=== PATIENT | female | born 1930 | race Caucasian/White ===

== ENCOUNTER 2017-04-16 21:02 | Emergency (ER) | payer MEDICARE, OTHER ==
--- NOTE | 2017-04-16 22:05 | C.PDOC ---
History Of Present Illness 86 yo female, hx of htn, presents with coker. as per pt, started yesterday. pt c/o of pain to frontal and occiput. did not take anything for pain. no fevers, or other complaints. Time Seen by Provider: 04/16/17 21:54 Chief Complaint (Nursing): Headache Past Medical History Reviewed: Historical Data, Nursing Documentation, Vital Signs Vital Signs: Last Vital Signs Temp 97.7 F 04/16/17 23:41 Pulse 88 04/16/17 23:41 Resp 20 04/16/17 23:41 BP 155/62 H 04/16/17 23:41 Pulse Ox 97 04/17/17 00:18 - Medical History PMH: Arthritis, HTN, Hypercholesterolemia Family History: States: Unknown Family Hx - Social History Hx Alcohol Use: No Hx Substance Use: No - Immunization History Hx Tetanus Toxoid Vaccination: No Hx Influenza Vaccination: No Hx Pneumococcal Vaccination: No Review Of Systems Except As Marked, All Systems Reviewed And Found Negative. Neurological: Positive for: Headache Physical Exam - Physical Exam Appears: Well, No Acute Distress Skin: Normal Color, Warm, Dry Eye(s): bilateral: Normal Inspection, PERRL, EOMI Nose: Normal Throat: Normal Neck: Normal Cardiovascular: Rhythm Regular Respiratory: Normal Breath Sounds Gastrointestinal/Abdominal: Normal Exam Back: Normal Inspection Extremity: Normal ROM Neurological/Psych: Oriented x3, Normal Speech, Normal Cognition, Normal Cranial Nerves, No Cerebellar Signs, Normal Motor, Normal Sensation ED Course And Treatment - Laboratory Results Result Diagrams: 04/16/17 22:24 04/16/17 22:24 O2 Sat by Pulse Oximetry: 97 Disposition - Disposition Referrals: [facility] [Outside] [facility] [Outside] Mars Mackey MD [Staff Provider] - Disposition: HOME/ ROUTINE Disposition Time: 07:00 Condition: GOOD Additional Instructions: please follow up with your doctor. return to er with worsening symptoms or concerns. Instructions: Acute Headache (ED) - Clinical Impression Clinical Impression: Headache
[2017-04-16 22:27] LABS: BASO % 0.8 % (0.0-2.0); EOS % 0.2 % (0.0-4.0); HEMOGLOBIN 11.9 g/dL (11.0-16.0); LYMPH # 1.9 K/uL (1.0-4.3); LYMPH % 35.5 % (20.0-40.0); MEAN CELL VOLUME 87.8 fL (81.0-99.0); MEAN CORPUSCULAR HEMOGLOBIN 28.1 pg (27.0-31.0); MEAN PLATELET VOLUME 8.8 fL (7.2-11.7); MONO # 0.6 K/uL (0.0-0.8); MONO % 10.4 % (0.0-10.0); NEUT # 2.8 K/uL (1.8-7.0); NEUT % 53.1 % (50.0-75.0); NRBC % 0.1 % (0.0-2.0); RBC 4.23 Mil/uL (3.80-5.20); RED CELL DISTRIBUTION WIDTH 14.3 % (11.5-14.5); WHITE BLOOD COUNT 5.3 K/uL (4.8-10.8)
[2017-04-16 22:34] LABS: INR 0.9; PROTHROMBIN TIME 9.9 SECONDS (9.7-12.2)
[2017-04-16 22:37] LABS: ALB/GLOB RATIO 1.1 (1.0-2.1); AST/SGOT 32 U/L (14-36); GFR AFRICAN-AMERICAN > 60; GFR NON-AFRICAN AMERICAN > 60
[2017-04-16 22:38] LABS: ALT/SGPT 25 U/L (9-52); BLOOD UREA NITROGEN 14 mg/dL (7-17); CALCIUM 8.7 mg/dl (8.6-10.4)
[2017-04-16 23:13] LABS: SQUAMOUS EPITHIAL < 1 /hpf (0-5); URINE BACTERIA RARE (<OCC); URINE BILIRUBIN NEGATIVE (NEGATIVE); URINE BLOOD NEGATIVE (NEGATIVE); URINE CLARITY Clear (Clear); URINE COLOR Yellow (YELLOW); URINE GLUCOSE (UA) NORMAL (Normal); URINE LEUKOCYTE ESTERASE TRACE Leu/uL (Negative); URINE NITRATE NEGATIVE (NEGATIVE); URINE PROTEIN NEGATIVE (NEGATIVE); URINE UROBILINOGEN NORMAL mg/dL (0.2-1.0)
[2017-04-16 23:42] VITALS: BP 155/62; PULSE 88; RESP 20; TEMP 97.7
[2017-04-17 00:18] VITALS: O2SAT 97
--- NOTE | 2017-04-17 08:13 | CT ---
PROCEDURE: CT HEAD WITHOUT CONTRAST. HISTORY: Headache COMPARISON: None available. TECHNIQUE: Axial computed tomography images were obtained through the head/brain without intravenous contrast. Radiation dose: Total exam DLP = nine hundred mGy-cm. This CT exam was performed using one or more of the following dose reduction techniques: Automated exposure control, adjustment of the mA and/or kV according to patient size, and/or use of iterative reconstruction technique. FINDINGS: HEMORRHAGE: No intracranial hemorrhage. BRAIN: No mass effect or edema. Scattered focal lucencies in the subcortical and periventricular white matter suggestive for chronic microvascular ischemic change. Mild prominence of the ventricles and sulci compatible with mild atrophy. Punctate bilateral basal ganglia calcifications. Punctate hypodensity in the left basal ganglia suggestive for a prominent perivascular space versus small lacunar infarct. VENTRICLES: Unremarkable. No hydrocephalus. CALVARIUM: Unremarkable. PARANASAL SINUSES: Unremarkable as visualized. No significant inflammatory changes. MASTOID AIR CELLS: Unremarkable as visualized. No inflammatory changes. OTHER FINDINGS: Intracranial atherosclerotic calcifications. IMPRESSION: Chronic microvascular ischemic changes. Mild atrophy. If focal neurologic deficit persists, consider MRI. These findings were preliminarily reported at 10:44 p.m. 04/16/[address] Jason Saleh from [facility].
== END 2017-04-16 23:48 | disposition home or self-care (01) ==
LOC: C.ER 21:02
DX: R51 Headache (principal)

== ENCOUNTER 2017-06-21 02:54 | Inpatient (IN) | payer MEDICARE, OTHER ==
--- NOTE | 2017-06-21 03:20 | C.PDOC ---
History Of Present Illness patient states that about 2 hours ago developed palpitations with rapid heart rate. No chest pain, no shortness of breath. speaking in complete sentences. Time Seen by Provider: 06/21/17 03:20 Chief Complaint (Nursing): Palpitations History Per: Patient History/Exam Limitations: no limitations Onset/Duration Of Symptoms: Hrs Current Symptoms Are (Timing): Gone Associated Symptoms: Other (palpitations). denies: Chest Pain, Dyspnea, Dizziness Quality Of Symptoms: Rapid Heart Rate Severity: Moderate Pain Scale Rating Of: 4 Exacerbating Factor(s): Pos: None Recent travel outside of the [place]: No Additional History Per: Patient Past Medical History Reviewed: Historical Data, Nursing Documentation, Vital Signs Vital Signs: Last Vital Signs Temp 97.6 F 06/21/17 03:10 Pulse 81 06/21/17 03:10 Resp 20 06/21/17 03:10 BP 168/73 H 06/21/17 03:10 Pulse Ox 98 06/21/17 04:00 - Medical History PMH: Arthritis, HTN, Hypercholesterolemia Family History: States: No Known Family Hx - Social History Hx Alcohol Use: No Hx Substance Use: No - Immunization History Hx Tetanus Toxoid Vaccination: No Hx Influenza Vaccination: No Hx Pneumococcal Vaccination: No Review Of Systems Constitutional: Negative for: Fever, Chills Eyes: Negative for: Vision Change ENT: Negative for: Throat Pain Cardiovascular: Positive for: Palpitations. Negative for: Chest Pain Respiratory: Negative for: Shortness of Breath Gastrointestinal: Negative for: Nausea, Vomiting Genitourinary: Negative for: Dysuria Musculoskeletal: Negative for: Back Pain Skin: Negative for: Rash Neurological: Negative for: Weakness Psych: Negative for: Anxiety Physical Exam - Physical Exam Appears: Non-toxic, No Acute Distress Skin: Warm, Dry Head: Normacephalic Eye(s): bilateral: Normal Inspection Oral Mucosa: Moist Neck: Supple Chest: Symmetrical Cardiovascular: Rhythm Regular Respiratory: No Rales, No Rhonchi, No Wheezing Gastrointestinal/Abdominal: Soft Back: No CVA Tenderness Extremity: Bilateral: Atraumatic, No Pedal Edema, Normal Color And Temperature Pulses: Left Dorsalis Pedis: Normal, Right Dorsalis Pedis: Normal Neurological/Psych: Oriented x3, Normal Speech, Normal Cognition Gait: Steady ED Course And Treatment - Laboratory Results Result Diagrams: 06/21/17 03:35 06/21/17 03:35 ECG: Interpreted By Me, Viewed By Me ECG Rhythm: Sinus Rhythm (88), Nonspecific Changes O2 Sat by Pulse Oximetry: 98 Pulse Ox Interpretation: Normal - Radiology CXR Interpretation: No: Infiltrates, Fracture, Pnemothorax Disposition Discussed With Dr.: Carmela Casarez Comment: accepted the pt on her service and took over the care at 4:40 AM Doctor Will See Patient In The: Hospital Counseled Patient/Family Regarding: Studies Performed, Diagnosis - Disposition Disposition: HOSPITALIZED Disposition Time: 04:41 Condition: FAIR Forms: [employer] (Mongolian) - POA Present On Arrival: None - Clinical Impression Clinical Impression: Palpitations, Atrial arrhythmia Decision To Admit - Pt Status Changed To: Hospital Disposition Of: Inpatient - Admit Certification Admit to Inpatient:: After my assessment, the patient will require hospitalization for at least two midnights. This is because of the severity of symptoms shown, intensity of services needed, and/or the medical risk in this patient being treated as an outpatient. - InPatient: Physician Admission Certification: I certify that this patient requires 2 or more midnights of care for the following reason:: After my assessment, the patient will require hospitalization for at least two midnights. This is because of the severity of symptoms shown, intensity of services needed, and/or the medical risk in this patient being treated as an outpatient. - . Bed Request Type: Telemetry Admitting Physician: Carmela Casarez Patient Diagnosis: Palpitations, Atrial arrhythmia
[2017-06-21 03:40] LABS: BASO % 0.3 % (0.0-2.0); EOS % 0.1 % (0.0-4.0); HEMATOCRIT 35.6 % (34.0-47.0); LYMPH # 1.5 K/uL (1.0-4.3); LYMPH % 26.2 % (20.0-40.0); MEAN CELL VOLUME 88.3 fL (81.0-99.0); MEAN CORPUSCULAR HEMOGLOBIN 28.5 pg (27.0-31.0); MEAN CORPUSCULAR HGB CONC 32.3 g/dL (33.0-37.0); MONO # 0.4 K/uL (0.0-0.8); MONO % 6.6 % (0.0-10.0); NRBC % 0.1 % (0.0-2.0); RED CELL DISTRIBUTION WIDTH 15.2 % (11.5-14.5); WHITE BLOOD COUNT 5.6 K/uL (4.8-10.8)
[2017-06-21 03:45] LABS: INR 0.9
[2017-06-21 03:50] LABS: ALB/GLOB RATIO 1.2 (1.0-2.1); ALKALINE PHOSPHATASE 59 U/L (38-126); ALT/SGPT 30 U/L (9-52); AST/SGOT 34 U/L (14-36); BILIRUBIN,TOTAL 0.3 mg/dL (0.2-1.3); BLOOD UREA NITROGEN 21 mg/dL (7-17); CALCIUM 9.2 mg/dl (8.6-10.4); CARBON DIOXIDE 27 mmol/L (22-30); CHLORIDE 104 mmol/L (98-107); GFR AFRICAN-AMERICAN > 60; GLUCOSE,RANDOM 107 mg/dL (65-105); SODIUM 145 mmol/L (132-148); TOTAL PROTEIN 7.2 g/dL (6.3-8.3)
[2017-06-21 04:11] LABS: RBC URINE < 1 /hpf (0-3); URINE BILIRUBIN NEGATIVE (NEGATIVE); URINE BLOOD NEGATIVE (NEGATIVE); URINE COLOR Colorless (YELLOW); URINE GLUCOSE (UA) NORMAL (Normal); URINE KETONE NEGATIVE (NEGATIVE); URINE LEUKOCYTE ESTERASE NEG Leu/uL (Negative); URINE PROTEIN NEGATIVE (NEGATIVE); URINE UROBILINOGEN NORMAL mg/dL (0.2-1.0)
[2017-06-21 04:20] LABS: THYROID STIMULATING HORMONE 2.98 mIU/L (0.46-4.68)
[2017-06-21] MEDS: Aspirin 325 mg EC Tablets PO SCH (09:49)
[2017-06-21 11:07] VITALS: RESP 20
--- NOTE | 2017-06-21 13:00 | RAD ---
PROCEDURE: CHEST RADIOGRAPH, 1 VIEW HISTORY: chest pain COMPARISON: None available. FINDINGS: LUNGS: Clear. PLEURA: No pneumothorax or pleural fluid seen. CARDIOVASCULAR: Normal. OSSEOUS STRUCTURES: No significant abnormalities. VISUALIZED UPPER ABDOMEN: Normal. OTHER FINDINGS: None. IMPRESSION: No active disease.
--- NOTE | 2017-06-21 14:39 | CP.PCM.PN ---
Subjective - Date & Time of Evaluation Date of Evaluation: 06/21/17 Time of Evaluation: 13:30 - Subjective Subjective: H&P dictated #[id number] Objective - Vital Signs/Intake and Output Vital Signs (last 24 hours): Temp Pulse Resp BP Pulse Ox 97.9 F 63 20 136/67 100 06/21/17 07:24 06/21/17 11:06 06/21/17 11:06 06/21/17 11:06 06/21/17 11:06 - Medications Medications: Current Medications Amlodipine Besylate (Norvasc) 5 mg PO DAILY [facility] Last Admin: 06/21/17 09:49 Dose: 5 mg Aspirin (Ecotrin) 325 mg PO DAILY [facility] Last Admin: 06/21/17 09:49 Dose: 325 mg Atenolol (Tenormin) 25 mg PO DAILY [facility] Last Admin: 06/21/17 09:49 Dose: 25 mg Lisinopril (Zestril) 40 mg PO DAILY [facility] Last Admin: 06/21/17 09:49 Dose: 40 mg - Labs Labs: PT 10.2 SECONDS (9.7-12.2) 06/21/17 03:35 INR 0.9 06/21/17 03:35 APTT 32 SECONDS (21-34) 06/21/17 03:35
--- NOTE | 2017-06-22 01:05 | HP ---
CHIEF COMPLAINT: Multiple episodes of palpitations which happened yesterday for longer time. HISTORY OF PRESENT ILLNESS: Ms. Bobby Correia is an 86-year-old female with past medical history of hypertension, hyperlipidemia, osteoarthritis who has been following up with Dr. Neal as primary care physician, came into the ED with complaints of multiple episodes of palpitations which happened yesterday. All the history obtained from the patient via a Tajik speaking road freight brake coupler who is an RN. As per the patient, she has been in her usual state of health. Yesterday, she felt like her heart was racing without any other associated symptoms of chest pain, dizziness, diaphoresis, or shortness of breath. She claims that she is not anxious or nervous. She is not under any stress. The third episode lasted more than half an hour, which made her come to her emergency room. Since her arrival to the hospital, she is feeling better. Denies any further episodes of palpitations. She claims that she had one episode about 2 years ago and 2 years ago another episode. During those episodes, she was upset about something but yesterday, no other triggering factors as far as she could recall. Denied any headache, dizziness. Denied any chest pain, shortness of breath, or wheezing. Denied any nausea, vomiting, abdominal pain, diarrhea or constipation. Denied any urinary complaints. Denied any leg pains or leg swelling. Denied any other neurologic symptoms. PAST MEDICAL HISTORY: As described: Hypertension, hyperlipidemia, osteoarthritis. PAST SURGICAL HISTORY: Underwent hysterectomy, cataract surgery, and laser surgery. FAMILY HISTORY: Hyperlipidemia and CVA in the mother. Father from pneumonia. SOCIAL HISTORY: Denies smoking, alcohol or drug abuse. ALLERGIES: NO KNOWN DRUG ALLERGIES. PERSONAL HISTORY: She is a , retired, lives with her daughter. MEDICATIONS AT HOME: Include amlodipine 40 mg daily, lisinopril 40 mg daily, atenolol 25 mg daily. REVIEW OF SYSTEMS: As described in history of present illness. All other systems reviewed and were found to be negative. PHYSICAL EXAMINATION: GENERAL: Elderly female lying in bed, in no acute distress. VITAL SIGNS: Blood pressure 136/67, pulse 63, respiration 20, temperature 98 degrees Fahrenheit, O2 sat 100% on room air. HEENT: Pupils equal, round, and reacting to light and accommodation. Extraocular muscles intact. No icterus. No pallor. No oral thrush. No pharyngeal congestion. NECK: Supple. No JVD. No thyromegaly. CHEST: Moving equally bilaterally on respiration. LUNGS: Bilateral vesicular breath sounds. No wheezing, no rhonchi. CVS: S1 and S2 present and regular. ABDOMEN: Soft and nontender. Bowel sounds are present. No guarding. No rigidity. No rebound tenderness noted. MATERIAL CONTROL CLERK: Alert, awake, oriented x3. No focal deficit noted. EXTREMITIES: No edema. Palpable peripheral pulses. LABORATORY DATA: Labs done from ED WBC 5.6, hemoglobin 11.5, hematocrit 35.6, platelets 211. PT 10.2, INR 0.9, PTT 32. Sodium 145, potassium 4.0, chloride 104, bicarbonate 27, BUN 21, creatinine 0.7, glucose 107, calcium 9.2, total bilirubin 0.3, AST 34, ALT 30, alkaline phosphatase 59. Cardiac enzymes x2 negative. Total protein 7.2, albumin 3.9, triglycerides 51, cholesterol 141, LDL 71, HDL 51, TSH 2.98. UA specific gravity 1.002, pH 6.0, otherwise negative. EKG, normal sinus rhythm at 88 beats per minute, left axis deviation. No acute ST-T changes noted. Chest x-ray, negative for any active disease. ASSESSMENT: Elderly female with history of hypertension, hyperlipidemia, osteoarthritis, admitted for multiple episodes of palpitations, nonsustained. The patient is being admitted for further evaluation. 1. Multiple episodes of palpitations in a patient with multiple risk factors, rule out cardiac arrhythmias, rule out coronary artery disease. 2. Hypertension. Blood pressure is slightly uncontrolled. 3. Hyperlipidemia. 4. Hypothyroidism. PLAN: The patient is being admitted to telemetry. We will do serial cardiac enzymes, serial EKGs. We will check echocardiogram. We will check Holter monitor. We will obtain Cardiology evaluation with Dr. Hernandez. We will give aspirin 325 mg p.o. daily. Continue with her home medications. Adjust her blood pressure medication as needed. Her TSH is within normal limits. Lipid profile is within normal limits. We will repeat labs in a.m. We will add further recommendations as her clinical course progresses. Carmela Casarez MD
[2017-06-22 08:35] VITALS: PULSE 52
--- NOTE | 2017-06-22 10:53 | CON ---
CARDIOLOGY CONSULT REQUESTED BY: Carmela Casarez MD LOCATION: Presently in telemetry, in room 651A. HISTORY OF PRESENT ILLNESS: Requested to see this 86-year-old female due to "palpitations." Last night on her way to bed, as she was walking, she felt the heart was beating fast lying in the bed, and she was afraid, came to the emergency room, and she was found to be hemodynamically stable, in no acute distress. However, due to age and the history, she was admitted for further evaluation. She denies any chest discomfort. No shortness of breath, no diaphoresis, no syncope. PAST MEDICAL HISTORY: Includes hypertensive heart disease for many many years, she claims about 30 years. MEDICATIONS: She is taking multiple medications which include lisinopril, atenolol, amlodipine as well 5 mg. ALLERGIES: SHE CLAIMS TO HAVE NO ALLERGIES TO MEDICATIONS. SOCIAL HISTORY: She is a nonsmoker. PAST SURGICAL HISTORY: Her only surgical history was tubal ligation. REVIEW OF SYSTEMS: From the cardiopulmonary view point except for what is mentioned above, otherwise negative. and GI, unremarkable. She walks in house, and she uses a cane for because she has chronic pain in the right leg, other than that she is fine according to her. PHYSICAL EXAMINATION GENERAL: Alert, oriented, in no distress whatsoever. VITAL SIGNS: Stable on arrival. The blood pressure systolic mildly elevated, around 170 systolic, as expected because she was under stress, however, right now is 136/67, continued cardiac monitoring via telemetry shows sinus rhythm. Two electrocardiograms done and normal for her age essentially. She is afebrile and respiratory rate is unremarkable. SKIN: Warm and dry. No cyanosis or edema. EARS, NOSE, AND THROAT: Unremarkable for her age. NECK: Supple. No lymphadenopathy or thyromegaly. CHEST: Symmetrical expansion. CARDIOVASCULAR: Jugular veins and carotids normal. Precordium is unremarkable. No thrill. Auscultation reveal heart sounds normal in intensity, regular. Minimal systolic murmur, basically not issue. LUNGS: Totally clear to auscultation. ABDOMEN: Mildly obese, soft. No localized tenderness. SENIOR PLANNING MANAGER: Alert, oriented. No focal deficit. LABORATORY DATA: Complementary data available so far, the CBC, comprehensive metabolic profile, two troponins, potassium, and TSH as well as urinalysis, all basically unremarkable for this lady's age. Chest x-ray, no acute pathology. Cardiac silhouette does not appear to be enlarged even for portable view. The portable AP, unremarkable. Two electrocardiograms normal for her age. IMPRESSION: "Palpitation," may be some benign atrial arrhythmias, apparently not documented, may have been just sinus tachycardia. She was walking to her bed, otherwise unremarkable at this point in time. Hypertension by history. Presently, cardiologically appears totally stable. I do not see at this point in time the reason for any further cardiological investigations. The Holter could be done on her way home. There is no need to put a Holter while she is on telemetry, will be best used as an outpatient. Obviously, when compared to the present treatment by Dr. Casarez, it is optimal and to return to her physician when she is out of here, hopefully no later than tomorrow. Chris Hernandez MD
[2017-06-22] MEDS: Aspirin 325 mg EC Tablets PO SCH (11:02)
--- NOTE | 2017-06-22 12:37 | CARD ---
APPROVED REPORT EKG Measurement Heart [id number] <Conclusion> Normal sinus rhythm Left axis deviation Abnormal ECG
--- NOTE | 2017-06-22 12:37 | CARD ---
APPROVED REPORT EKG Measurement Heart [id number] <Conclusion> Normal sinus rhythm with sinus arrhythmia Left axis deviation Abnormal ECG
--- NOTE | 2017-06-22 13:24 | CP.PCM.PN ---
Subjective - Date & Time of Evaluation Date of Evaluation: 06/22/17 Time of Evaluation: 12:50 - Subjective Subjective: Discharge summary dictated #[id number] Objective - Vital Signs/Intake and Output Vital Signs (last 24 hours): Temp Pulse Resp BP Pulse Ox 97.3 F L 52 L 20 153/76 H 100 06/22/17 07:10 06/22/17 07:10 06/22/17 07:10 06/22/17 07:10 06/22/17 07:10 Intake and Output: 06/22/17 06/22/17 06:59 18:59 Intake Total 300 Balance 300 - Medications Medications: Current Medications Amlodipine Besylate (Norvasc) 5 mg PO DAILY [facility] Last Admin: 06/22/17 11:02 Dose: 5 mg Aspirin (Ecotrin) 325 mg PO DAILY [facility] Last Admin: 06/22/17 11:02 Dose: 325 mg Atenolol (Tenormin) 25 mg PO DAILY [facility] Last Admin: 06/22/17 11:02 Dose: 25 mg Heparin Sodium (Porcine) (Heparin) 5,000 units SC Q12 [facility] Last Admin: 06/22/17 11:02 Dose: 5,000 units Lisinopril (Zestril) 40 mg PO DAILY [facility] Last Admin: 06/22/17 11:02 Dose: 40 mg - Labs Labs: PT 10.2 SECONDS (9.7-12.2) 06/21/17 03:35 INR 0.9 06/21/17 03:35 APTT 32 SECONDS (21-34) 06/21/17 03:35
--- NOTE | 2017-06-22 13:36 | CARD ---
APPROVED REPORT EXAM: Two-dimensional and M-mode echocardiogram with Doppler and color Doppler. Other Information Quality : GoodRhythm : INDICATION Abnormal EKG/Arrhythmia Palpitations RISK FACTORS Hypertension 2D DIMENSIONS IVSd1.0 (0.7-1.1cm)LVDd4.6 (3.9-5.9cm) PWd0.9 (0.7-1.1cm)LVDs2.6 (2.5-4.0cm) FS (%) 41.8 %LVEF (%)72.8 (>50%) M-Mode DIMENSIONS Left Atrium (MM)3.50 (2.5-4.0cm)Aortic Root3.06 (2.2-3.7cm) Aortic Cusp Exc.2.08 (1.5-2.0cm) Mitral Valve MV E Qtkiqlwp195.9cm/sMV A Jjlqvkpc181.4cm/sE/A ratio0.9 TDI E/Lateral E'0.0E/Medial E'0.0 Tricuspid Valve TR Peak Mvlvuixw433rr/sTR Peak Gr.40zjHvGIUA25qiWx LEFT VENTRICLE The left ventricle is normal size. There is normal left ventricular wall thickness. Left ventricle systolic function is normal. The Ejection Fraction is 65-70%. There is normal LV segmental wall motion. Transmitral Doppler flow pattern is Grade I-abnormal relaxation pattern. There is no ventricular septal defect visualized. RIGHT VENTRICLE The right ventricle is normal size. The right ventricular systolic function is normal. ATRIA The left atrium is mildly dilated. The right atrium size is normal. AORTIC VALVE The aortic valve is mildly sclerotic. The aortic valve is tri-cuspid. No aortic regurgitation is present. There is no aortic valvular stenosis. MITRAL VALVE The mitral valve is normal in structure. There is no evidence of mitral valve prolapse. Mitral regurgitation is trace to mild. TRICUSPID VALVE The tricuspid valve is normal in structure. There is trace tricuspid regurgitation. Right ventricular systolic pressure is estimated at 30-40 mmHg. There is mild pulmonary hypertension. PULMONIC VALVE The pulmonic valve is not well visualized. There is mild pulmonic valvular regurgitation. GREAT VESSELS The aortic root is normal in size. The IVC is normal in size and collapses >50% with inspiration. PERICARDIAL EFFUSION There is a small circumferential pericardial effusion. <Conclusion> Left ventricle systolic function is normal. The Ejection Fraction is 65-70%. Transmitral Doppler flow pattern is Grade I-abnormal relaxation pattern. Mitral regurgitation is trace to mild. There is mild pulmonary hypertension. There is a small circumferential pericardial effusion.
[2017-06-22 15:49] VITALS: BP 130/66; TEMP 97.8; O2SAT 97
--- NOTE | 2017-06-23 07:16 | DS ---
DISCHARGE DIAGNOSES: Palpitation, questionable etiology, hypertension, hyperlipidemia, and osteoarthritis. HISTORY OF PRESENT ILLNESS: The patient is an 86-year-old female with past medical history of hypertension, hyperlipidemia, osteoarthritis who has been following up with Dr. Neal who came into the ED with multiple episodes of palpitations which happened yesterday. She felt like her heart was racing and the patient felt better after the ED and the patient is being admitted for further management and observation. Today, the patient is feeling much better. Denies any headache, dizziness. Denies any chest pain, shortness of breath or wheezing. Denies any nausea, vomiting, abdominal pain, diarrhea, or constipation. Denies any urinary complaints. Denies any leg pains or leg cramps. Denies any other neurologic symptoms. All other systems reviewed and were found to be negative. Denies any palpitations. PHYSICAL EXAMINATION: GENERAL: Elderly female, lying in bed, in no acute distress. VITAL SIGNS: Blood pressure 153/76, pulse 52, respirations 20, temperature 97.3 degrees Fahrenheit, O2 sat is 100% on 2 L nasal cannula. HEENT: Pupils equal, round, and reacting to light and accommodation. Extraocular muscles intact. No icterus. No pallor. No oral thrush. No pharyngeal congestion. No nasal congestion. NECK: Supple. No JVD. No thyromegaly. CHEST: Moving equally bilaterally on respiration. LUNGS: Bilateral vesicular breath sounds. No wheezing, no rhonchi. CVS: S1 and S2 present and regular. ABDOMEN: Soft and nontender. Bowel sounds are present. No guarding. No rigidity. No rebound tenderness noted. CENTRAL NERVOUS SYSTEM: Alert, awake, oriented x3. No focal deficits noted. EXTREMITIES: No edema. Palpable peripheral pulses. LABORATORY DATA: Labs done from yesterday; WBC 5.6, hemoglobin 11.5, hematocrit 35.6, platelets are 211. PT 10.2, INR 0.9, PTT 32. Sodium 145, potassium 4.0, chloride 104, bicarbonate 27, BUN 21, creatinine 0.7, glucose 107, calcium 9.2, AST 34, ALT 30, alkaline phosphatase 59. Cardiac enzymes x3 negative. Triglycerides 51, cholesterol 141, LDL 71, HDL 51, TSH 2.98. UA; specific gravity 1.008, otherwise negative. Echocardiogram consistent with normal LV systolic function, ejection fraction 65%-70%, grade 1 abnormal relaxation pattern, small circumferential pericardial effusion, mild pulmonary hypertension, mild regurgitation. Chest x-ray negative for an infiltrate. EKG consistent with normal sinus rhythm, left axis deviation. No acute ST-T changes. HOSPITAL COURSE: The patient was admitted to the hospital to rule out cardiac arrhythmia. The patient did not have any cardiac arrhythmia traced on the EKG. The patient's symptoms improved. The patient was started on aspirin and continued on her home medications. The patient is seen by Cardiology, underwent echocardiogram which was fairly okay for her age and the patient is cleared by Cardiology with Holter monitor today placed at the time of discharge. The patient to bring the Holter monitor back, advised the patient to follow up with PMD, Cardiology as outpatient for further cardiac management. Advised to follow up with Dr. Hernandez. The patient understands, communicated with the patient via a Chadian speaking creative services producer who is an RN who explained the patient the need for followup with Cardiology as outpatient. The patient understands and is willing to follow up with Cardiology. CONDITION UPON DISCHARGE: The patient is alert, awake, oriented x3 and hemodynamically stable at the time of discharge. DISCHARGE INSTRUCTIONS: Follow up with PMD, follow up with Cardiology. DISCHARGE DIET: Heart healthy, low sodium diet. ACTIVITY: As tolerated. Carmela Casarez MD
== END 2017-06-22 18:50 | disposition home or self-care (01) | DRG 310 ==
LOC: C.ER 02:54 → C.9E 04:39 → C.6T 11:00
PROVIDERS: ADMIT Internal Medicine; ATTEND Internal Medicine
DX: R00.2 Palpitations (principal); I11.9 Hypertensive heart disease without heart failure; E03.9 Hypothyroidism, unspecified; E78.5 Hyperlipidemia, unspecified; M19.90 Unspecified osteoarthritis, unspecified site; M79.604 Pain in right leg; Z79.899 Other long term (current) drug therapy

== ENCOUNTER 2017-06-24 07:23 | Inpatient (IN) | payer MEDICARE, OTHER ==
[2017-06-24 07:49] LABS: BASO % 0.6 % (0.0-2.0); EOS % 0.3 % (0.0-4.0); HEMATOCRIT 36.8 % (34.0-47.0); LYMPH # 1.8 K/uL (1.0-4.3); LYMPH % 28.8 % (20.0-40.0); MEAN CELL VOLUME 88.2 fL (81.0-99.0); MEAN CORPUSCULAR HEMOGLOBIN 29.1 pg (27.0-31.0); MEAN PLATELET VOLUME 8.8 fL (7.2-11.7); MONO # 0.6 K/uL (0.0-0.8); MONO % 9.5 % (0.0-10.0); RED CELL DISTRIBUTION WIDTH 15.1 % (11.5-14.5); WHITE BLOOD COUNT 6.1 K/uL (4.8-10.8)
--- NOTE | 2017-06-24 07:53 | C.PDOC ---
History Of Present Illness 86 year old female presents to the ED with complaints of intermittent episodes of palpitations and rapid heart beat. Patient was seen on 06/21/2017 for similar complaints, was admitted and then discharged. As per RN from patient's last visit, patient had a run of rapid heart rate in ED that "looked like A-fib " but it then stopped. She denies chest pain, shortness of breath, or numbness. Time Seen by Provider: 06/24/17 07:29 Chief Complaint (Nursing): Palpitations History Per: Patient History/Exam Limitations: no limitations Onset/Duration Of Symptoms: Days (began approximately three days ago ), Intermittent Episodes (intermittient paroxysmal episodes of A-fib) Current Symptoms Are (Timing): Better (when heart rate is normal, patient states she feels fine.) Associated Symptoms: denies: Nausea, Dyspnea, Diaphoresis, Syncope Recent travel outside of the [place]: No Additional History Per: Prior Records (Patient was seen on 06/21/2017 ) Past Medical History Reviewed: Historical Data, Nursing Documentation, Vital Signs Vital Signs: Last Vital Signs Temp 97.4 F L 06/24/17 15:00 Pulse 66 06/24/17 15:00 Resp 20 06/24/17 15:00 BP 143/69 06/24/17 15:00 Pulse Ox 97 06/24/17 15:00 - Medical History PMH: Arthritis, HTN, Hypercholesterolemia Family History: States: Unknown Family Hx - Social History Hx Alcohol Use: No Hx Substance Use: No - Immunization History Hx Tetanus Toxoid Vaccination: No Hx Influenza Vaccination: No Hx Pneumococcal Vaccination: No Review Of Systems Constitutional: Positive for: Weakness (generalized weakness ). Negative for: Fever, Chills Cardiovascular: Positive for: Palpitations. Negative for: Chest Pain Respiratory: Negative for: Cough, Shortness of Breath Gastrointestinal: Negative for: Nausea, Vomiting, Abdominal Pain Neurological: Negative for: Weakness, Numbness Physical Exam - Physical Exam Appears: Non-toxic, No Acute Distress Skin: Warm, Dry Head: Atraumatic, Normacephalic Eye(s): bilateral: Normal Inspection, PERRL, EOMI Oral Mucosa: Moist Neck: Supple Chest: Symmetrical, No Deformity Cardiovascular: Rhythm Regular Gastrointestinal/Abdominal: Soft, No Tenderness, No Distention, No Guarding, No Rebound Extremity: Normal ROM, No Tenderness, No Pedal Edema, No Calf Tenderness, Capillary Refill (good capillary refill, less than two seconds ), No Deformity, No Swelling Neurological/Psych: Oriented x3, Normal Speech, Normal Cognition, Normal Motor, Normal Sensation ED Course And Treatment - Laboratory Results Result Diagrams: 06/24/17 07:41 06/24/17 11:55 Lab Interpretation: No Acute Changes ECG: Interpreted By Me, Viewed By Me ECG Rhythm: Sinus Rhythm Rate From EC O2 Sat by Pulse Oximetry: 99 (room air ) Pulse Ox Interpretation: Normal - Radiology CXR: Interpreted by Me, Viewed By Me CXR Interpretation: Yes: No Acute Disease Progress Note: EKG, CXR, UA, and blood work were ordered. Treated with ASA. Patient had a short run of rapid arrythmia at rate of 140 BPM Reassessment Condition: Improved - Physician Consult Information Physician Contacted: Moshe Obrien Jr. Outcome Of Conversation: admit Disposition Discussed With Dr.: Moshe Obrien Jr. Doctor Will See Patient In The: Hospital - Disposition Disposition: HOSPITALIZED Disposition Time: 08:45 Condition: STABLE - POA Present On Arrival: None - Clinical Impression Clinical Impression: Chest pain, Palpitation - PA / BREAD DISTRIBUTOR / Resident Statement MD/DO has reviewed & agrees with the documentation as recorded. - Scribe Statement The provider has reviewed the documentation as recorded by the Scribe Rosy Bradley All medical record entries made by the Scribe were at my direction and personally dictated by me. I have reviewed the chart and agree that the record accurately reflects my personal performance of the history, physical exam, medical decision making, and the department course for this patient. I have also personally directed, reviewed, and agree with the discharge instructions and disposition. Decision To Admit - Pt Status Changed To: Hospital Disposition Of: Observation - . Bed Request Type: Telemetry Admitting Physician: Moshe Obrien Jr. Patient Diagnosis: Chest pain, Palpitation
[2017-06-24 07:56] LABS: CHLORIDE 108 mmol/L (98-107); SODIUM 144 mmol/L (132-148)
[2017-06-24 07:57] LABS: POTASSIUM 5.4 mmol/L (3.6-5.2)
[2017-06-24 07:58] LABS: GFR AFRICAN-AMERICAN > 60
[2017-06-24 07:59] LABS: ALB/GLOB RATIO 1.2 (1.0-2.1); ALKALINE PHOSPHATASE 49 U/L (38-126); ALT/SGPT 29 U/L (9-52); AST/SGOT 53 U/L (14-36); BILIRUBIN,TOTAL 0.7 mg/dL (0.2-1.3); BLOOD UREA NITROGEN 21 mg/dL (7-17); CARBON DIOXIDE 26 mmol/L (22-30); GLUCOSE,RANDOM 89 mg/dL (65-105); TOTAL PROTEIN 7.7 g/dL (6.3-8.3)
[2017-06-24 08:00] LABS: CALCIUM 8.5 mg/dl (8.6-10.4)
[2017-06-24 08:06] LABS: RBC URINE 1 /hpf (0-3); URINE BACTERIA RARE (<OCC); URINE BILIRUBIN NEGATIVE (NEGATIVE); URINE BLOOD 1+ (NEGATIVE); URINE COLOR Straw (YELLOW); URINE GLUCOSE (UA) NORMAL (Normal); URINE KETONE NEGATIVE (NEGATIVE); URINE LEUKOCYTE ESTERASE NEG Leu/uL (Negative); URINE PROTEIN NEGATIVE (NEGATIVE); URINE UROBILINOGEN NORMAL mg/dL (0.2-1.0); WBC URINE < 1 /hpf (0-5)
--- NOTE | 2017-06-24 08:31 | RAD ---
PROCEDURE: CHEST RADIOGRAPH, 1 VIEW HISTORY: Shortness of breath COMPARISON: 06/21/2017 FINDINGS: LUNGS: Mild venous congestion. PLEURA: No pneumothorax or pleural fluid seen. CARDIOVASCULAR: Tortuous ectatic aorta. Focal right paratracheal rounded area of consolidation again identified which may represent prominent vasculature. OSSEOUS STRUCTURES: Degenerative changes in the spine and shoulders. VISUALIZED UPPER ABDOMEN: Normal. OTHER FINDINGS: None. IMPRESSION: Mild venous congestion.
[2017-06-24 12:11] LABS: BLOOD UREA NITROGEN 18 mg/dL (7-17); CALCIUM 8.4 mg/dl (8.6-10.4); CARBON DIOXIDE 27 mmol/L (22-30); CHLORIDE 107 mmol/L (98-107); GFR AFRICAN-AMERICAN > 60; GLUCOSE,RANDOM 77 mg/dL (65-105); POTASSIUM 4.1 mmol/L (3.6-5.2); SODIUM 146 mmol/L (132-148)
--- NOTE | 2017-06-24 16:19 | CP.PCM.HP ---
History of Present Illness - History of Present Illness History of Present Illness: CC: "Dizziness" HPI: 86 year old female with past medical history of hypertension and hyerlipidemia presents to the emergency room for dizziness. Patient states she woke up this morning around 7:30am am to use the bathroom and when she walked back to her bed she felt dizzy and her legs felt weak. She was not able to get back into bed as she fell onto her knees. She denies hitting her head. She states her sister found her and helped her back into bed and called 911. Patient states she felt chest pain, palpitations earlier but currently in the emergency room she states it has subsided. She states she has leg swelling, and leg pain which causes her difficulty to walk. She states she uses a cane at home to walk. She states she currently has a bit of a headache. She denies change in appetite, denies change in vision, nausea, or vomiting. Patient states she had some shortness of breath when she arrived to the emergency room. PMD: Dr. Mcguire Past Medical History: Hypertension, hyperlipidemia, arthritis, anemia Surgical History: Tubal ligation Family History: Dad pass of pneumonia; Mom passed at the age of 90 due to heart disease Medications: 40mg Lisinopril PO daily, 5mg Amlodipine PO daily, 50mg Atenolol PO daily Allergies: NKDA Social History: Lives with sister; denies smoking, denies alcohol use, denies illicit drug use. Present on Admission - Present on Admission Any Indicators Present on Admission: No Review of Systems - Constitutional Constitutional: Headache. absent: Chills, Fever, Night Sweats - EENT Eyes: absent: Blurred Vision Nose/Mouth/Throat: absent: Nasal Congestion, Nasal Discharge, Sore Throat - Cardiovascular Cardiovascular: Dyspnea, Pedal Edema. absent: Chest Pain, Lightheadedness, Palpitations - Respiratory Respiratory: Dyspnea. absent: Cough - Gastrointestinal Gastrointestinal: absent: Abdominal Pain, Constipation, Diarrhea, Heartburn, Nausea, Vomiting - Genitourinary Genitourinary: absent: Dysuria, Hematuria - Musculoskeletal Musculoskeletal: Muscle Weakness - Neurological Neurological: Dizziness, Headaches, Weakness. absent: Numbness, Tingling - Psychiatric Psychiatric: absent: Anxiety Past Patient History - Past Medical History & Family History Past Medical History?: Yes - Past Social History Smoking Status: Never Smoked - CARDIAC Hx Hypercholesterolemia: Yes Hx Hypertension: Yes - PULMONARY Hx Respiratory Disorders: No - NEUROLOGICAL Hx Neurological Disorder: No - HEENT Hx HEENT Problems: No - RENAL Hx Chronic Kidney Disease: No - ENDOCRINE/METABOLIC Hx Endocrine Disorders: No - HEMATOLOGICAL/ONCOLOGICAL Hx Blood Disorders: No - INTEGUMENTARY Hx Dermatological Problems: No - MUSCULOSKELETAL/RHEUMATOLOGICAL Hx Arthritis: Yes Hx Falls: No - GASTROINTESTINAL Hx Gastrointestinal Disorders: No - GENITOURINARY/GYNECOLOGICAL Hx Genitourinary Disorders: No - PSYCHIATRIC Hx Substance Use: No - SURGICAL HISTORY Hx Surgeries: Yes Hx Hysterectomy: No Hx Tubal Ligation: Yes Other/Comment: "eye surgery" "occular implant" - ANESTHESIA Hx Anesthesia: Yes Hx Anesthesia Reactions: No Hx Malignant Hyperthermia: No Meds Allergies/Adverse Reactions: Allergies Allergy/AdvReac Type Severity Reaction Status Date / Time No Known Allergies Allergy Verified 06/21/17 03:19 Physical Exam - Constitutional Appears: No Acute Distress - Head Exam Head Exam: ATRAUMATIC, NORMAL INSPECTION, NORMOCEPHALIC - Eye Exam Eye Exam: EOMI, Normal appearance, PERRL Pupil Exam: NORMAL ACCOMODATION - ENT Exam ENT Exam: Mucous Membranes Moist - Respiratory Exam Respiratory Exam: Clear to Auscultation Bilateral, NORMAL BREATHING PATTERN. absent: Rales, Rhonchi, Wheezes, Stridor Additional comments: Patient on 2L of Nasal Cannula - Cardiovascular Exam Cardiovascular Exam: REGULAR RHYTHM, RRR, +S1, +S2. absent: JVD - GI/Abdominal Exam GI & Abdominal Exam: Normal Bowel Sounds, Soft. absent: Tenderness - Extremities Exam Extremities exam: Positive for: normal inspection, pedal pulses present. Negative for: pedal edema, tenderness - Neurological Exam Neurological exam: Alert, CN II-XII Intact, Oriented x3 - Expanded Neurological Exam Expanded Patient oriented to: person, place, time Cranial nerves: EOM's Intact: Normal Sensory exam: Lower Extremity Light Touch: Normal, Upper Extremity Light Touch: Normal Neuro motor strength exam: Left Upper Extremity: 5, Right Upper Extremity: 5, Left Lower Extremity: 5, Right Lower Extremity: 5 Coma Scale Eye Opening: SPONTANEOUS Coma Scale Motor Response: OBEYS COMMANDS Coma Scale Verbal: Oriented Coma Scale Total: 15 - Psychiatric Exam Psychiatric exam: Normal Affect, Normal Mood - Skin Skin Exam: Normal Color, Warm Results - Vital Signs Recent Vital Signs: Last Vital Signs Temp 97.4 F L 06/24/17 15:00 Pulse 66 06/24/17 15:00 Resp 20 06/24/17 15:00 BP 143/69 06/24/17 15:00 Pulse Ox 97 06/24/17 15:00 - Labs Result Diagrams: 06/24/17 07:41 06/24/17 11:55 Labs: Laboratory Results - last 24 hr 06/24/17 06/24/17 06/24/17 10:33 10:39 11:55 APTT 35 H Sodium Cancelled 146 Potassium Cancelled 4.1 Chloride Cancelled 107 Carbon Dioxide Cancelled 27 Anion Gap Cancelled 16 BUN Cancelled 18 H Creatinine Cancelled 0.6 L Est GFR ( Amer) Cancelled > 60 Est GFR (Non-Af Amer) Cancelled > 60 Random Glucose Cancelled 77 Calcium Cancelled 8.4 L Total Creatine Kinase CK-MB (Mass) Troponin I, Quant 06/24/17 13:48 APTT Sodium Potassium Chloride Carbon Dioxide Anion Gap BUN Creatinine Est GFR ( Amer) Est GFR (Non-Af Amer) Random Glucose Calcium Total Creatine Kinase 172 H CK-MB (Mass) 1.20 Troponin I, Quant < 0.0120 Assessment & Plan (1) Chest pain Assessment and Plan: -Aspirin 325mg given in the ED - Home medications started: - 5mg Norvasc PO daily - 25mg Atenolol PO daily - 40mg Lisinopril PO daily - Troponin x2 negative - f/u 3rd Troponin - ECHO (06/21): Left ventricle systolic function is normal; The ejection fraction is 65-70%; Transmitral doppler flow pattern is Grade I-abnormal relaxation pattern. - EKG showed normal sinus rhythm - Chest X-ray: Mild venous Congestion - Lipid panel (06/13/17): Cholesterol 213; LDL 106; HDL 49; - Triglycerides (06/21/17): 51 - TSH (06/21/17): 2.98 - Cardiology Consult: Dr. Abraham --> help appreciated Status: Acute Priority: High
--- NOTE | 2017-06-24 23:12 | CP.PCM.CON ---
History of Present Illness - History of Present Illness History of Present Illness: Patient admitted for chest pain and dizziness CC: "Dizziness" HPI: 86 year old female with past medical history of hypertension and hyerlipidemia presents to the emergency room for dizziness. Patient states she woke up this morning around 7:30am am to use the bathroom and when she walked back to her bed she felt dizzy and her legs felt weak. She was not able to get back into bed as she fell onto her knees. She denies hitting her head. She states her sister found her and helped her back into bed and called 911. Patient states she felt chest pain, palpitations earlier but currently in the emergency room she states it has subsided. She states she has leg swelling, and leg pain which causes her difficulty to walk. She states she uses a cane at home to walk. She states she currently has a bit of a headache. She denies change in appetite, denies change in vision, nausea, or vomiting. Patient states she had some shortness of breath when she arrived to the emergency room. PMD: Dr. Mcguire Past Medical History: Hypertension, hyperlipidemia, arthritis, anemia Surgical History: Tubal ligation Family History: Dad pass of pneumonia; Mom passed at the age of 90 due to heart disease Medications: 40mg Lisinopril PO daily, 5mg Amlodipine PO daily, 50mg Atenolol PO daily Allergies: NKDA Social History: Lives with sister; denies smoking, denies alcohol use, denies illicit drug use. Present on Admission - Present on Admission Any Indicators Present on Admission: No Review of Systems - Constitutional Constitutional: Headache. absent: Chills, Fever, Night Sweats - EENT Eyes: absent: Blurred Vision Nose/Mouth/Throat: absent: Nasal Congestion, Nasal Discharge, Sore Throat - Cardiovascular Cardiovascular: Dyspnea, Pedal Edema. absent: Chest Pain, Lightheadedness, Palpitations - Respiratory Respiratory: Dyspnea. absent: Cough - Gastrointestinal Gastrointestinal: absent: Abdominal Pain, Constipation, Diarrhea, Heartburn, Nausea, Vomiting - Genitourinary Genitourinary: absent: Dysuria, Hematuria - Musculoskeletal Musculoskeletal: Muscle Weakness - Neurological Neurological: Dizziness, Headaches, Weakness. absent: Numbness, Tingling - Psychiatric Psychiatric: absent: Anxiety Physical Exam - Constitutional Appears: No Acute Distress - Head Exam Head Exam: ATRAUMATIC, NORMAL INSPECTION, NORMOCEPHALIC - Eye Exam Eye Exam: EOMI, Normal appearance, PERRL Pupil Exam: NORMAL ACCOMODATION - ENT Exam ENT Exam: Mucous Membranes Moist - Respiratory Exam Respiratory Exam: Clear to Auscultation Bilateral, NORMAL BREATHING PATTERN. absent: Rales, Rhonchi, Wheezes, Stridor Additional comments: Patient on 2L of Nasal Cannula - Cardiovascular Exam Cardiovascular Exam: REGULAR RHYTHM, RRR, +S1, +S2. absent: JVD - GI/Abdominal Exam GI & Abdominal Exam: Normal Bowel Sounds, Soft. absent: Tenderness - Extremities Exam Extremities exam: Positive for: normal inspection, pedal pulses present. Negative for: pedal edema, tenderness - Neurological Exam Neurological exam: Alert, CN II-XII Intact, Oriented x3 - Expanded Neurological Exam Expanded Patient oriented to: person, place, time Cranial nerves: EOM's Intact: Normal Sensory exam: Lower Extremity Light Touch: Normal, Upper Extremity Light Touch: Normal Neuro motor strength exam: Left Upper Extremity: 5, Right Upper Extremity: 5, Left Lower Extremity: 5, Right Lower Extremity: 5 Coma Scale Eye Opening: SPONTANEOUS Coma Scale Motor Response: OBEYS COMMANDS Coma Scale Verbal: Oriented Coma Scale Total: 15 - Psychiatric Exam Psychiatric exam: Normal Affect, Normal Mood - Skin Skin Exam: Normal Color, Warm Past Patient History - Past Medical History & Family History Past Medical History?: Yes - Past Social History Smoking Status: Never Smoked - CARDIAC Hx Hypercholesterolemia: Yes Hx Hypertension: Yes - PULMONARY Hx Respiratory Disorders: No - NEUROLOGICAL Hx Neurological Disorder: No - HEENT Hx HEENT Problems: No - RENAL Hx Chronic Kidney Disease: No - ENDOCRINE/METABOLIC Hx Endocrine Disorders: No - HEMATOLOGICAL/ONCOLOGICAL Hx Blood Disorders: No - INTEGUMENTARY Hx Dermatological Problems: No - MUSCULOSKELETAL/RHEUMATOLOGICAL Hx Arthritis: Yes Hx Falls: No - GASTROINTESTINAL Hx Gastrointestinal Disorders: No - GENITOURINARY/GYNECOLOGICAL Hx Genitourinary Disorders: No - PSYCHIATRIC Hx Substance Use: No - SURGICAL HISTORY Hx Surgeries: Yes Hx Hysterectomy: No Hx Tubal Ligation: Yes Other/Comment: "eye surgery" "occular implant" - ANESTHESIA Hx Anesthesia: Yes Hx Anesthesia Reactions: No Hx Malignant Hyperthermia: No Meds Home Medications: Home Medication List Medication Instructions Recorded Confirmed Type Lisinopril [Zestril] 40 mg PO DAILY #30 tab 09/15/17 Rx amLODIPine [Norvasc] 5 mg PO DAILY #30 tab 06/26/17 Rx Allergies/Adverse Reactions: Allergies Allergy/AdvReac Type Severity Reaction Status Date / Time soy Allergy Mild RASH Verified 06/26/17 20:43 - Medications Medications: Current Medications Amlodipine Besylate (Norvasc) 5 mg PO DAILY [facility] Last Admin: 06/24/17 11:37 Dose: 5 mg Atenolol (Tenormin) 25 mg PO DAILY [facility] Last Admin: 06/24/17 11:37 Dose: 25 mg Heparin Sodium (Porcine) (Heparin) 5,000 units SC Q12 [facility] Last Admin: 06/24/17 21:50 Dose: 5,000 units Lisinopril (Zestril) 40 mg PO DAILY [facility] Results - Vital Signs Recent Vital Signs: Last Vital Signs Temp 97.4 F L 06/24/17 15:00 Pulse 66 06/24/17 20:15 Resp 20 06/24/17 15:00 BP 143/69 06/24/17 15:00 Pulse Ox 99 06/24/17 17:39 - Labs Result Diagrams: 06/27/17 06:48 06/27/17 06:48 Labs: Laboratory Results - last 24 hr 06/24/17 06/24/17 06/24/17 10:33 10:39 11:55 APTT 35 H Sodium Cancelled 146 Potassium Cancelled 4.1 Chloride Cancelled 107 Carbon Dioxide Cancelled 27 Anion Gap Cancelled 16 BUN Cancelled 18 H Creatinine Cancelled 0.6 L Est GFR ( Amer) Cancelled > 60 Est GFR (Non-Af Amer) Cancelled > 60 Random Glucose Cancelled 77 Calcium Cancelled 8.4 L Total Creatine Kinase CK-MB (Mass) Troponin I, Quant 06/24/17 06/24/17 13:48 19:47 APTT Sodium Potassium Chloride Carbon Dioxide Anion Gap BUN Creatinine Est GFR ( Amer) Est GFR (Non-Af Amer) Random Glucose Calcium Total Creatine Kinase 172 H 156 H CK-MB (Mass) 1.20 0.93 Troponin I, Quant < 0.0120 < 0.0120 Assessment & Plan - Assessment and Plan (Free Text) Assessment: Assessment & Plan (1) Chest pain Assessment and Plan: -Aspirin 325mg given in the ED - Home medications started: - 5mg Norvasc PO daily - 25mg Atenolol PO daily - 40mg Lisinopril PO daily - Troponin x2 negative - f/u 3rd Troponin - ECHO (06/21): Left ventricle systolic function is normal; The ejection fraction is 65-70%; Transmitral doppler flow pattern is Grade I-abnormal relaxation pattern. - EKG showed normal sinus rhythm - Chest X-ray: Mild venous Congestion - Lipid panel (06/13/17): Cholesterol 213; LDL 106; HDL 49; - Triglycerides (06/21/17): 51 - TSH (06/21/17): 2.98 For stress test in am
[2017-06-25] MEDS ORDERED: Aminophylline 25 mg/ml Inj ONE (07:53)
[2017-06-25 07:59] LABS: BASO % 0.4 % (0.0-2.0); EOS % 0.3 % (0.0-4.0); HEMATOCRIT 33.3 % (34.0-47.0); LYMPH # 1.7 K/uL (1.0-4.3); LYMPH % 39.8 % (20.0-40.0); MEAN CELL VOLUME 88.5 fL (81.0-99.0); MEAN CORPUSCULAR HEMOGLOBIN 29.1 pg (27.0-31.0); MEAN CORPUSCULAR HGB CONC 32.9 g/dL (33.0-37.0); MEAN PLATELET VOLUME 9.2 fL (7.2-11.7); MONO # 0.5 K/uL (0.0-0.8); MONO % 11.4 % (0.0-10.0); NRBC % 0.1 % (0.0-2.0); WHITE BLOOD COUNT 4.3 K/uL (4.8-10.8)
[2017-06-25 08:17] LABS: CHLORIDE 109 mmol/L (98-107)
[2017-06-25 08:18] LABS: POTASSIUM 4.1 mmol/L (3.6-5.2); SODIUM 144 mmol/L (132-148)
[2017-06-25 08:20] LABS: GFR AFRICAN-AMERICAN > 60
[2017-06-25 08:21] LABS: ALKALINE PHOSPHATASE 44 U/L (38-126); ALT/SGPT 27 U/L (9-52); AST/SGOT 29 U/L (14-36); BILIRUBIN,TOTAL 0.5 mg/dL (0.2-1.3); BLOOD UREA NITROGEN 18 mg/dL (7-17); CARBON DIOXIDE 29 mmol/L (22-30)
[2017-06-25 08:22] LABS: CALCIUM 8.2 mg/dl (8.6-10.4); GLUCOSE,RANDOM 81 mg/dL (65-105); MAGNESIUM 2.3 mg/dL (1.6-2.3); PHOSPHOROUS 3.1 mg/dL (2.5-4.5)
--- NOTE | 2017-06-25 09:16 | CP.PCM.PN ---
<MelchorKika BartonTerry - Last Filed: 06/25/17 17:09> Subjective - Date & Time of Evaluation Date of Evaluation: 06/25/17 Time of Evaluation: 07:00 - Subjective Subjective: Medicine Progress Note: Patient was seen and examined at bedside in the AM. Patient denies chest pain, shortness of breath, palpitations, dizziness, lightheadedness, nausea or vomiting. Objective - Vital Signs/Intake and Output Vital Signs (last 24 hours): Temp Pulse Resp BP Pulse Ox 97.6 F 56 L 20 145/76 97 06/25/17 08:00 06/25/17 08:00 06/25/17 08:00 06/25/17 08:00 06/25/17 08:00 Intake and Output: 06/25/17 06/25/17 06:59 18:59 Intake Total 200 Balance 200 - Medications Medications: Current Medications Amlodipine Besylate (Norvasc) 5 mg PO DAILY [facility] Last Admin: 06/24/17 11:37 Dose: 5 mg Atenolol (Tenormin) 25 mg PO DAILY [facility] Last Admin: 06/24/17 11:37 Dose: 25 mg Heparin Sodium (Porcine) (Heparin) 5,000 units SC Q12 [facility] Last Admin: 06/24/17 21:50 Dose: 5,000 units Lisinopril (Zestril) 40 mg PO DAILY [facility] - Labs Labs: 06/25/17 07:42 06/25/17 07:42 APTT 35 SECONDS (21-34) H 06/24/17 10:39 - Constitutional Appears: No Acute Distress - Head Exam Head Exam: ATRAUMATIC, NORMAL INSPECTION, NORMOCEPHALIC - Eye Exam Eye Exam: EOMI, Normal appearance, PERRL Pupil Exam: NORMAL ACCOMODATION - ENT Exam ENT Exam: Mucous Membranes Moist - Respiratory Exam Respiratory Exam: Clear to Ausculation Bilateral, NORMAL BREATHING PATTERN - Cardiovascular Exam Cardiovascular Exam: REGULAR RHYTHM, RRR, +S1, +S2 - GI/Abdominal Exam GI & Abdominal Exam: Soft, Normal Bowel Sounds. absent: Tenderness - Extremities Exam Extremities Exam: Normal Inspection - Neurological Exam Neurological Exam: Alert, Awake, Oriented x3 - Psychiatric Exam Psychiatric exam: Normal Affect, Normal Mood - Skin Skin Exam: Normal Color, Warm Assessment and Plan (1) Chest pain Assessment & Plan: - Home medications continued: - 5mg Norvasc PO daily - 25mg Atenolol PO daily - 40mg Lisinopril PO daily - Troponin x3 negative - ECHO (06/21): Left ventricle systolic function is normal; The ejection fraction is 65-70%; Transmitral doppler flow pattern is Grade I-abnormal relaxation pattern. - EKG showed normal sinus rhythm - Chest X-ray: Mild venous Congestion - Lipid panel (06/13/17): Cholesterol 213; LDL 106; HDL 49; - Triglycerides (06/21/17): 51 - TSH (06/21/17): 2.98 - f/u Nuclear Stress Test - Cardiology Consult: Dr. Abraham --> help appreciated Status: Acute <Moshe Obrien Jr. - Last Filed: 06/29/17 10:10> Objective - Vital Signs/Intake and Output Vital Signs (last 24 hours): Temp Pulse Resp BP Pulse Ox 97.6 F 49 L 20 141/71 100 06/29/17 08:00 06/29/17 08:00 06/29/17 08:00 06/29/17 08:00 06/29/17 08:00 - Medications Medications: Current Medications Amiodarone HCl (Cordarone) 400 mg PO BID [facility] Last Admin: 06/28/17 17:58 Dose: 400 mg Amlodipine Besylate (Norvasc) 5 mg PO DAILY [facility] Last Admin: 06/28/17 11:33 Dose: 5 mg Enoxaparin Sodium (Lovenox) 60 mg SC Q12 [facility] Last Admin: 06/28/17 21:53 Dose: 60 mg Famotidine (Pepcid) 20 mg PO BID [facility] Last Admin: 06/28/17 17:58 Dose: 20 mg Lisinopril (Zestril) 40 mg PO DAILY [facility] Last Admin: 06/28/17 11:33 Dose: 40 mg - Labs Labs: 06/28/17 08:15 06/28/17 08:15 APTT 35 SECONDS (21-34) H 06/24/17 10:39 Attending/Attestation - Attestation I have personally seen and examined this patient.: Yes I have fully participated in the care of the patient.: Yes I have reviewed all pertinent clinical information, including history, physical exam and plan: Yes Notes (Text): 06/29/17 10:10 Agree with resident note and plan of care
--- NOTE | 2017-06-25 19:41 | CP.PCM.PN ---
Subjective - Date & Time of Evaluation Date of Evaluation: 06/25/17 Time of Evaluation: 19:40 - Subjective Subjective: Patient s/p Stress test No stress induced ischemia Normal EF Recent ECHO: No major abnormalities Cardiac point of stable for discharge F/U with me as out patient in 1 month Objective - Vital Signs/Intake and Output Vital Signs (last 24 hours): Temp Pulse Resp BP Pulse Ox 97.8 F 61 20 145/74 98 06/25/17 15:22 06/25/17 15:22 06/25/17 15:22 06/25/17 15:22 06/25/17 15:22 Intake and Output: 06/25/17 06/26/17 18:59 06:59 Intake Total 200 Balance 200 - Medications Medications: Current Medications Amlodipine Besylate (Norvasc) 5 mg PO DAILY [facility] Last Admin: 06/25/17 09:45 Dose: 5 mg Atenolol (Tenormin) 25 mg PO DAILY [facility] Last Admin: 06/25/17 09:45 Dose: 25 mg Heparin Sodium (Porcine) (Heparin) 5,000 units SC Q12 [facility] Last Admin: 06/25/17 09:45 Dose: 5,000 units Lisinopril (Zestril) 40 mg PO DAILY [facility] Last Admin: 06/25/17 09:45 Dose: 40 mg - Labs Labs: APTT 35 SECONDS (21-34) H 06/24/17 10:39
[2017-06-26 05:22] LABS: BASO # 0.1 K/uL (0.0-0.2); BASO % 1.1 % (0.0-2.0); EOS % 0.5 % (0.0-4.0); HEMATOCRIT 36.6 % (34.0-47.0); LYMPH % 47.3 % (20.0-40.0); MEAN CELL VOLUME 87.1 fL (81.0-99.0); MEAN CORPUSCULAR HEMOGLOBIN 28.8 pg (27.0-31.0); MEAN PLATELET VOLUME 8.8 fL (7.2-11.7); MONO # 0.6 K/uL (0.0-0.8); MONO % 9.3 % (0.0-10.0); NRBC % 0.1 % (0.0-2.0); WHITE BLOOD COUNT 6.4 K/uL (4.8-10.8)
[2017-06-26 05:28] LABS: CHLORIDE 108 mmol/L (98-107); POTASSIUM 4.5 mmol/L (3.6-5.2); SODIUM 141 mmol/L (132-148)
[2017-06-26 05:30] LABS: AST/SGOT 36 U/L (14-36); BILIRUBIN,TOTAL 0.5 mg/dL (0.2-1.3); CARBON DIOXIDE 26 mmol/L (22-30); GFR AFRICAN-AMERICAN > 60
[2017-06-26 05:31] LABS: ALB/GLOB RATIO 1.1 (1.0-2.1); ALKALINE PHOSPHATASE 48 U/L (38-126); ALT/SGPT 30 U/L (9-52); BLOOD UREA NITROGEN 20 mg/dL (7-17); CALCIUM 8.8 mg/dl (8.6-10.4); GLUCOSE,RANDOM 79 mg/dL (65-105); MAGNESIUM 2.1 mg/dL (1.6-2.3); PHOSPHOROUS 3.6 mg/dL (2.5-4.5); TOTAL PROTEIN 6.7 g/dL (6.3-8.3)
--- NOTE | 2017-06-26 18:03 | CP.PCM.DIS ---
Provider - Provider Date of Admission: 06/25/17 09:14 Attending physician: Moshe Obrien Jr, MD Primary care physician: Dr. Mcguire Consults: Dr. Abraham Time Spent in preparation of Discharge (in minutes): 45 Diagnosis - Discharge Diagnosis (1) Chest pain Status: Acute Priority: High (2) Hypertension Status: Chronic Hospital Course - Lab Results Lab Results: Most Recent Lab Values WBC 6.4 K/uL (4.8-10.8) 06/26/17 05:17 RBC 4.20 Mil/uL (3.80-5.20) 06/26/17 05:17 Hgb 12.1 g/dL (11.0-16.0) 06/26/17 05:17 Hct 36.6 % (34.0-47.0) 06/26/17 05:17 MCV 87.1 fL (81.0-99.0) 06/26/17 05:17 MCH 28.8 pg (27.0-31.0) 06/26/17 05:17 MCHC 33.0 g/dL (33.0-37.0) 06/26/17 05:17 RDW 15.0 % (11.5-14.5) H 06/26/17 05:17 Plt Count 218 K/uL (130-400) 06/26/17 05:17 MPV 8.8 fL (7.2-11.7) 06/26/17 05:17 Neut % (Auto) 41.8 % (50.0-75.0) L 06/26/17 05:17 Lymph % (Auto) 47.3 % (20.0-40.0) H 06/26/17 05:17 [place] % (Auto) 9.3 % (0.0-10.0) 06/26/17 05:17 Eos % (Auto) 0.5 % (0.0-4.0) 06/26/17 05:17 Baso % (Auto) 1.1 % (0.0-2.0) 06/26/17 05:17 Neut # 2.7 K/uL (1.8-7.0) 06/26/17 05:17 Lymph # 3.0 K/uL (1.0-4.3) 06/26/17 05:17 [place] # 0.6 K/uL (0.0-0.8) 06/26/17 05:17 Eos # 0.0 K/uL (0.0-0.7) 06/26/17 05:17 Baso # 0.1 K/uL (0.0-0.2) 06/26/17 05:17 APTT 35 SECONDS (21-34) H 06/24/17 10:39 Sodium 141 mmol/L (132-148) 06/26/17 05:17 Potassium 4.5 mmol/L (3.6-5.2) 06/26/17 05:17 Chloride 108 mmol/L (98-107) H 06/26/17 05:17 Carbon Dioxide 26 mmol/L (22-30) 06/26/17 05:17 Anion Gap 12 (10-20) 06/26/17 05:17 BUN 20 mg/dL (7-17) H 06/26/17 05:17 Creatinine 0.8 MG/DL (0.7-1.2) 06/26/17 05:17 Est GFR ( Amer) > 60 06/26/17 05:17 Est GFR (Non-Af Amer) > 60 06/26/17 05:17 Random Glucose 79 mg/dL (65-105) 06/26/17 05:17 Calcium 8.8 mg/dl (8.6-10.4) 06/26/17 05:17 Phosphorus 3.6 mg/dL (2.5-4.5) 06/26/17 05:17 Magnesium 2.1 mg/dL (1.6-2.3) 06/26/17 05:17 Total Bilirubin 0.5 mg/dL (0.2-1.3) 06/26/17 05:17 AST 36 U/L (14-36) D 06/26/17 05:17 ALT 30 U/L (9-52) 06/26/17 05:17 Alkaline Phosphatase 48 U/L (38-126) 06/26/17 05:17 Total Creatine Kinase 105 U/L (30-135) 06/26/17 06:06 CK-MB (Mass) 0.50 ng/mL (0.0-3.38) 06/26/17 06:06 Troponin I < 0.0120 ng/mL (0.00-0.120) 06/24/17 07:41 Troponin I, Quant < 0.0120 ng/mL (0.00-0.120) 06/26/17 06:06 Total Protein 6.7 g/dL (6.3-8.3) 06/26/17 05:17 Albumin 3.5 g/dL (3.5-5.0) 06/26/17 05:17 Globulin 3.1 gm/dL (2.2-3.9) 06/26/17 05:17 Albumin/Globulin Ratio 1.1 (1.0-2.1) 06/26/17 05:17 Urine Color Straw (YELLOW) 06/24/17 07:58 Urine Clarity Clear (Clear) 06/24/17 07:58 Urine pH 7.0 (5.0-8.0) 06/24/17 07:58 [address] [place] 1.004 (1.003-1.030) 06/24/17 07:58 Urine Protein Negative mg/dL (NEGATIVE) 06/24/17 07:58 Urine Glucose (UA) Normal mg/dL (Normal) 06/24/17 07:58 Urine Ketones Negative mg/dL (NEGATIVE) 06/24/17 07:58 Urine Blood 1+ (NEGATIVE) H 06/24/17 07:58 Urine Nitrate Negative (NEGATIVE) 06/24/17 07:58 Urine Bilirubin Negative (NEGATIVE) 06/24/17 07:58 Urine Urobilinogen Normal mg/dL (0.2-1.0) 06/24/17 07:58 Ur Leukocyte Esterase Neg Noel/uL (Negative) 06/24/17 07:58 Urine WBC (Auto) < 1 /hpf (0-5) 06/24/17 07:58 Urine RBC (Auto) 1 /hpf (0-3) 06/24/17 07:58 Ur Squamous Epith Cells < 1 /hpf (0-5) 06/24/17 07:58 Urine Bacteria Rare (<OCC) 06/24/17 07:58 - Hospital Course Hospital Course: "CC: "Dizziness" HPI: 86 year old female with past medical history of hypertension and hyerlipidemia presents to the emergency room for dizziness. Patient states she woke up this morning around 7:30am am to use the bathroom and when she walked back to her bed she felt dizzy and her legs felt weak. She was not able to get back into bed as she fell onto her knees. She denies hitting her head. She states her sister found her and helped her back into bed and called 911. Patient states she felt chest pain, palpitations earlier but currently in the emergency room she states it has subsided. She states she has leg swelling, and leg pain which causes her difficulty to walk. She states she uses a cane at home to walk. She states she currently has a bit of a headache. She denies change in appetite, denies change in vision, nausea, or vomiting. Patient states she had some shortness of breath when she arrived to the emergency room. " Hospital course: Patient admitted for chest pain, r/o ACS. Patient continued on home medications : 5mg Norvasc PO daily, 25mg Atenolol PO daily, 40mg Lisinopril PO daily. Patient's pulse was often low in the 50s so Atenolol discontinued. Patient to not take atenolol at home. Troponin x3 were negative. ECHO (06/21) showed left ventricle systolic function is normal; The ejection fraction is 65-70%; Transmitral doppler flow pattern is Grade I-abnormal relaxation pattern. EKG showed normal sinus rhythm. Chest X- ray showed mild venous congestion. Lipid panel (06/13/17): Cholesterol 213; LDL 106; HDL 49; Triglycerides (06/21/17) 51. TSH (06/21/17) was 2.98. Stress test was done with Dr. Abraham which showed no stress induced ischemia and normal EF. Patient cleared for discharge by Dr. Abraham and Dr. Obrien. Patient to follow up with Dr. Abraham in one month. This is a summary of the patient's hospital course. Please see chart for details. Discharge Exam - Head Exam Head Exam: ATRAUMATIC, NORMAL INSPECTION, NORMOCEPHALIC Discharge Plan - Discharge Medications Prescriptions: amLODIPine [Norvasc] 5 mg PO DAILY #30 tab Lisinopril [Zestril] 40 mg PO DAILY #30 tab - Follow Up Plan Condition: STABLE Disposition: HOME/ ROUTINE Instructions: Chest Pain (ED), Palpitations (ED) Additional Instructions: Patient cleared for discharge as per Dr. Obrien. Patient to stop taking atenolol. Patient to continue taking Norvasc 5 mg po daily and Lisinopril 40 mg po daily and aspirin 81 mg po daily. Patient to follow up with Dr. Abraham in 1 month. If symptoms return patient should return to Emergency Room. Patient explained instructions who understands and agrees. Referrals: Marcello Abraham MD [Staff Provider] -
--- NOTE | 2017-06-26 18:44 | PCM.RRT ---
<UgoShane quijanorowdy Alvarenga - Last Filed: 06/26/17 19:22> Attending/Attestation - Attestation I have personally seen and examined this patient.: Yes I have fully participated in the care of the patient.: Yes I have reviewed all pertinent clinical information, including history, physical exam and plan: Yes Notes (Text): Brief Hospitalist Note: Patient seen, examined at bedside. Nurse called for chest pain. Patient on telemetry: patient varies 60-200s on the monitor. Two EKGs were taken: 1) EKG tacycardia irregular hr 151 and follow-up EKG NSR 69. patient converted on her own. Discussed with cardiology, recommended for patient to take her Atenolol that she did not take this morning and Aspirin. Patient's repeat chest xray appears better than from 06/24 but has abnormality noted right upper thoracic. Discussed with cardiology, recommended for KALA tonight and tomorrow and observe overnight. Cardiology will speak with patient's outpatient cardiology, Dr Shrestha for further details. Spoke with Dr. Obrien, given possibility for sick sinus syndrome-->TSH drawn tonight; LFTs are normal, will speak with cardiology regarding amiodarone. <Yumiko Ontiveros - Last Filed: 06/26/17 20:24> AUTOMOTIVE PRODUCT SPECIALIST Nurses Assessment - Situation AUTOMOTIVE PRODUCT SPECIALIST Responder Arrival Time: 18:30 I.Reason for AUTOMOTIVE PRODUCT SPECIALIST - A) Acute Change in Patient: (Select all that apply): Acute change in heart rate less than 50 or greater than 120 (with chest pain) Subjective: Rapid response was called at 18:30 for chest pain and rapid heart rate. Upon arrival the pts HR was ranging from the 160's-180's. Pt has a history of HTN, atrial arrhythmia, HLD and chest pain. Plan - Assessment of Findings&Treatment Plan Vitals on arrival: HR 160-180 RR 24 BP 116/89 First EKG: tacycardia irregular hr 151 Second EKG: NSR 69 (patient converted on her own) Patient continued to have heart rate jumping between 60s to 200. Patient O2 sat 98%. Patient did not have her beta candida today per nursing - discussed with cardio who recommended giving the beta candida so her atenolol dose was given with aspirin 325 mg. KALA ordered for now and for 00:45 on 06/27. CXR was imporved from previous but showed RUL consolidation so chest CT was ordered. Spoke with Dr. Obrien who recommends stopping atenolol and starting amiodarone. Ordered TSH. Patient doing well now and feeling much better. HR in 70s. Lungs CTA b/l.
[2017-06-26 20:32] LABS: THYROID STIMULATING HORMONE 2.62 mIU/L (0.46-4.68)
--- NOTE | 2017-06-26 20:44 | CARD ---
APPROVED REPORT EKG Measurement Heart [id number] [place] [id number] <Conclusion> Normal sinus rhythm Left axis deviation Abnormal ECG
--- NOTE | 2017-06-26 20:44 | CARD ---
APPROVED REPORT EKG Measurement Heart [id number] [place] 200P54 [id number] <Conclusion> Sinus rhythm with marked sinus arrhythmia svt Left axis deviation Abnormal ECG
--- NOTE | 2017-06-26 21:13 | RAD ---
EXAM: XR Chest, 1 View CLINICAL HISTORY: 86 years old, female; Pain; Chest pain; Other: Abnormal ekg; Additional info: Chest pain, abnormal ekg TECHNIQUE: Frontal view of the chest. COMPARISON: No relevant prior studies available. FINDINGS: Asymmetric soft tissue density within the superior mediastinum, for which comparison with prior imaging is needed. The remainder of the cardiomediastinal silhouette is otherwise unremarkable. The lungs are clear. No subdiaphragmatic free air or pneumothorax. The trachea is midline. IMPRESSION: No focal infiltrate or effusion. Asymmetric soft tissue density within the superior mediastinum, for which comparison with prior imaging is needed. Once prior images are available, comparison (and addendum) will be performed.
[2017-06-27 07:03] LABS: BASO % 0.5 % (0.0-2.0); EOS % 0.3 % (0.0-4.0); LYMPH # 2.1 K/uL (1.0-4.3); LYMPH % 37.4 % (20.0-40.0); MEAN CELL VOLUME 88.2 fL (81.0-99.0); MEAN CORPUSCULAR HEMOGLOBIN 28.9 pg (27.0-31.0); MEAN CORPUSCULAR HGB CONC 32.8 g/dL (33.0-37.0); MONO # 0.5 K/uL (0.0-0.8); MONO % 9.1 % (0.0-10.0); NRBC % 0.1 % (0.0-2.0); RED CELL DISTRIBUTION WIDTH 14.9 % (11.5-14.5); WHITE BLOOD COUNT 5.5 K/uL (4.8-10.8)
[2017-06-27 07:18] LABS: CHLORIDE 106 mmol/L (98-107)
[2017-06-27 07:19] LABS: POTASSIUM 4.4 mmol/L (3.6-5.2); SODIUM 142 mmol/L (132-148)
[2017-06-27 07:21] LABS: AST/SGOT 27 U/L (14-36); BILIRUBIN,TOTAL 0.5 mg/dL (0.2-1.3); CARBON DIOXIDE 28 mmol/L (22-30); GFR AFRICAN-AMERICAN > 60
[2017-06-27 07:22] LABS: ALB/GLOB RATIO 1.1 (1.0-2.1); ALKALINE PHOSPHATASE 44 U/L (38-126); ALT/SGPT 28 U/L (9-52); BLOOD UREA NITROGEN 23 mg/dL (7-17); CALCIUM 8.7 mg/dl (8.6-10.4); GLUCOSE,RANDOM 83 mg/dL (65-105); MAGNESIUM 1.9 mg/dL (1.6-2.3); PHOSPHOROUS 3.8 mg/dL (2.5-4.5); TOTAL PROTEIN 6.4 g/dL (6.3-8.3)
--- NOTE | 2017-06-27 08:26 | CP.PCM.PN ---
Subjective - Date & Time of Evaluation Date of Evaluation: 06/26/17 Time of Evaluation: 21:20 - Subjective Subjective: Events noted Patient s/p A fib with RVR spontaneously converted to NSR ?tachy Objective - Vital Signs/Intake and Output Vital Signs (last 24 hours): Temp Pulse Resp BP Pulse Ox 97.5 F L 83 20 120/69 100 06/27/17 07:26 06/27/17 07:26 06/27/17 07:26 06/27/17 07:26 06/27/17 07:26 Intake and Output: 06/27/17 06/27/17 06:59 18:59 Intake Total 300 Balance 300 - Medications Medications: Current Medications Amiodarone HCl (Cordarone) 400 mg PO BID [facility] Last Admin: 06/26/17 21:20 Dose: 400 mg Amlodipine Besylate (Norvasc) 5 mg PO DAILY [facility] Last Admin: 06/26/17 09:37 Dose: 5 mg Enoxaparin Sodium (Lovenox) 60 mg SC Q12 [facility] Famotidine (Pepcid) 20 mg PO BID [facility] Lisinopril (Zestril) 40 mg PO DAILY [facility] Last Admin: 06/26/17 09:37 Dose: 40 mg - Labs Labs: 06/27/17 06:48 06/27/17 06:48 APTT 35 SECONDS (21-34) H 06/24/17 10:39 - Head Exam Head Exam: ATRAUMATIC, NORMAL INSPECTION - Eye Exam Eye Exam: EOMI, PERRL - ENT Exam ENT Exam: Mucous Membranes Moist - Neck Exam Neck Exam: Full ROM, Normal Inspection - Respiratory Exam Respiratory Exam: Clear to Ausculation Bilateral, NORMAL BREATHING PATTERN - Cardiovascular Exam Cardiovascular Exam: REGULAR RHYTHM, +S1, +S2 - GI/Abdominal Exam GI & Abdominal Exam: Soft, Normal Bowel Sounds - Neurological Exam Neurological Exam: Alert, CN II-XII Intact, Oriented x3 - Psychiatric Exam Psychiatric exam: Normal Mood - Skin Skin Exam: Dry, Warm Assessment and Plan - Assessment and Plan (Free Text) Assessment: 1. Paraxysmal A Fib Sotalolo Vs. Amidorone Normal stress and ECHO 2. HTN Hx of recet pneumonia Due to high [id number] score recommend halfway anticoagulation Found out today that's patient's mechanical engineering technologist is Dr. Shrestha. Will contact their group for further cardiac mgt
[2017-06-27] MEDS: Enoxaparin 60 mg Syringe SC SCH ×2 (10:08→21:34)
--- NOTE | 2017-06-27 12:27 | CT ---
PROCEDURE: CT Chest without contrast HISTORY: abnormal CXR finding COMPARISON: None. TECHNIQUE: Contiguous axial images were obtained through the chest without intravenous contrast enhancement. Sagittal and coronal reconstructions were performed. Radiation dose (DLP): 412.46 mGy-cm. This CT exam was performed using one or more of the following dose reduction techniques: Automated exposure control, adjustment of the mA and/or kV according to patient size, and/or use of iterative reconstruction technique. FINDINGS: LUNGS: There is no evidence of pneumonia or mass lesion in the lungs. Mild hyperinflation of the lungs and mild emphysematous changes are noted. MEDIASTINUM: The thoracic aorta is slightly ectatic. No evidence of aneurysm. The heart is mildly to moderately enlarged. The main pulmonary artery is mildly enlarged. No lymphadenopathy. PLEURA: No pleural fluid. No pneumothorax. BONES: No fracture. No destructive lesion. UPPER ABDOMEN: No evidence of acute pathology. Low-attenuation cyst cyst seen at the left kidney. OTHER FINDINGS: None. IMPRESSION: No evidence of pneumonia or mass lesion in the lungs. Slightly prominent tortuous vessels at the right upper mediastinum which resulting in asymmetry in the upper mediastinal. [id number] cardiomegaly. Mildly enlarged main pulmonary artery. No evidence of mediastinal lymphadenopathy. Mild emphysema.
--- NOTE | 2017-06-27 23:53 | CP.PCM.PN ---
Subjective - Date & Time of Evaluation Date of Evaluation: 06/27/17 Time of Evaluation: 14:00 - Subjective Subjective: Patient seen and evaluated Now in NSR No complaints Awaiting rehab placement Review of Systems - Constitutional Constitutional: Headache. absent: Chills, Fever, Night Sweats - EENT Eyes: absent: Blurred Vision Nose/Mouth/Throat: absent: Nasal Congestion, Nasal Discharge, Sore Throat - Cardiovascular Cardiovascular: Dyspnea, Pedal Edema. absent: Chest Pain, Lightheadedness, Palpitations - Respiratory Respiratory: Dyspnea. absent: Cough - Gastrointestinal Gastrointestinal: absent: Abdominal Pain, Constipation, Diarrhea, Heartburn, Nausea, Vomiting - Genitourinary Genitourinary: absent: Dysuria, Hematuria - Musculoskeletal Musculoskeletal: Muscle Weakness - Neurological Neurological: Dizziness, Headaches, Weakness. absent: Numbness, Tingling - Psychiatric Psychiatric: absent: Anxiety Physical Exam - Constitutional Appears: No Acute Distress - Head Exam Head Exam: ATRAUMATIC, NORMAL INSPECTION, NORMOCEPHALIC - Eye Exam Eye Exam: EOMI, Normal appearance, PERRL Pupil Exam: NORMAL ACCOMODATION - ENT Exam ENT Exam: Mucous Membranes Moist - Respiratory Exam Respiratory Exam: Clear to Auscultation Bilateral, NORMAL BREATHING PATTERN. absent: Rales, Rhonchi, Wheezes, Stridor Additional comments: Patient on 2L of Nasal Cannula - Cardiovascular Exam Cardiovascular Exam: REGULAR RHYTHM, RRR, +S1, +S2. absent: JVD - GI/Abdominal Exam GI & Abdominal Exam: Normal Bowel Sounds, Soft. absent: Tenderness - Extremities Exam Extremities exam: Positive for: normal inspection, pedal pulses present. Negative for: pedal edema, tenderness - Neurological Exam Neurological exam: Alert, CN II-XII Intact, Oriented x3 - Expanded Neurological Exam Expanded Patient oriented to: person, place, time Cranial nerves: EOM's Intact: Normal Sensory exam: Lower Extremity Light Touch: Normal, Upper Extremity Light Touch: Normal Neuro motor strength exam: Left Upper Extremity: 5, Right Upper Extremity: 5, Left Lower Extremity: 5, Right Lower Extremity: 5 Coma Scale Eye Opening: SPONTANEOUS Coma Scale Motor Response: OBEYS COMMANDS Coma Scale Verbal: Oriented Coma Scale Total: 15 - Psychiatric Exam Psychiatric exam: Normal Affect, Normal Mood - Skin Skin Exam: Normal Color, Warm Objective - Vital Signs/Intake and Output Vital Signs (last 24 hours): Temp Pulse Resp BP Pulse Ox 97.6 F 57 L 20 108/61 97 06/27/17 14:00 06/27/17 22:00 06/27/17 14:00 06/27/17 22:00 06/27/17 14:00 Intake and Output: 06/27/17 06/28/17 18:59 06:59 Intake Total 240 Balance 240 - Medications Medications: Current Medications Amiodarone HCl (Cordarone) 400 mg PO BID [facility] Last Admin: 06/27/17 17:29 Dose: 400 mg Amlodipine Besylate (Norvasc) 5 mg PO DAILY [facility] Last Admin: 06/27/17 10:08 Dose: 5 mg Enoxaparin Sodium (Lovenox) 60 mg SC Q12 [facility] Last Admin: 06/27/17 21:34 Dose: 60 mg Famotidine (Pepcid) 20 mg PO BID [facility] Last Admin: 06/27/17 17:29 Dose: 20 mg Lisinopril (Zestril) 40 mg PO DAILY [facility] Last Admin: 06/27/17 10:08 Dose: 40 mg - Labs Labs: 06/27/17 06:48 06/27/17 06:48 APTT 35 SECONDS (21-34) H 06/24/17 10:39 Assessment and Plan - Assessment and Plan (Free Text) Assessment: 1. Episode of A Fib now NSR Resume patient's home medications Normal stress and ECHO 2. 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 Shrestha as out patient
[2017-06-28 08:28] LABS: BASO % 0.4 % (0.0-2.0); EOS % 0.2 % (0.0-4.0); HEMATOCRIT 32.8 % (34.0-47.0); LYMPH # 1.4 K/uL (1.0-4.3); LYMPH % 26.9 % (20.0-40.0); MEAN CORPUSCULAR HGB CONC 32.9 g/dL (33.0-37.0); MEAN PLATELET VOLUME 9.2 fL (7.2-11.7); MONO # 0.5 K/uL (0.0-0.8); MONO % 9.8 % (0.0-10.0); RED CELL DISTRIBUTION WIDTH 14.9 % (11.5-14.5)
[2017-06-28 08:33] LABS: CHLORIDE 106 mmol/L (98-107); SODIUM 140 mmol/L (132-148)
[2017-06-28 08:34] LABS: POTASSIUM 4.2 mmol/L (3.6-5.2)
[2017-06-28 08:35] LABS: GFR AFRICAN-AMERICAN > 60
[2017-06-28 08:36] LABS: ALB/GLOB RATIO 1.1 (1.0-2.1); ALKALINE PHOSPHATASE 42 U/L (38-126); ALT/SGPT 31 U/L (9-52); AST/SGOT 28 U/L (14-36); BILIRUBIN,TOTAL 0.4 mg/dL (0.2-1.3); BLOOD UREA NITROGEN 27 mg/dL (7-17); CARBON DIOXIDE 28 mmol/L (22-30); GLUCOSE,RANDOM 83 mg/dL (65-105)
[2017-06-28 08:37] LABS: CALCIUM 8.4 mg/dl (8.6-10.4); MAGNESIUM 1.9 mg/dL (1.6-2.3)
--- NOTE | 2017-06-28 10:09 | CARD ---
APPROVED REPORT Protocol: LEXISCAN Test Type: LEXISCAN STRESS Test Indications: CHEST PAIN Target HR: 134 bpm Resting Heart Rate: 54 bpm Resting Blood Pressure: 122/80mmHg submaximum (85%): 114 bpm TEST SUMMARY [id number].01:[id number]/80.0. INFUSIONDOSE 100:300.00.01.055/.0. [id number]/80.1. PROCEDURE Pharmacologic stress testing was performed using 0.4mg per 5ml of regadenoson given intravenously over 7-10 seconds. POST EXERCISE Reason for Termination: Lexiscan protocol completed Target HR: No Max HR: 55 bpm 67% of Maximum Predicted HR: 134 bpm Exercise duration: 00:30 min:sec, 0 Stage Exercise capacity: 1.0METs Max Blood Pressure: 122/80mmHg Blood Pressure response to exercise: normal resting BP - appropriate response Heart Rate response to exercise: appropriate Chest Pain: No, none Angina index: 0 Arrhythmia: No, none ST Change: No, none Deviation: 0 mm INTERPRETATION Stress EKG Conclusion: Nuclear report to follow EXAM: Myocardial Perfusion REST/STRESS Imaging Protocol The imaging protocol used to acquire images was Rest Tc-99m/stress Tc-99m 1 day Rest Spect myocardial perfusion imaging was performed in supine position 41 minutes following the injection of 13 mCi of Tc-99 Myoview. Gated Stress Spect was performed 40 minutes after intravenous 32.5 mCi Tc-99 Myoview injection. The images were gated to evaluate regional wall motion and calculate ventricular ejection fraction.Images were reconstructed using backfilter projection method in short horizontal and verticle long axis. Spect slices were generated. RESTING DATA EDV89.44wvLA6.80L/min ESV33.00mlMyocardial Fsid072.00g Av. Heart Rate50.00bpm EF63.00% STRESS DATA EDV91.17deRG3.70L/min ESV28.00mlMyocardial Barz027.00g EF69.00% Regional WT score at stress:0.00 Regional WM score at stress:0.00 Summed WT score at stress:0.00 Av. Heart Rate58.00bpmSummed WM score at stress:0.00 LV Perf. Quant 17 Seg. SSS5.00 17 Seg. SRS11.00 17 Seg. SDS0.00 Stress Defect Extent (% LAD)1.30Rest Defect Extent (% LAD)11.30Rev. Defect Extent (% LAD)0.00 Stress Defect Extent (% LCX)42.50Rest Defect Extent (% LCX)62.50Rev. Defect Extent (% LCX)0.00 Stress Defect Extent (% RCA)0.00Rest Defect Extent (% RCA)2.20Rev. Defect Extent (% RCA)0.00 Stress Defect Extent (% ALEN)10.90Rest Defect Extent (% ALEN)18.70Rev. Defect Extent (% ALEN)0.00 Other Information Quality:Fair IMPRESSION Normal Myocardial Perfusion exercise stress study Left Ventricle LV Size/Shape: The left ventricle is normal size. LV Function:Left ventricle systolic function is normal. The Ejection Fraction is >55%. Conclusion 1. No stress induced reversible perfusion defect. Normal EF. Normal lexiscan nuclear stress test.
[2017-06-28] MEDS: Enoxaparin 60 mg Syringe SC SCH ×2 (11:32→21:53)
--- NOTE | 2017-06-28 20:05 | CP.PCM.PN ---
<Lauren Sanchez - Last Filed: 06/28/17 20:03> Subjective - Date & Time of Evaluation Date of Evaluation: 06/28/17 Time of Evaluation: 07:00 - Subjective Subjective: PGY1-Medicine Progress Note- Dr. Obrien's Service Patient was seen and examined at bedside in the AM. Patient denies chest pain, shortness of breath, palpitations, dizziness, lightheadedness, nausea or vomiting. Objective - Vital Signs/Intake and Output Vital Signs (last 24 hours): Temp Pulse Resp BP Pulse Ox 97.7 F 55 L 20 103/64 100 06/28/17 15:32 06/28/17 19:25 06/28/17 15:32 06/28/17 15:32 06/28/17 15:32 Intake and Output: 06/28/17 06/29/17 18:59 06:59 Intake Total 400 Balance 400 - Medications Medications: Current Medications Amiodarone HCl (Cordarone) 400 mg PO BID [facility] Last Admin: 06/28/17 17:58 Dose: 400 mg Amlodipine Besylate (Norvasc) 5 mg PO DAILY [facility] Last Admin: 06/28/17 11:33 Dose: 5 mg Enoxaparin Sodium (Lovenox) 60 mg SC Q12 [facility] Last Admin: 06/28/17 11:32 Dose: 60 mg Famotidine (Pepcid) 20 mg PO BID [facility] Last Admin: 06/28/17 17:58 Dose: 20 mg Lisinopril (Zestril) 40 mg PO DAILY [facility] Last Admin: 06/28/17 11:33 Dose: 40 mg - Labs Labs: 06/28/17 08:15 06/28/17 08:15 APTT 35 SECONDS (21-34) H 06/24/17 10:39 - Constitutional Appears: Non-toxic, No Acute Distress - Head Exam Head Exam: ATRAUMATIC, NORMAL INSPECTION, NORMOCEPHALIC - Eye Exam Eye Exam: EOMI, Normal appearance - ENT Exam ENT Exam: Mucous Membranes Moist - Neck Exam Neck Exam: Full ROM. absent: Tenderness - Respiratory Exam Respiratory Exam: Clear to Ausculation Bilateral, NORMAL BREATHING PATTERN - Cardiovascular Exam Cardiovascular Exam: REGULAR RHYTHM, RRR - GI/Abdominal Exam GI & Abdominal Exam: Soft, Normal Bowel Sounds - Extremities Exam Extremities Exam: Full ROM, Normal Inspection. absent: Pedal Edema - Neurological Exam Neurological Exam: Alert, Awake, Oriented x3 - Psychiatric Exam Psychiatric exam: Normal Affect, Normal Mood - Skin Skin Exam: Intact, Normal Color, Warm Assessment and Plan - Assessment and Plan (Free Text) Assessment: (1) Chest pain Assessment & Plan: - Home medications continued: - 5mg Norvasc PO daily - 25mg Atenolol PO daily - 40mg Lisinopril PO daily - Troponin x3 negative - ECHO (06/21): Left ventricle systolic function is normal; The ejection fraction is 65-70%; Transmitral doppler flow pattern is Grade I-abnormal relaxation pattern. - EKG showed normal sinus rhythm - Chest X-ray: Mild venous Congestion - Lipid panel (06/13/17): Cholesterol 213; LDL 106; HDL 49; - Triglycerides (06/21/17): 51 - TSH (06/21/17): 2.98 Patient stable for discharge. Awaiting EL placement. <Moshe Obrien Jr. - Last Filed: 06/29/17 10:21> Objective - Vital Signs/Intake and Output Vital Signs (last 24 hours): Temp Pulse Resp BP Pulse Ox 97.6 F 49 L 20 141/71 100 06/29/17 08:00 06/29/17 08:00 06/29/17 08:00 06/29/17 08:00 06/29/17 08:00 - Medications Medications: Current Medications Amiodarone HCl (Cordarone) 400 mg PO BID [facility] Last Admin: 06/28/17 17:58 Dose: 400 mg Amlodipine Besylate (Norvasc) 5 mg PO DAILY [facility] Last Admin: 06/28/17 11:33 Dose: 5 mg Enoxaparin Sodium (Lovenox) 60 mg SC Q12 [facility] Last Admin: 06/28/17 21:53 Dose: 60 mg Famotidine (Pepcid) 20 mg PO BID [facility] Last Admin: 06/28/17 17:58 Dose: 20 mg Lisinopril (Zestril) 40 mg PO DAILY [facility] Last Admin: 06/28/17 11:33 Dose: 40 mg - Labs Labs: 06/28/17 08:15 06/28/17 08:15 APTT 35 SECONDS (21-34) H 06/24/17 10:39 Attending/Attestation - Attestation I have personally seen and examined this patient.: Yes I have fully participated in the care of the patient.: Yes I have reviewed all pertinent clinical information, including history, physical exam and plan: Yes Notes (Text): 06/29/17 10:21 Agree with resident note and plan of care
--- NOTE | 2017-06-28 22:35 | CP.PCM.PN ---
Subjective - Date & Time of Evaluation Date of Evaluation: 06/28/17 Time of Evaluation: 09:35 - Subjective Subjective: Patient seen and evaluated No complaints Aw[facility] rehab placement Review of Systems - Constitutional Constitutional: Headache. absent: Chills, Fever, Night Sweats - EENT Eyes: absent: Blurred Vision Nose/Mouth/Throat: absent: Nasal Congestion, Nasal Discharge, Sore Throat - Cardiovascular Cardiovascular: Dyspnea, Pedal Edema. absent: Chest Pain, Lightheadedness, Palpitations - Respiratory Respiratory: Dyspnea. absent: Cough - Gastrointestinal Gastrointestinal: absent: Abdominal Pain, Constipation, Diarrhea, Heartburn, Nausea, Vomiting - Genitourinary Genitourinary: absent: Dysuria, Hematuria - Musculoskeletal Musculoskeletal: Muscle Weakness - Neurological Neurological: Dizziness, Headaches, Weakness. absent: Numbness, Tingling - Psychiatric Psychiatric: absent: Anxiety Physical Exam - Constitutional Appears: No Acute Distress - Head Exam Head Exam: ATRAUMATIC, NORMAL INSPECTION, NORMOCEPHALIC - Eye Exam Eye Exam: EOMI, Normal appearance, PERRL Pupil Exam: NORMAL ACCOMODATION - ENT Exam ENT Exam: Mucous Membranes Moist - Respiratory Exam Respiratory Exam: Clear to Auscultation Bilateral, NORMAL BREATHING PATTERN. absent: Rales, Rhonchi, Wheezes, Stridor Additional comments: Patient on 2L of Nasal Cannula - Cardiovascular Exam Cardiovascular Exam: REGULAR RHYTHM, RRR, +S1, +S2. absent: JVD - GI/Abdominal Exam GI & Abdominal Exam: Normal Bowel Sounds, Soft. absent: Tenderness - Extremities Exam Extremities exam: Positive for: normal inspection, pedal pulses present. Negative for: pedal edema, tenderness - Neurological Exam Neurological exam: Alert, CN II-XII Intact, Oriented x3 - Expanded Neurological Exam Expanded Patient oriented to: person, place, time Cranial nerves: EOM's Intact: Normal Sensory exam: Lower Extremity Light Touch: Normal, Upper Extremity Light Touch: Normal Neuro motor strength exam: Left Upper Extremity: 5, Right Upper Extremity: 5, Left Lower Extremity: 5, Right Lower Extremity: 5 Coma Scale Eye Opening: SPONTANEOUS Coma Scale Motor Response: OBEYS COMMANDS Coma Scale Verbal: Oriented Coma Scale Total: 15 - Psychiatric Exam Psychiatric exam: Normal Affect, Normal Mood - Skin Skin Exam: Normal Color, Warm Objective - Vital Signs/Intake and Output Vital Signs (last 24 hours): Temp Pulse Resp BP Pulse Ox 97.9 F 51 L 18 98/58 L 100 06/28/17 22:07 06/28/17 22:07 06/28/17 22:07 06/28/17 22:07 06/28/17 15:32 Intake and Output: 06/28/17 06/29/17 18:59 06:59 Intake Total 400 Balance 400 - Medications Medications: Current Medications Amiodarone HCl (Cordarone) 400 mg PO BID [facility] Last Admin: 06/28/17 17:58 Dose: 400 mg Amlodipine Besylate (Norvasc) 5 mg PO DAILY [facility] Last Admin: 06/28/17 11:33 Dose: 5 mg Enoxaparin Sodium (Lovenox) 60 mg SC Q12 [facility] Last Admin: 06/28/17 21:53 Dose: 60 mg Famotidine (Pepcid) 20 mg PO BID [facility] Last Admin: 06/28/17 17:58 Dose: 20 mg Lisinopril (Zestril) 40 mg PO DAILY [facility] Last Admin: 06/28/17 11:33 Dose: 40 mg - Labs Labs: 06/28/17 08:15 06/28/17 08:15 APTT 35 SECONDS (21-34) H 06/24/17 10:39 Assessment and Plan - Assessment and Plan (Free Text) Assessment: 1. Episode of A Fib now NSR Resume patient's home medications Normal stress and ECHO 2. HTN Due to high [id number] score recommend intermediate anticoagulation Now on Lovenox 60 sc bid Awaiting Rehab placement F/U Dr. Shrestha as out patient
[2017-06-29] MEDS: Enoxaparin 60 mg Syringe SC SCH ×2 (10:50→21:20)
--- NOTE | 2017-06-29 15:49 | CARD ---
APPROVED REPORT EKG Measurement Heart [id number] <Conclusion> Sinus bradycardia Left axis deviation Abnormal ECG
--- NOTE | 2017-06-29 15:53 | CP.PCM.PN ---
<Lauren Sanchez - Last Filed: 06/29/17 15:49> Subjective - Date & Time of Evaluation Date of Evaluation: 06/29/17 Time of Evaluation: 07:00 - Subjective Subjective: PGY1-Medicine Note- Dr. Obrien's Service Patient seen and examined at bedside and in no acute distress. Patient had an episode of chest pain overnight, but no longer has pain this morning. Patient is no longer having shortness of breath. Patient denies abdominal pain, nausea, or vomiting. Objective - Vital Signs/Intake and Output Vital Signs (last 24 hours): Temp Pulse Resp BP Pulse Ox 97.6 F 73 20 141/71 98 06/29/17 08:00 06/29/17 13:06 06/29/17 08:00 06/29/17 08:00 06/29/17 13:06 - Medications Medications: Current Medications Amiodarone HCl (Cordarone) 400 mg PO BID [facility] Last Admin: 06/29/17 10:51 Dose: 400 mg Amlodipine Besylate (Norvasc) 5 mg PO DAILY [facility] Last Admin: 06/29/17 10:51 Dose: 5 mg Enoxaparin Sodium (Lovenox) 60 mg SC Q12 [facility] Last Admin: 06/29/17 10:50 Dose: 60 mg Famotidine (Pepcid) 20 mg PO BID [facility] Last Admin: 06/29/17 10:51 Dose: 20 mg Lisinopril (Zestril) 40 mg PO DAILY [facility] Last Admin: 06/29/17 10:51 Dose: 40 mg - Labs Labs: 06/28/17 08:15 06/28/17 08:15 APTT 35 SECONDS (21-34) H 06/24/17 10:39 - Constitutional Appears: Non-toxic, No Acute Distress - Head Exam Head Exam: ATRAUMATIC, NORMAL INSPECTION, NORMOCEPHALIC - Eye Exam Eye Exam: EOMI, Normal appearance - ENT Exam ENT Exam: Mucous Membranes Moist - Neck Exam Neck Exam: Full ROM - Respiratory Exam Respiratory Exam: Clear to Ausculation Bilateral, NORMAL BREATHING PATTERN - Cardiovascular Exam Cardiovascular Exam: REGULAR RHYTHM, RRR - GI/Abdominal Exam GI & Abdominal Exam: Soft, Normal Bowel Sounds - Extremities Exam Extremities Exam: Full ROM, Normal Inspection. absent: Pedal Edema - Neurological Exam Neurological Exam: Alert, Awake, Oriented x3 - Psychiatric Exam Psychiatric exam: Normal Affect, Normal Mood - Skin Skin Exam: Intact, Normal Color, Warm Assessment and Plan - Assessment and Plan (Free Text) Assessment: (1) Chest pain Assessment & Plan: - Home medications continued: - 5mg Norvasc PO daily - 25mg Atenolol PO daily - 40mg Lisinopril PO daily - Troponin x3 negative, Troponin ordered after an episode of chest pain on 06/29 - Negative - ECHO (06/21): Left ventricle systolic function is normal; The ejection fraction is 65-70%; Transmitral doppler flow pattern is Grade I-abnormal relaxation pattern. - EKG showed normal sinus rhythm - Chest X-ray: Mild venous Congestion - Lipid panel (06/13/17): Cholesterol 213; LDL 106; HDL 49; - Triglycerides (06/21/17): 51 - TSH (06/21/17): 2.98 06/29: patient seen again by physical therapy who recommended EL. Patient stable for discharge. Awaiting EL placement. <Moshe Obrien Jr. - Last Filed: 07/01/17 15:23> Objective - Vital Signs/Intake and Output Vital Signs (last 24 hours): Temp Pulse Resp BP Pulse Ox 97.8 F 51 L 20 131/63 99 07/01/17 07:00 07/01/17 07:00 07/01/17 07:00 07/01/17 07:00 07/01/17 07:00 Intake and Output: 07/01/17 07/01/17 06:59 18:59 Intake Total 150 Balance 150 - Medications Medications: Current Medications Amiodarone HCl (Cordarone) 400 mg PO BID [facility] Last Admin: 07/01/17 10:13 Dose: 400 mg Amlodipine Besylate (Norvasc) 5 mg PO DAILY [facility] Last Admin: 07/01/17 10:13 Dose: 5 mg Enoxaparin Sodium (Lovenox) 60 mg SC Q12 [facility] Last Admin: 07/01/17 10:13 Dose: 60 mg Famotidine (Pepcid) 20 mg PO BID [facility] Last Admin: 07/01/17 10:13 Dose: 20 mg Lisinopril (Zestril) 40 mg PO DAILY [facility] Last Admin: 07/01/17 10:13 Dose: 40 mg - Labs Labs: 06/30/17 06:07 06/30/17 06:07 APTT 35 SECONDS (21-34) H 06/24/17 10:39 Attending/Attestation - Attestation I have personally seen and examined this patient.: Yes I have fully participated in the care of the patient.: Yes I have reviewed all pertinent clinical information, including history, physical exam and plan: Yes Notes (Text): 07/01/17 15:23 Agree with resident note and plan of care
--- NOTE | 2017-06-29 22:16 | CP.PCM.PN ---
Subjective - Date & Time of Evaluation Date of Evaluation: 06/29/17 Time of Evaluation: 07:50 - Subjective Subjective: Patient seen and evaluated No cardiac events Review of Systems - Constitutional Constitutional: Headache. absent: Chills, Fever, Night Sweats - EENT Eyes: absent: Blurred Vision Nose/Mouth/Throat: absent: Nasal Congestion, Nasal Discharge, Sore Throat - Cardiovascular Cardiovascular: Dyspnea, Pedal Edema. absent: Chest Pain, Lightheadedness, Palpitations - Respiratory Respiratory: Dyspnea. absent: Cough - Gastrointestinal Gastrointestinal: absent: Abdominal Pain, Constipation, Diarrhea, Heartburn, Nausea, Vomiting - Genitourinary Genitourinary: absent: Dysuria, Hematuria - Musculoskeletal Musculoskeletal: Muscle Weakness - Neurological Neurological: Dizziness, Headaches, Weakness. absent: Numbness, Tingling - Psychiatric Psychiatric: absent: Anxiety Physical Exam - Constitutional Appears: No Acute Distress - Head Exam Head Exam: ATRAUMATIC, NORMAL INSPECTION, NORMOCEPHALIC - Eye Exam Eye Exam: EOMI, Normal appearance, PERRL Pupil Exam: NORMAL ACCOMODATION - ENT Exam ENT Exam: Mucous Membranes Moist - Respiratory Exam Respiratory Exam: Clear to Auscultation Bilateral, NORMAL BREATHING PATTERN. absent: Rales, Rhonchi, Wheezes, Stridor Additional comments: Patient on 2L of Nasal Cannula - Cardiovascular Exam Cardiovascular Exam: REGULAR RHYTHM, RRR, +S1, +S2. absent: JVD - GI/Abdominal Exam GI & Abdominal Exam: Normal Bowel Sounds, Soft. absent: Tenderness - Extremities Exam Extremities exam: Positive for: normal inspection, pedal pulses present. Negative for: pedal edema, tenderness - Neurological Exam Neurological exam: Alert, CN II-XII Intact, Oriented x3 - Expanded Neurological Exam Expanded Patient oriented to: person, place, time Cranial nerves: EOM's Intact: Normal Sensory exam: Lower Extremity Light Touch: Normal, Upper Extremity Light Touch: Normal Neuro motor strength exam: Left Upper Extremity: 5, Right Upper Extremity: 5, Left Lower Extremity: 5, Right Lower Extremity: 5 Coma Scale Eye Opening: SPONTANEOUS Coma Scale Motor Response: OBEYS COMMANDS Coma Scale Verbal: Oriented Coma Scale Total: 15 - Psychiatric Exam Psychiatric exam: Normal Affect, Normal Mood - Skin Skin Exam: Normal Color, Warm Objective - Vital Signs/Intake and Output Vital Signs (last 24 hours): Temp Pulse Resp BP Pulse Ox 97.6 F 56 L 20 101/62 99 06/29/17 16:12 06/29/17 16:12 06/29/17 16:12 06/29/17 16:12 06/29/17 16:12 Intake and Output: 06/29/17 06/30/17 18:59 06:59 Intake Total 400 Balance 400 - Medications Medications: Current Medications Amiodarone HCl (Cordarone) 400 mg PO BID [facility] Last Admin: 06/29/17 18:29 Dose: 400 mg Amlodipine Besylate (Norvasc) 5 mg PO DAILY [facility] Last Admin: 06/29/17 10:51 Dose: 5 mg Enoxaparin Sodium (Lovenox) 60 mg SC Q12 [facility] Last Admin: 06/29/17 21:20 Dose: 60 mg Famotidine (Pepcid) 20 mg PO BID [facility] Last Admin: 06/29/17 18:29 Dose: 20 mg Lisinopril (Zestril) 40 mg PO DAILY [facility] Last Admin: 06/29/17 10:51 Dose: 40 mg - Labs Labs: 06/28/17 08:15 06/28/17 08:15 APTT 35 SECONDS (21-34) H 06/24/17 10:39 Assessment and Plan - Assessment and Plan (Free Text) Assessment: 1. Episode of A Fib now NSR Resume patient's home medications Normal stress and ECHO 2. 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 Shrestha as out patient
[2017-06-30 06:12] LABS: BASO % 0.3 % (0.0-2.0); EOS % 0.3 % (0.0-4.0); HEMATOCRIT 33.1 % (34.0-47.0); LYMPH # 1.9 K/uL (1.0-4.3); LYMPH % 36.2 % (20.0-40.0); MEAN CELL VOLUME 86.7 fL (81.0-99.0); MEAN CORPUSCULAR HEMOGLOBIN 28.6 pg (27.0-31.0); MEAN PLATELET VOLUME 8.9 fL (7.2-11.7); MONO # 0.4 K/uL (0.0-0.8); MONO % 8.6 % (0.0-10.0); NRBC % 0.1 % (0.0-2.0); WHITE BLOOD COUNT 5.2 K/uL (4.8-10.8)
[2017-06-30 06:29] LABS: CHLORIDE 101 mmol/L (98-107)
[2017-06-30 06:30] LABS: POTASSIUM 4.1 mmol/L (3.6-5.2); SODIUM 138 mmol/L (132-148)
[2017-06-30 06:32] LABS: ALB/GLOB RATIO 1.2 (1.0-2.1); ALKALINE PHOSPHATASE 46 U/L (38-126); AST/SGOT 42 U/L (14-36); BILIRUBIN,TOTAL 0.4 mg/dL (0.2-1.3); BLOOD UREA NITROGEN 24 mg/dL (7-17); CARBON DIOXIDE 30 mmol/L (22-30); GFR AFRICAN-AMERICAN > 60; TOTAL PROTEIN 6.1 g/dL (6.3-8.3)
[2017-06-30 06:33] LABS: ALT/SGPT 42 U/L (9-52); CALCIUM 8.9 mg/dl (8.6-10.4); GLUCOSE,RANDOM 83 mg/dL (65-105); PHOSPHOROUS 3.1 mg/dL (2.5-4.5)
[2017-06-30] MEDS: Enoxaparin 60 mg Syringe SC SCH ×2 (10:55→22:12)
--- NOTE | 2017-06-30 17:08 | CP.PCM.PN ---
<Laurne Sanchez - Last Filed: 06/30/17 17:05> Subjective - Date & Time of Evaluation Date of Evaluation: 06/30/17 Time of Evaluation: 07:00 - Subjective Subjective: PGY1- Medicine Note- Dr. Obrien's Service Patient seen and examined at bedside and in no acute distress. Patient has no complaints. Patient says she feels better today than yesterday. Patient denies any shortness of breath, chest pain, abdominal pain, nausea, vomiting, constipation or diarrhea. Objective - Vital Signs/Intake and Output Vital Signs (last 24 hours): Temp Pulse Resp BP Pulse Ox 97 F L 59 L 20 128/67 100 06/30/17 15:57 06/30/17 16:00 06/30/17 15:57 06/30/17 15:57 06/30/17 15:57 Intake and Output: 06/30/17 06/30/17 06:59 18:59 Intake Total 600 Balance 600 - Medications Medications: Current Medications Amiodarone HCl (Cordarone) 400 mg PO BID [facility] Last Admin: 06/30/17 10:55 Dose: 400 mg Amlodipine Besylate (Norvasc) 5 mg PO DAILY [facility] Last Admin: 06/30/17 10:55 Dose: 5 mg Enoxaparin Sodium (Lovenox) 60 mg SC Q12 [facility] Last Admin: 06/30/17 10:55 Dose: 60 mg Famotidine (Pepcid) 20 mg PO BID [facility] Last Admin: 06/30/17 10:55 Dose: 20 mg Lisinopril (Zestril) 40 mg PO DAILY [facility] Last Admin: 06/30/17 10:55 Dose: 40 mg - Labs Labs: 06/30/17 06:07 06/30/17 06:07 APTT 35 SECONDS (21-34) H 06/24/17 10:39 - Constitutional Appears: Non-toxic, No Acute Distress - Head Exam Head Exam: ATRAUMATIC, NORMAL INSPECTION, NORMOCEPHALIC - Eye Exam Eye Exam: EOMI, Normal appearance - ENT Exam ENT Exam: Mucous Membranes Moist - Neck Exam Neck Exam: Full ROM. absent: Tenderness - Respiratory Exam Respiratory Exam: Clear to Ausculation Bilateral, NORMAL BREATHING PATTERN. absent: Rales, Rhonchi, Wheezes, Respiratory Distress, Stridor - Cardiovascular Exam Cardiovascular Exam: REGULAR RHYTHM, RRR. absent: Gallop, Rubs, Murmur - GI/Abdominal Exam GI & Abdominal Exam: Soft, Normal Bowel Sounds - Extremities Exam Extremities Exam: Full ROM, Normal Inspection. absent: Pedal Edema - Neurological Exam Neurological Exam: Alert, Awake, Oriented x3 - Psychiatric Exam Psychiatric exam: Normal Affect, Normal Mood - Skin Skin Exam: Intact, Normal Color, Warm Assessment and Plan - Assessment and Plan (Free Text) Assessment: (1) Chest pain Assessment & Plan: - Home medications continued: - 5mg Norvasc PO daily - 25mg Atenolol PO daily - 40mg Lisinopril PO daily - Troponin x3 negative, Troponin ordered after an episode of chest pain on 06/29 - Negative - ECHO (06/21): Left ventricle systolic function is normal; The ejection fraction is 65-70%; Transmitral doppler flow pattern is Grade I-abnormal relaxation pattern. - EKG showed normal sinus rhythm - Chest X-ray: Mild venous Congestion - Lipid panel (06/13/17): Cholesterol 213; LDL 106; HDL 49; - Triglycerides (06/21/17): 51 - TSH (06/21/17): 2.98 06/29: patient seen again by physical therapy who recommended EL. Patient stable for discharge. Awaiting EL placement. <Moshe Obrien Jr. - Last Filed: 07/01/17 15:27> Objective - Vital Signs/Intake and Output Vital Signs (last 24 hours): Temp Pulse Resp BP Pulse Ox 97.8 F 51 L 20 131/63 99 07/01/17 07:00 07/01/17 07:00 07/01/17 07:00 07/01/17 07:00 07/01/17 07:00 Intake and Output: 07/01/17 07/01/17 06:59 18:59 Intake Total 150 Balance 150 - Medications Medications: Current Medications Amiodarone HCl (Cordarone) 400 mg PO BID [facility] Last Admin: 07/01/17 10:13 Dose: 400 mg Amlodipine Besylate (Norvasc) 5 mg PO DAILY [facility] Last Admin: 07/01/17 10:13 Dose: 5 mg Enoxaparin Sodium (Lovenox) 60 mg SC Q12 [facility] Last Admin: 07/01/17 10:13 Dose: 60 mg Famotidine (Pepcid) 20 mg PO BID [facility] Last Admin: 07/01/17 10:13 Dose: 20 mg Lisinopril (Zestril) 40 mg PO DAILY [facility] Last Admin: 07/01/17 10:13 Dose: 40 mg - Labs Labs: 06/30/17 06:07 06/30/17 06:07 APTT 35 SECONDS (21-34) H 06/24/17 10:39 Attending/Attestation - Attestation I have personally seen and examined this patient.: Yes I have fully participated in the care of the patient.: Yes I have reviewed all pertinent clinical information, including history, physical exam and plan: Yes Notes (Text): 07/01/17 15:27 Agree with resident note and plan of care
--- NOTE | 2017-06-30 22:47 | CARD ---
APPROVED REPORT EKG Measurement Heart [id number] [place] 200P41 [id number] <Conclusion> Sinus rhythm with premature supraventricular complexes Left axis deviation Abnormal ECG
--- NOTE | 2017-06-30 23:35 | CP.PCM.PN ---
Subjective - Date & Time of Evaluation Date of Evaluation: 06/30/17 Time of Evaluation: 08:00 - Subjective Subjective: Patient seen and evaluated Denies chest pain and dyspnea Awaiting Rehab placement Review of Systems - Constitutional Constitutional: Headache. absent: Chills, Fever, Night Sweats - EENT Eyes: absent: Blurred Vision Nose/Mouth/Throat: absent: Nasal Congestion, Nasal Discharge, Sore Throat - Cardiovascular Cardiovascular: Dyspnea, Pedal Edema. absent: Chest Pain, Lightheadedness, Palpitations - Respiratory Respiratory: Dyspnea. absent: Cough - Gastrointestinal Gastrointestinal: absent: Abdominal Pain, Constipation, Diarrhea, Heartburn, Nausea, Vomiting - Genitourinary Genitourinary: absent: Dysuria, Hematuria - Musculoskeletal Musculoskeletal: Muscle Weakness - Neurological Neurological: Dizziness, Headaches, Weakness. absent: Numbness, Tingling - Psychiatric Psychiatric: absent: Anxiety Physical Exam - Constitutional Appears: No Acute Distress - Head Exam Head Exam: ATRAUMATIC, NORMAL INSPECTION, NORMOCEPHALIC - Eye Exam Eye Exam: EOMI, Normal appearance, PERRL Pupil Exam: NORMAL ACCOMODATION - ENT Exam ENT Exam: Mucous Membranes Moist - Respiratory Exam Respiratory Exam: Clear to Auscultation Bilateral, NORMAL BREATHING PATTERN. absent: Rales, Rhonchi, Wheezes, Stridor Additional comments: Patient on 2L of Nasal Cannula - Cardiovascular Exam Cardiovascular Exam: REGULAR RHYTHM, RRR, +S1, +S2. absent: JVD - GI/Abdominal Exam GI & Abdominal Exam: Normal Bowel Sounds, Soft. absent: Tenderness - Extremities Exam Extremities exam: Positive for: normal inspection, pedal pulses present. Negative for: pedal edema, tenderness - Neurological Exam Neurological exam: Alert, CN II-XII Intact, Oriented x3 - Expanded Neurological Exam Expanded Patient oriented to: person, place, time Cranial nerves: EOM's Intact: Normal Sensory exam: Lower Extremity Light Touch: Normal, Upper Extremity Light Touch: Normal Neuro motor strength exam: Left Upper Extremity: 5, Right Upper Extremity: 5, Left Lower Extremity: 5, Right Lower Extremity: 5 Coma Scale Eye Opening: SPONTANEOUS Coma Scale Motor Response: OBEYS COMMANDS Coma Scale Verbal: Oriented Coma Scale Total: 15 - Psychiatric Exam Psychiatric exam: Normal Affect, Normal Mood - Skin Skin Exam: Normal Color, Warm Objective - Vital Signs/Intake and Output Vital Signs (last 24 hours): Temp Pulse Resp BP Pulse Ox 97 F L 59 L 20 128/67 100 06/30/17 15:57 06/30/17 16:00 06/30/17 15:57 06/30/17 15:57 06/30/17 15:57 Intake and Output: 06/30/17 07/01/17 18:59 06:59 Intake Total 600 Balance 600 - Medications Medications: Current Medications Amiodarone HCl (Cordarone) 400 mg PO BID [facility] Last Admin: 06/30/17 17:08 Dose: 400 mg Amlodipine Besylate (Norvasc) 5 mg PO DAILY [facility] Last Admin: 06/30/17 10:55 Dose: 5 mg Enoxaparin Sodium (Lovenox) 60 mg SC Q12 [facility] Last Admin: 06/30/17 22:12 Dose: 60 mg Famotidine (Pepcid) 20 mg PO BID [facility] Last Admin: 06/30/17 17:08 Dose: 20 mg Lisinopril (Zestril) 40 mg PO DAILY [facility] Last Admin: 06/30/17 10:55 Dose: 40 mg - Labs Labs: 06/30/17 06:07 06/30/17 06:07 APTT 35 SECONDS (21-34) H 06/24/17 10:39 Assessment and Plan - Assessment and Plan (Free Text) Assessment: 1. Episode of A Fib now NSR Resume patient's home medications Normal stress and ECHO 2. 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 Shrestha as out patient
[2017-07-01] MEDS: Enoxaparin 60 mg Syringe SC SCH ×2 (10:13→22:25)
--- NOTE | 2017-07-01 13:01 | CP.PCM.PN ---
<LauraLauren L. - Last Filed: 07/01/17 12:58> Subjective - Date & Time of Evaluation Date of Evaluation: 07/01/17 Time of Evaluation: 07:00 - Subjective Subjective: PGY1- Medicine Note- Dr. Obrien's Service Patient seen and examined at bedside and in no acute distress. Patient has no complaints. Patient denies any shortness of breath, chest pain, abdominal pain, nausea, vomiting, constipation or diarrhea. Objective - Vital Signs/Intake and Output Vital Signs (last 24 hours): Temp Pulse Resp BP Pulse Ox 97.8 F 51 L 20 131/63 99 07/01/17 07:00 07/01/17 07:00 07/01/17 07:00 07/01/17 07:00 07/01/17 07:00 Intake and Output: 07/01/17 07/01/17 06:59 18:59 Intake Total 150 Balance 150 - Medications Medications: Current Medications Amiodarone HCl (Cordarone) 400 mg PO BID [facility] Last Admin: 07/01/17 10:13 Dose: 400 mg Amlodipine Besylate (Norvasc) 5 mg PO DAILY [facility] Last Admin: 07/01/17 10:13 Dose: 5 mg Enoxaparin Sodium (Lovenox) 60 mg SC Q12 [facility] Last Admin: 07/01/17 10:13 Dose: 60 mg Famotidine (Pepcid) 20 mg PO BID [facility] Last Admin: 07/01/17 10:13 Dose: 20 mg Lisinopril (Zestril) 40 mg PO DAILY [facility] Last Admin: 07/01/17 10:13 Dose: 40 mg - Labs Labs: 06/30/17 06:07 06/30/17 06:07 APTT 35 SECONDS (21-34) H 06/24/17 10:39 - Constitutional Appears: Non-toxic, No Acute Distress - Head Exam Head Exam: ATRAUMATIC, NORMAL INSPECTION, NORMOCEPHALIC - Eye Exam Eye Exam: EOMI, Normal appearance - ENT Exam ENT Exam: Mucous Membranes Moist - Neck Exam Neck Exam: Full ROM. absent: Tenderness - Respiratory Exam Respiratory Exam: Clear to Ausculation Bilateral, NORMAL BREATHING PATTERN. absent: Rales, Rhonchi, Wheezes, Respiratory Distress, Stridor - Cardiovascular Exam Cardiovascular Exam: REGULAR RHYTHM, RRR. absent: Gallop, Rubs, Murmur - GI/Abdominal Exam GI & Abdominal Exam: Soft, Normal Bowel Sounds - Extremities Exam Extremities Exam: Full ROM, Normal Inspection - Neurological Exam Neurological Exam: Alert, Awake, Oriented x3 - Psychiatric Exam Psychiatric exam: Normal Affect, Normal Mood - Skin Skin Exam: Intact, Normal Color, Warm Assessment and Plan - Assessment and Plan (Free Text) Assessment: (1) Chest pain Assessment & Plan: - Home medications continued: - 5mg Norvasc PO daily - 25mg Atenolol PO daily - 40mg Lisinopril PO daily - Troponin x3 negative, Troponin ordered after an episode of chest pain on 06/29 - Negative - ECHO (06/21): Left ventricle systolic function is normal; The ejection fraction is 65-70%; Transmitral doppler flow pattern is Grade I-abnormal relaxation pattern. - EKG showed normal sinus rhythm - Chest X-ray: Mild venous Congestion - Lipid panel (06/13/17): Cholesterol 213; LDL 106; HDL 49; - Triglycerides (06/21/17): 51 - TSH (06/21/17): 2.98 06/29: patient seen again by physical therapy who recommended EL. Patient stable for discharge. Awaiting EL placement. <Moshe Obrien Jr. - Last Filed: 07/01/17 15:28> Objective - Vital Signs/Intake and Output Vital Signs (last 24 hours): Temp Pulse Resp BP Pulse Ox 97.8 F 51 L 20 131/63 99 07/01/17 07:00 07/01/17 07:00 07/01/17 07:00 07/01/17 07:00 07/01/17 07:00 Intake and Output: 07/01/17 07/01/17 06:59 18:59 Intake Total 150 Balance 150 - Medications Medications: Current Medications Amiodarone HCl (Cordarone) 400 mg PO BID [facility] Last Admin: 07/01/17 10:13 Dose: 400 mg Amlodipine Besylate (Norvasc) 5 mg PO DAILY [facility] Last Admin: 07/01/17 10:13 Dose: 5 mg Enoxaparin Sodium (Lovenox) 60 mg SC Q12 [facility] Last Admin: 07/01/17 10:13 Dose: 60 mg Famotidine (Pepcid) 20 mg PO BID [facility] Last Admin: 07/01/17 10:13 Dose: 20 mg Lisinopril (Zestril) 40 mg PO DAILY [facility] Last Admin: 07/01/17 10:13 Dose: 40 mg - Labs Labs: 06/30/17 06:07 06/30/17 06:07 APTT 35 SECONDS (21-34) H 06/24/17 10:39 Attending/Attestation - Attestation I have personally seen and examined this patient.: Yes I have fully participated in the care of the patient.: Yes I have reviewed all pertinent clinical information, including history, physical exam and plan: Yes Notes (Text): 07/01/17 15:28 Agree with resident note and plan of care
--- NOTE | 2017-07-01 22:27 | CP.PCM.PN ---
Subjective - Date & Time of Evaluation Date of Evaluation: 07/01/17 Time of Evaluation: 09:40 - Subjective Subjective: Patient seen and evaluated. No cardiac events noted Awaiting placement Review of Systems - Constitutional Constitutional: Headache. absent: Chills, Fever, Night Sweats - EENT Eyes: absent: Blurred Vision Nose/Mouth/Throat: absent: Nasal Congestion, Nasal Discharge, Sore Throat - Cardiovascular Cardiovascular: Dyspnea, Pedal Edema. absent: Chest Pain, Lightheadedness, Palpitations - Respiratory Respiratory: Dyspnea. absent: Cough - Gastrointestinal Gastrointestinal: absent: Abdominal Pain, Constipation, Diarrhea, Heartburn, Nausea, Vomiting - Genitourinary Genitourinary: absent: Dysuria, Hematuria - Musculoskeletal Musculoskeletal: Muscle Weakness - Neurological Neurological: Dizziness, Headaches, Weakness. absent: Numbness, Tingling - Psychiatric Psychiatric: absent: Anxiety Physical Exam - Constitutional Appears: No Acute Distress - Head Exam Head Exam: ATRAUMATIC, NORMAL INSPECTION, NORMOCEPHALIC - Eye Exam Eye Exam: EOMI, Normal appearance, PERRL Pupil Exam: NORMAL ACCOMODATION - ENT Exam ENT Exam: Mucous Membranes Moist - Respiratory Exam Respiratory Exam: Clear to Auscultation Bilateral, NORMAL BREATHING PATTERN. absent: Rales, Rhonchi, Wheezes, Stridor Additional comments: Patient on 2L of Nasal Cannula - Cardiovascular Exam Cardiovascular Exam: REGULAR RHYTHM, RRR, +S1, +S2. absent: JVD - GI/Abdominal Exam GI & Abdominal Exam: Normal Bowel Sounds, Soft. absent: Tenderness - Extremities Exam Extremities exam: Positive for: normal inspection, pedal pulses present. Negative for: pedal edema, tenderness - Neurological Exam Neurological exam: Alert, CN II-XII Intact, Oriented x3 - Expanded Neurological Exam Expanded Patient oriented to: person, place, time Cranial nerves: EOM's Intact: Normal Sensory exam: Lower Extremity Light Touch: Normal, Upper Extremity Light Touch: Normal Neuro motor strength exam: Left Upper Extremity: 5, Right Upper Extremity: 5, Left Lower Extremity: 5, Right Lower Extremity: 5 Coma Scale Eye Opening: SPONTANEOUS Coma Scale Motor Response: OBEYS COMMANDS Coma Scale Verbal: Oriented Coma Scale Total: 15 - Psychiatric Exam Psychiatric exam: Normal Affect, Normal Mood - Skin Skin Exam: Normal Color, Warm Objective - Vital Signs/Intake and Output Vital Signs (last 24 hours): Temp Pulse Resp BP Pulse Ox 97.4 F L 55 L 20 124/60 98 07/01/17 16:00 07/01/17 16:00 07/01/17 16:00 07/01/17 16:00 07/01/17 16:00 Intake and Output: 07/01/17 07/02/17 18:59 06:59 Intake Total 150 Balance 150 - Medications Medications: Current Medications Amiodarone HCl (Cordarone) 400 mg PO BID [facility] Last Admin: 07/01/17 19:01 Dose: 400 mg Amlodipine Besylate (Norvasc) 5 mg PO DAILY [facility] Last Admin: 07/01/17 10:13 Dose: 5 mg Enoxaparin Sodium (Lovenox) 60 mg SC Q12 [facility] Last Admin: 07/01/17 10:13 Dose: 60 mg Famotidine (Pepcid) 20 mg PO BID [facility] Last Admin: 07/01/17 19:01 Dose: 20 mg Lisinopril (Zestril) 40 mg PO DAILY [facility] Last Admin: 07/01/17 10:13 Dose: 40 mg - Labs Labs: 06/30/17 06:07 06/30/17 06:07 APTT 35 SECONDS (21-34) H 06/24/17 10:39 Assessment and Plan - Assessment and Plan (Free Text) Assessment: 1. Episode of A Fib now NSR Resume patient's home medications Normal stress and ECHO 2. 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 Shrestha as out patient
--- NOTE | 2017-07-02 09:42 | CARD ---
APPROVED REPORT EKG Measurement Heart [id number] [place] 328P [id number] <Conclusion> Sinus rhythm with 1st degree AV block with premature atrial complexes and occasional blocked SA beats Left axis deviation Abnormal ECG
[2017-07-02] MEDS: Enoxaparin 60 mg Syringe SC SCH ×2 (11:25→21:55)
[2017-07-03] MEDS: Enoxaparin 60 mg Syringe SC SCH (10:43)
[2017-07-03 15:28] VITALS: BP 134/61; PULSE 64; RESP 20; TEMP 97.5; O2SAT 97
--- NOTE | 2017-07-04 09:39 | CARD ---
APPROVED REPORT EKG Measurement Heart [id number] CT [id number] <Conclusion> Sinus bradycardia with 1st degree AV block Otherwise normal ECG
== END 2017-07-03 16:13 | disposition home or self-care (01) | DRG 310 ==
LOC: C.ER 07:23 → C.9E 08:39 → C.5S 10:25 → OBSVTOIN 06-25 09:14
PROVIDERS: ADMIT Internal Medicine; ATTEND Internal Medicine
DX: I48.0 Paroxysmal atrial fibrillation (principal); I10 Essential (primary) hypertension; R07.9 Chest pain, unspecified; E78.00 Pure hypercholesterolemia, unspecified; Z79.82 Long term (current) use of aspirin

== ENCOUNTER 2017-07-13 23:02 | Inpatient (IN) | payer MEDICARE, OTHER ==
[2017-07-13] MEDS ORDERED: Aspirin 325 mg EC Tablets PO STA (23:22)
--- NOTE | 2017-07-13 23:22 | C.PDOC ---
History Of Present Illness <Grace Najera Rafa - Last Filed: 07/14/17 01:15> <Danette Del Rosario - Last Filed: 07/14/17 01:35> Patient presents to the ER with a complaint of sudden onset of a dull, achy mid sternal chest pain that began approximately an hour ago. On arrival, patient was found to be in junctional bradycardia with 36 bmp; half an amp of atropine was administered with improvement of pain and bmp now in the 50s. Patient denies SOB, nausea, or vomiting. (Danette Del Rosario) <Grace Najera Rafa - Last Filed: 07/14/17 01:15> History Per: Patient History/Exam Limitations: no limitations Onset/Duration Of Symptoms: Hrs Current Symptoms Are (Timing): Still Present Severity: Moderate Pain Scale Rating Of: 5 Quality: Dull, Aching Associated Symptoms: denies: Nausea, Dyspnea, Diaphoresis, Syncope Modifying Factors: None Exacerbating Factors: None Alleviating Factors: None Recent travel outside of the [place]: No <Danette Del Rosario - Last Filed: 07/14/17 01:35> Time Seen by Provider: 07/13/17 23:21 Chief Complaint (Nursing): Chest Pain Past Medical History Reviewed: Historical Data, Nursing Documentation, Vital Signs - Medical History PMH: Arthritis, HTN, Hypercholesterolemia Surgical History: No Surg Hx Family History: States: No Known Family Hx - Social History Hx Alcohol Use: No Hx Substance Use: No - Immunization History Hx Tetanus Toxoid Vaccination: No Hx Influenza Vaccination: No Hx Pneumococcal Vaccination: No <Danette Del Rosario - Last Filed: 07/14/17 01:35> Vital Signs: Last Vital Signs Temp 97.7 F 07/13/17 23:14 Pulse 38 L 07/14/17 00:25 Resp 16 07/14/17 00:25 BP 90/46 L 07/14/17 00:25 Pulse Ox 97 07/14/17 00:51 Review Of Systems Constitutional: Negative for: Fever, Chills Eyes: Negative for: Vision Change ENT: Negative for: Mouth Swelling, Throat Swelling Cardiovascular: Positive for: Chest Pain Respiratory: Negative for: Shortness of Breath, Wheezing Gastrointestinal: Negative for: Nausea, Vomiting Genitourinary: Negative for: Dysuria, Hematuria Skin: Negative for: Rash Neurological: Negative for: Weakness, Numbness <Miguel Ángel,Mistyderek - Last Filed: 07/14/17 01:35> Physical Exam - Physical Exam Appears: Non-toxic Skin: Warm, Dry Head: Normacephalic Eye(s): bilateral: Normal Inspection Oral Mucosa: Moist Neck: Trachea Midline, No Midline Cervical Tenderness, No Paracervical Tenderness, Supple Lymphatic: No Adenopathy Chest: Symmetrical, No Tenderness Cardiovascular: Rhythm Regular (Bradycardic) Respiratory: No Rales, No Rhonchi, No Wheezing Gastrointestinal/Abdominal: Soft, No Tenderness Back: No CVA Tenderness Extremity: Pedal Edema (Bilateral) Pulses: Left Radial: Normal, Right Radial: Normal, Left Dorsalis Pedis: Normal, Right Dorsalis Pedis: Normal Neurological/Psych: Oriented x3, Other (No focal deficits) <LaniasuncionMistyderek - Last Filed: 07/14/17 01:35> ED Course And Treatment - Laboratory Results Result Diagrams: 07/13/17 23:26 07/13/17 23:26 <Grace Najera - Last Filed: 07/14/17 01:15> - Laboratory Results Result Diagrams: 07/13/17 23:26 07/13/17 23:26 ECG: Interpreted By Me, Viewed By Me ECG Rhythm: Nonspecific Changes (junctional bradicardia 36 bpm, lahb) O2 Sat by Pulse Oximetry: 97 Pulse Ox Interpretation: Normal - Radiology CXR: Interpreted by Me, Viewed By Me CXR Interpretation: Yes: Cardiomegaly, Other (r ij central line, no pneumo, mild vasc congestion). No: Infiltrates, Fracture Progress Note: Blood work, EKG, urinalysis, and CXR ordered. Atropine, and aspirin administered. spoke with dr michael. massiel with iv dopamine. spoke with dr lima,icu, -will come and see the pt in the ed. pt still in the low 40's aaox3 still with some chest discomfort <LaniasuncionMistyderek - Last Filed: 07/14/17 01:35> Critical Care Time - Critical Care Note Total Time (in mins): 64 Documented critical care: time excludes all time spent performing seperately billable procedures. <Miguel ÁngelMistyderek - Last Filed: 07/14/17 01:35> Central Line Placement - Central Line Placement Central Line Placement: Right: Internal Jugular The Area Was Thoroughly Prepared With: Chlorhexidine Area Was Locally Anesthetized With: Lidocaine 1% Procedure: Triple Lumen, Catheter Was Sewn Into Place, Sterile Dressing Placed Over Line, Procedure Tolerated Well, CXR Ordered To Confirm Placement <Grace Najera - Last Filed: 07/14/17 01:15> Disposition <Grace Najera - Last Filed: 07/14/17 01:15> Discussed With DrTerry: Moshe Obrien Jr. Comment: accepted the pt on his service and took over the care at 12:49AM Doctor Will See Patient In The: ED Counseled Patient/Family Regarding: Studies Performed, Diagnosis - Disposition Disposition Time: 23:21 <Danette Del Rosario - Last Filed: 07/14/17 01:35> - Disposition Disposition: HOSPITALIZED Condition: CRITICAL - Clinical Impression Clinical Impression: Chest pain, Bradycardia with 31-40 beats per minute, Hypothyroid <Grace Najera - Last Filed: 07/14/17 01:15> - Scribe Statement The provider has reviewed the documentation as recorded by the Scribe <Danette Del Rosario - Last Filed: 07/14/17 01:35> - Scribe Statement Rafa Whitfield All medical record entries made by the Scribe were at my direction and personally dictated by me. I have reviewed the chart and agree that the record accurately reflects my personal performance of the history, physical exam, medical decision making, and the department course for this patient. I have also personally directed, reviewed, and agree with the discharge instructions and disposition. (Danette Del Rosario) Decision To Admit <Grace Najera - Last Filed: 07/14/17 01:15> - Pt Status Changed To: Hospital Disposition Of: Inpatient - Admit Certification Admit to Inpatient:: After my assessment, the patient will require hospitalization for at least two midnights. This is because of the severity of symptoms shown, intensity of services needed, and/or the medical risk in this patient being treated as an outpatient. - InPatient: Physician Admission Certification: I certify that this patient requires 2 or more midnights of care for the following reason:: After my assessment, the patient will require hospitalization for at least two midnights. This is because of the severity of symptoms shown, intensity of services needed, and/or the medical risk in this patient being treated as an outpatient. - . Bed Request Type: ICU Admitting Physician: Moshe Obrien Jr. <Danette Del Rosario - Last Filed: 07/14/17 01:35> - . Patient Diagnosis: Chest pain, Bradycardia with 31-40 beats per minute, Hypothyroid
[2017-07-13] MEDS ORDERED: Aspirin 325 mg EC Tablets PO ONE (23:26)
[2017-07-13] MEDS ORDERED: Atropine Sulfate 1 mg/ml Vial (1 ml) IVP STA (23:35)
[2017-07-13 23:44] LABS: BASO % 0.5 % (0.0-2.0); EOS % 0.1 % (0.0-4.0); HEMATOCRIT 31.7 % (34.0-47.0); LYMPH # 1.3 K/uL (1.0-4.3); LYMPH % 27.7 % (20.0-40.0); MEAN CELL VOLUME 90.1 fL (81.0-99.0); MEAN CORPUSCULAR HEMOGLOBIN 29.8 pg (27.0-31.0); MEAN CORPUSCULAR HGB CONC 33.1 g/dL (33.0-37.0); MEAN PLATELET VOLUME 9.5 fL (7.2-11.7); MONO # 0.2 K/uL (0.0-0.8); MONO % 4.3 % (0.0-10.0); WHITE BLOOD COUNT 4.7 K/uL (4.8-10.8)
[2017-07-13 23:49] LABS: CHLORIDE 99 mmol/L (98-107); POTASSIUM 6.1 mmol/L (3.6-5.2); SODIUM 132 mmol/L (132-148)
[2017-07-13 23:51] LABS: ALB/GLOB RATIO 1.2 (1.0-2.1); AST/SGOT 375 U/L (14-36); BILIRUBIN,TOTAL 0.6 mg/dL (0.2-1.3); CARBON DIOXIDE 18 mmol/L (22-30); GFR AFRICAN-AMERICAN 52; TOTAL PROTEIN 6.8 g/dL (6.3-8.3)
[2017-07-13 23:52] LABS: ALKALINE PHOSPHATASE 102 U/L (38-126); ALT/SGPT 269 U/L (9-52); BLOOD UREA NITROGEN 30 mg/dL (7-17); CALCIUM 7.7 mg/dl (8.6-10.4); GLUCOSE,RANDOM 129 mg/dL (65-105)
[2017-07-14] LABS: INR 1.3
[2017-07-14] MEDS ORDERED: Atropine Sulfate 1 mg/ml Vial (1 ml) IVP STA (00:15)
[2017-07-14] MEDS ORDERED: Simethicone 80 mg Chewtab PO STA (00:16)
[2017-07-14] MEDS ORDERED: Atropine Sulfate 1 mg/ml Vial (1 ml) IVP ONE (00:16)
[2017-07-14] MEDS ORDERED: DOPamine 400mg/250ml D5W 400 MG/250 ML BAG IV PRN (00:32)
[2017-07-14] MEDS ORDERED: Calcium Gluconate 4.65 MEQ in Dextrose 5% In Water 100 ML IVPB STA (00:44)
[2017-07-14] MEDS: DOPamine 400mg/250ml D5W 400 MG/250 ML BAG IV PRN ×3 (00:45→13:59)
[2017-07-14] MEDS ORDERED: Sod Polystyrene Sulf 15 gm/60 ml Susp PO ONE (00:45)
[2017-07-14] MEDS: Albuterol-Ipratrop 3 mg / 0.5 (3 ml) UD IH SCH ×3 (00:46→01:20)
[2017-07-14] MEDS ORDERED: (Novolin R) Insulin Human Regular 100 units/ml vial IV ONE ×2 (00:47→16:32)
[2017-07-14] MEDS ORDERED: Dextrose 50% SYRINGE Inj (50 ml) IV STA ×2 (00:47→16:32)
[2017-07-14] MEDS ORDERED: (Novolin R) Insulin Human Regular 100 units/ml vial ONE (00:50)
[2017-07-14] MEDS ORDERED: Calcium Gluconate 4.65 mEq/10 ml Inj ONE (00:50)
[2017-07-14] MEDS ORDERED: Sodium Bicarbonate (8.4%) 50 Meq Syringe ONE (00:51)
[2017-07-14] MEDS ORDERED: Albuterol-Ipratrop 3 mg / 0.5 (3 ml) UD ONE ×2 (00:51→18:21)
--- NOTE | 2017-07-14 01:04 | CP.PCM.CON ---
History of Present Illness - History of Present Illness History of Present Illness: CCM 86 yo female with hx HTN/ DM /HLD /Arthritis /? OK to ED c/o chest pain and some sob. Sx ~1 hr. Denied n /v /d /fevr /urinary sx. Found in Junctioinal kelsea in 30's in ED and treated with atropine x 3 with transient increase HR to 50's. Pt being treated for hyperkalemia in ED and started on dopamine. ROS- as noted all- soy Social- no tob/ etoh/ drugs Meds- reviewed Fh- Unknown PE T-97.7 P-36 R-18 Bp 74/35 Awake, responsive neck- no jvd Lungs- bilat bs heart-rr aBd- benign eXt- bilat LE pitting edema Neuro- nonfocal Labs, ekg, x-rays -reviewed A&P Junctional Kelsea Hyperkalemia R/O ACS Hypotension Hx HTN HLD DM arthritis Admit to ICU Cardiology eval ( Dr. Abraham called from ED) titrate dopamine analgesia prn CE T4 f/u K+ post treatment with Ca+/Albuterol /D50,insulin /HCO3/ Kayexalate DVT prophylaxis Past Patient History - Past Medical History & Family History Past Medical History?: Yes - Past Social History Smoking Status: Never Smoked - CARDIAC Hx Hypercholesterolemia: Yes Hx Hypertension: Yes - PULMONARY Hx Respiratory Disorders: No - NEUROLOGICAL Hx Neurological Disorder: No - HEENT Hx HEENT Problems: No - RENAL Hx Chronic Kidney Disease: No - ENDOCRINE/METABOLIC Hx Endocrine Disorders: No - HEMATOLOGICAL/ONCOLOGICAL Hx Blood Disorders: No - INTEGUMENTARY Hx Dermatological Problems: No - MUSCULOSKELETAL/RHEUMATOLOGICAL Hx Arthritis: Yes - GASTROINTESTINAL Hx Gastrointestinal Disorders: No - GENITOURINARY/GYNECOLOGICAL Hx Genitourinary Disorders: No - PSYCHIATRIC Hx Substance Use: No - SURGICAL HISTORY Hx Surgeries: Yes Hx Hysterectomy: No Hx Tubal Ligation: Yes Other/Comment: "eye surgery" "occular implant" - ANESTHESIA Hx Anesthesia: Yes Hx Anesthesia Reactions: No Hx Malignant Hyperthermia: No Meds Allergies/Adverse Reactions: Allergies Allergy/AdvReac Type Severity Reaction Status Date / Time soy Allergy Mild RASH Verified 06/26/17 20:43 - Medications Medications: Current Medications Albuterol/Ipratropium (Duoneb 3 Mg/0.5 Mg (3 Ml) Ud) 3 ml IH Q15M [facility] Stop: 07/14/17 01:16 Dopamine HCl/Dextrose (Dopamine 400mg/250ml D5w) 400 mg in 250 mls @ 11.158 mls /hr IV .[id number] PRN; 4 MCG/KG/MIN PRN Reason: TITRATE PER MD ORDER Results - Vital Signs Recent Vital Signs: Last Vital Signs Temp 97.7 F 07/13/17 23:14 Pulse 38 L 07/14/17 00:25 Resp 16 07/14/17 00:25 BP 90/46 L 07/14/17 00:25 Pulse Ox 97 07/14/17 00:33 - Labs Result Diagrams: 07/13/17 23:26 07/13/17 23:26 Labs: Laboratory Results - last 24 hr 07/13/17 07/13/17 07/13/17 23:26 23:26 23:38 WBC 4.7 L RBC 3.52 L Hgb 10.5 L Hct 31.7 L MCV 90.1 D MCH 29.8 MCHC 33.1 RDW 15.0 H Plt Count 241 MPV 9.5 Neut % (Auto) 67.4 Lymph % (Auto) 27.7 Mitchell % (Auto) 4.3 Eos % (Auto) 0.1 Baso % (Auto) 0.5 Neut # 3.2 Lymph # 1.3 Mitchell # 0.2 Eos # 0.0 Baso # 0.0 Sodium 132 Potassium 6.1 H Chloride 99 Carbon Dioxide 18 L Anion Gap 21 H BUN 30 H Creatinine 1.2 Est GFR ( Amer) 52 Est GFR (Non-Af Amer) 43 Random Glucose 129 H Calcium 7.7 L Total Bilirubin 0.6 AST 375 H D ALT 269 H D Alkaline Phosphatase 102 Troponin I < 0.0120 Total Protein 6.8 Albumin 3.7 Globulin 3.1 Albumin/Globulin Ratio 1.2 TSH 3rd Generation 10.30 H Assessment & Plan (1) Junctional bradycardia Status: Acute (2) Hyperkalemia Status: Acute (3) Hypotension Status: Acute (4) Chest pain Status: Acute Priority: High
--- NOTE | 2017-07-14 01:27 | CP.PCM.HP ---
History of Present Illness - History of Present Illness History of Present Illness: 86 yo F with a PMHx of A-Fib, HTN, HLD, Arthritis, Anemia, was brought by ambulance from home for mid-sternal pressure like chest pain radiating to the mid-back that began around 10pm last night. Patient with a change in mental status observed in ED thus history was collected from ED staff and prior documentation. Patient was found to be in A-Fib in the ambulance with HR in 160s however upon arrival she was in normal sinus rhythm with HR in 30s. In ED, she complained of thirst, was given water and then vomited shortly after. Upon chart review she presented to [facility] ED on 06/24/17 for chest pain, palpitations and rapid heart rate. An LICENSED MIDWIFE was called during that admission for chest pain and varying HR in 60-200s and patient was seen in A-Fib which converted to NSR on its own. A ROS was not obtainable. PMD: Dr. Mcguire; Costume Seamstress: Dr Shrestha Past Medical History: Atrial Fibrillation, Hypertension, hyperlipidemia, arthritis, anemia Surgical History: Tubal ligation Family History: Dad pass of pneumonia; Mom passed at the age of 90 due to heart disease Medications: 40mg Lisinopril PO daily, 5mg Amlodipine PO daily, aspirin 81mg po qd Allergies: NKDA Social History: Lives with sister; denies smoking, denies alcohol use, denies illicit drug use. Present on Admission - Present on Admission Any Indicators Present on Admission: No History of DVT/PE: No History of Uncontrolled Diabetes: No Urinary Catheter: No Decubitus Ulcer Present: No Review of Systems - Review of Systems Systems not reviewed;Unavailable: Altered Mental Status Past Patient History - Past Medical History & Family History Past Medical History?: Yes - Past Social History Smoking Status: Never Smoked - CARDIAC Hx Hypercholesterolemia: Yes Hx Hypertension: Yes - PULMONARY Hx Respiratory Disorders: No - NEUROLOGICAL Hx Neurological Disorder: No - HEENT Hx HEENT Problems: No - RENAL Hx Chronic Kidney Disease: No - ENDOCRINE/METABOLIC Hx Endocrine Disorders: No - HEMATOLOGICAL/ONCOLOGICAL Hx Blood Disorders: No - INTEGUMENTARY Hx Dermatological Problems: No - MUSCULOSKELETAL/RHEUMATOLOGICAL Hx Arthritis: Yes - GASTROINTESTINAL Hx Gastrointestinal Disorders: No - GENITOURINARY/GYNECOLOGICAL Hx Genitourinary Disorders: No - PSYCHIATRIC Hx Substance Use: No - SURGICAL HISTORY Hx Surgeries: Yes Hx Hysterectomy: No Hx Tubal Ligation: Yes Other/Comment: "eye surgery" "occular implant" - ANESTHESIA Hx Anesthesia: Yes Hx Anesthesia Reactions: No Hx Malignant Hyperthermia: No Meds Allergies/Adverse Reactions: Allergies Allergy/AdvReac Type Severity Reaction Status Date / Time soy Allergy Mild RASH Verified 06/26/17 20:43 Physical Exam - Constitutional Appears: In Acute Distress Additional comments: w/ altered mental status, uncooperative with Physical Exam - Head Exam Head Exam: ATRAUMATIC, NORMAL INSPECTION - Eye Exam Eye Exam: EOMI Pupil Exam: PERRL - ENT Exam ENT Exam: Mucous Membranes Dry - Neck Exam Neck exam: Positive for: Normal Inspection - Respiratory Exam Respiratory Exam: Clear to Auscultation Bilateral. absent: Rales, Rhonchi, Wheezes - Cardiovascular Exam Cardiovascular Exam: Bradycardia, REGULAR RHYTHM. absent: Irregular Rhythm, Systolic Murmur - GI/Abdominal Exam GI & Abdominal Exam: Normal Bowel Sounds, Soft. absent: Distended, Firm, Guarding, Hernia, Tenderness - Rectal Exam Rectal Exam: Deferred - Extremities Exam Extremities exam: Positive for: normal capillary refill, pedal edema, pedal pulses present Additional comments: 2+ b/l LE edema up to knees - Neurological Exam Neurological exam: Altered - Psychiatric Exam Psychiatric exam: Agitated, Anxious - Skin Skin Exam: Dry, Intact, Normal Color, Warm Results - Vital Signs Recent Vital Signs: Last Vital Signs Temp 97.7 F 07/13/17 23:14 Pulse 38 L 07/14/17 00:25 Resp 16 07/14/17 00:25 BP 90/46 L 07/14/17 00:25 Pulse Ox 97 07/14/17 00:51 - Labs Result Diagrams: 07/13/17 23:26 07/13/17 23:26 Labs: Laboratory Results - last 24 hr 07/13/17 07/13/17 07/13/17 23:26 23:26 23:26 WBC 4.7 L RBC 3.52 L Hgb 10.5 L Hct 31.7 L MCV 90.1 D MCH 29.8 MCHC 33.1 RDW 15.0 H Plt Count 241 MPV 9.5 Neut % (Auto) 67.4 Lymph % (Auto) 27.7 [place] % (Auto) 4.3 Eos % (Auto) 0.1 Baso % (Auto) 0.5 Neut # 3.2 Lymph # 1.3 [place] # 0.2 Eos # 0.0 Baso # 0.0 PT 14.7 H INR 1.3 APTT 34 Sodium 132 Potassium 6.1 H Chloride 99 Carbon Dioxide 18 L Anion Gap 21 H BUN 30 H Creatinine 1.2 Est GFR ( Amer) 52 Est GFR (Non-Af Amer) 43 Random Glucose 129 H Calcium 7.7 L Total Bilirubin 0.6 AST 375 H D ALT 269 H D Alkaline Phosphatase 102 Troponin I < 0.0120 Total Protein 6.8 Albumin 3.7 Globulin 3.1 Albumin/Globulin Ratio 1.2 TSH 3rd Generation 07/13/17 23:38 WBC RBC Hgb Hct MCV MCH MCHC RDW Plt Count MPV Neut % (Auto) Lymph % (Auto) [place] % (Auto) Eos % (Auto) Baso % (Auto) Neut # Lymph # [place] # Eos # Baso # PT INR APTT Sodium Potassium Chloride Carbon Dioxide Anion Gap BUN Creatinine Est GFR ( Amer) Est GFR (Non-Af Amer) Random Glucose Calcium Total Bilirubin AST ALT Alkaline Phosphatase Troponin I Total Protein Albumin Globulin Albumin/Globulin Ratio TSH 3rd Generation 10.30 H Assessment & Plan (1) Junctional bradycardia Assessment and Plan: On admission found in junctional bradycardia w/ HR in 30's; r/o ACS Cardiology consulted, Dr Abraham In ED, Atropine ivp -> 0.5mg, 0.5mg, 1mg, 1mg. HR improved to 50's. In ED, aspirin 325 mg po stat once Trop x1 negative, F/U remaining Trops F/U creatine phosphokinase Status: Acute (2) Hypotension Assessment and Plan: BP 91/42 on initial presentation; r/o aortic dissection Dopamine drip started; triple lumen catheter in right internal jugular vein CTA chest/abdomen/pelvis Status: Acute (3) Hyperkalemia Assessment and Plan: K+ 6.1 on admission calcium gluconate 4.65 meq ivpb once kayexalate 30mg po once dextrose 50% 50ml iv once insulin 6u iv once Status: Acute (4) Altered mental status Assessment and Plan: change in mental status observed in ED; could be related to atropine administration F/U CT head w/ contrast Status: Acute (5) Elevated LFTs Assessment and Plan: on admission AST 375, ALT 269 Status: Acute (6) Hypothyroidism Assessment and Plan: TSH 10.3 F/U T4, Free T4 Status: Acute (7) Prophylactic measure Assessment and Plan: DVT: heparin 5000u sc q8 GI: not indicated Diet: heart healthy to start once more stable Recent Prior Studies: ECHO 06/21/2017: Left ventricle systolic function is normal; The ejection fraction is 65-70%; Transmitral doppler flow pattern is Grade I-abnormal relaxation pattern. Stress test 06/[address] Abraham which showed no stress induced ischemia and normal EF. Lipid panel 06/13/2017: Cholesterol 213; LDL 106; HDL 49; Triglycerides 06/21/2017 : 51 Status: Acute
[2017-07-14] MEDS ORDERED: Sod Polystyrene Sulf 15 gm/60 ml Susp ONE (01:55)
[2017-07-14] MEDS ORDERED: Iodixanol 320 MG/ML 100 ML BOTTLE IV ONE (02:26)
[2017-07-14 02:56] LABS: POTASSIUM 5.1 mmol/L (3.6-5.2)
[2017-07-14 02:59] LABS: CALCIUM 7.6 mg/dl (8.6-10.4)
[2017-07-14 03:16] LABS: T4 11.1 ug/dL (5.5-11.0)
--- NOTE | 2017-07-14 03:36 | CT ---
EXAM: CT Head With Intravenous Contrast CLINICAL HISTORY: 86 years old, female; Signs and symptoms; Altered mental status/memory loss; Patient HX: 04-16-17; Additional info: Change mental status TECHNIQUE: Axial computed tomography images of the head/brain with intravenous contrast. All CT scans at this facility use one or more dose reduction techniques, viz.: automated exposure control; ma/kV adjustment per patient size (including targeted exams where dose is matched to indication; i.e. head); or iterative reconstruction technique. CONTRAST: 100 mL of [id number] administered intravenously. COMPARISON: No relevant prior studies available. Contrast is detected concurrent injection for additional studies. FINDINGS: Brain: No acute intracranial hemorrhage. Age-appropriate periventricular white matter disease. No edema. Ventricles: Age-appropriate ventriculomegaly. Bones: No acute displaced fracture. Sinuses: Unremarkable as visualized. No acute sinusitis. Mastoid air cells: Unremarkable as visualized. No mastoid effusion. IMPRESSION: No acute intracranial hemorrhage, or suspicious mass effect.
--- NOTE | 2017-07-14 03:47 | CT ---
EXAM: CT Chest With Intravenous Contrast CLINICAL HISTORY: 86 years old, female; Pain; Chest pain; Patient HX: 06-26-17. Images sent already. Iv at rt, wrist nurse couldn't find other vein TECHNIQUE: Axial computed tomography images of the chest with intravenous contrast during the arterial phase of enhancement. All CT scans at this facility use one or more dose reduction techniques, viz.: automated exposure control; ma/kV adjustment per patient size (including targeted exams where dose is matched to indication; i.e. head); or iterative reconstruction technique. Coronal and sagittal reformatted images were created and reviewed. CONTRAST: 100 mL of [id number] administered intravenously. COMPARISON: No relevant prior studies available. FINDINGS: Pulmonary arteries: No pulmonary embolism. Aorta: No thoracic aortic aneurysm. No dissection. Lungs: No mass. No consolidation. Interstitial thickening and patchy groundglass opacification is identified bilaterally, an interval change from 06/27/2017. Small bilateral pleural effusions, with adjacent compressive atelectasis. Pleural spaces: As above. Heart: The heart is enlarged, without a significant pericardial effusion. No evidence of right heart dysfunction. Bones: No acute fracture. Lymph nodes: No pathologically enlarged lymph nodes. IMPRESSION: No pulmonary embolism. Pulmonary vascular congestion, an interval change from previous examination. EXAM: CT Abdomen and Pelvis With Intravenous Contrast CLINICAL HISTORY: 86 years old, female; Pain; Chest pain; Patient HX: 06-26-17. Images sent already. Iv at rt, wrist nurse couldn't find other vein TECHNIQUE: Axial computed tomography images of the abdomen and pelvis with intravenous contrast during the arterial phase of enhancement. All CT scans at this facility use one or more dose reduction techniques, viz.: automated exposure control; ma/kV adjustment per patient size (including targeted exams where dose is matched to indication; i.e. head); or iterative reconstruction technique. Coronal and sagittal reformatted images were created and reviewed. CONTRAST: 100 mL of [id number] administered intravenously. COMPARISON: None. Reference is made to the CT examination of the chest performed 06/27/2017. FINDINGS: ABDOMEN: Liver: No acute findings. Gallbladder and bile ducts: The gallbladder is decompressed. No calcified stones. No significant intra- or extrahepatic biliary ductal dilation. Pancreas: Enhances homogeneously. No ductal dilation. No discrete mass. Spleen: No acute findings. Adrenals: No acute findings. Kidneys and ureters: No acute findings. No hydronephrosis or renal calculi. No discrete solid mass. A fluid attenuation irregular subcentimeter focus is detected in the lower pole left kidney, unchanged from previous examination and statistically a cyst. PELVIS: Bladder: Decompressed with a Serrato catheter, limiting its evaluation. Reproductive: A 4 cm focus of fluid attenuation is identified within the right adnexa, statistically a cyst. Appendix: The air filled appendix is of normal caliber (series 2, image 78) . ABDOMEN and PELVIS: Stomach and bowel: An air-fluid level is identified within the stomach, which is distended. No discrete gastric outlet obstruction is identified. No bowel obstruction is noted. Diffuse mucosal thickening within both small and large bowel, a nonspecific finding. Peritoneum: No significant fluid collection. No free air. Lymph nodes: No pathologically enlarged lymph nodes. Vasculature: Calcified atherosclerotic disease. Bones: No acute fracture. IMPRESSION: Findings within the left kidney and right adnexa, statistically representing cysts. Diffuse mucosal thickening of both small and large bowel, a nonspecific finding and
[2017-07-14 04:36] LABS: TROPONIN I 0.015 ng/mL (0.00-0.120)
[2017-07-14] MEDS ORDERED: Sodium Chloride 0.9% 500 ML IV SCH (06:00)
[2017-07-14 06:08] LABS: ARTERIAL BLOOD HGB O2 SAT 90.2 % (95.0-98.0); CARBOXYHEMOGLOBIN 1.5 % (0.5-1.5); DRAW SITE RB; HHB 7.4 % (0.0-5.0); METHEMOGLOBIN 0.9 % (0.0-3.0)
--- NOTE | 2017-07-14 07:49 | RAD ---
HISTORY: S/P rt jugular central line insertion COMPARISON: 07/14/2017 at 00:19: 27 FINDINGS: LUNGS: Lung volumes low-normal para no consolidation. Central pulmonary vascular congestion -interstitial pulmonary edema suspect - similar PLEURA: No significant pleural effusion identified, no pneumothorax apparent. CARDIOVASCULAR: Mild cardiomegaly similar mild central pulmonary venous congestion- interstitial pulmonary edema suspect OSSEOUS STRUCTURES: Bilateral high-riding humeral heads consistent with chronic rotator cuff pathology right greater than left. Right humeral head subchondral sclerotic arthropathy. Bilateral acromioclavicular joint arthrosis VISUALIZED UPPER ABDOMEN: Normal. OTHER FINDINGS: Interval insertion of right internal jugular vein central line -tip right atrium. IMPRESSION: Interval insertion right central line tip in right atrium. No pneumothorax Cardiomegaly- mild pulmonary venous congestion -pulmonary venous congestion similar
[2017-07-14] MEDS ORDERED: Sodium Chloride 0.9% 1,000 ML IV ONE (08:30)
--- NOTE | 2017-07-14 09:26 | RAD ---
PROCEDURE: CHEST RADIOGRAPH, 1 VIEW HISTORY: chest pain COMPARISON: 06/24/2017 FINDINGS: LUNGS: Right paratracheal prominence may represent prominent vasculature. Mild to moderate venous congestion. Patchy bibasilar airspace opacities. PLEURA: No pneumothorax or pleural fluid seen. CARDIOVASCULAR: Cardiomegaly. OSSEOUS STRUCTURES: Degenerative changes in the spine and shoulders. VISUALIZED UPPER ABDOMEN: Normal. OTHER FINDINGS: None. IMPRESSION: Right paratracheal prominence may represent prominent vasculature. Mild to moderate venous congestion. Patchy bibasilar airspace opacities.
[2017-07-14] MEDS ORDERED: Sodium Chloride 0.9% 250 ML IV ONE (10:40)
[2017-07-14] MEDS ORDERED: Dextrose 5%/0.45% NS 1,000 ML IV SCH (10:45)
[2017-07-14] MEDS: Piperacill/Tazo 2.25gm in Dex 2.25 GM/50 ML BAG IVPB SCH ×2 (11:21→17:19)
[2017-07-14 12:02] LABS: RBC URINE 1138 /hpf (0-3); URINE BACTERIA RARE (<OCC); URINE BILIRUBIN NEGATIVE (NEGATIVE); URINE BLOOD 3+ (NEGATIVE); URINE COLOR Amber (YELLOW); URINE GLUCOSE (UA) NORMAL (Normal); URINE KETONE TRACE mg/dL (NEGATIVE); URINE LEUKOCYTE ESTERASE 3+ Leu/uL (Negative); URINE PROTEIN 1+ mg/dL (NEGATIVE); WBC URINE 84 /hpf (0-5)
[2017-07-14 14:46] LABS: BILIRUBIN,TOTAL 0.5 mg/dL (0.2-1.3)
[2017-07-14 14:47] LABS: ALB/GLOB RATIO 1.1 (1.0-2.1); CALCIUM 6.9 mg/dl (8.6-10.4); MAGNESIUM 2.2 mg/dL (1.6-2.3); PHOSPHOROUS 3.6 mg/dL (2.5-4.5); TOTAL PROTEIN 6.7 g/dL (6.3-8.3)
--- NOTE | 2017-07-14 16:41 | CP.PCM.CON ---
History of Present Illness - History of Present Illness History of Present Illness: Cardiac EP Consult Note Reason for consult: bradycardia HPI: Patient is an 86 yo woman with hx of PAF (on amiodarone and Eliquis); preserved LVEF (by echo in 06/2017); HTN; HL; anemia; who presented for midsternal chest pain radiating to the back, at rest, non-exertional, non- pleuritic, non-radiating. No associated SOB, nausea, or diaphoresis. She came to [facility], and found to have paroxysms of AFib followed by periods of junctional rhythm in 30's with hypotension and altered mental status. She was started on dopamine gtt, with improvement in BP and HR. EP is now consulted by Dr. Abraham. Past Medical History: Atrial Fibrillation, Hypertension, hyperlipidemia, arthritis, anemia Surgical History: Tubal ligation Family History: Dad pass of pneumonia; Mom passed at the age of 90 due to heart disease Allergies: NKDA Social History: Lives with sister; denies smoking, denies alcohol use, denies illicit drug use. Past Patient History - Past Medical History & Family History Past Medical History?: Yes - Past Social History Smoking Status: Never Smoked - CARDIAC Hx Hypercholesterolemia: Yes Hx Hypertension: Yes - PULMONARY Hx Respiratory Disorders: No - NEUROLOGICAL Hx Neurological Disorder: No - HEENT Hx HEENT Problems: No Other/Comment: occular implant - RENAL Hx Chronic Kidney Disease: No - ENDOCRINE/METABOLIC Hx Endocrine Disorders: No - HEMATOLOGICAL/ONCOLOGICAL Hx Blood Disorders: No - INTEGUMENTARY Hx Dermatological Problems: No - MUSCULOSKELETAL/RHEUMATOLOGICAL Hx Arthritis: Yes Hx Falls: No - GASTROINTESTINAL Hx Gastrointestinal Disorders: No - GENITOURINARY/GYNECOLOGICAL Hx Genitourinary Disorders: No - PSYCHIATRIC Hx Substance Use: No - SURGICAL HISTORY Hx Surgeries: Yes Hx Hysterectomy: No Hx Tubal Ligation: Yes Other/Comment: "eye surgery" "occular implant" - ANESTHESIA Hx Anesthesia: Yes Hx Anesthesia Reactions: No Hx Malignant Hyperthermia: No Meds Allergies/Adverse Reactions: Allergies Allergy/AdvReac Type Severity Reaction Status Date / Time soy Allergy Mild RASH Verified 06/26/17 20:43 - Medications Medications: Current Medications Dextrose (Dextrose 50% Inj) 25 ml IV STAT STA Stop: 07/14/17 16:33 Famotidine (Pepcid) 20 mg IVP DAILY RODRIGO Last Admin: 07/14/17 11:00 Dose: 20 mg Heparin Sodium (Porcine) (Heparin) 5,000 units SC Q8 [facility] Last Admin: 07/14/17 13:21 Dose: 5,000 units Hydrocortisone Sodium Succinate (Solu-Cortef) 50 mg IV Q8H [facility] Dopamine HCl/Dextrose (Dopamine 400mg/250ml D5w) 400 mg in 250 mls @ 11.158 mls /hr IV .[id number] PRN; Protocol; 4 MCG/KG/MIN PRN Reason: TITRATE PER MD ORDER Last Titration: 07/14/17 16:21 Dose: 10 mcg/kg/min, 27.896 mls/hr Dextrose/Sodium Chloride (Dextrose 5%/0.45% Ns 1000 Ml) 1,000 mls @ 75 mls/hr IV .[id number] [facility] Last Admin: 07/14/17 10:59 Dose: 75 mls/hr Piperacillin Sod/Tazobactam Sod (Zosyn 2.25 Gm Iv Premix) 2.25 gm in 50 mls @ 100 mls/hr IVPB Q6 [facility] Last Admin: 07/14/17 11:21 Dose: 100 mls/hr Norepinephrine Bitartrate 4 mg (/ Sodium Chloride) 254 mls @ 15.24 mls/hr IV .[id number] PRN; Protocol; 4 MCG/MIN PRN Reason: TITRATE PER MD ORDER Last Titration: 07/14/17 16:03 Dose: 18 mcg/min, 68.58 mls/hr Calcium Gluconate 4.65 meq/ (Sodium Chloride) 110 mls @ 100 mls/hr IV ONCE ONE Stop: 07/14/17 17:36 Insulin Human Regular (Novolin R) 5 unit IV ONCE ONE Stop: 07/14/17 16:33 Physical Exam - Constitutional Appears: Confused - Head Exam Head Exam: ATRAUMATIC - ENT Exam ENT Exam: Mucous Membranes Dry - Neck Exam Neck exam: Positive for: Normal Inspection - Respiratory Exam Respiratory Exam: Clear to Auscultation Bilateral - Cardiovascular Exam Cardiovascular Exam: REGULAR RHYTHM, +S1, +S2 - GI/Abdominal Exam GI & Abdominal Exam: Soft - Extremities Exam Extremities exam: Negative for: pedal edema - Psychiatric Exam Psychiatric exam: Normal Affect - Skin Skin Exam: Warm Results - Vital Signs Recent Vital Signs: Last Vital Signs Temp 97.2 F L 07/14/17 16:00 Pulse 37 L 07/14/17 16:00 Resp 21 07/14/17 16:00 BP 87/53 L 07/14/17 16:00 Pulse Ox 96 07/14/17 16:00 - Labs Result Diagrams: 07/13/17 23:26 07/14/17 14:20 Labs: Laboratory Results - last 24 hr 07/13/17 07/13/17 07/13/17 23:26 23:26 23:26 WBC 4.7 L RBC 3.52 L Hgb 10.5 L Hct 31.7 L MCV 90.1 D MCH 29.8 MCHC 33.1 RDW 15.0 H Plt Count 241 MPV 9.5 Neut % (Auto) 67.4 Lymph % (Auto) 27.7 [place] % (Auto) 4.3 Eos % (Auto) 0.1 Baso % (Auto) 0.5 Neut # 3.2 Lymph # 1.3 [place] # 0.2 Eos # 0.0 Baso # 0.0 PT 14.7 H INR 1.3 APTT 34 Puncture Site pCO2 pO2 HCO3 ABG pH ABG Total CO2 ABG O2 Saturation ABG Base Excess ABG Hemoglobin ABG Carboxyhemoglobin POC ABG HHb (Measured) ABG Methemoglobin Stu Test Hgb O2 Saturation Liter Flow Sodium 132 Potassium 6.1 H Chloride 99 Carbon Dioxide 18 L Anion Gap 21 H BUN 30 H Creatinine 1.2 Est GFR ( Amer) 52 Est GFR (Non-Af Amer) 43 POC Glucose (mg/dL) Random Glucose 129 H Lactic Acid Calcium 7.7 L Phosphorus Magnesium Total Bilirubin 0.6 AST 375 H D ALT 269 H D Alkaline Phosphatase 102 Total Creatine Kinase CK-MB (Mass) Troponin I < 0.0120 Troponin I, Quant Total Protein 6.8 Albumin 3.7 Globulin 3.1 Albumin/Globulin Ratio 1.2 Procalcitonin Free T4 Thyroxine (T4) TSH 3rd Generation Plasma Cortisol PM Urine Color Urine Clarity Urine pH Ur Specific [place] Urine Protein Urine Glucose (UA) Urine Ketones Urine Blood Urine Nitrate Urine Bilirubin Urine Urobilinogen Ur Leukocyte Esterase Urine WBC (Auto) Urine RBC (Auto) Ur Squamous Epith Cells Urine Bacteria 07/13/17 07/14/17 07/14/17 23:38 02:09 02:38 WBC RBC Hgb Hct MCV MCH MCHC RDW Plt Count MPV Neut % (Auto) Lymph % (Auto) [place] % (Auto) Eos % (Auto) Baso % (Auto) Neut # Lymph # [place] # Eos # Baso # PT INR APTT Puncture Site pCO2 pO2 HCO3 ABG pH ABG Total CO2 ABG O2 Saturation ABG Base Excess ABG Hemoglobin ABG Carboxyhemoglobin POC ABG HHb (Measured) ABG Methemoglobin Stu Test Hgb O2 Saturation Liter Flow Sodium 134 Potassium 5.1 Chloride 102 Carbon Dioxide 21 L Anion Gap 16 BUN 29 H Creatinine 1.2 Est GFR ( Amer) 52 Est GFR (Non-Af Amer) 43 POC Glucose (mg/dL) 211 H Random Glucose 182 H Lactic Acid Calcium 7.6 L Phosphorus Magnesium Total Bilirubin AST ALT Alkaline Phosphatase Total Creatine Kinase CK-MB (Mass) Troponin I Troponin I, Quant Total Protein Albumin Globulin Albumin/Globulin Ratio Procalcitonin Free T4 Thyroxine (T4) 11.1 H TSH 3rd Generation 10.30 H Plasma Cortisol PM Urine Color Urine Clarity Urine pH Ur Specific [place] Urine Protein Urine Glucose (UA) Urine Ketones Urine Blood Urine Nitrate Urine Bilirubin Urine Urobilinogen Ur Leukocyte Esterase Urine WBC (Auto) Urine RBC (Auto) Ur Squamous Epith Cells Urine Bacteria 07/14/17 07/14/17 07/14/17 02:38 02:38 06:05 WBC RBC Hgb Hct MCV MCH MCHC RDW Plt Count MPV Neut % (Auto) Lymph % (Auto) [place] % (Auto) Eos % (Auto) Baso % (Auto) Neut # Lymph # [place] # Eos # Baso # PT INR APTT Puncture Site Rb pCO2 38 pO2 60 L HCO3 16.8 L ABG pH 7.24 L ABG Total CO2 17.5 L ABG O2 Saturation 92.4 L ABG Base Excess -10.3 L ABG Hemoglobin 10.1 L ABG Carboxyhemoglobin 1.5 POC ABG HHb (Measured) 7.4 H ABG Methemoglobin 0.9 Stu Test Na Hgb O2 Saturation 90.2 L Liter Flow 5.0 Sodium Potassium Chloride Carbon Dioxide Anion Gap BUN Creatinine Est GFR ( Amer) Est GFR (Non-Af Amer) POC Glucose (mg/dL) Random Glucose Lactic Acid Calcium Phosphorus Magnesium Total Bilirubin AST ALT Alkaline Phosphatase Total Creatine Kinase 172 H CK-MB (Mass) Troponin I 0.0150 Troponin I, Quant Total Protein Albumin Globulin Albumin/Globulin Ratio Procalcitonin Free T4 1.97 Thyroxine (T4) TSH 3rd Generation Plasma Cortisol PM Urine Color Urine Clarity Urine pH Ur Specific [place] Urine Protein Urine Glucose (UA) Urine Ketones Urine Blood Urine Nitrate Urine Bilirubin Urine Urobilinogen Ur Leukocyte Esterase Urine WBC (Auto) Urine RBC (Auto) Ur Squamous Epith Cells Urine Bacteria 07/14/17 07/14/17 07/14/17 06:26 11:10 11:10 WBC RBC Hgb Hct MCV MCH MCHC RDW Plt Count MPV Neut % (Auto) Lymph % (Auto) [place] % (Auto) Eos % (Auto) Baso % (Auto) Neut # Lymph # [place] # Eos # Baso # PT INR APTT Puncture Site pCO2 pO2 HCO3 ABG pH ABG Total CO2 ABG O2 Saturation ABG Base Excess ABG Hemoglobin ABG Carboxyhemoglobin POC ABG HHb (Measured) ABG Methemoglobin Stu Test Hgb O2 Saturation Liter Flow Sodium Potassium Chloride Carbon Dioxide Anion Gap BUN Creatinine Est GFR ( Amer) Est GFR (Non-Af Amer) POC Glucose (mg/dL) Random Glucose Lactic Acid 4.4 H* Calcium Phosphorus Magnesium Total Bilirubin AST ALT Alkaline Phosphatase Total Creatine Kinase CK-MB (Mass) Troponin I 0.0320 Troponin I, Quant Total Protein Albumin Globulin Albumin/Globulin Ratio Procalcitonin 0.58 H Free T4 Thyroxine (T4) TSH 3rd Generation Plasma Cortisol PM Urine Color Urine Clarity Urine pH Ur Specific [place] Urine Protein Urine Glucose (UA) Urine Ketones Urine Blood Urine Nitrate Urine Bilirubin Urine Urobilinogen Ur Leukocyte Esterase Urine WBC (Auto) Urine RBC (Auto) Ur Squamous Epith Cells Urine Bacteria 07/14/17 07/14/17 07/14/17 11:46 12:21 14:20 WBC RBC Hgb Hct MCV MCH MCHC RDW Plt Count MPV Neut % (Auto) Lymph % (Auto) [place] % (Auto) Eos % (Auto) Baso % (Auto) Neut # Lymph # [place] # Eos # Baso # PT INR APTT Puncture Site pCO2 pO2 HCO3 ABG pH ABG Total CO2 ABG O2 Saturation ABG Base Excess ABG Hemoglobin ABG Carboxyhemoglobin POC ABG HHb (Measured) ABG Methemoglobin Stu Test Hgb O2 Saturation Liter Flow Sodium 133 Potassium 5.0 Chloride 99 Carbon Dioxide 16 L Anion Gap 23 H BUN 33 H Creatinine 1.5 H Est GFR ( Amer) 40 Est GFR (Non-Af Amer) 33 POC Glucose (mg/dL) Random Glucose 178 H Lactic Acid Calcium 6.9 L Phosphorus 3.6 Magnesium 2.2 Total Bilirubin 0.5 AST 343 H ALT 368 H D Alkaline Phosphatase 112 Total Creatine Kinase 345 H CK-MB (Mass) 3.62 H Troponin I Troponin I, Quant 0.0240 Total Protein 6.7 Albumin 3.5 Globulin 3.2 Albumin/Globulin Ratio 1.1 Procalcitonin Free T4 Thyroxine (T4) TSH 3rd Generation Plasma Cortisol PM 51.7 H Urine Color [place] Urine Clarity Hazy Urine pH 5.0 Ur Specific [place] > 1.060 H Urine Protein 1+ H Urine Glucose (UA) Normal Urine Ketones Trace Urine Blood 3+ H Urine Nitrate Negative Urine Bilirubin Negative Urine Urobilinogen 2.0 H Ur Leukocyte Esterase 3+ H Urine WBC (Auto) 84 H Urine RBC (Auto) 1138 H Ur Squamous Epith Cells 1 Urine Bacteria Rare - Impressions Impression: sinus arrest, junctional rhythm at 35 bpm with narrow QRS Assessment & Plan - Assessment and Plan (Free Text) Assessment: 1. Sick sinus syndrome -- Probably being exacerbated by amiodarone 2. PAF -- On amio and Eliquis at home. Amio being held for now 3. Delirium likely due to UTI 4. Preserved LVEF Plan: * D/c amiodarone for now * Once mental status and UTI is improved, then consider PPM implant after completion of antibiotics * Wean off dopamine as BP allows * Consider heparin gtt for anticoagulation for PAF while hospitalized, and transition back to Eliquis upon discharge
[2017-07-14] MEDS ORDERED: Albuterol-Ipratrop 3 mg / 0.5 (3 ml) UD INH STA (18:13)
[2017-07-14] MEDS ORDERED: Sodium Bicarbonate (8.4%) 50 Meq Syringe IVP ONE (20:03)
[2017-07-14 20:17] LABS: ARTERIAL BLOOD HGB O2 SAT 85.8 % (95.0-98.0); CARBOXYHEMOGLOBIN 1.4 % (0.5-1.5); DRAW SITE RBA; HHB 12.1 % (0.0-5.0); METHEMOGLOBIN 0.7 % (0.0-3.0)
--- NOTE | 2017-07-14 20:53 | PCM.ANES ---
Anesthesia Emergent Intubation - Diagnosis Working Diagnosis:: Respiratory failure/agitation - Consult Reason for Consult:: Patient getting acidotic from hypoventilation - Intubation Attempts Previous Number of Intubation Attempts:: 0 - Pre-Intubation Vital Signs Blood Pressure: 180/78 Heart Rate: 69 Respiratory Rate: 35 O2 Sat: 88 FIO2: 100 Oxygen Delivery Method: Non-Rebreather Level Of Consciousness: Combative Intubation Meds Given: Etomidate - Airway Management Oropharyngeal Area Suctioned: Yes (patient had bitten her tongue while agitated small amount of blood) PreOxygenation: 100 Rapid Sequence: Yes Cricoid Pressure: Yes Possible Aspiration: No - Method of Intubation Intubation Method: Oral ETT ETT Size: 7.5 Lipline@: 21 Easy: Yes Atramatic: Yes - Intubation Devices Kim Blade Size Used: 0 Cynthia Forcepts Used: No [place] Scope Used: Yes Fiber Optic Scope: No - Placement Confirmation Breath Sounds Present & Equal Bilaterally: Yes Gurgling Sounds Not Audible at Epigastrum: Yes Positive EtCO2: Yes Portable CXR: Yes Recommendations: Ventilator, ABG - Post-Intubation Vital Signs Blood Pressure: 144/75 Heart Rate: 68 Respiratory Rate: 16 O2 Sat: 100 FIO2: 100
--- NOTE | 2017-07-14 20:55 | CP.CCUPN ---
CCU Subjective - Physician Review Events Since Last Encounter (Free Text): 07/14/17 20:50 patient very agitated,hypoxic,tachypneic CCU Objective - Vital Signs / Intake & Output Vital Signs (Last 4 hours): Vital Signs Pulse Resp BP Pulse Ox 07/14/17 19:56 151/97 H 07/14/17 19:00 52 L 27 H 07/14/17 18:51 59 L 17 124/32 L 92 L 07/14/17 18:50 71 25 H 07/14/17 18:40 63 19 95 07/14/17 18:35 55 L 12 107/31 L 07/14/17 18:30 91 H 27 H 07/14/17 18:20 75 16 07/14/17 18:10 60 30 H 88 L 07/14/17 18:00 57 L 24 87 L 07/14/17 17:53 59 L 19 135/40 L 90 L 07/14/17 17:51 59 L 36 H 156/125 H 88 L 07/14/17 17:50 65 33 H 87 L 07/14/17 17:40 52 L 31 H 92 L 07/14/17 17:30 60 22 87 L 07/14/17 17:21 52 L 24 103/49 L 93 L 07/14/17 17:20 52 L 23 93 L 07/14/17 17:10 48 L 29 H 89 L 07/14/17 17:09 53 L 25 H 108/91 H 07/14/17 17:00 57 L 26 H 92 L 07/14/17 16:54 72 26 H 108/91 H 93 L Intake and Output (Last 8hrs): Intake & Output 07/14/17 07/14/17 07/14/17 06:59 14:59 22:59 Intake Total 1226.9 1648.9 1241.6 Output Total 20 82 55 Balance 1206.9 1566.9 1186.6 Weight 189 lb 9.561 oz Intake: IV 40 529 434 Intake, IV Amount 1186.9 1119.9 807.6 Right Distal Port 108.8 327.1 Internal Jugular Right Internal Jugular 1062.3 575 355 Right Medial Port 124.6 436.1 125.5 Oral 0 0 Output: Urine 20 82 55 Urethral (Serrato) 20 82 55 Other: Voiding Method Indwelling Catheter # Bowel Movements 0 0 - Physical Exam Physical Exam Limitations: Positive for: Altered Mental Status Head: Positive for: Atraumatic, Normocephalic Pupils: Positive for: PERRL Conjunctiva: Positive for: Normal Ears: Positive for: Normal Mouth: Positive for: Dry Respiratory/Chest: Positive for: Wheezes Cardiovascular: Positive for: Irregular Rhythm Abdomen: Negative for: Rebound Upper Extremity: Positive for: Normal Inspection Lower Extremity: Positive for: Normal Inspection Psychiatric: Positive for: Agitated - Medications Active Medications: Active Medications Generic Name Dose Route Start Last Admin Trade Name Freq PRN Reason Stop Dose Admin Famotidine 20 mg 07/14/17 10:45 07/14/17 11:00 Pepcid IVP 20 mg DAILY RODRIGO Administration Heparin Sodium (Porcine) 5,000 units 07/14/17 01:15 07/14/17 13:21 Heparin SC 5,000 units Q8 RODRIGO Administration Hydrocortisone Sodium Succinate 50 mg 07/14/17 23:00 Solu-Cortef IV Q8H RODRIGO Dopamine HCl/Dextrose 400 mg in 250 mls @ 11.158 mls/hr 07/14/17 02:04 16:21 Dopamine 400mg/250ml D5w IV 10 mcg/kg/min .[id number] PRN 27.896 mls/hr TITRATE PER MD ORDER Titration Protocol 4 MCG/KG/MIN Piperacillin Sod/Tazobactam Sod 2.25 gm in 50 mls @ 100 mls/hr 07/14/17 11:30 07/14/17 17:19 Zosyn 2.25 Gm Iv Premix IVPB 100 mls/hr Q6 RODRIGO Administration Norepinephrine Bitartrate 4 mg 254 mls @ 15.24 mls/hr 07/14/17 10:37 19:45 / Sodium Chloride IV 20 mcg/min .[id number] PRN 76.2 mls/hr TITRATE PER MD ORDER Titration Protocol 4 MCG/MIN Sodium Bicarbonate 100 meq/ 1,100 mls @ 60 mls/hr 07/14/17 21:30 Sodium Chloride IV .[id number] RODRIGO - Patient Studies Lab Studies: Lab Studies 07/14/17 07/14/17 07/14/17 Range/Units 20:10 14:20 12:21 WBC (4.8-10.8) K/uL RBC (3.80-5.20) Mil/uL Hgb (11.0-16.0) g/dL Hct (34.0-47.0) % MCV (81.0-99.0) fL MCH (27.0-31.0) pg MCHC (33.0-37.0) g/dL RDW (11.5-14.5) % Plt Count (130-400) K/uL MPV (7.2-11.7) fL Neut % (Auto) (50.0-75.0) % Lymph % (Auto) (20.0-40.0) % [place] % (Auto) (0.0-10.0) % Eos % (Auto) (0.0-4.0) % Baso % (Auto) (0.0-2.0) % Neut # (1.8-7.0) K/uL Lymph # (1.0-4.3) K/uL [place] # (0.0-0.8) K/uL Eos # (0.0-0.7) K/uL Baso # (0.0-0.2) K/uL PT (9.7-12.2) SECONDS INR APTT (21-34) SECONDS Puncture Site Rba pCO2 41 (35-45) mm/Hg pO2 57 L (80-100) mm/Hg HCO3 10.5 L (21-28) mmol/L ABG pH 7.05 L* (7.35-7.45) ABG Total CO2 12.6 L (22-28) mmol/L ABG O2 Saturation 87.6 L (95-98) % ABG Base Excess -18.2 L (-2.0-3.0) mmol/L ABG Hemoglobin 9.5 L (11.7-17.4) g/dL ABG Carboxyhemoglobin 1.4 (0.5-1.5) % POC ABG HHb (Measured) 12.1 H (0.0-5.0) % ABG Methemoglobin 0.7 (0.0-3.0) % Stu Test Na Hgb O2 Saturation 85.8 L (95.0-98.0) % Liter Flow Crit Value Called To Kayla du Crit Value Called By M mark Crit Value Read Back Y Blood Gas Notified Time 2014 Sodium 133 (132-148) mmol/L Potassium 5.0 (3.6-5.2) mmol/L Chloride 99 (98-107) mmol/L Carbon Dioxide 16 L (22-30) mmol/L Anion Gap 23 H (10-20) BUN 33 H (7-17) mg/dL Creatinine 1.5 H (0.7-1.2) MG/DL Est GFR ( Amer) 40 Est GFR (Non-Af Amer) 33 POC Glucose (mg/dL) (65-110) mg/dL Random Glucose 178 H (65-105) mg/dL Lactic Acid (0.7-2.1) mmol/L Calcium 6.9 L (8.6-10.4) mg/dl Phosphorus 3.6 (2.5-4.5) mg/dL Magnesium 2.2 (1.6-2.3) mg/dL Total Bilirubin 0.5 (0.2-1.3) mg/dL AST 343 H (14-36) U/L ALT 368 H D (9-52) U/L Alkaline Phosphatase 112 (38-126) U/L Total Creatine Kinase 345 H (30-135) U/L CK-MB (Mass) 3.62 H (0.0-3.38) ng/mL Troponin I (0.00-0.120) ng/mL Troponin I, Quant 0.0240 (0.00-0.120) ng/mL Total Protein 6.7 (6.3-8.3) g/dL Albumin 3.5 (3.5-5.0) g/dL Globulin 3.2 (2.2-3.9) gm/dL Albumin/Globulin Ratio 1.1 (1.0-2.1) Procalcitonin (0.19-0.49) NG/ML Free T4 (0.78-2.19) ng/dL Thyroxine (T4) (5.5-11.0) ug/dL TSH 3rd Generation (0.46-4.68) mIU/L Plasma Cortisol PM 51.7 H (1.7-14.1) ug/dL Urine Color (YELLOW) Urine Clarity (Clear) Urine pH (5.0-8.0) Ur Specific [place] (1.003-1.030) Urine Protein (NEGATIVE) mg/dL Urine Glucose (UA) (Normal) mg/dL Urine Ketones (NEGATIVE) mg/dL Urine Blood (NEGATIVE) Urine Nitrate (NEGATIVE) Urine Bilirubin (NEGATIVE) Urine Urobilinogen (0.2-1.0) mg/dL Ur Leukocyte Esterase (Negative) Noel/uL Urine WBC (Auto) (0-5) /hpf Urine RBC (Auto) (0-3) /hpf Ur Squamous Epith Cells (0-5) /hpf Urine Bacteria (<OCC) 07/14/17 07/14/17 07/14/17 Range/Units 11:46 11:10 11:10 WBC (4.8-10.8) K/uL RBC (3.80-5.20) Mil/uL Hgb (11.0-16.0) g/dL Hct (34.0-47.0) % MCV (81.0-99.0) fL MCH (27.0-31.0) pg MCHC (33.0-37.0) g/dL RDW (11.5-14.5) % Plt Count (130-400) K/uL MPV (7.2-11.7) fL Neut % (Auto) (50.0-75.0) % Lymph % (Auto) (20.0-40.0) % [place] % (Auto) (0.0-10.0) % Eos % (Auto) (0.0-4.0) % Baso % (Auto) (0.0-2.0) % Neut # (1.8-7.0) K/uL Lymph # (1.0-4.3) K/uL [place] # (0.0-0.8) K/uL Eos # (0.0-0.7) K/uL Baso # (0.0-0.2) K/uL PT (9.7-12.2) SECONDS INR APTT (21-34) SECONDS Puncture Site pCO2 (35-45) mm/Hg pO2 (80-100) mm/Hg HCO3 (21-28) mmol/L ABG pH (7.35-7.45) ABG Total CO2 (22-28) mmol/L ABG O2 Saturation (95-98) % ABG Base Excess (-2.0-3.0) mmol/L ABG Hemoglobin (11.7-17.4) g/dL ABG Carboxyhemoglobin (0.5-1.5) % POC ABG HHb (Measured) (0.0-5.0) % ABG Methemoglobin (0.0-3.0) % Stu Test Hgb O2 Saturation (95.0-98.0) % Liter Flow Crit Value Called To Crit Value Called By Crit Value Read Back Blood Gas Notified Time Sodium (132-148) mmol/L Potassium (3.6-5.2) mmol/L Chloride (98-107) mmol/L Carbon Dioxide (22-30) mmol/L Anion Gap (10-20) BUN (7-17) mg/dL Creatinine (0.7-1.2) MG/DL Est GFR ( Amer) Est GFR (Non-Af Amer) POC Glucose (mg/dL) (65-110) mg/dL Random Glucose (65-105) mg/dL Lactic Acid 4.4 H* (0.7-2.1) mmol/L Calcium (8.6-10.4) mg/dl Phosphorus (2.5-4.5) mg/dL Magnesium (1.6-2.3) mg/dL Total Bilirubin (0.2-1.3) mg/dL AST (14-36) U/L ALT (9-52) U/L Alkaline Phosphatase (38-126) U/L Total Creatine Kinase (30-135) U/L CK-MB (Mass) (0.0-3.38) ng/mL Troponin I (0.00-0.120) ng/mL Troponin I, Quant (0.00-0.120) ng/mL Total Protein (6.3-8.3) g/dL Albumin (3.5-5.0) g/dL Globulin (2.2-3.9) gm/dL Albumin/Globulin Ratio (1.0-2.1) Procalcitonin 0.58 H (0.19-0.49) NG/ML Free T4 (0.78-2.19) ng/dL Thyroxine (T4) (5.5-11.0) ug/dL TSH 3rd Generation (0.46-4.68) mIU/L Plasma Cortisol PM (1.7-14.1) ug/dL Urine Color [place] (YELLOW) Urine Clarity Hazy (Clear) Urine pH 5.0 (5.0-8.0) Ur Specific [place] > 1.060 H (1.003-1.030) Urine Protein 1+ H (NEGATIVE) mg/dL Urine Glucose (UA) Normal (Normal) mg/dL Urine Ketones Trace (NEGATIVE) mg/dL Urine Blood 3+ H (NEGATIVE) Urine Nitrate Negative (NEGATIVE) Urine Bilirubin Negative (NEGATIVE) Urine Urobilinogen 2.0 H (0.2-1.0) mg/dL Ur Leukocyte Esterase 3+ H (Negative) Noel/uL Urine WBC (Auto) 84 H (0-5) /hpf Urine RBC (Auto) 1138 H (0-3) /hpf Ur Squamous Epith Cells 1 (0-5) /hpf Urine Bacteria Rare (<OCC) 07/14/17 07/14/17 07/14/17 Range/Units 06:26 06:05 02:38 WBC (4.8-10.8) K/uL RBC (3.80-5.20) Mil/uL Hgb (11.0-16.0) g/dL Hct (34.0-47.0) % MCV (81.0-99.0) fL MCH (27.0-31.0) pg MCHC (33.0-37.0) g/dL RDW (11.5-14.5) % Plt Count (130-400) K/uL MPV (7.2-11.7) fL Neut % (Auto) (50.0-75.0) % Lymph % (Auto) (20.0-40.0) % [place] % (Auto) (0.0-10.0) % Eos % (Auto) (0.0-4.0) % Baso % (Auto) (0.0-2.0) % Neut # (1.8-7.0) K/uL Lymph # (1.0-4.3) K/uL [place] # (0.0-0.8) K/uL Eos # (0.0-0.7) K/uL Baso # (0.0-0.2) K/uL PT (9.7-12.2) SECONDS INR APTT (21-34) SECONDS Puncture Site Rb pCO2 38 (35-45) mm/Hg pO2 60 L (80-100) mm/Hg HCO3 16.8 L (21-28) mmol/L ABG pH 7.24 L (7.35-7.45) ABG Total CO2 17.5 L (22-28) mmol/L ABG O2 Saturation 92.4 L (95-98) % ABG Base Excess -10.3 L (-2.0-3.0) mmol/L ABG Hemoglobin 10.1 L (11.7-17.4) g/dL ABG Carboxyhemoglobin 1.5 (0.5-1.5) % POC ABG HHb (Measured) 7.4 H (0.0-5.0) % ABG Methemoglobin 0.9 (0.0-3.0) % Stu Test Na Hgb O2 Saturation 90.2 L (95.0-98.0) % Liter Flow 5.0 Crit Value Called To Crit Value Called By Crit Value Read Back Blood Gas Notified Time Sodium (132-148) mmol/L Potassium (3.6-5.2) mmol/L Chloride (98-107) mmol/L Carbon Dioxide (22-30) mmol/L Anion Gap (10-20) BUN (7-17) mg/dL Creatinine (0.7-1.2) MG/DL Est GFR ( Amer) Est GFR (Non-Af Amer) POC Glucose (mg/dL) (65-110) mg/dL Random Glucose (65-105) mg/dL Lactic Acid (0.7-2.1) mmol/L Calcium (8.6-10.4) mg/dl Phosphorus (2.5-4.5) mg/dL Magnesium (1.6-2.3) mg/dL Total Bilirubin (0.2-1.3) mg/dL AST (14-36) U/L ALT (9-52) U/L Alkaline Phosphatase (38-126) U/L Total Creatine Kinase 172 H (30-135) U/L CK-MB (Mass) (0.0-3.38) ng/mL Troponin I 0.0320 0.0150 (0.00-0.120) ng/mL Troponin I, Quant (0.00-0.120) ng/mL Total Protein (6.3-8.3) g/dL Albumin (3.5-5.0) g/dL Globulin (2.2-3.9) gm/dL Albumin/Globulin Ratio (1.0-2.1) Procalcitonin (0.19-0.49) NG/ML Free T4 (0.78-2.19) ng/dL Thyroxine (T4) (5.5-11.0) ug/dL TSH 3rd Generation (0.46-4.68) mIU/L Plasma Cortisol PM (1.7-14.1) ug/dL Urine Color (YELLOW) Urine Clarity (Clear) Urine pH (5.0-8.0) Ur Specific [place] (1.003-1.030) Urine Protein (NEGATIVE) mg/dL Urine Glucose (UA) (Normal) mg/dL Urine Ketones (NEGATIVE) mg/dL Urine Blood (NEGATIVE) Urine Nitrate (NEGATIVE) Urine Bilirubin (NEGATIVE) Urine Urobilinogen (0.2-1.0) mg/dL Ur Leukocyte Esterase (Negative) Noel/uL Urine WBC (Auto) (0-5) /hpf Urine RBC (Auto) (0-3) /hpf Ur Squamous Epith Cells (0-5) /hpf Urine Bacteria (<OCC) 07/14/17 07/14/17 07/14/17 Range/Units 02:38 02:38 02:09 WBC (4.8-10.8) K/uL RBC (3.80-5.20) Mil/uL Hgb (11.0-16.0) g/dL Hct (34.0-47.0) % MCV (81.0-99.0) fL MCH (27.0-31.0) pg MCHC (33.0-37.0) g/dL RDW (11.5-14.5) % Plt Count (130-400) K/uL MPV (7.2-11.7) fL Neut % (Auto) (50.0-75.0) % Lymph % (Auto) (20.0-40.0) % [place] % (Auto) (0.0-10.0) % Eos % (Auto) (0.0-4.0) % Baso % (Auto) (0.0-2.0) % Neut # (1.8-7.0) K/uL Lymph # (1.0-4.3) K/uL [place] # (0.0-0.8) K/uL Eos # (0.0-0.7) K/uL Baso # (0.0-0.2) K/uL PT (9.7-12.2) SECONDS INR APTT (21-34) SECONDS Puncture Site pCO2 (35-45) mm/Hg pO2 (80-100) mm/Hg HCO3 (21-28) mmol/L ABG pH (7.35-7.45) ABG Total CO2 (22-28) mmol/L ABG O2 Saturation (95-98) % ABG Base Excess (-2.0-3.0) mmol/L ABG Hemoglobin (11.7-17.4) g/dL ABG Carboxyhemoglobin (0.5-1.5) % POC ABG HHb (Measured) (0.0-5.0) % ABG Methemoglobin (0.0-3.0) % Stu Test Hgb O2 Saturation (95.0-98.0) % Liter Flow Crit Value Called To Crit Value Called By Crit Value Read Back Blood Gas Notified Time Sodium 134 (132-148) mmol/L Potassium 5.1 (3.6-5.2) mmol/L Chloride 102 (98-107) mmol/L Carbon Dioxide 21 L (22-30) mmol/L Anion Gap 16 (10-20) BUN 29 H (7-17) mg/dL Creatinine 1.2 (0.7-1.2) MG/DL Est GFR ( Amer) 52 Est GFR (Non-Af Amer) 43 POC Glucose (mg/dL) 211 H (65-110) mg/dL Random Glucose 182 H (65-105) mg/dL Lactic Acid (0.7-2.1) mmol/L Calcium 7.6 L (8.6-10.4) mg/dl Phosphorus (2.5-4.5) mg/dL Magnesium (1.6-2.3) mg/dL Total Bilirubin (0.2-1.3) mg/dL AST (14-36) U/L ALT (9-52) U/L Alkaline Phosphatase (38-126) U/L Total Creatine Kinase (30-135) U/L CK-MB (Mass) (0.0-3.38) ng/mL Troponin I (0.00-0.120) ng/mL Troponin I, Quant (0.00-0.120) ng/mL Total Protein (6.3-8.3) g/dL Albumin (3.5-5.0) g/dL Globulin (2.2-3.9) gm/dL Albumin/Globulin Ratio (1.0-2.1) Procalcitonin (0.19-0.49) NG/ML Free T4 1.97 (0.78-2.19) ng/dL Thyroxine (T4) 11.1 H (5.5-11.0) ug/dL TSH 3rd Generation (0.46-4.68) mIU/L Plasma Cortisol PM (1.7-14.1) ug/dL Urine Color (YELLOW) Urine Clarity (Clear) Urine pH (5.0-8.0) Ur Specific [place] (1.003-1.030) Urine Protein (NEGATIVE) mg/dL Urine Glucose (UA) (Normal) mg/dL Urine Ketones (NEGATIVE) mg/dL Urine Blood (NEGATIVE) Urine Nitrate (NEGATIVE) Urine Bilirubin (NEGATIVE) Urine Urobilinogen (0.2-1.0) mg/dL Ur Leukocyte Esterase (Negative) [place]/uL Urine WBC (Auto) (0-5) /hpf Urine RBC (Auto) (0-3) /hpf Ur Squamous Epith Cells (0-5) /hpf Urine Bacteria (<OCC) 07/13/17 07/13/17 07/13/17 Range/Units 23:38 23:26 23:26 WBC (4.8-10.8) K/uL RBC (3.80-5.20) Mil/uL Hgb (11.0-16.0) g/dL Hct (34.0-47.0) % MCV (81.0-99.0) fL MCH (27.0-31.0) pg MCHC (33.0-37.0) g/dL RDW (11.5-14.5) % Plt Count (130-400) K/uL MPV (7.2-11.7) fL Neut % (Auto) (50.0-75.0) % Lymph % (Auto) (20.0-40.0) % [place] % (Auto) (0.0-10.0) % Eos % (Auto) (0.0-4.0) % Baso % (Auto) (0.0-2.0) % Neut # (1.8-7.0) K/uL Lymph # (1.0-4.3) K/uL [place] # (0.0-0.8) K/uL Eos # (0.0-0.7) K/uL Baso # (0.0-0.2) K/uL PT 14.7 H (9.7-12.2) SECONDS INR 1.3 APTT 34 (21-34) SECONDS Puncture Site pCO2 (35-45) mm/Hg pO2 (80-100) mm/Hg HCO3 (21-28) mmol/L ABG pH (7.35-7.45) ABG Total CO2 (22-28) mmol/L ABG O2 Saturation (95-98) % ABG Base Excess (-2.0-3.0) mmol/L ABG Hemoglobin (11.7-17.4) g/dL ABG Carboxyhemoglobin (0.5-1.5) % POC ABG HHb (Measured) (0.0-5.0) % ABG Methemoglobin (0.0-3.0) % Stu Test Hgb O2 Saturation (95.0-98.0) % Liter Flow Crit Value Called To Crit Value Called By Crit Value Read Back Blood Gas Notified Time Sodium 132 (132-148) mmol/L Potassium 6.1 H (3.6-5.2) mmol/L Chloride 99 (98-107) mmol/L Carbon Dioxide 18 L (22-30) mmol/L Anion Gap 21 H (10-20) BUN 30 H (7-17) mg/dL Creatinine 1.2 (0.7-1.2) MG/DL Est GFR ( Amer) 52 Est GFR (Non-Af Amer) 43 POC Glucose (mg/dL) (65-110) mg/dL Random Glucose 129 H (65-105) mg/dL Lactic Acid (0.7-2.1) mmol/L Calcium 7.7 L (8.6-10.4) mg/dl Phosphorus (2.5-4.5) mg/dL Magnesium (1.6-2.3) mg/dL Total Bilirubin 0.6 (0.2-1.3) mg/dL AST 375 H D (14-36) U/L ALT 269 H D (9-52) U/L Alkaline Phosphatase 102 (38-126) U/L Total Creatine Kinase (30-135) U/L CK-MB (Mass) (0.0-3.38) ng/mL Troponin I < 0.0120 (0.00-0.120) ng/mL Troponin I, Quant (0.00-0.120) ng/mL Total Protein 6.8 (6.3-8.3) g/dL Albumin 3.7 (3.5-5.0) g/dL Globulin 3.1 (2.2-3.9) gm/dL Albumin/Globulin Ratio 1.2 (1.0-2.1) Procalcitonin (0.19-0.49) NG/ML Free T4 (0.78-2.19) ng/dL Thyroxine (T4) (5.5-11.0) ug/dL TSH 3rd Generation 10.30 H (0.46-4.68) mIU/L Plasma Cortisol PM (1.7-14.1) ug/dL Urine Color (YELLOW) Urine Clarity (Clear) Urine pH (5.0-8.0) Ur Specific [place] (1.003-1.030) Urine Protein (NEGATIVE) mg/dL Urine Glucose (UA) (Normal) mg/dL Urine Ketones (NEGATIVE) mg/dL Urine Blood (NEGATIVE) Urine Nitrate (NEGATIVE) Urine Bilirubin (NEGATIVE) Urine Urobilinogen (0.2-1.0) mg/dL Ur Leukocyte Esterase (Negative) Noel/uL Urine WBC (Auto) (0-5) /hpf Urine RBC (Auto) (0-3) /hpf Ur Squamous Epith Cells (0-5) /hpf Urine Bacteria (<OCC) 07/13/17 Range/Units 23:26 WBC 4.7 L (4.8-10.8) K/uL RBC 3.52 L (3.80-5.20) Mil/uL Hgb 10.5 L (11.0-16.0) g/dL Hct 31.7 L (34.0-47.0) % MCV 90.1 D (81.0-99.0) fL MCH 29.8 (27.0-31.0) pg MCHC 33.1 (33.0-37.0) g/dL RDW 15.0 H (11.5-14.5) % Plt Count 241 (130-400) K/uL MPV 9.5 (7.2-11.7) fL Neut % (Auto) 67.4 (50.0-75.0) % Lymph % (Auto) 27.7 (20.0-40.0) % [place] % (Auto) 4.3 (0.0-10.0) % Eos % (Auto) 0.1 (0.0-4.0) % Baso % (Auto) 0.5 (0.0-2.0) % Neut # 3.2 (1.8-7.0) K/uL Lymph # 1.3 (1.0-4.3) K/uL [place] # 0.2 (0.0-0.8) K/uL Eos # 0.0 (0.0-0.7) K/uL Baso # 0.0 (0.0-0.2) K/uL PT (9.7-12.2) SECONDS INR APTT (21-34) SECONDS Puncture Site pCO2 (35-45) mm/Hg pO2 (80-100) mm/Hg HCO3 (21-28) mmol/L ABG pH (7.35-7.45) ABG Total CO2 (22-28) mmol/L ABG O2 Saturation (95-98) % ABG Base Excess (-2.0-3.0) mmol/L ABG Hemoglobin (11.7-17.4) g/dL ABG Carboxyhemoglobin (0.5-1.5) % POC ABG HHb (Measured) (0.0-5.0) % ABG Methemoglobin (0.0-3.0) % Stu Test Hgb O2 Saturation (95.0-98.0) % Liter Flow Crit Value Called To Crit Value Called By Crit Value Read Back Blood Gas Notified Time Sodium (132-148) mmol/L Potassium (3.6-5.2) mmol/L Chloride (98-107) mmol/L Carbon Dioxide (22-30) mmol/L Anion Gap (10-20) BUN (7-17) mg/dL Creatinine (0.7-1.2) MG/DL Est GFR ( Amer) Est GFR (Non-Af Amer) POC Glucose (mg/dL) (65-110) mg/dL Random Glucose (65-105) mg/dL Lactic Acid (0.7-2.1) mmol/L Calcium (8.6-10.4) mg/dl Phosphorus (2.5-4.5) mg/dL Magnesium (1.6-2.3) mg/dL Total Bilirubin (0.2-1.3) mg/dL AST (14-36) U/L ALT (9-52) U/L Alkaline Phosphatase (38-126) U/L Total Creatine Kinase (30-135) U/L CK-MB (Mass) (0.0-3.38) ng/mL Troponin I (0.00-0.120) ng/mL Troponin I, Quant (0.00-0.120) ng/mL Total Protein (6.3-8.3) g/dL Albumin (3.5-5.0) g/dL Globulin (2.2-3.9) gm/dL Albumin/Globulin Ratio (1.0-2.1) Procalcitonin (0.19-0.49) NG/ML Free T4 (0.78-2.19) ng/dL Thyroxine (T4) (5.5-11.0) ug/dL TSH 3rd Generation (0.46-4.68) mIU/L Plasma Cortisol PM (1.7-14.1) ug/dL Urine Color (YELLOW) Urine Clarity (Clear) Urine pH (5.0-8.0) Ur Specific [place] (1.003-1.030) Urine Protein (NEGATIVE) mg/dL Urine Glucose (UA) (Normal) mg/dL Urine Ketones (NEGATIVE) mg/dL Urine Blood (NEGATIVE) Urine Nitrate (NEGATIVE) Urine Bilirubin (NEGATIVE) Urine Urobilinogen (0.2-1.0) mg/dL Ur Leukocyte Esterase (Negative) Noel/uL Urine WBC (Auto) (0-5) /hpf Urine RBC (Auto) (0-3) /hpf Ur Squamous Epith Cells (0-5) /hpf Urine Bacteria (<OCC) Laboratory Results - last 24 hr 07/13/17 07/13/17 07/13/17 23:26 23:26 23:26 WBC 4.7 L RBC 3.52 L Hgb 10.5 L Hct 31.7 L MCV 90.1 D MCH 29.8 MCHC 33.1 RDW 15.0 H Plt Count 241 MPV 9.5 Neut % (Auto) 67.4 Lymph % (Auto) 27.7 [place] % (Auto) 4.3 Eos % (Auto) 0.1 Baso % (Auto) 0.5 Neut # 3.2 Lymph # 1.3 [place] # 0.2 Eos # 0.0 Baso # 0.0 PT 14.7 H INR 1.3 APTT 34 Puncture Site pCO2 pO2 HCO3 ABG pH ABG Total CO2 ABG O2 Saturation ABG Base Excess ABG Hemoglobin ABG Carboxyhemoglobin POC ABG HHb (Measured) ABG Methemoglobin Stu Test Hgb O2 Saturation Liter Flow Crit Value Called To Crit Value Called By Crit Value Read Back Blood Gas Notified Time Sodium 132 Potassium 6.1 H Chloride 99 Carbon Dioxide 18 L Anion Gap 21 H BUN 30 H Creatinine 1.2 Est GFR ( Amer) 52 Est GFR (Non-Af Amer) 43 POC Glucose (mg/dL) Random Glucose 129 H Lactic Acid Calcium 7.7 L Phosphorus Magnesium Total Bilirubin 0.6 AST 375 H D ALT 269 H D Alkaline Phosphatase 102 Total Creatine Kinase CK-MB (Mass) Troponin I < 0.0120 Troponin I, Quant Total Protein 6.8 Albumin 3.7 Globulin 3.1 Albumin/Globulin Ratio 1.2 Procalcitonin Free T4 Thyroxine (T4) TSH 3rd Generation Plasma Cortisol PM Urine Color Urine Clarity Urine pH Ur Specific [place] Urine Protein Urine Glucose (UA) Urine Ketones Urine Blood Urine Nitrate Urine Bilirubin Urine Urobilinogen Ur Leukocyte Esterase Urine WBC (Auto) Urine RBC (Auto) Ur Squamous Epith Cells Urine Bacteria 07/13/17 07/14/17 07/14/17 23:38 02:09 02:38 WBC RBC Hgb Hct MCV MCH MCHC RDW Plt Count MPV Neut % (Auto) Lymph % (Auto) [place] % (Auto) Eos % (Auto) Baso % (Auto) Neut # Lymph # [place] # Eos # Baso # PT INR APTT Puncture Site pCO2 pO2 HCO3 ABG pH ABG Total CO2 ABG O2 Saturation ABG Base Excess ABG Hemoglobin ABG Carboxyhemoglobin POC ABG HHb (Measured) ABG Methemoglobin Stu Test Hgb O2 Saturation Liter Flow Crit Value Called To Crit Value Called By Crit Value Read Back Blood Gas Notified Time Sodium 134 Potassium 5.1 Chloride 102 Carbon Dioxide 21 L Anion Gap 16 BUN 29 H Creatinine 1.2 Est GFR ( Amer) 52 Est GFR (Non-Af Amer) 43 POC Glucose (mg/dL) 211 H Random Glucose 182 H Lactic Acid Calcium 7.6 L Phosphorus Magnesium Total Bilirubin AST ALT Alkaline Phosphatase Total Creatine Kinase CK-MB (Mass) Troponin I Troponin I, Quant Total Protein Albumin Globulin Albumin/Globulin Ratio Procalcitonin Free T4 Thyroxine (T4) 11.1 H TSH 3rd Generation 10.30 H Plasma Cortisol PM Urine Color Urine Clarity Urine pH Ur Specific [place] Urine Protein Urine Glucose (UA) Urine Ketones Urine Blood Urine Nitrate Urine Bilirubin Urine Urobilinogen Ur Leukocyte Esterase Urine WBC (Auto) Urine RBC (Auto) Ur Squamous Epith Cells Urine Bacteria 07/14/17 07/14/17 07/14/17 02:38 02:38 06:05 WBC RBC Hgb Hct MCV MCH MCHC RDW Plt Count MPV Neut % (Auto) Lymph % (Auto) [place] % (Auto) Eos % (Auto) Baso % (Auto) Neut # Lymph # [place] # Eos # Baso # PT INR APTT Puncture Site Rb pCO2 38 pO2 60 L HCO3 16.8 L ABG pH 7.24 L ABG Total CO2 17.5 L ABG O2 Saturation 92.4 L ABG Base Excess -10.3 L ABG Hemoglobin 10.1 L ABG Carboxyhemoglobin 1.5 POC ABG HHb (Measured) 7.4 H ABG Methemoglobin 0.9 Stu Test Na Hgb O2 Saturation 90.2 L Liter Flow 5.0 Crit Value Called To Crit Value Called By Crit Value Read Back Blood Gas Notified Time Sodium Potassium Chloride Carbon Dioxide Anion Gap BUN Creatinine Est GFR ( Amer) Est GFR (Non-Af Amer) POC Glucose (mg/dL) Random Glucose Lactic Acid Calcium Phosphorus Magnesium Total Bilirubin AST ALT Alkaline Phosphatase Total Creatine Kinase 172 H CK-MB (Mass) Troponin I 0.0150 Troponin I, Quant Total Protein Albumin Globulin Albumin/Globulin Ratio Procalcitonin Free T4 1.97 Thyroxine (T4) TSH 3rd Generation Plasma Cortisol PM Urine Color Urine Clarity Urine pH Ur Specific [place] Urine Protein Urine Glucose (UA) Urine Ketones Urine Blood Urine Nitrate Urine Bilirubin Urine Urobilinogen Ur Leukocyte Esterase Urine WBC (Auto) Urine RBC (Auto) Ur Squamous Epith Cells Urine Bacteria 07/14/17 07/14/17 07/14/17 06:26 11:10 11:10 WBC RBC Hgb Hct MCV MCH MCHC RDW Plt Count MPV Neut % (Auto) Lymph % (Auto) [place] % (Auto) Eos % (Auto) Baso % (Auto) Neut # Lymph # [place] # Eos # Baso # PT INR APTT Puncture Site pCO2 pO2 HCO3 ABG pH ABG Total CO2 ABG O2 Saturation ABG Base Excess ABG Hemoglobin ABG Carboxyhemoglobin POC ABG HHb (Measured) ABG Methemoglobin Stu Test Hgb O2 Saturation Liter Flow Crit Value Called To Crit Value Called By Crit Value Read Back Blood Gas Notified Time Sodium Potassium Chloride Carbon Dioxide Anion Gap BUN Creatinine Est GFR ( Amer) Est GFR (Non-Af Amer) POC Glucose (mg/dL) Random Glucose Lactic Acid 4.4 H* Calcium Phosphorus Magnesium Total Bilirubin AST ALT Alkaline Phosphatase Total Creatine Kinase CK-MB (Mass) Troponin I 0.0320 Troponin I, Quant Total Protein Albumin Globulin Albumin/Globulin Ratio Procalcitonin 0.58 H Free T4 Thyroxine (T4) TSH 3rd Generation Plasma Cortisol PM Urine Color Urine Clarity Urine pH Ur Specific [place] Urine Protein Urine Glucose (UA) Urine Ketones Urine Blood Urine Nitrate Urine Bilirubin Urine Urobilinogen Ur Leukocyte Esterase Urine WBC (Auto) Urine RBC (Auto) Ur Squamous Epith Cells Urine Bacteria 07/14/17 07/14/17 07/14/17 11:46 12:21 14:20 WBC RBC Hgb Hct MCV MCH MCHC RDW Plt Count MPV Neut % (Auto) Lymph % (Auto) [place] % (Auto) Eos % (Auto) Baso % (Auto) Neut # Lymph # [place] # Eos # Baso # PT INR APTT Puncture Site pCO2 pO2 HCO3 ABG pH ABG Total CO2 ABG O2 Saturation ABG Base Excess ABG Hemoglobin ABG Carboxyhemoglobin POC ABG HHb (Measured) ABG Methemoglobin Stu Test Hgb O2 Saturation Liter Flow Crit Value Called To Crit Value Called By Crit Value Read Back Blood Gas Notified Time Sodium 133 Potassium 5.0 Chloride 99 Carbon Dioxide 16 L Anion Gap 23 H BUN 33 H Creatinine 1.5 H Est GFR ( Amer) 40 Est GFR (Non-Af Amer) 33 POC Glucose (mg/dL) Random Glucose 178 H Lactic Acid Calcium 6.9 L Phosphorus 3.6 Magnesium 2.2 Total Bilirubin 0.5 AST 343 H ALT 368 H D Alkaline Phosphatase 112 Total Creatine Kinase 345 H CK-MB (Mass) 3.62 H Troponin I Troponin I, Quant 0.0240 Total Protein 6.7 Albumin 3.5 Globulin 3.2 Albumin/Globulin Ratio 1.1 Procalcitonin Free T4 Thyroxine (T4) TSH 3rd Generation Plasma Cortisol PM 51.7 H Urine Color [place] Urine Clarity Hazy Urine pH 5.0 Ur Specific [place] > 1.060 H Urine Protein 1+ H Urine Glucose (UA) Normal Urine Ketones Trace Urine Blood 3+ H Urine Nitrate Negative Urine Bilirubin Negative Urine Urobilinogen 2.0 H Ur Leukocyte Esterase 3+ H Urine WBC (Auto) 84 H Urine RBC (Auto) 1138 H Ur Squamous Epith Cells 1 Urine Bacteria Rare 07/14/17 20:10 WBC RBC Hgb Hct MCV MCH MCHC RDW Plt Count MPV Neut % (Auto) Lymph % (Auto) [place] % (Auto) Eos % (Auto) Baso % (Auto) Neut # Lymph # [place] # Eos # Baso # PT INR APTT Puncture Site Rba pCO2 41 pO2 57 L HCO3 10.5 L ABG pH 7.05 L* ABG Total CO2 12.6 L ABG O2 Saturation 87.6 L ABG Base Excess -18.2 L ABG Hemoglobin 9.5 L ABG Carboxyhemoglobin 1.4 POC ABG HHb (Measured) 12.1 H ABG Methemoglobin 0.7 Stu Test Na Hgb O2 Saturation 85.8 L Liter Flow Crit Value Called To Kayla du Crit Value Called By Jackie flores Crit Value Read Back Y Blood Gas Notified Time 2014 Sodium Potassium Chloride Carbon Dioxide Anion Gap BUN Creatinine Est GFR ( Amer) Est GFR (Non-Af Amer) POC Glucose (mg/dL) Random Glucose Lactic Acid Calcium Phosphorus Magnesium Total Bilirubin AST ALT Alkaline Phosphatase Total Creatine Kinase CK-MB (Mass) Troponin I Troponin I, Quant Total Protein Albumin Globulin Albumin/Globulin Ratio Procalcitonin Free T4 Thyroxine (T4) TSH 3rd Generation Plasma Cortisol PM Urine Color Urine Clarity Urine pH Ur Specific [place] Urine Protein Urine Glucose (UA) Urine Ketones Urine Blood Urine Nitrate Urine Bilirubin Urine Urobilinogen Ur Leukocyte Esterase Urine WBC (Auto) Urine RBC (Auto) Ur Squamous Epith Cells Urine Bacteria EKG/Cardiology Studies: Cardiology / EKG Studies 07/13/17 23:22 ELECTROCARDIOGRAM Stat Comment: Mode Of Transportation: BED Reason For Exam: chest pain Isolation: Contact 07/14/17 14:44 EKG [ELECTROCARDIOGRAM] Stat Comment: Mode Of Transportation: BED Reason For Exam: Junctional rhythm 07/16/17 01:15 ELECTROCARDIOGRAM DAILY Comment: Mode Of Transportation: PORTABLE Reason For Exam: kelsea Isolation: Contact 07/17/17 01:15 ELECTROCARDIOGRAM DAILY Comment: Mode Of Transportation: PORTABLE Reason For Exam: kelsea Isolation: Contact Fingerstick Blood Sugar Results: 211 Assessment/Plan - Assessment and Plan (Free Text) Assessment: Respiratory failure- patient agitated,tachypneic ,hypoxic in metabolic acidosis ABG with ph 7.05 ,CO2 41,PO2 57 bicarb 10.5 on 5L intubated,start IV bocarbonate drip Chest xray Hyperkalemia resolved Hypotension on pressors and antibiotics Brdycardia-HR in the 60,s
[2017-07-14] MEDS: Dexmedetomidine Hydrochloride 200 MCG in Sodium Chloride 0.9% 48 ML IV PRN (21:30)
[2017-07-14 22:00] LABS: ABG MECHANICAL RATE 14; ARTERIAL BLOOD GAS MODE A/C; ARTERIAL BLOOD HGB O2 SAT 92.7 % (95.0-98.0); ATERIAL BLOOD GAS PEEP 5; CARBOXYHEMOGLOBIN 1.5 % (0.5-1.5); DRAW SITE RBA; HHB 4.4 % (0.0-5.0); METHEMOGLOBIN 1.4 % (0.0-3.0)
[2017-07-14] MEDS ORDERED: Midazolam 50 mg/10 ml 100 MG in Sodium Chloride 0.9% 80 ML IV SCH (23:00)
--- NOTE | 2017-07-14 23:07 | CP.PCM.CON ---
History of Present Illness - History of Present Illness History of Present Illness: CC: Bradycardia 86 yo F with a PMHx of A-Fib, HTN, HLD, Arthritis, Anemia, was brought by ambulance from home for mid-sternal pressure like chest pain radiating to the mid-back that began around 10pm last night. Patient with a change in mental status observed in ED thus history was collected from ED staff and prior documentation. Patient was found to be in A-Fib in the ambulance with HR in 160s however upon arrival she was in normal sinus rhythm with HR in 30s. In ED, she complained of thirst, was given water and then vomited shortly after. Upon chart review she presented to [facility] ED on 06/24/17 for chest pain, palpitations and rapid heart rate. An CREDIT CASHIER was called during that admission for chest pain and varying HR in 60-200s and patient was seen in A-Fib which converted to NSR on its own. A ROS was not obtainable. PMD: Dr. Mcguire; Door Patcher: Dr Shrestha Past Medical History: Atrial Fibrillation, Hypertension, hyperlipidemia, arthritis, anemia Surgical History: Tubal ligation Family History: Dad pass of pneumonia; Mom passed at the age of 90 due to heart disease Medications: 40mg Lisinopril PO daily, 5mg Amlodipine PO daily, aspirin 81mg po qd Allergies: NKDA Social History: Lives with sister; denies smoking, denies alcohol use, denies illicit drug use. Present on Admission - Present on Admission Any Indicators Present on Admission: No History of DVT/PE: No History of Uncontrolled Diabetes: No Urinary Catheter: No Decubitus Ulcer Present: No Review of Systems - Review of Systems Systems not reviewed;Unavailable: Altered Mental Status Physical Exam - Constitutional Appears: In Acute Distress Additional comments: w/ altered mental status, uncooperative with Physical Exam - Head Exam Head Exam: ATRAUMATIC, NORMAL INSPECTION - Eye Exam Eye Exam: EOMI Pupil Exam: PERRL - ENT Exam ENT Exam: Mucous Membranes Dry - Neck Exam Neck exam: Positive for: Normal Inspection - Respiratory Exam Respiratory Exam: Clear to Auscultation Bilateral. absent: Rales, Rhonchi, Wheezes - Cardiovascular Exam Cardiovascular Exam: Bradycardia, REGULAR RHYTHM. absent: Irregular Rhythm, Systolic Murmur - GI/Abdominal Exam GI & Abdominal Exam: Normal Bowel Sounds, Soft. absent: Distended, Firm, Guarding, Hernia, Tenderness - Rectal Exam Rectal Exam: Deferred - Extremities Exam Extremities exam: Positive for: normal capillary refill, pedal edema, pedal pulses present Additional comments: 2+ b/l LE edema up to knees - Neurological Exam Neurological exam: Altered - Psychiatric Exam Psychiatric exam: Agitated, Anxious - Skin Skin Exam: Dry, Intact, Normal Color, Warm Past Patient History - Past Medical History & Family History Past Medical History?: Yes - Past Social History Smoking Status: Never Smoked - CARDIAC Hx Hypercholesterolemia: Yes Hx Hypertension: Yes - PULMONARY Hx Respiratory Disorders: No - NEUROLOGICAL Hx Neurological Disorder: No - HEENT Hx HEENT Problems: No Other/Comment: occular implant - RENAL Hx Chronic Kidney Disease: No - ENDOCRINE/METABOLIC Hx Endocrine Disorders: No - HEMATOLOGICAL/ONCOLOGICAL Hx Blood Disorders: No - INTEGUMENTARY Hx Dermatological Problems: No - MUSCULOSKELETAL/RHEUMATOLOGICAL Hx Arthritis: Yes Hx Falls: No - GASTROINTESTINAL Hx Gastrointestinal Disorders: No - GENITOURINARY/GYNECOLOGICAL Hx Genitourinary Disorders: No - PSYCHIATRIC Hx Substance Use: No - SURGICAL HISTORY Hx Surgeries: Yes Hx Hysterectomy: No Hx Tubal Ligation: Yes Other/Comment: "eye surgery" "occular implant" - ANESTHESIA Hx Anesthesia: Yes Hx Anesthesia Reactions: No Hx Malignant Hyperthermia: No Meds Allergies/Adverse Reactions: Allergies Allergy/AdvReac Type Severity Reaction Status Date / Time soy Allergy Mild RASH Verified 06/26/17 20:43 - Medications Medications: Current Medications Famotidine (Pepcid) 20 mg IVP DAILY [facility] Last Admin: 07/14/17 11:00 Dose: 20 mg Heparin Sodium (Porcine) (Heparin) 5,000 units SC Q8 [facility] Last Admin: 07/14/17 22:00 Dose: 5,000 units Hydrocortisone Sodium Succinate (Solu-Cortef) 50 mg IV Q8H [facility] Last Admin: 07/14/17 22:51 Dose: 50 mg Dopamine HCl/Dextrose (Dopamine 400mg/250ml D5w) 400 mg in 250 mls @ 11.158 mls /hr IV .[id number] PRN; Protocol; 4 MCG/KG/MIN PRN Reason: TITRATE PER MD ORDER Last Titration: 07/14/17 16:21 Dose: 10 mcg/kg/min, 27.896 mls/hr Piperacillin Sod/Tazobactam Sod (Zosyn 2.25 Gm Iv Premix) 2.25 gm in 50 mls @ 100 mls/hr IVPB Q6 [facility] Last Admin: 07/14/17 17:19 Dose: 100 mls/hr Sodium Bicarbonate 100 meq/ (Sodium Chloride) 1,100 mls @ 60 mls/hr IV .[id number] [facility] Last Admin: 07/14/17 21:42 Dose: 60 mls/hr Dexmedetomidine HCl 200 mcg/ (Sodium Chloride) 50 mls @ 4.3 mls/hr IV TITR PRN ; Protocol; 0.2 MCG/KG/HR PRN Reason: Agitation Last Titration: 07/14/17 22:30 Dose: 1.5 mcg/kg/hr, 32.25 mls/hr Norepinephrine Bitartrate 8 mg (/ Sodium Chloride) 258 mls @ 7.74 mls/hr IV .Q24H PRN; Protocol; 4 MCG/MIN PRN Reason: TITRATE PER MD ORDER Midazolam HCl 100 mg/ Sodium (Chloride) 100 mls @ 1.72 mls/hr IV .Q24H [facility]; 0.02 MG/KG/HR PRN Reason: Protocol Results - Vital Signs Recent Vital Signs: Last Vital Signs Temp 96.8 F L 07/14/17 20:00 Pulse 64 07/14/17 22:21 Resp 25 H 07/14/17 22:21 BP 128/57 L 07/14/17 22:21 Pulse Ox 95 07/14/17 22:00 - Labs Result Diagrams: 07/13/17 23:26 07/14/17 14:20 Labs: Laboratory Results - last 24 hr 07/13/17 07/13/17 07/13/17 23:26 23:26 23:26 WBC 4.7 L RBC 3.52 L Hgb 10.5 L Hct 31.7 L MCV 90.1 D MCH 29.8 MCHC 33.1 RDW 15.0 H Plt Count 241 MPV 9.5 Neut % (Auto) 67.4 Lymph % (Auto) 27.7 [place] % (Auto) 4.3 Eos % (Auto) 0.1 Baso % (Auto) 0.5 Neut # 3.2 Lymph # 1.3 [place] # 0.2 Eos # 0.0 Baso # 0.0 PT 14.7 H INR 1.3 APTT 34 Puncture Site pCO2 pO2 HCO3 ABG pH ABG Total CO2 ABG O2 Saturation ABG Base Excess ABG Hemoglobin ABG Carboxyhemoglobin POC ABG HHb (Measured) ABG Methemoglobin Stu Test A-a O2 Difference Respiratory Index Hgb O2 Saturation Liter Flow Vent Mode Mechanical Rate FiO2 Tidal Volume PEEP Crit Value Called To Crit Value Called By Crit Value Read Back Blood Gas Notified Time Sodium 132 Potassium 6.1 H Chloride 99 Carbon Dioxide 18 L Anion Gap 21 H BUN 30 H Creatinine 1.2 Est GFR ( Amer) 52 Est GFR (Non-Af Amer) 43 POC Glucose (mg/dL) Random Glucose 129 H Lactic Acid Calcium 7.7 L Phosphorus Magnesium Total Bilirubin 0.6 AST 375 H D ALT 269 H D Alkaline Phosphatase 102 Total Creatine Kinase CK-MB (Mass) Troponin I < 0.0120 Troponin I, Quant Total Protein 6.8 Albumin 3.7 Globulin 3.1 Albumin/Globulin Ratio 1.2 Procalcitonin Free T4 Thyroxine (T4) TSH 3rd Generation Plasma Cortisol PM Urine Color Urine Clarity Urine pH Ur Specific [place] Urine Protein Urine Glucose (UA) Urine Ketones Urine Blood Urine Nitrate Urine Bilirubin Urine Urobilinogen Ur Leukocyte Esterase Urine WBC (Auto) Urine RBC (Auto) Ur Squamous Epith Cells Urine Bacteria 07/13/17 07/14/17 07/14/17 23:38 02:09 02:38 WBC RBC Hgb Hct MCV MCH MCHC RDW Plt Count MPV Neut % (Auto) Lymph % (Auto) [place] % (Auto) Eos % (Auto) Baso % (Auto) Neut # Lymph # [place] # Eos # Baso # PT INR APTT Puncture Site pCO2 pO2 HCO3 ABG pH ABG Total CO2 ABG O2 Saturation ABG Base Excess ABG Hemoglobin ABG Carboxyhemoglobin POC ABG HHb (Measured) ABG Methemoglobin Stu Test A-a O2 Difference Respiratory Index Hgb O2 Saturation Liter Flow Vent Mode Mechanical Rate FiO2 Tidal Volume PEEP Crit Value Called To Crit Value Called By Crit Value Read Back Blood Gas Notified Time Sodium 134 Potassium 5.1 Chloride 102 Carbon Dioxide 21 L Anion Gap 16 BUN 29 H Creatinine 1.2 Est GFR ( Amer) 52 Est GFR (Non-Af Amer) 43 POC Glucose (mg/dL) 211 H Random Glucose 182 H Lactic Acid Calcium 7.6 L Phosphorus Magnesium Total Bilirubin AST ALT Alkaline Phosphatase Total Creatine Kinase CK-MB (Mass) Troponin I Troponin I, Quant Total Protein Albumin Globulin Albumin/Globulin Ratio Procalcitonin Free T4 Thyroxine (T4) 11.1 H TSH 3rd Generation 10.30 H Plasma Cortisol PM Urine Color Urine Clarity Urine pH Ur Specific [place] Urine Protein Urine Glucose (UA) Urine Ketones Urine Blood Urine Nitrate Urine Bilirubin Urine Urobilinogen Ur Leukocyte Esterase Urine WBC (Auto) Urine RBC (Auto) Ur Squamous Epith Cells Urine Bacteria 07/14/17 07/14/17 07/14/17 02:38 02:38 06:05 WBC RBC Hgb Hct MCV MCH MCHC RDW Plt Count MPV Neut % (Auto) Lymph % (Auto) [place] % (Auto) Eos % (Auto) Baso % (Auto) Neut # Lymph # [place] # Eos # Baso # PT INR APTT Puncture Site Rb pCO2 38 pO2 60 L HCO3 16.8 L ABG pH 7.24 L ABG Total CO2 17.5 L ABG O2 Saturation 92.4 L ABG Base Excess -10.3 L ABG Hemoglobin 10.1 L ABG Carboxyhemoglobin 1.5 POC ABG HHb (Measured) 7.4 H ABG Methemoglobin 0.9 Stu Test Na A-a O2 Difference Respiratory Index Hgb O2 Saturation 90.2 L Liter Flow 5.0 Vent Mode Mechanical Rate FiO2 Tidal Volume PEEP Crit Value Called To Crit Value Called By Crit Value Read Back Blood Gas Notified Time Sodium Potassium Chloride Carbon Dioxide Anion Gap BUN Creatinine Est GFR ( Amer) Est GFR (Non-Af Amer) POC Glucose (mg/dL) Random Glucose Lactic Acid Calcium Phosphorus Magnesium Total Bilirubin AST ALT Alkaline Phosphatase Total Creatine Kinase 172 H CK-MB (Mass) Troponin I 0.0150 Troponin I, Quant Total Protein Albumin Globulin Albumin/Globulin Ratio Procalcitonin Free T4 1.97 Thyroxine (T4) TSH 3rd Generation Plasma Cortisol PM Urine Color Urine Clarity Urine pH Ur Specific [place] Urine Protein Urine Glucose (UA) Urine Ketones Urine Blood Urine Nitrate Urine Bilirubin Urine Urobilinogen Ur Leukocyte Esterase Urine WBC (Auto) Urine RBC (Auto) Ur Squamous Epith Cells Urine Bacteria 07/14/17 07/14/17 07/14/17 06:26 11:10 11:10 WBC RBC Hgb Hct MCV MCH MCHC RDW Plt Count MPV Neut % (Auto) Lymph % (Auto) [place] % (Auto) Eos % (Auto) Baso % (Auto) Neut # Lymph # [place] # Eos # Baso # PT INR APTT Puncture Site pCO2 pO2 HCO3 ABG pH ABG Total CO2 ABG O2 Saturation ABG Base Excess ABG Hemoglobin ABG Carboxyhemoglobin POC ABG HHb (Measured) ABG Methemoglobin Stu Test A-a O2 Difference Respiratory Index Hgb O2 Saturation Liter Flow Vent Mode Mechanical Rate FiO2 Tidal Volume PEEP Crit Value Called To Crit Value Called By Crit Value Read Back Blood Gas Notified Time Sodium Potassium Chloride Carbon Dioxide Anion Gap BUN Creatinine Est GFR ( Amer) Est GFR (Non-Af Amer) POC Glucose (mg/dL) Random Glucose Lactic Acid 4.4 H* Calcium Phosphorus Magnesium Total Bilirubin AST ALT Alkaline Phosphatase Total Creatine Kinase CK-MB (Mass) Troponin I 0.0320 Troponin I, Quant Total Protein Albumin Globulin Albumin/Globulin Ratio Procalcitonin 0.58 H Free T4 Thyroxine (T4) TSH 3rd Generation Plasma Cortisol PM Urine Color Urine Clarity Urine pH Ur Specific [place] Urine Protein Urine Glucose (UA) Urine Ketones Urine Blood Urine Nitrate Urine Bilirubin Urine Urobilinogen Ur Leukocyte Esterase Urine WBC (Auto) Urine RBC (Auto) Ur Squamous Epith Cells Urine Bacteria 07/14/17 07/14/17 07/14/17 11:46 12:21 14:20 WBC RBC Hgb Hct MCV MCH MCHC RDW Plt Count MPV Neut % (Auto) Lymph % (Auto) [place] % (Auto) Eos % (Auto) Baso % (Auto) Neut # Lymph # [place] # Eos # Baso # PT INR APTT Puncture Site pCO2 pO2 HCO3 ABG pH ABG Total CO2 ABG O2 Saturation ABG Base Excess ABG Hemoglobin ABG Carboxyhemoglobin POC ABG HHb (Measured) ABG Methemoglobin Stu Test A-a O2 Difference Respiratory Index Hgb O2 Saturation Liter Flow Vent Mode Mechanical Rate FiO2 Tidal Volume PEEP Crit Value Called To Crit Value Called By Crit Value Read Back Blood Gas Notified Time Sodium 133 Potassium 5.0 Chloride 99 Carbon Dioxide 16 L Anion Gap 23 H BUN 33 H Creatinine 1.5 H Est GFR ( Amer) 40 Est GFR (Non-Af Amer) 33 POC Glucose (mg/dL) Random Glucose 178 H Lactic Acid Calcium 6.9 L Phosphorus 3.6 Magnesium 2.2 Total Bilirubin 0.5 AST 343 H ALT 368 H D Alkaline Phosphatase 112 Total Creatine Kinase 345 H CK-MB (Mass) 3.62 H Troponin I Troponin I, Quant 0.0240 Total Protein 6.7 Albumin 3.5 Globulin 3.2 Albumin/Globulin Ratio 1.1 Procalcitonin Free T4 Thyroxine (T4) TSH 3rd Generation Plasma Cortisol PM 51.7 H Urine Color [place] Urine Clarity [place] Urine pH 5.0 Ur Specific [place] > 1.060 H Urine Protein 1+ H Urine Glucose (UA) Normal Urine Ketones Trace Urine Blood 3+ H Urine Nitrate Negative Urine Bilirubin Negative Urine Urobilinogen 2.0 H Ur Leukocyte Esterase 3+ H Urine WBC (Auto) 84 H Urine RBC (Auto) 1138 H Ur Squamous Epith Cells 1 Urine Bacteria Rare 07/14/17 07/14/17 20:10 21:55 WBC RBC Hgb Hct MCV MCH MCHC RDW Plt Count MPV Neut % (Auto) Lymph % (Auto) [place] % (Auto) Eos % (Auto) Baso % (Auto) Neut # Lymph # [place] # Eos # Baso # PT INR APTT Puncture Site Rba Rba pCO2 41 35 pO2 57 L 65 L HCO3 10.5 L 15.2 L ABG pH 7.05 L* 7.22 L ABG Total CO2 12.6 L 15.4 L ABG O2 Saturation 87.6 L 95.5 ABG Base Excess -18.2 L -12.4 L ABG Hemoglobin 9.5 L 9.4 L ABG Carboxyhemoglobin 1.4 1.5 POC ABG HHb (Measured) 12.1 H 4.4 ABG Methemoglobin 0.7 1.4 Stu Test Na Na A-a O2 Difference 248.0 Respiratory Index 3.8 Hgb O2 Saturation 85.8 L 92.7 L Liter Flow Vent Mode A/c Mechanical Rate 14 FiO2 50.0 Tidal Volume 450 PEEP 5 Crit Value Called To Kayla du Crit Value Called By Jackie flores Crit Value Read Back Y Blood Gas Notified Time 2014 Sodium Potassium Chloride Carbon Dioxide Anion Gap BUN Creatinine Est GFR ( Amer) Est GFR (Non-Af Amer) POC Glucose (mg/dL) Random Glucose Lactic Acid Calcium Phosphorus Magnesium Total Bilirubin AST ALT Alkaline Phosphatase Total Creatine Kinase CK-MB (Mass) Troponin I Troponin I, Quant Total Protein Albumin Globulin Albumin/Globulin Ratio Procalcitonin Free T4 Thyroxine (T4) TSH 3rd Generation Plasma Cortisol PM Urine Color Urine Clarity Urine pH Ur Specific [place] Urine Protein Urine Glucose (UA) Urine Ketones Urine Blood Urine Nitrate Urine Bilirubin Urine Urobilinogen Ur Leukocyte Esterase Urine WBC (Auto) Urine RBC (Auto) Ur Squamous Epith Cells Urine Bacteria Assessment & Plan - Assessment and Plan (Free Text) Assessment: (1) Junctional bradycardia/Sick sinus syndrome Assessment and Plan: Junctional Bradycardia Hypotension BP holding with Dopamine and Levophed Amiodorone held Prior stress and ECHO were normal EP consult with Dr. Boggs (3) Hyperkalemia Assessment and Plan: K+ 6.1 on admission calcium gluconate 4.65 meq ivpb once kayexalate 30mg po once dextrose 50% 50ml iv once insulin 6u iv once Status: Acute (4) Altered mental status Assessment and Plan: Probably due to UTI and hypotension (5) Elevated LFTs Assessment and Plan: on admission AST 375, ALT 269 Status: Acute (6) Hypothyroidism Assessment and Plan: TSH 10.3 F/U T4, Free T4 Status: Acute (7) Prophylactic measure Assessment and Plan: DVT: heparin 5000u sc q8 GI: not indicated Diet: heart healthy to start once more stable
[2017-07-14] MEDS ORDERED: DOPamine 400mg/250ml D5W 400 MG/250 ML BAG IV SCH (23:45)
[2017-07-15] MEDS: DOPamine 400mg/250ml D5W 400 MG/250 ML BAG IV SCH ×4 (00:34→23:14)
[2017-07-15] MEDS: Piperacill/Tazo 2.25gm in Dex 2.25 GM/50 ML BAG IVPB SCH ×5 (00:35→23:09)
[2017-07-15] MEDS: Dexmedetomidine Hydrochloride 200 MCG in Sodium Chloride 0.9% 48 ML IV PRN ×6 (00:44→20:25)
[2017-07-15 05:59] LABS: ABG MECHANICAL RATE 14; ARTERIAL BLOOD GAS MODE PRVC; ARTERIAL BLOOD HGB O2 SAT 96.2 % (95.0-98.0); ATERIAL BLOOD GAS PEEP 5; CARBOXYHEMOGLOBIN 1.3 % (0.5-1.5); DRAW SITE R BRACH; HHB 1.6 % (0.0-5.0); METHEMOGLOBIN 0.8 % (0.0-3.0)
[2017-07-15 06:43] LABS: BASO % 0.3 % (0.0-2.0); HEMATOCRIT 32.3 % (34.0-47.0); LYMPH # 0.6 K/uL (1.0-4.3); MEAN CELL VOLUME 88.7 fL (81.0-99.0); MEAN CORPUSCULAR HEMOGLOBIN 29.9 pg (27.0-31.0); MEAN CORPUSCULAR HGB CONC 33.7 g/dL (33.0-37.0); MEAN PLATELET VOLUME 9.7 fL (7.2-11.7); MONO # 0.6 K/uL (0.0-0.8); MONO % 4.2 % (0.0-10.0); PLATELET COUNT 238 K/uL (130-400); RED CELL DISTRIBUTION WIDTH 14.9 % (11.5-14.5); WHITE BLOOD COUNT 15.2 K/uL (4.8-10.8)
[2017-07-15 06:59] LABS: ALB/GLOB RATIO 0.9 (1.0-2.1); BILIRUBIN,TOTAL 0.5 mg/dL (0.2-1.3); CALCIUM 7.6 mg/dl (8.6-10.4); MAGNESIUM 2.4 mg/dL (1.6-2.3); PHOSPHOROUS 4.3 mg/dL (2.5-4.5); POTASSIUM 4.3 mmol/L (3.6-5.2)
--- NOTE | 2017-07-15 07:40 | CP.CCUPN ---
<ShaMigdaliasaima E - Last Filed: 07/15/17 19:54> CCU Subjective - Physician Review Subjective (Free Text): Patient was seen and examined at bedside. Patient is currently intubated. As per night nurse, patient was very agitated, with acidotic ABGs and desaturation , therefore, she was intubated at 8pm. Patient continues to respond to touch stimuli. CCU Objective - Vital Signs / Intake & Output Vital Signs (Last 4 hours): Vital Signs Temp Pulse Resp BP Pulse Ox 07/15/17 07:06 79 12 116/72 99 07/15/17 07:04 116 H 19 125/101 H 100 07/15/17 07:00 62 14 116/72 100 07/15/17 06:49 62 14 140/72 100 07/15/17 06:45 63 14 100 07/15/17 06:34 62 14 148/75 100 07/15/17 06:30 57 L 14 100 07/15/17 06:19 58 L 14 145/67 100 07/15/17 06:15 59 L 14 100 07/15/17 06:06 65 99 07/15/17 06:00 67 100 07/15/17 05:45 60 14 99 07/15/17 05:34 59 L 14 139/56 L 100 07/15/17 05:30 59 L 14 100 07/15/17 05:19 59 L 14 138/55 L 100 07/15/17 05:15 59 L 14 100 07/15/17 05:04 59 L 14 137/58 L 100 07/15/17 05:00 59 L 14 100 07/15/17 04:49 59 L 14 137/58 L 100 07/15/17 04:45 60 14 100 07/15/17 04:35 73 15 127/52 L 99 07/15/17 04:30 63 15 100 07/15/17 04:20 68 16 117/54 L 99 07/15/17 04:15 77 16 98 07/15/17 04:04 58 L 14 134/55 L 99 07/15/17 04:00 97.7 F 59 L 14 127/52 L 99 07/15/17 03:49 136/56 L 07/15/17 03:45 60 14 99 Intake and Output (Last 8hrs): Intake & Output 07/14/17 07/15/17 07/15/17 22:59 06:59 14:59 Intake Total 1624.9 1189.4 94.7 Output Total 375 865 200 Balance 1249.9 324.4 -105.3 Weight 189 lb 13.088 oz Intake: IV 456.9 165.1 Intake, IV Amount 1168.0 1024.3 94.7 Left Hand 50 Right Distal Port 507.2 112.6 0 Internal Jugular Right Internal Jugular 387.3 242.2 16.1 Right Medial Port 213.5 139.5 18.6 Right Proximal Port 60 480 60 Oral 0 0 Output: Urine 375 865 200 Urethral (Serrato) 375 865 200 Other: # Bowel Movements 0 0 0 - Physical Exam Head: Positive for: Atraumatic, Normocephalic Conjunctiva: Positive for: Normal Mouth: Positive for: Dry Respiratory/Chest: Positive for: Wheezes, Other (intubated ) Cardiovascular: Positive for: Irregular Rhythm, Bradycardic Abdomen: Positive for: Normal Bowel Sounds. Negative for: Tenderness, Distention, Rebound Upper Extremity: Positive for: Normal Inspection Lower Extremity: Positive for: Normal Inspection Skin: Positive for: Warm, Normal Color Psychiatric: Positive for: Agitated - Medications Active Medications: Active Medications Generic Name Dose Route Start Last Admin Trade Name Freq PRN Reason Stop Dose Admin Famotidine 20 mg 07/14/17 10:45 07/14/17 11:00 Pepcid IVP 20 mg DAILY RODRIGO Administration Heparin Sodium (Porcine) 5,000 units 07/14/17 01:15 07/15/17 05:34 Heparin SC 5,000 units Q8 RODRIGO Administration Hydrocortisone Sodium Succinate 50 mg 07/14/17 23:00 07/15/17 06:54 Solu-Cortef IV 50 mg Q8H RODRIGO Administration Piperacillin Sod/Tazobactam Sod 2.25 gm in 50 mls @ 100 mls/hr 07/14/17 11:30 07/15/17 05:33 Zosyn 2.25 Gm Iv Premix IVPB 100 mls/hr Q6 RODRIGO Administration Sodium Bicarbonate 100 meq/ 1,100 mls @ 60 mls/hr 07/14/17 21:30 07/14/17 21: 42 Sodium Chloride IV 60 mls/hr .[id number] RODRIGO Administration Dexmedetomidine HCl 200 mcg/ 50 mls @ 4.3 mls/hr 07/14/17 20:56 07/15/17 04: 30 Sodium Chloride IV 0.87 mcg/kg/hr TITR PRN 18.8 mls/hr Agitation Administration Protocol 0.2 MCG/KG/HR Norepinephrine Bitartrate 8 mg 258 mls @ 7.74 mls/hr 07/14/17 21:07 07/15/17 06:44 / Sodium Chloride IV 0 mcg/min .Q24H PRN 0 mls/hr TITRATE PER MD ORDER Titration Protocol 4 MCG/MIN Dopamine HCl/Dextrose 400 mg in 250 mls @ 32.25 mls/hr 07/14/17 23:56 00:34 Dopamine 400mg/250ml D5w IV 10 mcg/kg/min .[id number] RODRIGO 32.25 mls/hr Protocol Administration 10 MCG/KG/MIN Lorazepam 1 mg 07/14/17 23:23 Ativan IVP Q3H PRN Anxiety - Patient Studies Lab Studies: Lab Studies 07/15/17 07/15/17 07/15/17 Range/Units 06:36 06:36 05:43 WBC 15.2 H D (4.8-10.8) K/uL RBC 3.64 L (3.80-5.20) Mil/uL Hgb 10.9 L (11.0-16.0) g/dL Hct 32.3 L (34.0-47.0) % MCV 88.7 (81.0-99.0) fL MCH 29.9 (27.0-31.0) pg MCHC 33.7 (33.0-37.0) g/dL RDW 14.9 H (11.5-14.5) % Plt Count 238 (130-400) K/uL MPV 9.7 (7.2-11.7) fL Neut % (Auto) 91.5 H (50.0-75.0) % Lymph % (Auto) 4.0 L (20.0-40.0) % Crosby % (Auto) 4.2 (0.0-10.0) % Eos % (Auto) 0.0 (0.0-4.0) % Baso % (Auto) 0.3 (0.0-2.0) % Neut # 13.9 H (1.8-7.0) K/uL Lymph # 0.6 L (1.0-4.3) K/uL Crosby # 0.6 (0.0-0.8) K/uL Eos # 0.0 (0.0-0.7) K/uL Baso # 0.0 (0.0-0.2) K/uL Puncture Site R brach pCO2 39 (35-45) mm/Hg pO2 85 (80-100) mm/Hg HCO3 24.0 (21-28) mmol/L ABG pH 7.39 (7.35-7.45) ABG Total CO2 24.8 (22-28) mmol/L ABG O2 Saturation 98.4 H (95-98) % ABG Base Excess -1.2 (-2.0-3.0) mmol/L ABG Hemoglobin 10.9 L (11.7-17.4) g/dL ABG Carboxyhemoglobin 1.3 (0.5-1.5) % POC ABG HHb (Measured) 1.6 (0.0-5.0) % ABG Methemoglobin 0.8 (0.0-3.0) % Stu Test Na A-a O2 Difference 223.0 mm/Hg Respiratory Index 2.6 Hgb O2 Saturation 96.2 (95.0-98.0) % Vent Mode Prvc Mechanical Rate 14 FiO2 50.0 % Tidal Volume 450 PEEP 5 Crit Value Called To Crit Value Called By Crit Value Read Back Blood Gas Notified Time Sodium 138 (132-148) mmol/L Potassium 4.3 (3.6-5.2) mmol/L Chloride 103 (98-107) mmol/L Carbon Dioxide 22 (22-30) mmol/L Anion Gap 18 (10-20) BUN 31 H (7-17) mg/dL Creatinine 1.3 H (0.7-1.2) mg/dL Est GFR ( Amer) 47 Est GFR (Non-Af Amer) 39 Random Glucose 157 H (65-105) mg/dL Lactic Acid (0.7-2.1) mmol/L Calcium 7.6 L (8.6-10.4) mg/dl Phosphorus 4.3 (2.5-4.5) mg/dL Magnesium 2.4 H (1.6-2.3) mg/dL Total Bilirubin 0.5 (0.2-1.3) mg/dL AST 170 H D (14-36) U/L ALT 323 H (9-52) U/L Alkaline Phosphatase 97 (38-126) U/L Total Creatine Kinase (30-135) U/L CK-MB (Mass) (0.0-3.38) ng/mL Troponin I, Quant (0.00-0.120) ng/mL Total Protein 7.0 (6.3-8.3) g/dL Albumin 3.3 L (3.5-5.0) g/dL Globulin 3.7 (2.2-3.9) gm/dL Albumin/Globulin Ratio 0.9 L (1.0-2.1) Procalcitonin (0.19-0.49) NG/ML Plasma Cortisol PM (1.7-14.1) ug/dL Urine Color (YELLOW) Urine Clarity (Clear) Urine pH (5.0-8.0) Ur Specific Baxter (1.003-1.030) Urine Protein (NEGATIVE) mg/dL Urine Glucose (UA) (Normal) mg/dL Urine Ketones (NEGATIVE) mg/dL Urine Blood (NEGATIVE) Urine Nitrate (NEGATIVE) Urine Bilirubin (NEGATIVE) Urine Urobilinogen (0.2-1.0) mg/dL Ur Leukocyte Esterase (Negative) Noel/uL Urine WBC (Auto) (0-5) /hpf Urine RBC (Auto) (0-3) /hpf Ur Squamous Epith Cells (0-5) /hpf Urine Bacteria (<OCC) 07/14/17 07/14/17 07/14/17 Range/Units 21:55 20:10 14:20 WBC (4.8-10.8) K/uL RBC (3.80-5.20) Mil/uL Hgb (11.0-16.0) g/dL Hct (34.0-47.0) % MCV (81.0-99.0) fL MCH (27.0-31.0) pg MCHC (33.0-37.0) g/dL RDW (11.5-14.5) % Plt Count (130-400) K/uL MPV (7.2-11.7) fL Neut % (Auto) (50.0-75.0) % Lymph % (Auto) (20.0-40.0) % Crosby % (Auto) (0.0-10.0) % Eos % (Auto) (0.0-4.0) % Baso % (Auto) (0.0-2.0) % Neut # (1.8-7.0) K/uL Lymph # (1.0-4.3) K/uL Crosby # (0.0-0.8) K/uL Eos # (0.0-0.7) K/uL Baso # (0.0-0.2) K/uL Puncture Site Rba Rba pCO2 35 41 (35-45) mm/Hg pO2 65 L 57 L (80-100) mm/Hg HCO3 15.2 L 10.5 L (21-28) mmol/L ABG pH 7.22 L 7.05 L* (7.35-7.45) ABG Total CO2 15.4 L 12.6 L (22-28) mmol/L ABG O2 Saturation 95.5 87.6 L (95-98) % ABG Base Excess -12.4 L -18.2 L (-2.0-3.0) mmol/L ABG Hemoglobin 9.4 L 9.5 L (11.7-17.4) g/dL ABG Carboxyhemoglobin 1.5 1.4 (0.5-1.5) % POC ABG HHb (Measured) 4.4 12.1 H (0.0-5.0) % ABG Methemoglobin 1.4 0.7 (0.0-3.0) % Stu Test Na Na A-a O2 Difference 248.0 mm/Hg Respiratory Index 3.8 Hgb O2 Saturation 92.7 L 85.8 L (95.0-98.0) % Vent Mode A/c Mechanical Rate 14 FiO2 50.0 % Tidal Volume 450 PEEP 5 Crit Value Called To Kayla du Crit Value Called By Jackie flores Crit Value Read Back Y Blood Gas Notified Time 2014 Sodium 133 (132-148) mmol/L Potassium 5.0 (3.6-5.2) mmol/L Chloride 99 (98-107) mmol/L Carbon Dioxide 16 L (22-30) mmol/L Anion Gap 23 H (10-20) BUN 33 H (7-17) mg/dL Creatinine 1.5 H (0.7-1.2) mg/dL Est GFR ( Amer) 40 Est GFR (Non-Af Amer) 33 Random Glucose 178 H (65-105) mg/dL Lactic Acid (0.7-2.1) mmol/L Calcium 6.9 L (8.6-10.4) mg/dl Phosphorus 3.6 (2.5-4.5) mg/dL Magnesium 2.2 (1.6-2.3) mg/dL Total Bilirubin 0.5 (0.2-1.3) mg/dL AST 343 H (14-36) U/L ALT 368 H D (9-52) U/L Alkaline Phosphatase 112 (38-126) U/L Total Creatine Kinase 345 H (30-135) U/L CK-MB (Mass) 3.62 H (0.0-3.38) ng/mL Troponin I, Quant 0.0240 (0.00-0.120) ng/mL Total Protein 6.7 (6.3-8.3) g/dL Albumin 3.5 (3.5-5.0) g/dL Globulin 3.2 (2.2-3.9) gm/dL Albumin/Globulin Ratio 1.1 (1.0-2.1) Procalcitonin (0.19-0.49) NG/ML Plasma Cortisol PM (1.7-14.1) ug/dL Urine Color (YELLOW) Urine Clarity (Clear) Urine pH (5.0-8.0) Ur Specific Baxter (1.003-1.030) Urine Protein (NEGATIVE) mg/dL Urine Glucose (UA) (Normal) mg/dL Urine Ketones (NEGATIVE) mg/dL Urine Blood (NEGATIVE) Urine Nitrate (NEGATIVE) Urine Bilirubin (NEGATIVE) Urine Urobilinogen (0.2-1.0) mg/dL Ur Leukocyte Esterase (Negative) Noel/uL Urine WBC (Auto) (0-5) /hpf Urine RBC (Auto) (0-3) /hpf Ur Squamous Epith Cells (0-5) /hpf Urine Bacteria (<OCC) 07/14/17 07/14/17 07/14/17 Range/Units 12:21 11:46 11:10 WBC (4.8-10.8) K/uL RBC (3.80-5.20) Mil/uL Hgb (11.0-16.0) g/dL Hct (34.0-47.0) % MCV (81.0-99.0) fL MCH (27.0-31.0) pg MCHC (33.0-37.0) g/dL RDW (11.5-14.5) % Plt Count (130-400) K/uL MPV (7.2-11.7) fL Neut % (Auto) (50.0-75.0) % Lymph % (Auto) (20.0-40.0) % Crosby % (Auto) (0.0-10.0) % Eos % (Auto) (0.0-4.0) % Baso % (Auto) (0.0-2.0) % Neut # (1.8-7.0) K/uL Lymph # (1.0-4.3) K/uL Crosby # (0.0-0.8) K/uL Eos # (0.0-0.7) K/uL Baso # (0.0-0.2) K/uL Puncture Site pCO2 (35-45) mm/Hg pO2 (80-100) mm/Hg HCO3 (21-28) mmol/L ABG pH (7.35-7.45) ABG Total CO2 (22-28) mmol/L ABG O2 Saturation (95-98) % ABG Base Excess (-2.0-3.0) mmol/L ABG Hemoglobin (11.7-17.4) g/dL ABG Carboxyhemoglobin (0.5-1.5) % POC ABG HHb (Measured) (0.0-5.0) % ABG Methemoglobin (0.0-3.0) % Stu Test A-a O2 Difference mm/Hg Respiratory Index Hgb O2 Saturation (95.0-98.0) % Vent Mode Mechanical Rate FiO2 % Tidal Volume PEEP Crit Value Called To Crit Value Called By Crit Value Read Back Blood Gas Notified Time Sodium (132-148) mmol/L Potassium (3.6-5.2) mmol/L Chloride (98-107) mmol/L Carbon Dioxide (22-30) mmol/L Anion Gap (10-20) BUN (7-17) mg/dL Creatinine (0.7-1.2) mg/dL Est GFR ( Amer) Est GFR (Non-Af Amer) Random Glucose (65-105) mg/dL Lactic Acid 4.4 H* (0.7-2.1) mmol/L Calcium (8.6-10.4) mg/dl Phosphorus (2.5-4.5) mg/dL Magnesium (1.6-2.3) mg/dL Total Bilirubin (0.2-1.3) mg/dL AST (14-36) U/L ALT (9-52) U/L Alkaline Phosphatase (38-126) U/L Total Creatine Kinase (30-135) U/L CK-MB (Mass) (0.0-3.38) ng/mL Troponin I, Quant (0.00-0.120) ng/mL Total Protein (6.3-8.3) g/dL Albumin (3.5-5.0) g/dL Globulin (2.2-3.9) gm/dL Albumin/Globulin Ratio (1.0-2.1) Procalcitonin (0.19-0.49) NG/ML Plasma Cortisol PM 51.7 H (1.7-14.1) ug/dL Urine Color Nilsa (YELLOW) Urine Clarity Hazy (Clear) Urine pH 5.0 (5.0-8.0) Ur Specific Baxter > 1.060 H (1.003-1.030) Urine Protein 1+ H (NEGATIVE) mg/dL Urine Glucose (UA) Normal (Normal) mg/dL Urine Ketones Trace (NEGATIVE) mg/dL Urine Blood 3+ H (NEGATIVE) Urine Nitrate Negative (NEGATIVE) Urine Bilirubin Negative (NEGATIVE) Urine Urobilinogen 2.0 H (0.2-1.0) mg/dL Ur Leukocyte Esterase 3+ H (Negative) Noel/uL Urine WBC (Auto) 84 H (0-5) /hpf Urine RBC (Auto) 1138 H (0-3) /hpf Ur Squamous Epith Cells 1 (0-5) /hpf Urine Bacteria Rare (<OCC) 07/14/17 Range/Units 11:10 WBC (4.8-10.8) K/uL RBC (3.80-5.20) Mil/uL Hgb (11.0-16.0) g/dL Hct (34.0-47.0) % MCV (81.0-99.0) fL MCH (27.0-31.0) pg MCHC (33.0-37.0) g/dL RDW (11.5-14.5) % Plt Count (130-400) K/uL MPV (7.2-11.7) fL Neut % (Auto) (50.0-75.0) % Lymph % (Auto) (20.0-40.0) % Crosby % (Auto) (0.0-10.0) % Eos % (Auto) (0.0-4.0) % Baso % (Auto) (0.0-2.0) % Neut # (1.8-7.0) K/uL Lymph # (1.0-4.3) K/uL Crosby # (0.0-0.8) K/uL Eos # (0.0-0.7) K/uL Baso # (0.0-0.2) K/uL Puncture Site pCO2 (35-45) mm/Hg pO2 (80-100) mm/Hg HCO3 (21-28) mmol/L ABG pH (7.35-7.45) ABG Total CO2 (22-28) mmol/L ABG O2 Saturation (95-98) % ABG Base Excess (-2.0-3.0) mmol/L ABG Hemoglobin (11.7-17.4) g/dL ABG Carboxyhemoglobin (0.5-1.5) % POC ABG HHb (Measured) (0.0-5.0) % ABG Methemoglobin (0.0-3.0) % Stu Test A-a O2 Difference mm/Hg Respiratory Index Hgb O2 Saturation (95.0-98.0) % Vent Mode Mechanical Rate FiO2 % Tidal Volume PEEP Crit Value Called To Crit Value Called By Crit Value Read Back Blood Gas Notified Time Sodium (132-148) mmol/L Potassium (3.6-5.2) mmol/L Chloride (98-107) mmol/L Carbon Dioxide (22-30) mmol/L Anion Gap (10-20) BUN (7-17) mg/dL Creatinine (0.7-1.2) mg/dL Est GFR ( Amer) Est GFR (Non-Af Amer) Random Glucose (65-105) mg/dL Lactic Acid (0.7-2.1) mmol/L Calcium (8.6-10.4) mg/dl Phosphorus (2.5-4.5) mg/dL Magnesium (1.6-2.3) mg/dL Total Bilirubin (0.2-1.3) mg/dL AST (14-36) U/L ALT (9-52) U/L Alkaline Phosphatase (38-126) U/L Total Creatine Kinase (30-135) U/L CK-MB (Mass) (0.0-3.38) ng/mL Troponin I, Quant (0.00-0.120) ng/mL Total Protein (6.3-8.3) g/dL Albumin (3.5-5.0) g/dL Globulin (2.2-3.9) gm/dL Albumin/Globulin Ratio (1.0-2.1) Procalcitonin 0.58 H (0.19-0.49) NG/ML Plasma Cortisol PM (1.7-14.1) ug/dL Urine Color (YELLOW) Urine Clarity (Clear) Urine pH (5.0-8.0) Ur Specific Baxter (1.003-1.030) Urine Protein (NEGATIVE) mg/dL Urine Glucose (UA) (Normal) mg/dL Urine Ketones (NEGATIVE) mg/dL Urine Blood (NEGATIVE) Urine Nitrate (NEGATIVE) Urine Bilirubin (NEGATIVE) Urine Urobilinogen (0.2-1.0) mg/dL Ur Leukocyte Esterase (Negative) Noel/uL Urine WBC (Auto) (0-5) /hpf Urine RBC (Auto) (0-3) /hpf Ur Squamous Epith Cells (0-5) /hpf Urine Bacteria (<OCC) Laboratory Results - last 24 hr 07/14/17 07/14/17 07/14/17 11:10 11:10 11:46 WBC RBC Hgb Hct MCV MCH MCHC RDW Plt Count MPV Neut % (Auto) Lymph % (Auto) Crosby % (Auto) Eos % (Auto) Baso % (Auto) Neut # Lymph # Crosby # Eos # Baso # Puncture Site pCO2 pO2 HCO3 ABG pH ABG Total CO2 ABG O2 Saturation ABG Base Excess ABG Hemoglobin ABG Carboxyhemoglobin POC ABG HHb (Measured) ABG Methemoglobin Stu Test A-a O2 Difference Respiratory Index Hgb O2 Saturation Vent Mode Mechanical Rate FiO2 Tidal Volume PEEP Crit Value Called To Crit Value Called By Crit Value Read Back Blood Gas Notified Time Sodium Potassium Chloride Carbon Dioxide Anion Gap BUN Creatinine Est GFR ( Amer) Est GFR (Non-Af Amer) Random Glucose Lactic Acid 4.4 H* Calcium Phosphorus Magnesium Total Bilirubin AST ALT Alkaline Phosphatase Total Creatine Kinase CK-MB (Mass) Troponin I, Quant Total Protein Albumin Globulin Albumin/Globulin Ratio Procalcitonin 0.58 H Plasma Cortisol PM Urine Color Nilsa Urine Clarity Hazy Urine pH 5.0 Ur Specific Baxter > 1.060 H Urine Protein 1+ H Urine Glucose (UA) Normal Urine Ketones Trace Urine Blood 3+ H Urine Nitrate Negative Urine Bilirubin Negative Urine Urobilinogen 2.0 H Ur Leukocyte Esterase 3+ H Urine WBC (Auto) 84 H Urine RBC (Auto) 1138 H Ur Squamous Epith Cells 1 Urine Bacteria Rare 07/14/17 07/14/17 07/14/17 12:21 14:20 20:10 WBC RBC Hgb Hct MCV MCH MCHC RDW Plt Count MPV Neut % (Auto) Lymph % (Auto) Crosby % (Auto) Eos % (Auto) Baso % (Auto) Neut # Lymph # Crosby # Eos # Baso # Puncture Site Rba pCO2 41 pO2 57 L HCO3 10.5 L ABG pH 7.05 L* ABG Total CO2 12.6 L ABG O2 Saturation 87.6 L ABG Base Excess -18.2 L ABG Hemoglobin 9.5 L ABG Carboxyhemoglobin 1.4 POC ABG HHb (Measured) 12.1 H ABG Methemoglobin 0.7 Stu Test Na A-a O2 Difference Respiratory Index Hgb O2 Saturation 85.8 L Vent Mode Mechanical Rate FiO2 Tidal Volume PEEP Crit Value Called To Kayla du Crit Value Called By Jackie flores Crit Value Read Back Y Blood Gas Notified Time 2014 Sodium 133 Potassium 5.0 Chloride 99 Carbon Dioxide 16 L Anion Gap 23 H BUN 33 H Creatinine 1.5 H Est GFR ( Amer) 40 Est GFR (Non-Af Amer) 33 Random Glucose 178 H Lactic Acid Calcium 6.9 L Phosphorus 3.6 Magnesium 2.2 Total Bilirubin 0.5 AST 343 H ALT 368 H D Alkaline Phosphatase 112 Total Creatine Kinase 345 H CK-MB (Mass) 3.62 H Troponin I, Quant 0.0240 Total Protein 6.7 Albumin 3.5 Globulin 3.2 Albumin/Globulin Ratio 1.1 Procalcitonin Plasma Cortisol PM 51.7 H Urine Color Urine Clarity Urine pH Ur Specific Baxter Urine Protein Urine Glucose (UA) Urine Ketones Urine Blood Urine Nitrate Urine Bilirubin Urine Urobilinogen Ur Leukocyte Esterase Urine WBC (Auto) Urine RBC (Auto) Ur Squamous Epith Cells Urine Bacteria 07/14/17 07/15/17 07/15/17 21:55 05:43 06:36 WBC RBC Hgb Hct MCV MCH MCHC RDW Plt Count MPV Neut % (Auto) Lymph % (Auto) Crosby % (Auto) Eos % (Auto) Baso % (Auto) Neut # Lymph # Crosby # Eos # Baso # Puncture Site Rba R brach pCO2 35 39 pO2 65 L 85 HCO3 15.2 L 24.0 ABG pH 7.22 L 7.39 ABG Total CO2 15.4 L 24.8 ABG O2 Saturation 95.5 98.4 H ABG Base Excess -12.4 L -1.2 ABG Hemoglobin 9.4 L 10.9 L ABG Carboxyhemoglobin 1.5 1.3 POC ABG HHb (Measured) 4.4 1.6 ABG Methemoglobin 1.4 0.8 Stu Test Na Na A-a O2 Difference 248.0 223.0 Respiratory Index 3.8 2.6 Hgb O2 Saturation 92.7 L 96.2 Vent Mode A/c Prvc Mechanical Rate 14 14 FiO2 50.0 50.0 Tidal Volume 450 450 PEEP 5 5 Crit Value Called To Crit Value Called By Crit Value Read Back Blood Gas Notified Time Sodium 138 Potassium 4.3 Chloride 103 Carbon Dioxide 22 Anion Gap 18 BUN 31 H Creatinine 1.3 H Est GFR ( Amer) 47 Est GFR (Non-Af Amer) 39 Random Glucose 157 H Lactic Acid Calcium 7.6 L Phosphorus 4.3 Magnesium 2.4 H Total Bilirubin 0.5 AST 170 H D ALT 323 H Alkaline Phosphatase 97 Total Creatine Kinase CK-MB (Mass) Troponin I, Quant Total Protein 7.0 Albumin 3.3 L Globulin 3.7 Albumin/Globulin Ratio 0.9 L Procalcitonin Plasma Cortisol PM Urine Color Urine Clarity Urine pH Ur Specific Baxter Urine Protein Urine Glucose (UA) Urine Ketones Urine Blood Urine Nitrate Urine Bilirubin Urine Urobilinogen Ur Leukocyte Esterase Urine WBC (Auto) Urine RBC (Auto) Ur Squamous Epith Cells Urine Bacteria 07/15/17 06:36 WBC 15.2 H D RBC 3.64 L Hgb 10.9 L Hct 32.3 L MCV 88.7 MCH 29.9 MCHC 33.7 RDW 14.9 H Plt Count 238 MPV 9.7 Neut % (Auto) 91.5 H Lymph % (Auto) 4.0 L Crosby % (Auto) 4.2 Eos % (Auto) 0.0 Baso % (Auto) 0.3 Neut # 13.9 H Lymph # 0.6 L Crosby # 0.6 Eos # 0.0 Baso # 0.0 Puncture Site pCO2 pO2 HCO3 ABG pH ABG Total CO2 ABG O2 Saturation ABG Base Excess ABG Hemoglobin ABG Carboxyhemoglobin POC ABG HHb (Measured) ABG Methemoglobin Stu Test A-a O2 Difference Respiratory Index Hgb O2 Saturation Vent Mode Mechanical Rate FiO2 Tidal Volume PEEP Crit Value Called To Crit Value Called By Crit Value Read Back Blood Gas Notified Time Sodium Potassium Chloride Carbon Dioxide Anion Gap BUN Creatinine Est GFR ( Amer) Est GFR (Non-Af Amer) Random Glucose Lactic Acid Calcium Phosphorus Magnesium Total Bilirubin AST ALT Alkaline Phosphatase Total Creatine Kinase CK-MB (Mass) Troponin I, Quant Total Protein Albumin Globulin Albumin/Globulin Ratio Procalcitonin Plasma Cortisol PM Urine Color Urine Clarity Urine pH Ur Specific Baxter Urine Protein Urine Glucose (UA) Urine Ketones Urine Blood Urine Nitrate Urine Bilirubin Urine Urobilinogen Ur Leukocyte Esterase Urine WBC (Auto) Urine RBC (Auto) Ur Squamous Epith Cells Urine Bacteria EKG/Cardiology Studies: Cardiology / EKG Studies 07/14/17 14:44 EKG [ELECTROCARDIOGRAM] Stat Comment: Mode Of Transportation: BED Reason For Exam: Junctional rhythm 07/16/17 01:15 ELECTROCARDIOGRAM DAILY Comment: Mode Of Transportation: PORTABLE Reason For Exam: [email or web address] Isolation: Contact 07/17/17 01:15 ELECTROCARDIOGRAM DAILY Comment: Mode Of Transportation: PORTABLE Reason For Exam: [email or web address] Isolation: Contact Fingerstick Blood Sugar Results: 211 Review of Systems - Review of Systems Review of Systems: Unable to evaluate ROS due to patient's current clinical status Assessment/Plan - Assessment and Plan (Free Text) Assessment: Patient is a 86 year old female with past medical history of A-Fib, HTN, HLD, Arthritis, Anemia who was admitted for mid-sternal chest pressure and was noted to have sick-sinus syndrome, bradycardia and junctional rhythm and hypotensive and AMS: Plan: Neuro: Intubated, responds to touch stimuli AMS possibly secondary to UTI Medication: * Precedex 200mcg IV titration * Ativan 1mg IV Q2H prn Cardio: Junctional Bradycardia/ Sick Sinus syndrome Hx of A.fib Cardiology Consult, Dr. Abraham on board---> Help appreciated EPS Consult, Dr. Boggs on board---> help appreciated * Plans for pacemaker placement once patient is clinically stable and D/C amiodarone for now due to elevated LFTs Pulm: Intubated, Acidotic * Bicarbonate drip 100 Meq IV @ 60mls/hr * F/u repeat ABGs GI: Transaminitis * Amiodarone discontinued * Continue to monitor Vascular: Hypotension * Levophed 8mg IV 4mcg/min (Titratable) * Dopamine 400mg in 250ml IV 10mcg/kg/min ID: UTI, leukocytosis, bands (4%), Lactic acid (4.4) UA ( 3+ LE, WBC (84) * Vancomycin 750mg/D5W 150mg Q12H * Zosyn IVPB Q6H Prophylaxis: DVT: Heparin 5,000 units SC Q8H GI: Famotidine 20mg IVP daily <Benton Rivera M - Last Filed: 07/19/17 08:42> CCU Objective - Vital Signs / Intake & Output Vital Signs (Last 4 hours): Vital Signs Pulse Resp BP Pulse Ox 07/19/17 07:00 59 L 18 100 07/19/17 06:24 64 20 170/66 H 100 07/19/17 06:00 59 L 20 100 07/19/17 05:23 67 22 124/54 L 100 07/19/17 05:00 62 18 100 Intake and Output (Last 8hrs): Intake & Output 07/18/17 07/19/17 07/19/17 22:59 06:59 14:59 Intake Total 290 200 Output Total 490 310 Balance -200 -110 Weight 159 lb Intake: Intake, IV Amount 50 100 Right Distal Port 50 100 Internal Jugular Oral 240 100 Output: Urine 390 310 Urethral (Serrato) 390 310 Stool 100 Other: # Bowel Movements 1 - Medications Active Medications: Active Medications Generic Name Dose Route Start Last Admin Trade Name Samy PRN Reason Stop Dose Admin Famotidine 20 mg 07/14/17 10:45 07/18/17 09:25 Pepcid IVP 20 mg DAILY RODRIGO Administration Heparin Sodium (Porcine) 5,000 units 07/14/17 01:15 07/19/17 05:03 Heparin SC 5,000 units Q8 RODRIGO Administration Piperacillin Sod/Tazobactam Sod 2.25 gm in 50 mls @ 100 mls/hr 07/14/17 11:30 07/19/17 05:02 Zosyn 2.25 Gm Iv Premix IVPB 100 mls/hr Q6 RODRIGO Administration - Patient Studies Lab Studies: Microbiology Studies 07/14/17 10:39 Stool Culture - Preliminary Stool LACTOSE COIL TESTER, SUB SELENITE BROTH. Ova and Parasite Concentrate Exam - Final 07/15/17 11:35 Blood Culture - Preliminary Blood-Venous NO GROWTH AFTER 3 DAYS 07/15/17 11:35 Blood Culture - Preliminary Blood-Venous NO GROWTH AFTER 3 DAYS Lab Studies 07/19/17 07/19/17 Range/Units 06:12 06:12 WBC 7.2 (4.8-10.8) K/uL RBC 3.64 L (3.80-5.20) Mil/uL Hgb 10.4 L (11.0-16.0) g/dL Hct 32.3 L (34.0-47.0) % MCV 88.6 (81.0-99.0) fL MCH 28.7 (27.0-31.0) pg MCHC 32.4 L (33.0-37.0) g/dL RDW 14.8 H (11.5-14.5) % Plt Count 184 (130-400) K/uL MPV 9.5 (7.2-11.7) fL Neut % (Auto) 76.3 H (50.0-75.0) % Lymph % (Auto) 14.4 L (20.0-40.0) % Crosby % (Auto) 8.7 (0.0-10.0) % Eos % (Auto) 0.2 (0.0-4.0) % Baso % (Auto) 0.4 (0.0-2.0) % Neut # 5.5 (1.8-7.0) K/uL Lymph # 1.0 (1.0-4.3) K/uL Crosby # 0.6 (0.0-0.8) K/uL Eos # 0.0 (0.0-0.7) K/uL Baso # 0.0 (0.0-0.2) K/uL Sodium 140 (132-148) mmol/L Potassium 2.9 L (3.6-5.2) mmol/L Chloride 106 (98-107) mmol/L Carbon Dioxide 24 (22-30) mmol/L Anion Gap 13 (10-20) BUN 15 (7-17) mg/dL Creatinine 0.7 (0.7-1.2) mg/dL Est GFR ( Amer) > 60 Est GFR (Non-Af Amer) > 60 Random Glucose 87 (65-105) mg/dL Calcium 8.0 L (8.6-10.4) mg/dl Phosphorus 2.1 L (2.5-4.5) mg/dL Magnesium 2.2 (1.6-2.3) mg/dL Total Bilirubin 0.3 (0.2-1.3) mg/dL AST 21 (14-36) U/L ALT 93 H D (9-52) U/L Alkaline Phosphatase 83 (38-126) U/L Total Protein 6.8 (6.3-8.3) g/dL Albumin 3.1 L (3.5-5.0) g/dL Globulin 3.8 (2.2-3.9) gm/dL Albumin/Globulin Ratio 0.8 L (1.0-2.1) Laboratory Results - last 24 hr 07/19/17 07/19/17 06:12 06:12 WBC 7.2 RBC 3.64 L Hgb 10.4 L Hct 32.3 L MCV 88.6 MCH 28.7 MCHC 32.4 L RDW 14.8 H Plt Count 184 MPV 9.5 Neut % (Auto) 76.3 H Lymph % (Auto) 14.4 L Crosby % (Auto) 8.7 Eos % (Auto) 0.2 Baso % (Auto) 0.4 Neut # 5.5 Lymph # 1.0 Crosby # 0.6 Eos # 0.0 Baso # 0.0 Sodium 140 Potassium 2.9 L Chloride 106 Carbon Dioxide 24 Anion Gap 13 BUN 15 Creatinine 0.7 Est GFR ( Amer) > 60 Est GFR (Non-Af Amer) > 60 Random Glucose 87 Calcium 8.0 L Phosphorus 2.1 L Magnesium 2.2 Total Bilirubin 0.3 AST 21 ALT 93 H D Alkaline Phosphatase 83 Total Protein 6.8 Albumin 3.1 L Globulin 3.8 Albumin/Globulin Ratio 0.8 L Critical Care Progress Note - Nutrition Nutrition: Nutrition Category Date Time Status Liquid Diet [DIET] Diets 07/18/17 Dinner Active Attending/Attestation - Attestation I have personally seen and examined this patient.: Yes I have fully participated in the care of the patient.: Yes I have reviewed all pertinent clinical information: Yes Notes (Text): 07/15/17 Today: Thursday, July 15, 2017 The Patient was seen and examined at the bedside, Medical records reviewed, and management issues were discussed and formulated with the house staff. I have reviewed all the relevant clinical, laboratory, hemodynamic, radiographic data and medications Events reviewed, Patient intubated overnight for poor mental status and hemodynamically unstable Pain issues, skin care, head of the bed elevation, glycemic control were addressed. I concur with resident's assessment and plan of care as transcribed in Dr. Dalton note. 86 Years old Female admitted with junctional bradycardia, severe sepsis, now intubated overnight for poor mental status, pulmonary edemal and hemodynamically unstable Acute respiratory failure Some neurological improvement Continue with ICU care for hemodynamic and Respiratory monitoring Monitor Respiratory status, wean to extubate when more hemodynamically stable, more awake, minimal FIO2 and PEEP requirements Daily SAT/SBT Wean off FIO2 Broad spextrum antbiotics Follow up cultures Diuresis Start tube feeding Nutritional consult Monitor urine output Serrato to be removed after extubation Aggressive pulmonary toilet GI/DVT PPX Code status: Full code Total critical care time 43 minutes
--- NOTE | 2017-07-15 07:54 | RAD ---
HISTORY: respiratory failure COMPARISON: Portable chest 07/14/2017 1:28 a.m.. FINDINGS: The endotracheal tube is in place with tip terminating approximate 1 cm of the thelma. And nasogastric tubes in placed entry into the left upper quadrant abdomen the tip off the inferior margins of the image. Right central venous line is unchanged in position with external pacemaker again evident. LUNGS: Patchy airspace disease seen in the right perihilar region with left chest obscured by external pacer. Left perihilar patchy density is not excluded. Is unclear whether this airspace change reflects potential pulmonary venous congestion or infection. PLEURA: No significant pleural effusion identified, no pneumothorax apparent. CARDIOVASCULAR: Cardiac silhouette remains prominent appearing with interval pulmonary venous congestion suggested. Further clinical correlation is advised. OSSEOUS STRUCTURES: No significant abnormalities. VISUALIZED UPPER ABDOMEN: Normal. OTHER FINDINGS: None. IMPRESSION: 1. Interval pulmonary venous congestion is in question with bilateral perihilar airspace disease not excluded. No pleural effusion bilaterally. 2. Interval endotracheal and nasogastric tube placement as per above.
[2017-07-15 08:36] LABS: NEUTROPHIL 85 % (50-75); TOTAL CELLS COUNTED 100
[2017-07-15 08:40] LABS: LARGE PLATELETS PRESENT
--- NOTE | 2017-07-15 08:44 | RAD ---
HISTORY: respiratory failure COMPARISON: Portable chest 07/14/2017. FINDINGS: Endotracheal tube, right central venous line and a chest tube do not appear significant changed in position. External cardiac pacemaker again identified. LUNGS: Limited improvement is noted in the bilateral perihilar airspace disease with pulmonary venous congestion remaining in question. Cardiac size is stable. PLEURA: No significant pleural effusion identified, no pneumothorax apparent. OSSEOUS STRUCTURES: No significant abnormalities. VISUALIZED UPPER ABDOMEN: Normal. OTHER FINDINGS: None. IMPRESSION: Diminishes bilateral perihilar airspace disease/pulmonary venous congestion. Continued clinical correlation and radiographic monitoring are advised.
--- NOTE | 2017-07-15 11:40 | CP.PCM.PN ---
<Marco Helms - Last Filed: 07/15/17 11:47> Subjective - Date & Time of Evaluation Date of Evaluation: 07/15/17 Time of Evaluation: 11:15 - Subjective Subjective: Cardiology Progress Note- Dr. Abraham's service Patient seen and examined. Patient currently intubated at this time. Patient's heart rate fluctuates from 50's at times to low 100s. At time of evaluation, HR was low to mid 50s. She had periods of agitation overnight noted by overnight and day team. Patient not able to respond to review of systems at this time due to clinical status. Objective - Vital Signs/Intake and Output Vital Signs (last 24 hours): Temp Pulse Resp BP Pulse Ox 97.7 F 54 L 14 131/65 99 07/15/17 04:00 07/15/17 08:25 07/15/17 08:25 07/15/17 08:25 07/15/17 07:06 Intake and Output: 07/15/17 07/15/17 06:59 18:59 Intake Total 1887.1 444.7 Output Total 1205 200 Balance 682.1 244.7 - Medications Medications: Current Medications Famotidine (Pepcid) 20 mg IVP DAILY [facility] Last Admin: 07/15/17 10:53 Dose: 20 mg Heparin Sodium (Porcine) (Heparin) 5,000 units SC Q8 [facility] Last Admin: 07/15/17 05:34 Dose: 5,000 units Hydrocortisone Sodium Succinate (Solu-Cortef) 50 mg IV Q8H [facility] Last Admin: 07/15/17 06:54 Dose: 50 mg Piperacillin Sod/Tazobactam Sod (Zosyn 2.25 Gm Iv Premix) 2.25 gm in 50 mls @ 100 mls/hr IVPB Q6 [facility] Last Admin: 07/15/17 11:02 Dose: 100 mls/hr Sodium Bicarbonate 100 meq/ (Sodium Chloride) 1,100 mls @ 60 mls/hr IV .[id number] [facility] Last Admin: 07/14/17 21:42 Dose: 60 mls/hr Dexmedetomidine HCl 200 mcg/ (Sodium Chloride) 50 mls @ 4.3 mls/hr IV TITR PRN ; Protocol; 0.2 MCG/KG/HR PRN Reason: Agitation Last Admin: 07/15/17 11:09 Dose: 1 mcg/kg/hr, 21.5 mls/hr Norepinephrine Bitartrate 8 mg (/ Sodium Chloride) 258 mls @ 7.74 mls/hr IV .Q24H PRN; Protocol; 4 MCG/MIN PRN Reason: TITRATE PER MD ORDER Last Titration: 07/15/17 06:44 Dose: 0 mcg/min, 0 mls/hr Dopamine HCl/Dextrose (Dopamine 400mg/250ml D5w) 400 mg in 250 mls @ 32.25 mls/ hr IV .Q7H46M [facility]; 10 MCG/KG/MIN PRN Reason: Protocol Last Admin: 07/15/17 08:25 Dose: 5 mcg/kg/min, 16.125 mls/hr Lorazepam (Ativan) 1 mg IVP Q3H PRN PRN Reason: Anxiety Last Admin: 07/15/17 04:25 Dose: 1 mg - Labs Labs: 07/15/17 06:36 07/15/17 06:36 PT 14.7 SECONDS (9.7-12.2) H 07/13/17 23:26 INR 1.3 07/13/17 23:26 APTT 34 SECONDS (21-34) 07/13/17 23:26 - Constitutional Appears: Non-toxic, No Acute Distress - Head Exam Head Exam: ATRAUMATIC, NORMAL INSPECTION - Eye Exam Eye Exam: EOMI, Normal appearance - ENT Exam ENT Exam: Mucous Membranes Dry - Neck Exam Additional comments: no appreciable JVD; hard to view due to IJ in place - Respiratory Exam Respiratory Exam: NORMAL BREATHING PATTERN - Cardiovascular Exam Cardiovascular Exam: Bradycardia, +S1, +S2 - GI/Abdominal Exam GI & Abdominal Exam: Soft - Extremities Exam Extremities Exam: Pedal Edema Additional comments: 2+ b/l pitting edema, dry - Neurological Exam Neurological Exam: absent: Alert, Awake - Skin Skin Exam: Dry, Warm Assessment and Plan - Assessment and Plan (Free Text) Assessment: Junctional bradycardia/Sick sinus syndrome Assessment and Plan: Junctional Bradycardia with Hypotension on admission Likely secondary to sick-sinus syndrome On Dopamine Amiodarone held at this time. Prior stress and ECHO were normal ECHO from 06/2017 showed EF of 65-70% EP consult with Dr. Boggs to assess need for pacemaker Hyperkalemia Assessment and Plan: Normalized. Continue to monitor. Status: Acute Altered mental status Assessment and Plan: Likely due to UTI and hypotension On Zosyn F/U Urine cultures Elevated LFTs Assessment and Plan: Likely secondarily due to Amiodarone which patient was previously on. Stopping Amiodarone at this time. On admission AST 375, ALT 269 Status: Acute Hypothyroidism Assessment and Plan: Likely further exacerbated by Amiodarone which patient was previously on. TSH 10.3 T4 11.1, Free T4 1.97, TSH 10.30 Status: Acute Prophylactic measure Assessment and Plan: DVT: Heparin 5000u sc q8 GI: pepcid 20 mg IV daily Diet: Heart healthy to start once more stable Discussed with attending. Management and planning per Dr. Abraham. <Marcello Abraham - Last Filed: 07/15/17 21:35> Objective - Vital Signs/Intake and Output Vital Signs (last 24 hours): Temp Pulse Resp BP Pulse Ox 96.8 F L 49 L 14 144/68 99 07/15/17 20:00 07/15/17 19:23 07/15/17 20:00 07/15/17 19:23 07/15/17 20:00 Intake and Output: 07/15/17 07/16/17 18:59 06:59 Intake Total 1888.7 217.4 Output Total 3500 600 Balance -1611.3 -382.6 - Medications Medications: Current Medications Famotidine (Pepcid) 20 mg IVP DAILY [facility] Last Admin: 07/15/17 10:53 Dose: 20 mg Heparin Sodium (Porcine) (Heparin) 5,000 units SC Q8 [facility] Last Admin: 07/15/17 14:08 Dose: 5,000 units Hydrocortisone Sodium Succinate (Solu-Cortef) 50 mg IV Q8H [facility] Last Admin: 07/15/17 15:03 Dose: 50 mg Piperacillin Sod/Tazobactam Sod (Zosyn 2.25 Gm Iv Premix) 2.25 gm in 50 mls @ 100 mls/hr IVPB Q6 [facility] Last Admin: 07/15/17 18:01 Dose: 100 mls/hr Sodium Bicarbonate 100 meq/ (Sodium Chloride) 1,100 mls @ 60 mls/hr IV .[id number] [facility] Last Admin: 07/15/17 15:05 Dose: 60 mls/hr Dexmedetomidine HCl 200 mcg/ (Sodium Chloride) 50 mls @ 4.3 mls/hr IV TITR PRN ; Protocol; 0.2 MCG/KG/HR PRN Reason: Agitation Last Admin: 07/15/17 20:25 Dose: 0.7 mcg/kg/hr, 15.05 mls/hr Norepinephrine Bitartrate 8 mg (/ Sodium Chloride) 258 mls @ 7.74 mls/hr IV .Q24H PRN; Protocol; 4 MCG/MIN PRN Reason: TITRATE PER MD ORDER Last Titration: 07/15/17 06:44 Dose: 0 mcg/min, 0 mls/hr Dopamine HCl/Dextrose (Dopamine 400mg/250ml D5w) 400 mg in 250 mls @ 32.25 mls/ hr IV .Q7H46M [facility]; 10 MCG/KG/MIN PRN Reason: Protocol Last Admin: 07/15/17 18:02 Dose: Not Given Vancomycin HCl (Vancocin 750mg/D5w 150 Ml) 150 mls @ 100 mls/hr IV Q12H [facility] Stop: 07/20/17 12:01 Last Admin: 07/15/17 13:29 Dose: 100 mls/hr Lorazepam (Ativan) 1 mg IVP Q2H PRN PRN Reason: Anxiety Last Admin: 07/15/17 19:20 Dose: 1 mg - Labs Labs: 07/15/17 06:36 07/15/17 06:36 PT 14.7 SECONDS (9.7-12.2) H 07/13/17 23:26 INR 1.3 07/13/17 23:26 APTT 34 SECONDS (21-34) 07/13/17 23:26 Assessment and Plan - Assessment and Plan (Free Text) Assessment: Patient seen and evaluated with the medical device engineer Plan of care as documented Recommend full therapeutic dose of Heparin for hx of A Fib
--- NOTE | 2017-07-15 12:02 | CARD ---
APPROVED REPORT EKG Measurement Heart [id number] <Conclusion> Junctional bradycardia Left anterior fascicular block Abnormal ECG
[2017-07-15] MEDS: Vancomycin 750mg/D5W 150 ml 150 ML IV SCH (13:29)
[2017-07-16] MEDS: Vancomycin 750mg/D5W 150 ml 150 ML IV SCH
[2017-07-16] MEDS: Dexmedetomidine Hydrochloride 200 MCG in Sodium Chloride 0.9% 48 ML IV PRN ×4 (02:20→08:20)
[2017-07-16] MEDS: DOPamine 400mg/250ml D5W 400 MG/250 ML BAG IV SCH ×2 (02:35→07:00)
[2017-07-16] MEDS: Piperacill/Tazo 2.25gm in Dex 2.25 GM/50 ML BAG IVPB SCH ×3 (05:28→17:03)
[2017-07-16 05:36] LABS: ABG MECHANICAL RATE 14; ARTERIAL BLOOD GAS MODE PRVC; ATERIAL BLOOD GAS PEEP 5; DRAW SITE RB
[2017-07-16 06:37] LABS: BASO % 0.1 % (0.0-2.0); HEMATOCRIT 30.3 % (34.0-47.0); LYMPH # 0.5 K/uL (1.0-4.3); LYMPH % 4.5 % (20.0-40.0); MEAN CELL VOLUME 87.3 fL (81.0-99.0); MEAN CORPUSCULAR HEMOGLOBIN 29.2 pg (27.0-31.0); MEAN CORPUSCULAR HGB CONC 33.5 g/dL (33.0-37.0); MEAN PLATELET VOLUME 9.1 fL (7.2-11.7); MONO # 0.4 K/uL (0.0-0.8); MONO % 3.7 % (0.0-10.0); NRBC % 0.2 % (0.0-2.0); PLATELET COUNT 209 K/uL (130-400); RED CELL DISTRIBUTION WIDTH 14.9 % (11.5-14.5); WHITE BLOOD COUNT 11.8 K/uL (4.8-10.8)
[2017-07-16 07:30] LABS: ALB/GLOB RATIO 0.8 (1.0-2.1); ALKALINE PHOSPHATASE 90 U/L (38-126); ALT/SGPT 228 U/L (9-52); AST/SGOT 107 U/L (14-36); BILIRUBIN,TOTAL 0.4 mg/dL (0.2-1.3); CALCIUM 7.3 mg/dl (8.6-10.4); CARBON DIOXIDE 26 mmol/L (22-30); CHLORIDE 105 mmol/L (98-107); GFR AFRICAN-AMERICAN > 60; GLUCOSE,RANDOM 100 mg/dL (65-105); MAGNESIUM 2.2 mg/dL (1.6-2.3); POTASSIUM 3.6 mmol/L (3.6-5.2); SODIUM 141 mmol/L (132-148); TOTAL PROTEIN 6.1 g/dL (6.3-8.3)
[2017-07-16 07:31] LABS: BLOOD UREA NITROGEN 16 mg/dL (7-17)
[2017-07-16 08:47] LABS: NEUTROPHIL 90 % (50-75); TOTAL CELLS COUNTED 100
--- NOTE | 2017-07-16 09:46 | CP.CCUPN ---
<Antonio Siegel - Last Filed: 07/16/17 16:32> CCU Objective - Vital Signs / Intake & Output Vital Signs (Last 4 hours): Vital Signs Pulse Resp BP Pulse Ox 07/16/17 15:23 54 L 18 123/54 L 94 L 07/16/17 14:25 61 24 130/53 L 99 07/16/17 13:23 52 L 14 136/63 98 07/16/17 12:46 145/67 Intake and Output (Last 8hrs): Intake & Output 07/16/17 07/16/17 07/16/17 06:59 14:59 22:59 Intake Total 934.8 188.0 Output Total 1530 125 Balance -595.2 63.0 Weight 188 lb 7.924 oz Intake: IV 218 100 Intake, IV Amount 716.8 88.0 Right Internal Jugular 64.8 6.5 Right Medial Port 172.0 21.5 Right Proximal Port 480 60 Output: Urine 1530 125 Urethral (Serrato) 1530 125 - Medications Active Medications: Active Medications Generic Name Dose Route Start Last Admin Trade Name Freq PRN Reason Stop Dose Admin Acetazolamide 500 mg 07/16/17 10:45 07/16/17 12:00 Diamox 500 Mg Inj IV 07/16/17 22:01 500 mg Q12 RODRIGO Administration Famotidine 20 mg 07/14/17 10:45 07/16/17 12:47 Pepcid IVP 20 mg DAILY RODRIGO Administration Furosemide 40 mg 07/16/17 16:30 Lasix IVP Q12H RODRIGO Heparin Sodium (Porcine) 5,000 units 07/14/17 01:15 07/16/17 13:38 Heparin SC 5,000 units Q8 RODRIGO Administration Piperacillin Sod/Tazobactam Sod 2.25 gm in 50 mls @ 100 mls/hr 07/14/17 11:30 07/16/17 12:48 Zosyn 2.25 Gm Iv Premix IVPB 100 mls/hr Q6 RODRIGO Administration Norepinephrine Bitartrate 8 mg 258 mls @ 7.74 mls/hr 07/14/17 21:07 07/15/17 06:44 / Sodium Chloride IV 0 mcg/min .Q24H PRN 0 mls/hr TITRATE PER MD ORDER Titration Protocol 4 MCG/MIN Lorazepam 1 mg 07/15/17 11:42 07/16/17 09:02 Ativan IVP 1 mg Q2H PRN Administration Anxiety Midazolam HCl 2 mg 07/16/17 10:31 07/16/17 13:56 Versed Inj IVP 2 mg Q6H PRN Administration Anxiety - Patient Studies Lab Studies: Microbiology Studies 07/15/17 11:35 Blood Culture - Preliminary Blood-Venous NO GROWTH AFTER 24 HOURS 07/15/17 11:35 Blood Culture - Preliminary Blood-Venous NO GROWTH AFTER 24 HOURS Lab Studies 07/16/17 07/16/17 07/16/17 Range/Units 06:33 06:28 05:25 WBC 11.8 H (4.8-10.8) K/uL RBC 3.48 L (3.80-5.20) Mil/uL Hgb 10.2 L (11.0-16.0) g/dL Hct 30.3 L (34.0-47.0) % MCV 87.3 (81.0-99.0) fL MCH 29.2 (27.0-31.0) pg MCHC 33.5 (33.0-37.0) g/dL RDW 14.9 H (11.5-14.5) % Plt Count 209 (130-400) K/uL MPV 9.1 (7.2-11.7) fL Neut % (Auto) 91.7 H (50.0-75.0) % Lymph % (Auto) 4.5 L (20.0-40.0) % [place] % (Auto) 3.7 (0.0-10.0) % Eos % (Auto) 0.0 (0.0-4.0) % Baso % (Auto) 0.1 (0.0-2.0) % Neut # 10.8 H (1.8-7.0) K/uL Lymph # 0.5 L (1.0-4.3) K/uL [place] # 0.4 (0.0-0.8) K/uL Eos # 0.0 (0.0-0.7) K/uL Baso # 0.0 (0.0-0.2) K/uL Neutrophils % (Manual) 90 H (50-75) % Band Neutrophils % 2 (0-2) % Lymphocytes % (Manual) 6 L (20-40) % Monocytes % (Manual) 2 (0-10) % Platelet Estimate Normal (NORMAL) Hypochromasia (manual) Slight Poikilocytosis (manual Slight Anisocytosis (manual) Slight Macrocytosis (manual) Slight Target Cells Slight Tear Drop Cells Slight Puncture Site Rb pCO2 38 (35-45) mm/Hg pO2 83 (80-100) mm/Hg HCO3 30.3 H (21-28) mmol/L ABG pH 7.51 H (7.35-7.45) ABG Total CO2 31.5 H (22-28) mmol/L ABG O2 Saturation 97.7 (95-98) % ABG Base Excess 6.9 H (-2.0-3.0) mmol/L Stu Test Na ABG Potassium 3.7 (3.6-5.2) mmol/L A-a O2 Difference 226.0 mm/Hg Respiratory Index 2.7 Sodium 141 144.0 (132-148) mmol/l Chloride 105 112.0 H (98-107) mmol/L Glucose 104 (65-105) mg/dl Lactate 0.8 (0.7-2.1) mmol/L Vent Mode Prvc Mechanical Rate 14 FiO2 50.0 % Tidal Volume 450 PEEP 5 Potassium 3.6 (3.6-5.2) mmol/L Carbon Dioxide 26 (22-30) mmol/L Anion Gap 14 (10-20) BUN 16 (7-17) mg/dL Creatinine 0.8 (0.7-1.2) mg/dL Est GFR ( Amer) > 60 Est GFR (Non-Af Amer) > 60 Random Glucose 100 (65-105) mg/dL Calcium 7.3 L (8.6-10.4) mg/dl Phosphorus 3.0 (2.5-4.5) mg/dL Magnesium 2.2 (1.6-2.3) mg/dL Total Bilirubin 0.4 (0.2-1.3) mg/dL AST 107 H D (14-36) U/L ALT 228 H D (9-52) U/L Alkaline Phosphatase 90 (38-126) U/L Total Protein 6.1 L (6.3-8.3) g/dL Albumin 2.7 L (3.5-5.0) g/dL Globulin 3.4 (2.2-3.9) gm/dL Albumin/Globulin Ratio 0.8 L (1.0-2.1) Arterial Blood Potassium 3.7 (3.6-5.2) mmol/L Laboratory Results - last 24 hr 07/16/17 07/16/17 07/16/17 05:25 06:28 06:33 WBC 11.8 H RBC 3.48 L Hgb 10.2 L Hct 30.3 L MCV 87.3 MCH 29.2 MCHC 33.5 RDW 14.9 H Plt Count 209 MPV 9.1 Neut % (Auto) 91.7 H Lymph % (Auto) 4.5 L [place] % (Auto) 3.7 Eos % (Auto) 0.0 Baso % (Auto) 0.1 Neut # 10.8 H Lymph # 0.5 L [place] # 0.4 Eos # 0.0 Baso # 0.0 Neutrophils % (Manual) 90 H Band Neutrophils % 2 Lymphocytes % (Manual) 6 L Monocytes % (Manual) 2 Platelet Estimate Normal Hypochromasia (manual) Slight Poikilocytosis (manual Slight Anisocytosis (manual) Slight Macrocytosis (manual) Slight Target Cells Slight Tear Drop Cells Slight Puncture Site Rb pCO2 38 pO2 83 HCO3 30.3 H ABG pH 7.51 H ABG Total CO2 31.5 H ABG O2 Saturation 97.7 ABG Base Excess 6.9 H Stu Test Na ABG Potassium 3.7 A-a O2 Difference 226.0 Respiratory Index 2.7 Sodium 144.0 141 Chloride 112.0 H 105 Glucose 104 Lactate 0.8 Vent Mode Prvc Mechanical Rate 14 FiO2 50.0 Tidal Volume 450 PEEP 5 Potassium 3.6 Carbon Dioxide 26 Anion Gap 14 BUN 16 Creatinine 0.8 Est GFR ( Amer) > 60 Est GFR (Non-Af Amer) > 60 Random Glucose 100 Calcium 7.3 L Phosphorus 3.0 Magnesium 2.2 Total Bilirubin 0.4 AST 107 H D ALT 228 H D Alkaline Phosphatase 90 Total Protein 6.1 L Albumin 2.7 L Globulin 3.4 Albumin/Globulin Ratio 0.8 L Arterial Blood Potassium 3.7 EKG/Cardiology Studies: Cardiology / EKG Studies 07/16/17 01:15 ELECTROCARDIOGRAM DAILY Comment: Mode Of Transportation: PORTABLE Reason For Exam: kelsea Isolation: Contact 07/17/17 01:15 ELECTROCARDIOGRAM DAILY Comment: Mode Of Transportation: PORTABLE Reason For Exam: kelsea Isolation: Contact Attending/Attestation - Attestation I have personally seen and examined this patient.: Yes I have fully participated in the care of the patient.: Yes I have reviewed all pertinent clinical information: Yes Notes (Text): 07/16/17 16:27 I have seen and examined the patient. Medical records, lab studies, and imaging were reviewed by me and a management plan was formulated on multidisciplinary rounds with resident Dr. Dalton. I agree with their above documented assessment and plan. Patient was in septic shock secondary to UTI, continue Zosyn, now off pressors. Holding all sedation. Aggressive diuresis with lasix q12h. Diamox to balance metabolic alkalosis. Not currently tolerating PS trials. Critical Care Time 35 minutes. Multi-disciplinary rounds were performed with house staff, nursing, speech therapy, respiratory therapy, pharmacy and nutrition with integrated input from the primary team/attending and other consulting services. The documented time is cumulative and includes review of patient data/exams/labs/chart review and examination of the patient on rounds and throughout the day; time is exclusive of any procedures or teaching time. 07/16/17 16:32 <Guero Dalton E - Last Filed: 07/16/17 19:56> CCU Subjective - Physician Review Subjective (Free Text): Patient was seen and examined at bedside. Patient is currently intubated. As per nursing, patient is aggressive and very agitated. Unable to evaluate adequate ROS as patient is intubated. CCU Objective - Vital Signs / Intake & Output Vital Signs (Last 4 hours): Vital Signs Temp Pulse Resp BP Pulse Ox 07/16/17 07:27 98.8 F 14 136/60 99 07/16/17 07:00 56 L 14 99 07/16/17 06:23 61 15 156/63 H 97 07/16/17 06:00 64 14 99 Intake and Output (Last 8hrs): Intake & Output 07/15/17 07/16/17 07/16/17 22:59 06:59 14:59 Intake Total 968.5 934.8 138.0 Output Total 2350 1530 125 Balance -1381.5 -595.2 13.0 Weight 188 lb 7.924 oz Intake: IV 232 218 50 Intake, IV Amount 736.5 716.8 88.0 Left Hand 50 Right Internal Jugular 84.0 64.8 6.5 Right Medial Port 122.5 172.0 21.5 Right Proximal Port 480 480 60 Output: Urine 2350 1530 125 Urethral (Serrato) 2350 1530 125 - Physical Exam Head: Positive for: Atraumatic, Normocephalic Pupils: Positive for: PERRL Conjunctiva: Positive for: Normal Ears: Positive for: Normal Mouth: Positive for: Dry Respiratory/Chest: Positive for: Wheezes, Other (intubated ) Cardiovascular: Positive for: Irregular Rhythm, Bradycardic Abdomen: Positive for: Normal Bowel Sounds. Negative for: Tenderness, Distention, Rebound Upper Extremity: Positive for: Normal Inspection Lower Extremity: Positive for: Normal Inspection Skin: Positive for: Warm, Normal Color Psychiatric: Positive for: Agitated - Medications Active Medications: Active Medications Generic Name Dose Route Start Last Admin Trade Name Freq PRN Reason Stop Dose Admin Famotidine 20 mg 07/14/17 10:45 07/15/17 10:53 Pepcid IVP 20 mg DAILY RODRIGO Administration Heparin Sodium (Porcine) 5,000 units 07/14/17 01:15 07/16/17 05:26 Heparin SC 5,000 units Q8 RODRIGO Administration Hydrocortisone Sodium Succinate 50 mg 07/14/17 23:00 07/16/17 06:08 Solu-Cortef IV 50 mg Q8H RODRIGO Administration Piperacillin Sod/Tazobactam Sod 2.25 gm in 50 mls @ 100 mls/hr 07/14/17 11:30 07/16/17 05:28 Zosyn 2.25 Gm Iv Premix IVPB 100 mls/hr Q6 RODRIGO Administration Sodium Bicarbonate 100 meq/ 1,100 mls @ 60 mls/hr 07/14/17 21:30 07/16/17 07: 00 Sodium Chloride IV 60 mls/hr .[id number] RODRIGO Administration Dexmedetomidine HCl 200 mcg/ 50 mls @ 4.3 mls/hr 07/14/17 20:56 07/16/17 08: 20 Sodium Chloride IV 1 mcg/kg/hr TITR PRN 21.5 mls/hr Agitation Administration Protocol 0.2 MCG/KG/HR Norepinephrine Bitartrate 8 mg 258 mls @ 7.74 mls/hr 07/14/17 21:07 07/15/17 06:44 / Sodium Chloride IV 0 mcg/min .Q24H PRN 0 mls/hr TITRATE PER MD ORDER Titration Protocol 4 MCG/MIN Dopamine HCl/Dextrose 400 mg in 250 mls @ 32.25 mls/hr 07/14/17 23:56 07:00 Dopamine 400mg/250ml D5w IV Not Given .[id number] RODRIGO Protocol 10 MCG/KG/MIN Vancomycin HCl 150 mls @ 100 mls/hr 07/15/17 12:00 07/16/17 00:00 Vancocin 750mg/D5w 150 Ml IV 07/20/17 12:01 100 mls/hr Q12H RODRIGO Administration Lorazepam 1 mg 07/15/17 11:42 07/16/17 09:02 Ativan IVP 1 mg Q2H PRN Administration Anxiety - Patient Studies Lab Studies: Microbiology Studies 07/14/17 03:23 MRSA Culture (Admit) - Final Nose MRSA NOT DETECTED Lab Studies 07/16/17 07/16/17 07/16/17 Range/Units 06:33 06:28 05:25 WBC 11.8 H (4.8-10.8) K/uL RBC 3.48 L (3.80-5.20) Mil/uL Hgb 10.2 L (11.0-16.0) g/dL Hct 30.3 L (34.0-47.0) % MCV 87.3 (81.0-99.0) fL MCH 29.2 (27.0-31.0) pg MCHC 33.5 (33.0-37.0) g/dL RDW 14.9 H (11.5-14.5) % Plt Count 209 (130-400) K/uL MPV 9.1 (7.2-11.7) fL Neut % (Auto) 91.7 H (50.0-75.0) % Lymph % (Auto) 4.5 L (20.0-40.0) % [place] % (Auto) 3.7 (0.0-10.0) % Eos % (Auto) 0.0 (0.0-4.0) % Baso % (Auto) 0.1 (0.0-2.0) % Neut # 10.8 H (1.8-7.0) K/uL Lymph # 0.5 L (1.0-4.3) K/uL [place] # 0.4 (0.0-0.8) K/uL Eos # 0.0 (0.0-0.7) K/uL Baso # 0.0 (0.0-0.2) K/uL Neutrophils % (Manual) 90 H (50-75) % Band Neutrophils % 2 (0-2) % Lymphocytes % (Manual) 6 L (20-40) % Monocytes % (Manual) 2 (0-10) % Platelet Estimate Normal (NORMAL) Hypochromasia (manual) Slight Poikilocytosis (manual Slight Anisocytosis (manual) Slight Macrocytosis (manual) Slight Target Cells Slight Tear Drop Cells Slight Puncture Site Rb pCO2 38 (35-45) mm/Hg pO2 83 (80-100) mm/Hg HCO3 30.3 H (21-28) mmol/L ABG pH 7.51 H (7.35-7.45) ABG Total CO2 31.5 H (22-28) mmol/L ABG O2 Saturation 97.7 (95-98) % ABG Base Excess 6.9 H (-2.0-3.0) mmol/L Stu Test Na ABG Potassium 3.7 (3.6-5.2) mmol/L A-a O2 Difference 226.0 mm/Hg Respiratory Index 2.7 Sodium 141 144.0 (132-148) mmol/l Chloride 105 112.0 H (98-107) mmol/L Glucose 104 (65-105) mg/dl Lactate 0.8 (0.7-2.1) mmol/L Vent Mode Prvc Mechanical Rate 14 FiO2 50.0 % Tidal Volume 450 PEEP 5 Potassium 3.6 (3.6-5.2) mmol/L Carbon Dioxide 26 (22-30) mmol/L Anion Gap 14 (10-20) BUN 16 (7-17) mg/dL Creatinine 0.8 (0.7-1.2) mg/dL Est GFR ( Amer) > 60 Est GFR (Non-Af Amer) > 60 POC Glucose (mg/dL) (65-110) mg/dL Random Glucose 100 (65-105) mg/dL Calcium 7.3 L (8.6-10.4) mg/dl Phosphorus 3.0 (2.5-4.5) mg/dL Magnesium 2.2 (1.6-2.3) mg/dL Total Bilirubin 0.4 (0.2-1.3) mg/dL AST 107 H D (14-36) U/L ALT 228 H D (9-52) U/L Alkaline Phosphatase 90 (38-126) U/L Total Protein 6.1 L (6.3-8.3) g/dL Albumin 2.7 L (3.5-5.0) g/dL Globulin 3.4 (2.2-3.9) gm/dL Albumin/Globulin Ratio 0.8 L (1.0-2.1) Arterial Blood Potassium 3.7 (3.6-5.2) mmol/L 07/15/17 Range/Units 11:52 WBC (4.8-10.8) K/uL RBC (3.80-5.20) Mil/uL Hgb (11.0-16.0) g/dL Hct (34.0-47.0) % MCV (81.0-99.0) fL MCH (27.0-31.0) pg MCHC (33.0-37.0) g/dL RDW (11.5-14.5) % Plt Count (130-400) K/uL MPV (7.2-11.7) fL Neut % (Auto) (50.0-75.0) % Lymph % (Auto) (20.0-40.0) % [place] % (Auto) (0.0-10.0) % Eos % (Auto) (0.0-4.0) % Baso % (Auto) (0.0-2.0) % Neut # (1.8-7.0) K/uL Lymph # (1.0-4.3) K/uL [place] # (0.0-0.8) K/uL Eos # (0.0-0.7) K/uL Baso # (0.0-0.2) K/uL Neutrophils % (Manual) (50-75) % Band Neutrophils % (0-2) % Lymphocytes % (Manual) (20-40) % Monocytes % (Manual) (0-10) % Platelet Estimate (NORMAL) Hypochromasia (manual) Poikilocytosis (manual Anisocytosis (manual) Macrocytosis (manual) Target Cells Tear Drop Cells Puncture Site pCO2 (35-45) mm/Hg pO2 (80-100) mm/Hg HCO3 (21-28) mmol/L ABG pH (7.35-7.45) ABG Total CO2 (22-28) mmol/L ABG O2 Saturation (95-98) % ABG Base Excess (-2.0-3.0) mmol/L Stu Test ABG Potassium (3.6-5.2) mmol/L A-a O2 Difference mm/Hg Respiratory Index Sodium (132-148) mmol/l Chloride (98-107) mmol/L Glucose (65-105) mg/dl Lactate (0.7-2.1) mmol/L Vent Mode Mechanical Rate FiO2 % Tidal Volume PEEP Potassium (3.6-5.2) mmol/L Carbon Dioxide (22-30) mmol/L Anion Gap (10-20) BUN (7-17) mg/dL Creatinine (0.7-1.2) mg/dL Est GFR ( Amer) Est GFR (Non-Af Amer) POC Glucose (mg/dL) 157 H (65-110) mg/dL Random Glucose (65-105) mg/dL Calcium (8.6-10.4) mg/dl Phosphorus (2.5-4.5) mg/dL Magnesium (1.6-2.3) mg/dL Total Bilirubin (0.2-1.3) mg/dL AST (14-36) U/L ALT (9-52) U/L Alkaline Phosphatase (38-126) U/L Total Protein (6.3-8.3) g/dL Albumin (3.5-5.0) g/dL Globulin (2.2-3.9) gm/dL Albumin/Globulin Ratio (1.0-2.1) Arterial Blood Potassium (3.6-5.2) mmol/L Laboratory Results - last 24 hr 07/15/17 07/16/17 07/16/17 11:52 05:25 06:28 WBC RBC Hgb Hct MCV MCH MCHC RDW Plt Count MPV Neut % (Auto) Lymph % (Auto) [place] % (Auto) Eos % (Auto) Baso % (Auto) Neut # Lymph # [place] # Eos # Baso # Neutrophils % (Manual) Band Neutrophils % Lymphocytes % (Manual) Monocytes % (Manual) Platelet Estimate Hypochromasia (manual) Poikilocytosis (manual Anisocytosis (manual) Macrocytosis (manual) Target Cells Tear Drop Cells Puncture Site Rb pCO2 38 pO2 83 HCO3 30.3 H ABG pH 7.51 H ABG Total CO2 31.5 H ABG O2 Saturation 97.7 ABG Base Excess 6.9 H Stu Test Na ABG Potassium 3.7 A-a O2 Difference 226.0 Respiratory Index 2.7 Sodium 144.0 141 Chloride 112.0 H 105 Glucose 104 Lactate 0.8 Vent Mode Prvc Mechanical Rate 14 FiO2 50.0 Tidal Volume 450 PEEP 5 Potassium 3.6 Carbon Dioxide 26 Anion Gap 14 BUN 16 Creatinine 0.8 Est GFR ( Amer) > 60 Est GFR (Non-Af Amer) > 60 POC Glucose (mg/dL) 157 H Random Glucose 100 Calcium 7.3 L Phosphorus 3.0 Magnesium 2.2 Total Bilirubin 0.4 AST 107 H D ALT 228 H D Alkaline Phosphatase 90 Total Protein 6.1 L Albumin 2.7 L Globulin 3.4 Albumin/Globulin Ratio 0.8 L Arterial Blood Potassium 3.7 07/16/17 06:33 WBC 11.8 H RBC 3.48 L Hgb 10.2 L Hct 30.3 L MCV 87.3 MCH 29.2 MCHC 33.5 RDW 14.9 H Plt Count 209 MPV 9.1 Neut % (Auto) 91.7 H Lymph % (Auto) 4.5 L [place] % (Auto) 3.7 Eos % (Auto) 0.0 Baso % (Auto) 0.1 Neut # 10.8 H Lymph # 0.5 L [place] # 0.4 Eos # 0.0 Baso # 0.0 Neutrophils % (Manual) 90 H Band Neutrophils % 2 Lymphocytes % (Manual) 6 L Monocytes % (Manual) 2 Platelet Estimate Normal Hypochromasia (manual) Slight Poikilocytosis (manual Slight Anisocytosis (manual) Slight Macrocytosis (manual) Slight Target Cells Slight Tear Drop Cells Slight Puncture Site pCO2 pO2 HCO3 ABG pH ABG Total CO2 ABG O2 Saturation ABG Base Excess Stu Test ABG Potassium A-a O2 Difference Respiratory Index Sodium Chloride Glucose Lactate Vent Mode Mechanical Rate FiO2 Tidal Volume PEEP Potassium Carbon Dioxide Anion Gap BUN Creatinine Est GFR ( Amer) Est GFR (Non-Af Amer) POC Glucose (mg/dL) Random Glucose Calcium Phosphorus Magnesium Total Bilirubin AST ALT Alkaline Phosphatase Total Protein Albumin Globulin Albumin/Globulin Ratio Arterial Blood Potassium EKG/Cardiology Studies: Cardiology / EKG Studies 07/16/17 01:15 ELECTROCARDIOGRAM DAILY Comment: Mode Of Transportation: PORTABLE Reason For Exam: kelsea Isolation: Contact 07/17/17 01:15 ELECTROCARDIOGRAM DAILY Comment: Mode Of Transportation: PORTABLE Reason For Exam: kelsea Isolation: Contact Fingerstick Blood Sugar Results: 211 Review of Systems - Review of Systems Review of Systems: Unable to evaluate due to patient current clinical status Assessment/Plan - Assessment and Plan (Free Text) Assessment: Patient is a 86 year old female with past medical history of A-Fib, HTN, HLD, Arthritis, Anemia who was admitted for mid-sternal chest pressure and was noted to have sick-sinus syndrome, bradycardia and junctional rhythm and hypotensive and AMS: Plan: Neuro: Intubated, responds to touch stimuli AMS possibly secondary to UTI Medication: * Versed 2mg Q6H prn * Ativan 1mg IV Q2H prn Cardio: Junctional Bradycardia/ Sick Sinus syndrome Hx of A.fib Cardiology Consult, Dr. Abraham on board---> Help appreciated EPS Consult, Dr. Boggs on board---> help appreciated * Plans for pacemaker placement once patient is clinically stable and D/C amiodarone for now due to elevated LFTs Pulm: Intubated and Prominent diffuse increased interstitial lung markings ( Chest X-ray, 07/16/17). ABG (07/16/17): Alkalotic * Diamox 500mg IV q12 (2 DOSES) * Lasix 40mg IV Q12H GI: Transaminitis ( Resolving) * Amiodarone discontinued * Continue to monitor Vascular: Hypotension * Levophed 8mg IV 4mcg/min (Titratable) ID: UTI, leukocytosis, bands (4%), Lactic acid (4.4); Urosepsis on admission UA ( 3+ LE, WBC (84) on admission Repeat UC and BC (07/15/17): No growth * Vancomycin 750mg/D5W 150mg Q12H (d/c 07/16/17) * Zosyn IVPB Q6H Prophylaxis: DVT: Heparin 5,000 units SC Q8H GI: Famotidine 20mg IVP daily
--- NOTE | 2017-07-16 09:51 | RAD ---
Chest x-ray single frontal view History: Intubation. Comparison: 07/15/2017 Findings: Lines and tubes in stable position. Persistent dense confluent airspace opacifications in the right hilar and infrahilar region as well as at the left lung base. Prominent diffuse increased interstitial lung markings. Biapical pleural thickening with upper lobe granulomatous changes. Top normal heart size. Degenerative changes in the spine and shoulders. Impression: Lines and tubes in stable position. Persistent dense confluent airspace opacifications in the right hilar and infrahilar region as well as at the left lung base. Prominent diffuse increased interstitial lung markings. Biapical pleural thickening with upper lobe granulomatous changes. Top normal heart size.
[2017-07-16] MEDS ORDERED: Potassium Chloride 20 mEq ER Tab PO SCH (10:45)
[2017-07-16] MEDS: Midazolam 2 MG/2 ML VIAL IVP PRN ×2 (13:56→21:28)
[2017-07-16] MEDS ORDERED: Potassium Chloride 20 mEq/15 ml LIQ UD PO ONE (14:15)
--- NOTE | 2017-07-16 18:00 | CP.PCM.PN ---
Subjective - Date & Time of Evaluation Date of Evaluation: 07/16/17 Time of Evaluation: 07:00 - Subjective Subjective: Patient seen and evaluated Intubated and not in distress Physical Examination - Constitutional Appears: Non-toxic, No Acute Distress - Head Exam Head Exam: ATRAUMATIC, NORMAL INSPECTION - Eye Exam Eye Exam: EOMI, Normal appearance - ENT Exam ENT Exam: Mucous Membranes Dry - Neck Exam Additional comments: no appreciable JVD; hard to view due to IJ in place - Respiratory Exam Respiratory Exam: NORMAL BREATHING PATTERN - Cardiovascular Exam Cardiovascular Exam: Bradycardia, +S1, +S2 - GI/Abdominal Exam GI & Abdominal Exam: Soft - Extremities Exam Extremities Exam: Pedal Edema Additional comments: 2+ b/l pitting edema, dry - Neurological Exam Neurological Exam: absent: Alert, Awake - Skin Skin Exam: Dry, Warm Objective - Vital Signs/Intake and Output Vital Signs (last 24 hours): Temp Pulse Resp BP Pulse Ox 98.8 F 54 L 18 123/54 L 94 L 07/16/17 07:27 07/16/17 15:23 07/16/17 15:23 07/16/17 15:23 07/16/17 15:23 Intake and Output: 07/16/17 07/16/17 06:59 18:59 Intake Total 1358.1 188.0 Output Total 2680 125 Balance -1321.9 63.0 - Medications Medications: Current Medications Acetazolamide (Diamox 500 Mg Inj) 500 mg IV Q12 [facility] Stop: 07/16/17 22:01 Last Admin: 07/16/17 12:00 Dose: 500 mg Famotidine (Pepcid) 20 mg IVP DAILY [facility] Last Admin: 07/16/17 12:47 Dose: 20 mg Furosemide (Lasix) 40 mg IVP Q12H [facility] Last Admin: 07/16/17 15:15 Dose: 40 mg Heparin Sodium (Porcine) (Heparin) 5,000 units SC Q8 [facility] Last Admin: 07/16/17 13:38 Dose: 5,000 units Piperacillin Sod/Tazobactam Sod (Zosyn 2.25 Gm Iv Premix) 2.25 gm in 50 mls @ 100 mls/hr IVPB Q6 [facility] Last Admin: 07/16/17 17:03 Dose: 100 mls/hr Norepinephrine Bitartrate 8 mg (/ Sodium Chloride) 258 mls @ 7.74 mls/hr IV .Q24H PRN; Protocol; 4 MCG/MIN PRN Reason: TITRATE PER MD ORDER Last Titration: 07/15/17 06:44 Dose: 0 mcg/min, 0 mls/hr Lorazepam (Ativan) 1 mg IVP Q2H PRN PRN Reason: Anxiety Last Admin: 07/16/17 09:02 Dose: 1 mg Midazolam HCl (Versed Inj) 2 mg IVP Q6H PRN PRN Reason: Anxiety Last Admin: 07/16/17 13:56 Dose: 2 mg - Labs Labs: 07/16/17 06:33 07/16/17 06:28 PT 14.7 SECONDS (9.7-12.2) H 07/13/17 23:26 INR 1.3 07/13/17 23:26 APTT 34 SECONDS (21-34) 07/13/17 23:26 Assessment and Plan - Assessment and Plan (Free Text) Assessment: Patient is a 86 year old female with past medical history of A-Fib, HTN, HLD, Arthritis, Anemia who was admitted for mid-sternal chest pressure and was noted to have sick-sinus syndrome, bradycardia and junctional rhythm and hypotensive and AMS: Plan: Neuro: Currently extubated and on ventrimask, responds to touch stimuli and agitation Intubated (07/14/17) due to desaturation and pH 7:05 AMS possibly secondary to UTI- improving Medication: * Versed 2mg Q6H prn * Ativan 1mg IV Q2H prn Cardio: Junctional Bradycardia/ Sick Sinus syndrome Hx of A.fib EPS Consult, Dr. Boggs on board---> help appreciated * Plans for pacemaker placement once patient is clinically stable and D/C amiodarone for now due to elevated LFTs * Currently in normal sinus rhythm @ 75bpm on tele monitor Pulm: Intubated, respiratory stable on supplemental O2 * Diamox 500mg IV q12 (2 DOSES) * Lasix 40mg IV Q12H GI: Transaminitis ( Resolving) * Amiodarone discontinued * Continue to monitor Vascular: Hypotension * Resolved ID: UTI, leukocytosis, bands (4%), Lactic acid (4.4); Urosepsis on admission UA ( 3+ LE, WBC (84) on admission Repeat UC and BC (07/15/17): No growth * Vancomycin 750mg/D5W 150mg Q12H (d/c 07/16/17) * Zosyn IVPB Q6H Prophylaxis: DVT: Heparin 5,000 units SC Q8H GI: Famotidine 20mg IVP daily
[2017-07-17] MEDS: Midazolam 2 MG/2 ML VIAL IVP PRN (03:54)
[2017-07-17 05:26] LABS: ABG MECHANICAL RATE 14; ARTERIAL BLOOD GAS MODE PRVC; ATERIAL BLOOD GAS PEEP 5; DRAW SITE RB
[2017-07-17] MEDS: Piperacill/Tazo 2.25gm in Dex 2.25 GM/50 ML BAG IVPB SCH ×4 (06:00→18:26)
[2017-07-17 06:25] LABS: BASO # 0.1 K/uL (0.0-0.2); BASO % 0.5 % (0.0-2.0); HEMATOCRIT 31.9 % (34.0-47.0); LYMPH # 1.2 K/uL (1.0-4.3); LYMPH % 11.4 % (20.0-40.0); MEAN CELL VOLUME 88.6 fL (81.0-99.0); MEAN CORPUSCULAR HEMOGLOBIN 29.8 pg (27.0-31.0); MEAN CORPUSCULAR HGB CONC 33.7 g/dL (33.0-37.0); MEAN PLATELET VOLUME 9.8 fL (7.2-11.7); MONO # 0.6 K/uL (0.0-0.8); MONO % 5.3 % (0.0-10.0); NRBC % 0.1 % (0.0-2.0); WHITE BLOOD COUNT 10.7 K/uL (4.8-10.8)
[2017-07-17 06:42] LABS: POTASSIUM 3.1 mmol/L (3.6-5.2)
[2017-07-17 06:44] LABS: ALB/GLOB RATIO 0.8 (1.0-2.1); BILIRUBIN,TOTAL 0.5 mg/dL (0.2-1.3); PHOSPHOROUS 2.3 mg/dL (2.5-4.5); TOTAL PROTEIN 6.7 g/dL (6.3-8.3)
[2017-07-17 06:45] LABS: CALCIUM 8.3 mg/dl (8.6-10.4); MAGNESIUM 2.4 mg/dL (1.6-2.3)
--- NOTE | 2017-07-17 08:04 | RAD ---
HISTORY: Intubation COMPARISON: Portable chest 07/16/2017. FINDINGS: Endotracheal tube, right central venous line and NG tube are unchanged in position. LUNGS: Diminished left basilar airspace disease noted as well as at the right suprahilar and infrahilar space. PLEURA: Trace right pleural effusion is in question. None is seen at the left. CARDIOVASCULAR: Borderline cardiomegaly again evident. No pulmonary vascular derangement identified nevertheless. OSSEOUS STRUCTURES: No significant abnormalities. VISUALIZED UPPER ABDOMEN: Normal. OTHER FINDINGS: None. IMPRESSION: Overall improvement in the mild bilateral airspace disease with trace right pleural effusion question. None is seen the left. Prominent cardiac silhouette appears stable.
[2017-07-17 11:35] LABS: FECAL LEUKOCYTES NEGATIVE (NEGATIVE)
[2017-07-17 11:49] LABS: C DIFF TOXIN A B NEGATIVE (NEGATIVE)
--- NOTE | 2017-07-17 14:55 | CP.CCUPN ---
<Guero Dalton E - Last Filed: 07/17/17 14:52> CCU Subjective - Physician Review Subjective (Free Text): Patient was seen and examined at bedside. Patient was alert and easily arousable. As per nursing, patient had no acute issues overnight. Unable to evaluate ROS due to intubation. CCU Objective - Vital Signs / Intake & Output Vital Signs (Last 4 hours): Vital Signs Temp Pulse Resp BP Pulse Ox 07/17/17 14:22 64 20 138/69 99 07/17/17 13:23 70 24 139/64 100 07/17/17 12:01 72 22 136/58 L 99 07/17/17 12:00 98.3 F 99 07/17/17 11:42 76 22 150/66 99 07/17/17 11:41 150/66 07/17/17 11:22 76 24 139/57 L 98 Intake and Output (Last 8hrs): Intake & Output 07/16/17 07/17/17 07/17/17 22:59 06:59 14:59 Intake Total 110 440 370 Output Total 1500 1465 2050 Balance -1390 -1025 -1680 Weight 168 lb 5 oz Intake: Intake, IV Amount 50 100 150 Left Hand 150 Right Proximal Port 50 100 Tube Feeding 60 240 220 Other 100 Output: Urine 1500 1465 2050 Urethral (Serrato) 1500 1465 2050 Other: # Bowel Movements 0 1 1 - Physical Exam Head: Positive for: Atraumatic, Normocephalic Pupils: Positive for: PERRL Conjunctiva: Positive for: Normal Ears: Positive for: Normal Mouth: Positive for: Dry Respiratory/Chest: Positive for: Clear to Auscultation, Other (intubated, Planning for extubation ). Negative for: Respiratory Distress, Accessory Muscle Use Cardiovascular: Positive for: Irregular Rhythm, Bradycardic Abdomen: Positive for: Normal Bowel Sounds. Negative for: Tenderness, Distention, Rebound Upper Extremity: Positive for: Normal Inspection Lower Extremity: Positive for: Normal Inspection Skin: Positive for: Warm, Normal Color Psychiatric: Positive for: Alert, Agitated. Negative for: Oriented x 3 - Medications Active Medications: Active Medications Generic Name Dose Route Start Last Admin Trade Name Freq PRN Reason Stop Dose Admin Acetazolamide 500 mg 07/17/17 11:15 07/17/17 11:47 Diamox 500 Mg Inj IV 07/17/17 22:01 500 mg Q12 RODRIGO Administration Famotidine 20 mg 07/14/17 10:45 07/17/17 10:22 Pepcid IVP 20 mg DAILY RODRIGO Administration Heparin Sodium (Porcine) 5,000 units 07/14/17 01:15 07/17/17 13:28 Heparin SC 5,000 units Q8 RODRIGO Administration Piperacillin Sod/Tazobactam Sod 2.25 gm in 50 mls @ 100 mls/hr 07/14/17 11:30 07/17/17 11:43 Zosyn 2.25 Gm Iv Premix IVPB 100 mls/hr Q6 RODRIGO Administration Lorazepam 1 mg 07/15/17 11:42 07/17/17 00:03 Ativan IVP 1 mg Q2H PRN Administration Anxiety Midazolam HCl 2 mg 07/16/17 10:31 07/17/17 03:54 Versed Inj IVP 2 mg Q6H PRN Administration Anxiety - Patient Studies Lab Studies: Microbiology Studies 07/15/17 11:35 Blood Culture - Preliminary Blood-Venous NO GROWTH AFTER 48 HOURS 07/15/17 11:35 Blood Culture - Preliminary Blood-Venous NO GROWTH AFTER 48 HOURS 07/15/17 11:36 Urine Culture - Final Urine,Serrato No Growth (<1,000 CFU/ML) Lab Studies 07/17/17 07/17/17 07/17/17 Range/Units 11:30 06: 06:17 WBC 10.7 (4.8-10.8) K/uL RBC 3.60 L (3.80-5.20) Mil/uL Hgb 10.7 L (11.0-16.0) g/dL Hct 31.9 L (34.0-47.0) % MCV 88.6 (81.0-99.0) fL MCH 29.8 (27.0-31.0) pg MCHC 33.7 (33.0-37.0) g/dL RDW 15.0 H (11.5-14.5) % Plt Count 209 (130-400) K/uL MPV 9.8 (7.2-11.7) fL Neut % (Auto) 82.8 H (50.0-75.0) % Lymph % (Auto) 11.4 L (20.0-40.0) % Hayes % (Auto) 5.3 (0.0-10.0) % Eos % (Auto) 0.0 (0.0-4.0) % Baso % (Auto) 0.5 (0.0-2.0) % Neut # 8.8 H (1.8-7.0) K/uL Lymph # 1.2 (1.0-4.3) K/uL Hayes # 0.6 (0.0-0.8) K/uL Eos # 0.0 (0.0-0.7) K/uL Baso # 0.1 (0.0-0.2) K/uL Puncture Site pCO2 (35-45) mm/Hg pO2 (80-100) mm/Hg HCO3 (21-28) mmol/L ABG pH (7.35-7.45) ABG Total CO2 (22-28) mmol/L ABG O2 Saturation (95-98) % ABG Base Excess (-2.0-3.0) mmol/L Stu Test ABG Potassium (3.6-5.2) mmol/L A-a O2 Difference mm/Hg Respiratory Index Sodium 143 (132-148) mmol/l Chloride 105 (98-107) mmol/L Glucose (65-105) mg/dl Lactate (0.7-2.1) mmol/L Vent Mode Mechanical Rate FiO2 % Tidal Volume PEEP Potassium 3.1 L (3.6-5.2) mmol/L Carbon Dioxide 28 (22-30) mmol/L Anion Gap 13 (10-20) BUN 21 H (7-17) mg/dL Creatinine 1.2 (0.7-1.2) mg/dL Est GFR ( Amer) 52 Est GFR (Non-Af Amer) 43 POC Glucose (mg/dL) 133 H (65-110) mg/dL Random Glucose 93 (65-105) mg/dL Calcium 8.3 L (8.6-10.4) mg/dl Phosphorus 2.3 L (2.5-4.5) mg/dL Magnesium 2.4 H (1.6-2.3) mg/dL Total Bilirubin 0.5 (0.2-1.3) mg/dL AST 65 H D (14-36) U/L ALT 191 H (9-52) U/L Alkaline Phosphatase 89 (38-126) U/L Total Protein 6.7 (6.3-8.3) g/dL Albumin 3.1 L (3.5-5.0) g/dL Globulin 3.7 (2.2-3.9) gm/dL Albumin/Globulin Ratio 0.8 L (1.0-2.1) Arterial Blood Potassium (3.6-5.2) mmol/L Stool Leukocytes, Qual (NEGATIVE) C. difficile Ag & Toxin (NEGATIVE) 07/17/17 07/14/17 Range/Units 05:14 10:39 WBC (4.8-10.8) K/uL RBC (3.80-5.20) Mil/uL Hgb (11.0-16.0) g/dL Hct (34.0-47.0) % MCV (81.0-99.0) fL MCH (27.0-31.0) pg MCHC (33.0-37.0) g/dL RDW (11.5-14.5) % Plt Count (130-400) K/uL MPV (7.2-11.7) fL Neut % (Auto) (50.0-75.0) % Lymph % (Auto) (20.0-40.0) % Hayes % (Auto) (0.0-10.0) % Eos % (Auto) (0.0-4.0) % Baso % (Auto) (0.0-2.0) % Neut # (1.8-7.0) K/uL Lymph # (1.0-4.3) K/uL Hayes # (0.0-0.8) K/uL Eos # (0.0-0.7) K/uL Baso # (0.0-0.2) K/uL Puncture Site Rb pCO2 39 (35-45) mm/Hg pO2 108 H (80-100) mm/Hg HCO3 29.0 H (21-28) mmol/L ABG pH 7.48 H (7.35-7.45) ABG Total CO2 30.2 H (22-28) mmol/L ABG O2 Saturation 98.8 H (95-98) % ABG Base Excess 5.2 H (-2.0-3.0) mmol/L Stu Test Na ABG Potassium 3.1 L (3.6-5.2) mmol/L A-a O2 Difference 200.0 mm/Hg Respiratory Index 1.9 Sodium 144.0 (132-148) mmol/l Chloride 111.0 H (98-107) mmol/L Glucose 120 H (65-105) mg/dl Lactate 0.8 (0.7-2.1) mmol/L Vent Mode Prvc Mechanical Rate 14 FiO2 50.0 % Tidal Volume 450 PEEP 5 Potassium (3.6-5.2) mmol/L Carbon Dioxide (22-30) mmol/L Anion Gap (10-20) BUN (7-17) mg/dL Creatinine (0.7-1.2) mg/dL Est GFR ( Amer) Est GFR (Non-Af Amer) POC Glucose (mg/dL) (65-110) mg/dL Random Glucose (65-105) mg/dL Calcium (8.6-10.4) mg/dl Phosphorus (2.5-4.5) mg/dL Magnesium (1.6-2.3) mg/dL Total Bilirubin (0.2-1.3) mg/dL AST (14-36) U/L ALT (9-52) U/L Alkaline Phosphatase (38-126) U/L Total Protein (6.3-8.3) g/dL Albumin (3.5-5.0) g/dL Globulin (2.2-3.9) gm/dL Albumin/Globulin Ratio (1.0-2.1) Arterial Blood Potassium 3.1 L (3.6-5.2) mmol/L Stool Leukocytes, Qual Negative (NEGATIVE) C. difficile Ag & Toxin Negative (NEGATIVE) Laboratory Results - last 24 hr 07/14/17 07/17/17 07/17/17 10:39 05:14 06:17 WBC 10.7 RBC 3.60 L Hgb 10.7 L Hct 31.9 L MCV 88.6 MCH 29.8 MCHC 33.7 RDW 15.0 H Plt Count 209 MPV 9.8 Neut % (Auto) 82.8 H Lymph % (Auto) 11.4 L Hayes % (Auto) 5.3 Eos % (Auto) 0.0 Baso % (Auto) 0.5 Neut # 8.8 H Lymph # 1.2 Hayes # 0.6 Eos # 0.0 Baso # 0.1 Puncture Site Rb pCO2 39 pO2 108 H HCO3 29.0 H ABG pH 7.48 H ABG Total CO2 30.2 H ABG O2 Saturation 98.8 H ABG Base Excess 5.2 H Stu Test Na ABG Potassium 3.1 L A-a O2 Difference 200.0 Respiratory Index 1.9 Sodium 144.0 Chloride 111.0 H Glucose 120 H Lactate 0.8 Vent Mode Prvc Mechanical Rate 14 FiO2 50.0 Tidal Volume 450 PEEP 5 Potassium Carbon Dioxide Anion Gap BUN Creatinine Est GFR ( Amer) Est GFR (Non-Af Amer) POC Glucose (mg/dL) Random Glucose Calcium Phosphorus Magnesium Total Bilirubin AST ALT Alkaline Phosphatase Total Protein Albumin Globulin Albumin/Globulin Ratio Arterial Blood Potassium 3.1 L Stool Leukocytes, Qual Negative C. difficile Ag & Toxin Negative 07/17/17 07/17/17 06:17 11:30 WBC RBC Hgb Hct MCV MCH MCHC RDW Plt Count MPV Neut % (Auto) Lymph % (Auto) Hayes % (Auto) Eos % (Auto) Baso % (Auto) Neut # Lymph # Hayes # Eos # Baso # Puncture Site pCO2 pO2 HCO3 ABG pH ABG Total CO2 ABG O2 Saturation ABG Base Excess Stu Test ABG Potassium A-a O2 Difference Respiratory Index Sodium 143 Chloride 105 Glucose Lactate Vent Mode Mechanical Rate FiO2 Tidal Volume PEEP Potassium 3.1 L Carbon Dioxide 28 Anion Gap 13 BUN 21 H Creatinine 1.2 Est GFR ( Amer) 52 Est GFR (Non-Af Amer) 43 POC Glucose (mg/dL) 133 H Random Glucose 93 Calcium 8.3 L Phosphorus 2.3 L Magnesium 2.4 H Total Bilirubin 0.5 AST 65 H D ALT 191 H Alkaline Phosphatase 89 Total Protein 6.7 Albumin 3.1 L Globulin 3.7 Albumin/Globulin Ratio 0.8 L Arterial Blood Potassium Stool Leukocytes, Qual C. difficile Ag & Toxin EKG/Cardiology Studies: Cardiology / EKG Studies 07/17/17 01:15 ELECTROCARDIOGRAM DAILY Comment: Mode Of Transportation: PORTABLE Reason For Exam: [email or web address] Isolation: Contact Fingerstick Blood Sugar Results: 211 Review of Systems - Review of Systems Review of Systems: Unable to evaluate due to patient's clinical condition ( Intubation) Assessment/Plan - Assessment and Plan (Free Text) Assessment: Patient is a 86 year old female with past medical history of A-Fib, HTN, HLD, Arthritis, Anemia who was admitted for mid-sternal chest pressure and was noted to have sick-sinus syndrome, bradycardia and junctional rhythm and hypotensive and AMS: Today: Planning for extubation and place on ventrimask Plan: Neuro: Currently extubated (07/17/17) and on ventrimask, responds to touch stimuli and agitation Intubated (07/14/17) due to desaturation and pH 7:05 AMS possibly secondary to UTI Medication: * Versed 2mg Q6H prn * Ativan 1mg IV Q2H prn Cardio: Junctional Bradycardia/ Sick Sinus syndrome Hx of A.fib Cardiology Consult, Dr. Abraham on board---> Help appreciated EPS Consult, Dr. Boggs on board---> help appreciated * Plans for pacemaker placement once patient is clinically stable and D/C amiodarone for now due to elevated LFTs Pulm: Intubated and Prominent diffuse increased interstitial lung markings ( Chest X-ray, 07/16/17). ABG (07/17/17): Alkalotic * Diamox 500mg IV q12 (2 DOSES) * Lasix 40mg IV Q12H GI: Transaminitis ( Resolving) * Amiodarone discontinued * Continue to monitor Vascular: Hypotension * Resolved ID: UTI, leukocytosis, bands (4%), Lactic acid (4.4); Urosepsis on admission UA ( 3+ LE, WBC (84) on admission Repeat UC and BC (07/15/17): No growth * Vancomycin 750mg/D5W 150mg Q12H (d/c 07/16/17) * Zosyn IVPB Q6H Prophylaxis: DVT: Heparin 5,000 units SC Q8H GI: Famotidine 20mg IVP daily <Antonio Siegel - Last Filed: 07/17/17 17:07> CCU Objective - Vital Signs / Intake & Output Vital Signs (Last 4 hours): Vital Signs Pulse Resp BP Pulse Ox 07/17/17 14:22 64 20 138/69 99 07/17/17 13:23 70 24 139/64 100 Intake and Output (Last 8hrs): Intake & Output 07/17/17 07/17/17 07/17/17 06:59 14:59 22:59 Intake Total 440 370 Output Total 1464 2049 Balance -1025 -1680 Weight 168 lb 5 oz Intake: Intake, IV Amount 100 150 Left Hand 150 Right Proximal Port 100 Tube Feeding 240 220 Other 100 Output: Urine 1464 2049 Urethral (Serrato) [id number] Other: # Bowel Movements 1 1 - Medications Active Medications: Active Medications Generic Name Dose Route Start Last Admin Trade Name Freq PRN Reason Stop Dose Admin Acetazolamide 500 mg 07/17/17 11:15 07/17/17 11:47 Diamox 500 Mg Inj IV 07/17/17 22:01 500 mg Q12 RODRIGO Administration Famotidine 20 mg 07/14/17 10:45 07/17/17 10:22 Pepcid IVP 20 mg DAILY RODRIGO Administration Heparin Sodium (Porcine) 5,000 units 07/14/17 01:15 07/17/17 13:28 Heparin SC 5,000 units Q8 RODRIGO Administration Piperacillin Sod/Tazobactam Sod 2.25 gm in 50 mls @ 100 mls/hr 07/14/17 11:30 07/17/17 11:43 Zosyn 2.25 Gm Iv Premix IVPB 100 mls/hr Q6 RODRIGO Administration Lorazepam 1 mg 07/15/17 11:42 07/17/17 00:03 Ativan IVP 1 mg Q2H PRN Administration Anxiety Midazolam HCl 2 mg 07/16/17 10:31 07/17/17 03:54 Versed Inj IVP 2 mg Q6H PRN Administration Anxiety - Patient Studies Lab Studies: Microbiology Studies 07/15/17 11:35 Blood Culture - Preliminary Blood-Venous NO GROWTH AFTER 48 HOURS 07/15/17 11:35 Blood Culture - Preliminary Blood-Venous NO GROWTH AFTER 48 HOURS 07/15/17 11:36 Urine Culture - Final Urine,Serrato No Growth (<1,000 CFU/ML) Lab Studies 07/17/17 07/17/17 07/17/17 Range/Units 11:30 : 06:17 WBC 10.7 (4.8-10.8) K/uL RBC 3.60 L (3.80-5.20) Mil/uL Hgb 10.7 L (11.0-16.0) g/dL Hct 31.9 L (34.0-47.0) % MCV 88.6 (81.0-99.0) fL MCH 29.8 (27.0-31.0) pg MCHC 33.7 (33.0-37.0) g/dL RDW 15.0 H (11.5-14.5) % Plt Count 209 (130-400) K/uL MPV 9.8 (7.2-11.7) fL Neut % (Auto) 82.8 H (50.0-75.0) % Lymph % (Auto) 11.4 L (20.0-40.0) % Hayes % (Auto) 5.3 (0.0-10.0) % Eos % (Auto) 0.0 (0.0-4.0) % Baso % (Auto) 0.5 (0.0-2.0) % Neut # 8.8 H (1.8-7.0) K/uL Lymph # 1.2 (1.0-4.3) K/uL Hayes # 0.6 (0.0-0.8) K/uL Eos # 0.0 (0.0-0.7) K/uL Baso # 0.1 (0.0-0.2) K/uL Puncture Site pCO2 (35-45) mm/Hg pO2 (80-100) mm/Hg HCO3 (21-28) mmol/L ABG pH (7.35-7.45) ABG Total CO2 (22-28) mmol/L ABG O2 Saturation (95-98) % ABG Base Excess (-2.0-3.0) mmol/L Stu Test ABG Potassium (3.6-5.2) mmol/L A-a O2 Difference mm/Hg Respiratory Index Sodium 143 (132-148) mmol/l Chloride 105 (98-107) mmol/L Glucose (65-105) mg/dl Lactate (0.7-2.1) mmol/L Vent Mode Mechanical Rate FiO2 % Tidal Volume PEEP Potassium 3.1 L (3.6-5.2) mmol/L Carbon Dioxide 28 (22-30) mmol/L Anion Gap 13 (10-20) BUN 21 H (7-17) mg/dL Creatinine 1.2 (0.7-1.2) mg/dL Est GFR ( Amer) 52 Est GFR (Non-Af Amer) 43 POC Glucose (mg/dL) 133 H (65-110) mg/dL Random Glucose 93 (65-105) mg/dL Calcium 8.3 L (8.6-10.4) mg/dl Phosphorus 2.3 L (2.5-4.5) mg/dL Magnesium 2.4 H (1.6-2.3) mg/dL Total Bilirubin 0.5 (0.2-1.3) mg/dL AST 65 H D (14-36) U/L ALT 191 H (9-52) U/L Alkaline Phosphatase 89 (38-126) U/L Total Protein 6.7 (6.3-8.3) g/dL Albumin 3.1 L (3.5-5.0) g/dL Globulin 3.7 (2.2-3.9) gm/dL Albumin/Globulin Ratio 0.8 L (1.0-2.1) Arterial Blood Potassium (3.6-5.2) mmol/L Stool Leukocytes, Qual (NEGATIVE) C. difficile Ag & Toxin (NEGATIVE) 07/17/17 07/14/17 Range/Units 05:14 10:39 WBC (4.8-10.8) K/uL RBC (3.80-5.20) Mil/uL Hgb (11.0-16.0) g/dL Hct (34.0-47.0) % MCV (81.0-99.0) fL MCH (27.0-31.0) pg MCHC (33.0-37.0) g/dL RDW (11.5-14.5) % Plt Count (130-400) K/uL MPV (7.2-11.7) fL Neut % (Auto) (50.0-75.0) % Lymph % (Auto) (20.0-40.0) % Hayes % (Auto) (0.0-10.0) % Eos % (Auto) (0.0-4.0) % Baso % (Auto) (0.0-2.0) % Neut # (1.8-7.0) K/uL Lymph # (1.0-4.3) K/uL Hayes # (0.0-0.8) K/uL Eos # (0.0-0.7) K/uL Baso # (0.0-0.2) K/uL Puncture Site Rb pCO2 39 (35-45) mm/Hg pO2 108 H (80-100) mm/Hg HCO3 29.0 H (21-28) mmol/L ABG pH 7.48 H (7.35-7.45) ABG Total CO2 30.2 H (22-28) mmol/L ABG O2 Saturation 98.8 H (95-98) % ABG Base Excess 5.2 H (-2.0-3.0) mmol/L Stu Test Na ABG Potassium 3.1 L (3.6-5.2) mmol/L A-a O2 Difference 200.0 mm/Hg Respiratory Index 1.9 Sodium 144.0 (132-148) mmol/l Chloride 111.0 H (98-107) mmol/L Glucose 120 H (65-105) mg/dl Lactate 0.8 (0.7-2.1) mmol/L Vent Mode Prvc Mechanical Rate 14 FiO2 50.0 % Tidal Volume 450 PEEP 5 Potassium (3.6-5.2) mmol/L Carbon Dioxide (22-30) mmol/L Anion Gap (10-20) BUN (7-17) mg/dL Creatinine (0.7-1.2) mg/dL Est GFR ( Amer) Est GFR (Non-Af Amer) POC Glucose (mg/dL) (65-110) mg/dL Random Glucose (65-105) mg/dL Calcium (8.6-10.4) mg/dl Phosphorus (2.5-4.5) mg/dL Magnesium (1.6-2.3) mg/dL Total Bilirubin (0.2-1.3) mg/dL AST (14-36) U/L ALT (9-52) U/L Alkaline Phosphatase (38-126) U/L Total Protein (6.3-8.3) g/dL Albumin (3.5-5.0) g/dL Globulin (2.2-3.9) gm/dL Albumin/Globulin Ratio (1.0-2.1) Arterial Blood Potassium 3.1 L (3.6-5.2) mmol/L Stool Leukocytes, Qual Negative (NEGATIVE) C. difficile Ag & Toxin Negative (NEGATIVE) Laboratory Results - last 24 hr 07/14/17 07/17/17 07/17/17 10:39 05:14 06:17 WBC 10.7 RBC 3.60 L Hgb 10.7 L Hct 31.9 L MCV 88.6 MCH 29.8 MCHC 33.7 RDW 15.0 H Plt Count 209 MPV 9.8 Neut % (Auto) 82.8 H Lymph % (Auto) 11.4 L Hayes % (Auto) 5.3 Eos % (Auto) 0.0 Baso % (Auto) 0.5 Neut # 8.8 H Lymph # 1.2 Hayes # 0.6 Eos # 0.0 Baso # 0.1 Puncture Site Rb pCO2 39 pO2 108 H HCO3 29.0 H ABG pH 7.48 H ABG Total CO2 30.2 H ABG O2 Saturation 98.8 H ABG Base Excess 5.2 H Stu Test Na ABG Potassium 3.1 L A-a O2 Difference 200.0 Respiratory Index 1.9 Sodium 144.0 Chloride 111.0 H Glucose 120 H Lactate 0.8 Vent Mode Prvc Mechanical Rate 14 FiO2 50.0 Tidal Volume 450 PEEP 5 Potassium Carbon Dioxide Anion Gap BUN Creatinine Est GFR ( Amer) Est GFR (Non-Af Amer) POC Glucose (mg/dL) Random Glucose Calcium Phosphorus Magnesium Total Bilirubin AST ALT Alkaline Phosphatase Total Protein Albumin Globulin Albumin/Globulin Ratio Arterial Blood Potassium 3.1 L Stool Leukocytes, Qual Negative C. difficile Ag & Toxin Negative 07/17/17 07/17/17 06:17 11:30 WBC RBC Hgb Hct MCV MCH MCHC RDW Plt Count MPV Neut % (Auto) Lymph % (Auto) Hayes % (Auto) Eos % (Auto) Baso % (Auto) Neut # Lymph # Hayes # Eos # Baso # Puncture Site pCO2 pO2 HCO3 ABG pH ABG Total CO2 ABG O2 Saturation ABG Base Excess Stu Test ABG Potassium A-a O2 Difference Respiratory Index Sodium 143 Chloride 105 Glucose Lactate Vent Mode Mechanical Rate FiO2 Tidal Volume PEEP Potassium 3.1 L Carbon Dioxide 28 Anion Gap 13 BUN 21 H Creatinine 1.2 Est GFR ( Amer) 52 Est GFR (Non-Af Amer) 43 POC Glucose (mg/dL) 133 H Random Glucose 93 Calcium 8.3 L Phosphorus 2.3 L Magnesium 2.4 H Total Bilirubin 0.5 AST 65 H D ALT 191 H Alkaline Phosphatase 89 Total Protein 6.7 Albumin 3.1 L Globulin 3.7 Albumin/Globulin Ratio 0.8 L Arterial Blood Potassium Stool Leukocytes, Qual C. difficile Ag & Toxin EKG/Cardiology Studies: Cardiology / EKG Studies 07/17/17 01:15 ELECTROCARDIOGRAM DAILY Comment: Mode Of Transportation: PORTABLE Reason For Exam: [email or web address] Isolation: Contact Attending/Attestation - Attestation I have personally seen and examined this patient.: Yes I have fully participated in the care of the patient.: Yes I have reviewed all pertinent clinical information: Yes Notes (Text): 07/17/17 17:06 I have seen and examined the patient. Medical records, lab studies, and imaging were reviewed by me and a management plan was formulated on multidisciplinary rounds with resident Dr. Dalton. I agree with their above documented assessment and plan. Patient tolerating PS trials and t-piece trial, extubating. Severe sepsis from UTI, improving, continue Zosyn. Critical Care Time 35 minutes. Multi-disciplinary rounds were performed with house staff, nursing, speech therapy, respiratory therapy, pharmacy and nutrition with integrated input from the primary team/attending and other consulting services. The documented time is cumulative and includes review of patient data/exams/labs/chart review and examination of the patient on rounds and throughout the day; time is exclusive of any procedures or teaching time. 07/17/17 17:07
[2017-07-18] MEDS: Piperacill/Tazo 2.25gm in Dex 2.25 GM/50 ML BAG IVPB SCH ×5 (00:14→23:05)
[2017-07-18 06:52] LABS: BASO # 0.1 K/uL (0.0-0.2); BASO % 0.6 % (0.0-2.0); EOS % 0.1 % (0.0-4.0); HEMATOCRIT 34.2 % (34.0-47.0); LYMPH # 1.3 K/uL (1.0-4.3); LYMPH % 12.8 % (20.0-40.0); MEAN CORPUSCULAR HEMOGLOBIN 29.3 pg (27.0-31.0); MEAN CORPUSCULAR HGB CONC 32.6 g/dL (33.0-37.0); MEAN PLATELET VOLUME 9.8 fL (7.2-11.7); MONO # 0.7 K/uL (0.0-0.8); MONO % 6.9 % (0.0-10.0); NRBC % 0.1 % (0.0-2.0); RED CELL DISTRIBUTION WIDTH 14.8 % (11.5-14.5); WHITE BLOOD COUNT 9.8 K/uL (4.8-10.8)
[2017-07-18 07:07] LABS: BILIRUBIN,TOTAL 0.6 mg/dL (0.2-1.3)
[2017-07-18 07:08] LABS: CALCIUM 8.6 mg/dl (8.6-10.4); PHOSPHOROUS 2.8 mg/dL (2.5-4.5); TOTAL PROTEIN 7.2 g/dL (6.3-8.3)
[2017-07-18 07:09] LABS: MAGNESIUM 2.3 mg/dL (1.6-2.3)
--- NOTE | 2017-07-18 09:46 | CP.CCUPN ---
CCU Subjective - Physician Review Events Since Last Encounter (Free Text): 07/18/17 09:46 Patient with hypertension diabetes admitted to the hospital with a severe bradycardia. Hypertension. Intubated extubated yesterday. Doing well at this time. We'll continue the current treatment. Physical therapy. Out of bed to chair. Possible transfer to the floor if stable. CCU Objective - Vital Signs / Intake & Output Vital Signs (Last 4 hours): Vital Signs Temp Pulse Resp BP Pulse Ox 07/18/17 09:23 128/62 07/18/17 09:22 84 24 100 07/18/17 09:00 75 26 H 100 07/18/17 08:23 74 24 129/57 L 100 07/18/17 08:00 80 29 H 100 07/18/17 07:45 97.4 F L 73 24 144/58 L 100 07/18/17 07:22 76 24 149/66 90 L 07/18/17 07:00 74 21 149/66 95 07/18/17 06:22 75 23 141/61 98 07/18/17 06:00 75 16 144/58 L 100 Intake and Output (Last 8hrs): Intake & Output 07/17/17 07/18/17 07/18/17 22:59 06:59 14:59 Intake Total 50 100 Output Total 1200 365 140 Balance -1150 -265 -140 Weight 160 lb 4 oz Intake: Intake, IV Amount 50 100 Left Hand 50 100 Output: Urine 1200 365 140 Urethral (Serrato) 1200 365 140 Other: # Bowel Movements 0 1 - Physical Exam Head: Positive for: Atraumatic, Normocephalic Pupils: Positive for: PERRL Conjunctiva: Positive for: Normal Ears: Positive for: Normal Mouth: Positive for: Dry Respiratory/Chest: Positive for: Clear to Auscultation, Other (intubated, Planning for extubation ). Negative for: Respiratory Distress, Accessory Muscle Use Cardiovascular: Positive for: Irregular Rhythm, Bradycardic Abdomen: Positive for: Normal Bowel Sounds. Negative for: Tenderness, Distention, Rebound Upper Extremity: Positive for: Normal Inspection Lower Extremity: Positive for: Normal Inspection Skin: Positive for: Warm, Normal Color Psychiatric: Positive for: Alert, Agitated. Negative for: Oriented x 3 - Medications Active Medications: Active Medications Generic Name Dose Route Start Last Admin Trade Name Freq PRN Reason Stop Dose Admin Famotidine 20 mg 07/14/17 10:45 07/18/17 09:25 Pepcid IVP 20 mg DAILY RODRIGO Administration Heparin Sodium (Porcine) 5,000 units 07/14/17 01:15 07/18/17 06:32 Heparin SC 5,000 units Q8 RODRIGO Administration Piperacillin Sod/Tazobactam Sod 2.25 gm in 50 mls @ 100 mls/hr 07/14/17 11:30 07/18/17 06:32 Zosyn 2.25 Gm Iv Premix IVPB 100 mls/hr Q6 RODRIGO Administration Potassium Chloride 20 meq in 100 mls @ 50 mls/hr 07/18/17 08:57 07/18/17 09: 26 Potassium Chloride 20 Meq/100 Ml IVPB 07/18/17 10:56 50 mls/hr ONCE ONE Administration - Patient Studies Lab Studies: Microbiology Studies 07/15/17 11:35 Blood Culture - Preliminary Blood-Venous NO GROWTH AFTER 48 HOURS 07/15/17 11:35 Blood Culture - Preliminary Blood-Venous NO GROWTH AFTER 48 HOURS Lab Studies 07/18/17 07/18/17 07/17/17 Range/Units 06:48 06:46 11:30 WBC 9.8 (4.8-10.8) K/uL RBC 3.80 (3.80-5.20) Mil/uL Hgb 11.2 (11.0-16.0) g/dL Hct 34.2 (34.0-47.0) % MCV 90.0 (81.0-99.0) fL MCH 29.3 (27.0-31.0) pg MCHC 32.6 L (33.0-37.0) g/dL RDW 14.8 H (11.5-14.5) % Plt Count 221 (130-400) K/uL MPV 9.8 (7.2-11.7) fL Neut % (Auto) 79.6 H (50.0-75.0) % Lymph % (Auto) 12.8 L (20.0-40.0) % Bowie % (Auto) 6.9 (0.0-10.0) % Eos % (Auto) 0.1 (0.0-4.0) % Baso % (Auto) 0.6 (0.0-2.0) % Neut # 7.8 H (1.8-7.0) K/uL Lymph # 1.3 (1.0-4.3) K/uL Bowie # 0.7 (0.0-0.8) K/uL Eos # 0.0 (0.0-0.7) K/uL Baso # 0.1 (0.0-0.2) K/uL Sodium 141 (132-148) mmol/L Potassium 3.0 L (3.6-5.2) mmol/L Chloride 105 (98-107) mmol/L Carbon Dioxide 27 (22-30) mmol/L Anion Gap 12 (10-20) BUN 19 H (7-17) mg/dL Creatinine 1.2 (0.7-1.2) mg/dL Est GFR ( Amer) 52 Est GFR (Non-Af Amer) 43 POC Glucose (mg/dL) 133 H (65-110) mg/dL Random Glucose 90 (65-105) mg/dL Calcium 8.6 (8.6-10.4) mg/dl Phosphorus 2.8 (2.5-4.5) mg/dL Magnesium 2.3 (1.6-2.3) mg/dL Total Bilirubin 0.6 (0.2-1.3) mg/dL AST 37 H D (14-36) U/L ALT 141 H D (9-52) U/L Alkaline Phosphatase 99 (38-126) U/L Total Protein 7.2 (6.3-8.3) g/dL Albumin 3.5 (3.5-5.0) g/dL Globulin 3.7 (2.2-3.9) gm/dL Albumin/Globulin Ratio 1.0 (1.0-2.1) Stool Leukocytes, Qual (NEGATIVE) C. difficile Ag & Toxin (NEGATIVE) 07/14/17 Range/Units 10:39 WBC (4.8-10.8) K/uL RBC (3.80-5.20) Mil/uL Hgb (11.0-16.0) g/dL Hct (34.0-47.0) % MCV (81.0-99.0) fL MCH (27.0-31.0) pg MCHC (33.0-37.0) g/dL RDW (11.5-14.5) % Plt Count (130-400) K/uL MPV (7.2-11.7) fL Neut % (Auto) (50.0-75.0) % Lymph % (Auto) (20.0-40.0) % Bowie % (Auto) (0.0-10.0) % Eos % (Auto) (0.0-4.0) % Baso % (Auto) (0.0-2.0) % Neut # (1.8-7.0) K/uL Lymph # (1.0-4.3) K/uL Bowie # (0.0-0.8) K/uL Eos # (0.0-0.7) K/uL Baso # (0.0-0.2) K/uL Sodium (132-148) mmol/L Potassium (3.6-5.2) mmol/L Chloride (98-107) mmol/L Carbon Dioxide (22-30) mmol/L Anion Gap (10-20) BUN (7-17) mg/dL Creatinine (0.7-1.2) mg/dL Est GFR ( Amer) Est GFR (Non-Af Amer) POC Glucose (mg/dL) (65-110) mg/dL Random Glucose (65-105) mg/dL Calcium (8.6-10.4) mg/dl Phosphorus (2.5-4.5) mg/dL Magnesium (1.6-2.3) mg/dL Total Bilirubin (0.2-1.3) mg/dL AST (14-36) U/L ALT (9-52) U/L Alkaline Phosphatase (38-126) U/L Total Protein (6.3-8.3) g/dL Albumin (3.5-5.0) g/dL Globulin (2.2-3.9) gm/dL Albumin/Globulin Ratio (1.0-2.1) Stool Leukocytes, Qual Negative (NEGATIVE) C. difficile Ag & Toxin Negative (NEGATIVE) Laboratory Results - last 24 hr 07/14/17 07/17/17 07/18/17 10:39 11:30 06:46 WBC RBC Hgb Hct MCV MCH MCHC RDW Plt Count MPV Neut % (Auto) Lymph % (Auto) Bowie % (Auto) Eos % (Auto) Baso % (Auto) Neut # Lymph # Bowie # Eos # Baso # Sodium 141 Potassium 3.0 L Chloride 105 Carbon Dioxide 27 Anion Gap 12 BUN 19 H Creatinine 1.2 Est GFR ( Amer) 52 Est GFR (Non-Af Amer) 43 POC Glucose (mg/dL) 133 H Random Glucose 90 Calcium 8.6 Phosphorus 2.8 Magnesium 2.3 Total Bilirubin 0.6 AST 37 H D ALT 141 H D Alkaline Phosphatase 99 Total Protein 7.2 Albumin 3.5 Globulin 3.7 Albumin/Globulin Ratio 1.0 Stool Leukocytes, Qual Negative C. difficile Ag & Toxin Negative 07/18/17 06:48 WBC 9.8 RBC 3.80 Hgb 11.2 Hct 34.2 MCV 90.0 MCH 29.3 MCHC 32.6 L RDW 14.8 H Plt Count 221 MPV 9.8 Neut % (Auto) 79.6 H Lymph % (Auto) 12.8 L Bowie % (Auto) 6.9 Eos % (Auto) 0.1 Baso % (Auto) 0.6 Neut # 7.8 H Lymph # 1.3 Bowie # 0.7 Eos # 0.0 Baso # 0.1 Sodium Potassium Chloride Carbon Dioxide Anion Gap BUN Creatinine Est GFR ( Amer) Est GFR (Non-Af Amer) POC Glucose (mg/dL) Random Glucose Calcium Phosphorus Magnesium Total Bilirubin AST ALT Alkaline Phosphatase Total Protein Albumin Globulin Albumin/Globulin Ratio Stool Leukocytes, Qual C. difficile Ag & Toxin Fingerstick Blood Sugar Results: 211
--- NOTE | 2017-07-18 14:41 | RAD ---
HISTORY: Intubation COMPARISON: 07/17/2017 FINDINGS: LUNGS: Again saline are reticular and patchy small opacities in both lungs. No significant interval change in the lungs since the previous exam. Mild hyperinflation of the lungs. PLEURA: No significant pleural effusion identified, no pneumothorax apparent. CARDIOVASCULAR: The cardiac silhouette is mildly enlarged. Right jugular central line is seen in place. OSSEOUS STRUCTURES: No significant abnormalities. VISUALIZED UPPER ABDOMEN: Normal. OTHER FINDINGS: None. IMPRESSION: No significant interval change when compared to the previous exam. Status post extubation.
--- NOTE | 2017-07-18 17:21 | CP.PCM.PN ---
Subjective - Date & Time of Evaluation Date of Evaluation: 07/18/17 Time of Evaluation: 17:18 - Subjective Subjective: Medicine Progress Note- Dr Obrien's service Patient seen and examined with daughter at bedside. Patient is extubated and breathing comfortably on nasal canula. Patient is AAOx2 to person and time. She is not oriented to place. Per daughter she is at baseline. Patient denies fever, chills, chest pain, shortness of breath, dizziness and palpitations. Objective - Vital Signs/Intake and Output Vital Signs (last 24 hours): Temp Pulse Resp BP Pulse Ox 98.1 F 76 23 150/73 100 07/18/17 15:40 07/18/17 10:22 07/18/17 10:22 07/18/17 10:22 07/18/17 10:22 Intake and Output: 07/18/17 07/18/17 06:59 18:59 Intake Total 100 100 Output Total 565 245 Balance -465 -145 - Medications Medications: Current Medications Famotidine (Pepcid) 20 mg IVP DAILY [facility] Last Admin: 07/18/17 09:25 Dose: 20 mg Heparin Sodium (Porcine) (Heparin) 5,000 units SC Q8 [facility] Last Admin: 07/18/17 15:56 Dose: 5,000 units Piperacillin Sod/Tazobactam Sod (Zosyn 2.25 Gm Iv Premix) 2.25 gm in 50 mls @ 100 mls/hr IVPB Q6 [facility] Last Admin: 07/18/17 11:54 Dose: 100 mls/hr - Labs Labs: 07/18/17 06:48 07/18/17 06:46 PT 14.7 SECONDS (9.7-12.2) H 07/13/17 23:26 INR 1.3 07/13/17 23:26 APTT 34 SECONDS (21-34) 07/13/17 23:26 - Constitutional Appears: Non-toxic, No Acute Distress - Head Exam Head Exam: ATRAUMATIC, NORMOCEPHALIC - Eye Exam Eye Exam: EOMI, Normal appearance - ENT Exam ENT Exam: Mucous Membranes Moist - Respiratory Exam Respiratory Exam: Rhonchi. absent: Accessory Muscle Use, Chest Wall Tenderness , Wheezes, Respiratory Distress - Cardiovascular Exam Cardiovascular Exam: REGULAR RHYTHM, +S1, +S2 - GI/Abdominal Exam GI & Abdominal Exam: Soft, Normal Bowel Sounds. absent: Tenderness - Extremities Exam Extremities Exam: Pedal Edema (mild, non-pitting ) - Neurological Exam Neurological Exam: Alert, Awake. absent: Oriented x3 - Psychiatric Exam Psychiatric exam: Normal Affect, Normal Mood - Skin Skin Exam: Dry, Intact, Normal Color, Warm Assessment and Plan - Assessment and Plan (Free Text) Assessment: Patient is a 86 year old female with past medical history of A-Fib, HTN, HLD, Arthritis, Anemia who was admitted for mid-sternal chest pressure and was noted to have sick-sinus syndrome, bradycardia and junctional rhythm and hypotensive and AMS: Plan: Neuro: Currently extubated and on ventrimask, responds to touch stimuli and agitation Intubated (07/14/17) due to desaturation and pH 7:05 AMS possibly secondary to UTI- improving Medication: * Versed 2mg Q6H prn * Ativan 1mg IV Q2H prn Cardio: Junctional Bradycardia/ Sick Sinus syndrome Hx of A.fib Cardiology Consult, Dr. Abraham on board---> Help appreciated EPS Consult, Dr. Boggs on board---> help appreciated * Plans for pacemaker placement once patient is clinically stable and D/C amiodarone for now due to elevated LFTs * Currently in normal sinus rhythm @ 75bpm on tele monitor Pulm: Extubated, respiratory stable on supplemental O2 ABG (07/17/17): Alkalotic * Diamox 500mg IV q12 (2 DOSES) * Lasix 40mg IV Q12H GI: Transaminitis ( Resolving) * Amiodarone discontinued * Continue to monitor Vascular: Hypotension * Resolved ID: UTI, leukocytosis, bands (4%), Lactic acid (4.4); Urosepsis on admission UA ( 3+ LE, WBC (84) on admission Repeat UC and BC (07/15/17): No growth * Vancomycin 750mg/D5W 150mg Q12H (d/c 07/16/17) * Zosyn IVPB Q6H Prophylaxis: DVT: Heparin 5,000 units SC Q8H GI: Famotidine 20mg IVP daily discussed with Dr Obrien
--- NOTE | 2017-07-18 17:48 | CP.PCM.PN ---
Subjective - Date & Time of Evaluation Date of Evaluation: 07/17/17 Time of Evaluation: 18:10 - Subjective Subjective: Patient seen and evaluated Extubated and comfortable Family at bed side Physical Examination - Constitutional Appears: Non-toxic, No Acute Distress - Head Exam Head Exam: ATRAUMATIC, NORMAL INSPECTION - Eye Exam Eye Exam: EOMI, Normal appearance - ENT Exam ENT Exam: Mucous Membranes Dry - Neck Exam Additional comments: no appreciable JVD; hard to view due to IJ in place - Respiratory Exam Respiratory Exam: NORMAL BREATHING PATTERN - Cardiovascular Exam Cardiovascular Exam: Regular, +S1, +S2 - GI/Abdominal Exam GI & Abdominal Exam: Soft - Extremities Exam Extremities Exam: Pedal Edema Additional comments: 2+ b/l pitting edema, dry - Neurological Exam Neurological Exam: absent: Alert, Awake - Skin Skin Exam: Dry, Warm Objective - Vital Signs/Intake and Output Vital Signs (last 24 hours): Temp Pulse Resp BP Pulse Ox 98.1 F 76 23 150/73 100 07/18/17 15:40 07/18/17 10:22 07/18/17 10:22 07/18/17 10:22 07/18/17 10:22 Intake and Output: 07/18/17 07/18/17 06:59 18:59 Intake Total 100 100 Output Total 565 245 Balance -465 -145 - Medications Medications: Current Medications Famotidine (Pepcid) 20 mg IVP DAILY [facility] Last Admin: 07/18/17 09:25 Dose: 20 mg Heparin Sodium (Porcine) (Heparin) 5,000 units SC Q8 [facility] Last Admin: 07/18/17 15:56 Dose: 5,000 units Piperacillin Sod/Tazobactam Sod (Zosyn 2.25 Gm Iv Premix) 2.25 gm in 50 mls @ 100 mls/hr IVPB Q6 [facility] Last Admin: 07/18/17 11:54 Dose: 100 mls/hr - Labs Labs: 07/18/17 06:48 07/18/17 06:46 PT 14.7 SECONDS (9.7-12.2) H 07/13/17 23:26 INR 1.3 07/13/17 23:26 APTT 34 SECONDS (21-34) 07/13/17 23:26 Assessment and Plan - Assessment and Plan (Free Text) Assessment: Patient is a 86 year old female with past medical history of A-Fib, HTN, HLD, Arthritis, Anemia who was admitted for mid-sternal chest pressure and was noted to have sick-sinus syndrome, bradycardia and junctional rhythm and hypotensive and AMS: Plan: Neuro: Currently extubated and on ventrimask, responds to touch stimuli and agitation Intubated (07/14/17) due to desaturation and pH 7:05 AMS possibly secondary to UTI- improving Medication: * Versed 2mg Q6H prn * Ativan 1mg IV Q2H prn Cardio: Junctional Bradycardia/ Sick Sinus syndrome Hx of A.fib EPS Consult, Dr. Boggs on board---> help appreciated * Plans for pacemaker placement once patient is clinically stable and D/C amiodarone for now due to elevated LFTs * Currently in normal sinus rhythm @ 75bpm on tele monitor Pulm: Extubated, respiratory stable on supplemental O2 * Diamox 500mg IV q12 (2 DOSES) * Lasix 40mg IV Q12H GI: Transaminitis ( Resolving) * Amiodarone discontinued * Continue to monitor Vascular: Hypotension * Resolved ID: UTI, leukocytosis, bands (4%), Lactic acid (4.4); Urosepsis on admission UA ( 3+ LE, WBC (84) on admission Repeat UC and BC (07/15/17): No growth * Vancomycin 750mg/D5W 150mg Q12H (d/c 07/16/17) * Zosyn IVPB Q6H Prophylaxis: DVT: Heparin 5,000 units SC Q8H GI: Famotidine 20mg IVP daily
[2017-07-19] MEDS: Piperacill/Tazo 2.25gm in Dex 2.25 GM/50 ML BAG IVPB SCH ×3 (05:02→18:53)
[2017-07-19 06:36] LABS: CHLORIDE 106 mmol/L (98-107)
[2017-07-19 06:37] LABS: POTASSIUM 2.9 mmol/L (3.6-5.2); SODIUM 140 mmol/L (132-148)
[2017-07-19 06:39] LABS: ALB/GLOB RATIO 0.8 (1.0-2.1); ALKALINE PHOSPHATASE 83 U/L (38-126); AST/SGOT 21 U/L (14-36); BILIRUBIN,TOTAL 0.3 mg/dL (0.2-1.3); CARBON DIOXIDE 24 mmol/L (22-30); GFR AFRICAN-AMERICAN > 60; TOTAL PROTEIN 6.8 g/dL (6.3-8.3)
[2017-07-19 06:40] LABS: ALT/SGPT 93 U/L (9-52); BLOOD UREA NITROGEN 15 mg/dL (7-17); GLUCOSE,RANDOM 87 mg/dL (65-105); MAGNESIUM 2.2 mg/dL (1.6-2.3); PHOSPHOROUS 2.1 mg/dL (2.5-4.5)
--- NOTE | 2017-07-19 06:44 | CARD ---
APPROVED REPORT EKG Measurement Heart [id number] <Conclusion> Junctional bradycardia Low voltage QRS Abnormal ECG
[2017-07-19 06:57] LABS: BASO % 0.4 % (0.0-2.0); EOS % 0.2 % (0.0-4.0); HEMATOCRIT 32.3 % (34.0-47.0); LYMPH % 14.4 % (20.0-40.0); MEAN CELL VOLUME 88.6 fL (81.0-99.0); MEAN CORPUSCULAR HEMOGLOBIN 28.7 pg (27.0-31.0); MEAN CORPUSCULAR HGB CONC 32.4 g/dL (33.0-37.0); MEAN PLATELET VOLUME 9.5 fL (7.2-11.7); MONO # 0.6 K/uL (0.0-0.8); MONO % 8.7 % (0.0-10.0); NRBC % 0.2 % (0.0-2.0); RED CELL DISTRIBUTION WIDTH 14.8 % (11.5-14.5); WHITE BLOOD COUNT 7.2 K/uL (4.8-10.8)
--- NOTE | 2017-07-19 09:03 | CP.PCM.PN ---
Subjective - Date & Time of Evaluation Date of Evaluation: 07/19/17 Time of Evaluation: 09:01 - Subjective Subjective: PGY1 Medicine Note for Dr. Obrien Patient seen and examined at bedside. Patient is resting comfortably with NC. She is orientated to self and time but not place. This is the patient's baseline. No complaints at this time. Objective - Vital Signs/Intake and Output Vital Signs (last 24 hours): Temp Pulse Resp BP Pulse Ox 98.1 F 64 21 148/67 100 07/19/17 08:00 07/19/17 08:23 07/19/17 08:23 07/19/17 08:23 07/19/17 08:23 Intake and Output: 07/19/17 07/19/17 06:59 18:59 Intake Total 440 400 Output Total 600 60 Balance -160 340 - Medications Medications: Current Medications Famotidine (Pepcid) 20 mg IVP DAILY [facility] Last Admin: 07/18/17 09:25 Dose: 20 mg Heparin Sodium (Porcine) (Heparin) 5,000 units SC Q8 [facility] Last Admin: 07/19/17 05:03 Dose: 5,000 units Piperacillin Sod/Tazobactam Sod (Zosyn 2.25 Gm Iv Premix) 2.25 gm in 50 mls @ 100 mls/hr IVPB Q6 [facility] Last Admin: 07/19/17 05:02 Dose: 100 mls/hr - Labs Labs: 07/19/17 06:12 07/19/17 06:12 PT 14.7 SECONDS (9.7-12.2) H 07/13/17 23:26 INR 1.3 07/13/17 23:26 APTT 34 SECONDS (21-34) 07/13/17 23:26 - Constitutional Appears: Non-toxic, No Acute Distress - Head Exam Head Exam: ATRAUMATIC, NORMOCEPHALIC - Eye Exam Eye Exam: EOMI, Normal appearance - ENT Exam ENT Exam: Mucous Membranes Moist - Respiratory Exam Respiratory Exam: Rhonchi, NORMAL BREATHING PATTERN. absent: Accessory Muscle Use, Respiratory Distress - Cardiovascular Exam Cardiovascular Exam: REGULAR RHYTHM, +S1, +S2 - GI/Abdominal Exam GI & Abdominal Exam: Soft, Normal Bowel Sounds. absent: Distended, Guarding, Rigid, Tenderness - Extremities Exam Extremities Exam: Pedal Edema (trace). absent: Calf Tenderness - Neurological Exam Neurological Exam: Alert, Awake. absent: Oriented x3 (self and time, not place (baseline)) - Psychiatric Exam Psychiatric exam: Normal Affect, Normal Mood - Skin Skin Exam: Dry, Normal Color, Warm Assessment and Plan - Assessment and Plan (Free Text) Assessment: Patient is a 86 year old female with past medical history of A-Fib, HTN, HLD, Arthritis, Anemia who was admitted for mid-sternal chest pressure and was noted to have sick-sinus syndrome, bradycardia and junctional rhythm and hypotensive and AMS: Plan: Neuro: Currently extubated and on ventrimask, responds to touch stimuli and agitation Intubated (07/14/17) due to desaturation and pH 7:05 AMS possibly secondary to UTI- improving Medication: * Versed 2mg Q6H prn * Ativan 1mg IV Q2H prn Cardio: Junctional Bradycardia/ Sick Sinus syndrome Hx of A.fib Cardiology Consult, Dr. Abraham on board---> Help appreciated EPS Consult, Dr. Boggs on board---> help appreciated * Plans for pacemaker placement once patient is clinically stable and D/C amiodarone for now due to elevated LFTs * Currently in normal sinus rhythm @ 75bpm on tele monitor Pulm: Extubated, respiratory stable on supplemental O2 ABG (07/17/17): Alkalotic * Diamox 500mg IV q12 (2 DOSES) * Lasix 40mg IV Q12H GI: Transaminitis ( Resolving) * Amiodarone discontinued * Continue to monitor Vascular: Hypotension * Resolved ID: UTI, leukocytosis, bands (4%), Lactic acid (4.4); Urosepsis on admission UA ( 3+ LE, WBC (84) on admission Repeat UC and BC (07/15/17): No growth * Vancomycin 750mg/D5W 150mg Q12H (d/c 07/16/17) * Zosyn IVPB Q6H Prophylaxis: DVT: Heparin 5,000 units SC Q8H GI: Famotidine 20mg IVP daily Will discuss with Dr Micah Harding Mabel PGY1
--- NOTE | 2017-07-19 12:52 | CP.CCUPN ---
CCU Subjective - Physician Review Events Since Last Encounter (Free Text): 07/19/17 12:51 Patient is clinical stable at this time. Doing well. Tolerating oral feeding. We'll transfer the patient to the medical floor. CCU Objective - Vital Signs / Intake & Output Vital Signs (Last 4 hours): Vital Signs Pulse Resp BP Pulse Ox 07/19/17 11:22 64 21 128/61 100 07/19/17 11:00 64 19 100 07/19/17 10:41 64 22 136/67 100 07/19/17 10:00 70 23 100 07/19/17 09:23 61 19 131/51 L 100 07/19/17 09:00 71 20 99 Intake and Output (Last 8hrs): Intake & Output 07/18/17 07/19/17 07/19/17 22:59 06:59 14:59 Intake Total 290 200 400 Output Total 490 310 60 Balance -200 -110 340 Weight 159 lb Intake: Intake, IV Amount 50 100 Right Distal Port 50 100 Internal Jugular Oral 240 100 400 Output: Urine 390 310 60 Urethral (Serrato) 390 310 60 Stool 100 Other: # Bowel Movements 1 - Physical Exam Head: Positive for: Atraumatic, Normocephalic Pupils: Positive for: PERRL Conjunctiva: Positive for: Normal Ears: Positive for: Normal Mouth: Positive for: Dry Respiratory/Chest: Positive for: Clear to Auscultation, Other (intubated, Planning for extubation ). Negative for: Respiratory Distress, Accessory Muscle Use Cardiovascular: Positive for: Irregular Rhythm, Bradycardic Abdomen: Positive for: Normal Bowel Sounds. Negative for: Tenderness, Distention, Rebound Upper Extremity: Positive for: Normal Inspection Lower Extremity: Positive for: Normal Inspection Skin: Positive for: Warm, Normal Color Psychiatric: Positive for: Alert, Agitated. Negative for: Oriented x 3 - Medications Active Medications: Active Medications Generic Name Dose Route Start Last Admin Trade Name Freq PRN Reason Stop Dose Admin Famotidine 20 mg 07/14/17 10:45 07/19/17 09:20 Pepcid IVP 20 mg DAILY RODRIGO Administration Heparin Sodium (Porcine) 5,000 units 07/14/17 01:15 07/19/17 05:03 Heparin SC 5,000 units Q8 RODRIGO Administration Piperacillin Sod/Tazobactam Sod 2.25 gm in 50 mls @ 100 mls/hr 10/03/17 11:30 07/19/17 12:18 Zosyn 2.25 Gm Iv Premix IVPB 100 mls/hr Q6 RODRIGO Administration Potassium Chloride 20 meq in 100 mls @ 50 mls/hr 07/19/17 10:00 07/19/17 12: 18 Potassium Chloride 20 Meq/100 Ml IVPB 07/19/17 15:59 50 mls/hr Q2 RODRIGO Administration - Patient Studies Lab Studies: Microbiology Studies 07/14/17 10:39 Stool Culture - Final Stool NO SALMONELLA, SHIGELLA OR CAMPYLOBACTER ISOLATED. Ova and Parasite Concentrate Exam - Final 07/15/17 11:35 Blood Culture - Preliminary Blood-Venous NO GROWTH AFTER 3 DAYS 07/15/17 11:35 Blood Culture - Preliminary Blood-Venous NO GROWTH AFTER 3 DAYS Lab Studies 07/19/17 07/19/17 Range/Units 06:12 06:12 WBC 7.2 (4.8-10.8) K/uL RBC 3.64 L (3.80-5.20) Mil/uL Hgb 10.4 L (11.0-16.0) g/dL Hct 32.3 L (34.0-47.0) % MCV 88.6 (81.0-99.0) fL MCH 28.7 (27.0-31.0) pg MCHC 32.4 L (33.0-37.0) g/dL RDW 14.8 H (11.5-14.5) % Plt Count 184 (130-400) K/uL MPV 9.5 (7.2-11.7) fL Neut % (Auto) 76.3 H (50.0-75.0) % Lymph % (Auto) 14.4 L (20.0-40.0) % [place] % (Auto) 8.7 (0.0-10.0) % Eos % (Auto) 0.2 (0.0-4.0) % Baso % (Auto) 0.4 (0.0-2.0) % Neut # 5.5 (1.8-7.0) K/uL Lymph # 1.0 (1.0-4.3) K/uL [place] # 0.6 (0.0-0.8) K/uL Eos # 0.0 (0.0-0.7) K/uL Baso # 0.0 (0.0-0.2) K/uL Sodium 140 (132-148) mmol/L Potassium 2.9 L (3.6-5.2) mmol/L Chloride 106 (98-107) mmol/L Carbon Dioxide 24 (22-30) mmol/L Anion Gap 13 (10-20) BUN 15 (7-17) mg/dL Creatinine 0.7 (0.7-1.2) mg/dL Est GFR ( Amer) > 60 Est GFR (Non-Af Amer) > 60 Random Glucose 87 (65-105) mg/dL Calcium 8.0 L (8.6-10.4) mg/dl Phosphorus 2.1 L (2.5-4.5) mg/dL Magnesium 2.2 (1.6-2.3) mg/dL Total Bilirubin 0.3 (0.2-1.3) mg/dL AST 21 (14-36) U/L ALT 93 H D (9-52) U/L Alkaline Phosphatase 83 (38-126) U/L Total Protein 6.8 (6.3-8.3) g/dL Albumin 3.1 L (3.5-5.0) g/dL Globulin 3.8 (2.2-3.9) gm/dL Albumin/Globulin Ratio 0.8 L (1.0-2.1) Laboratory Results - last 24 hr 07/19/17 07/19/17 06:12 06:12 WBC 7.2 RBC 3.64 L Hgb 10.4 L Hct 32.3 L MCV 88.6 MCH 28.7 MCHC 32.4 L RDW 14.8 H Plt Count 184 MPV 9.5 Neut % (Auto) 76.3 H Lymph % (Auto) 14.4 L [place] % (Auto) 8.7 Eos % (Auto) 0.2 Baso % (Auto) 0.4 Neut # 5.5 Lymph # 1.0 [place] # 0.6 Eos # 0.0 Baso # 0.0 Sodium 140 Potassium 2.9 L Chloride 106 Carbon Dioxide 24 Anion Gap 13 BUN 15 Creatinine 0.7 Est GFR ( Amer) > 60 Est GFR (Non-Af Amer) > 60 Random Glucose 87 Calcium 8.0 L Phosphorus 2.1 L Magnesium 2.2 Total Bilirubin 0.3 AST 21 ALT 93 H D Alkaline Phosphatase 83 Total Protein 6.8 Albumin 3.1 L Globulin 3.8 Albumin/Globulin Ratio 0.8 L Fingerstick Blood Sugar Results: 211 Critical Care Progress Note - Nutrition Nutrition: Nutrition Category Date Time Status low fat [Heart Healthy Diet] [DIET] Diets 07/19/17 Lunch Active
--- NOTE | 2017-07-19 20:41 | CP.PCM.PN ---
Subjective - Date & Time of Evaluation Date of Evaluation: 07/19/17 Time of Evaluation: 16:00 - Subjective Subjective: Patient seen and evaluated Extubated and comfortable Family at bed side Physical Examination - Constitutional Appears: Non-toxic, No Acute Distress - Head Exam Head Exam: ATRAUMATIC, NORMAL INSPECTION - Eye Exam Eye Exam: EOMI, Normal appearance - ENT Exam ENT Exam: Mucous Membranes Dry - Neck Exam Additional comments: no appreciable JVD; hard to view due to IJ in place - Respiratory Exam Respiratory Exam: NORMAL BREATHING PATTERN - Cardiovascular Exam Cardiovascular Exam: Regular, +S1, +S2 - GI/Abdominal Exam GI & Abdominal Exam: Soft - Extremities Exam Extremities Exam: Pedal Edema Additional comments: 2+ b/l pitting edema, dry - Neurological Exam Neurological Exam: absent: Alert, Awake - Skin Skin Exam: Dry, Warm Objective - Vital Signs/Intake and Output Vital Signs (last 24 hours): Temp Pulse Resp BP Pulse Ox 97.9 F 74 25 H 158/67 H 100 07/19/17 16:00 07/19/17 20:00 07/19/17 20:00 07/19/17 19:22 07/19/17 20:00 Intake and Output: 07/19/17 07/20/17 18:59 06:59 Intake Total 1600 Output Total 305 Balance 1295 - Medications Medications: Current Medications Famotidine (Pepcid) 20 mg IVP DAILY [facility] Last Admin: 07/19/17 09:20 Dose: 20 mg Heparin Sodium (Porcine) (Heparin) 5,000 units SC Q8 [facility] Last Admin: 07/19/17 13:14 Dose: 5,000 units Piperacillin Sod/Tazobactam Sod (Zosyn 2.25 Gm Iv Premix) 2.25 gm in 50 mls @ 100 mls/hr IVPB Q6 [facility] Last Admin: 07/19/17 18:53 Dose: 100 mls/hr - Labs Labs: 07/19/17 06:12 07/19/17 06:12 PT 14.7 SECONDS (9.7-12.2) H 07/13/17 23:26 INR 1.3 07/13/17 23:26 APTT 34 SECONDS (21-34) 07/13/17 23:26 Assessment and Plan - Assessment and Plan (Free Text) Assessment: Patient is a 86 year old female with past medical history of A-Fib, HTN, HLD, Arthritis, Anemia who was admitted for mid-sternal chest pressure and was noted to have sick-sinus syndrome, bradycardia and junctional rhythm and hypotensive and AMS: Plan: Neuro: Currently extubated. Comfortable Intubated (07/14/17) due to desaturation and pH 7:05 AMS possibly secondary to UTI- improving Medication: * Versed 2mg Q6H prn * Ativan 1mg IV Q2H prn Cardio: Junctional Bradycardia/ Sick Sinus syndrome Hx of A.fib EPS Consult, Dr. Boggs on board---> help appreciated * Plans for pacemaker placement once patient is clinically stable and D/C amiodarone for now due to elevated LFTs * Currently in normal sinus rhythm @ 75bpm on tele monitor Pulm: Extubated, respiratory stable on supplemental O2 ABG (07/17/17): Alkalotic * Diamox 500mg IV q12 (2 DOSES) * Lasix 40mg IV Q12H GI: Transaminitis ( Resolving) * Amiodarone discontinued * Continue to monitor Vascular: Hypotension * Resolved ID: UTI, leukocytosis, bands (4%), Lactic acid (4.4); Urosepsis on admission UA ( 3+ LE, WBC (84) on admission Repeat UC and BC (07/15/17): No growth * Vancomycin 750mg/D5W 150mg Q12H (d/c 07/16/17) * Zosyn IVPB Q6H Prophylaxis: DVT: Heparin 5,000 units SC Q8H GI: Famotidine 20mg IVP daily
--- NOTE | 2017-07-19 20:42 | CP.PCM.PN ---
Subjective - Date & Time of Evaluation Date of Evaluation: 07/18/17 Time of Evaluation: 20:30 - Subjective Subjective: Patient seen and evaluated Offers no complaints Physical Examination - Constitutional Appears: Non-toxic, No Acute Distress - Head Exam Head Exam: ATRAUMATIC, NORMAL INSPECTION - Eye Exam Eye Exam: EOMI, Normal appearance - ENT Exam ENT Exam: Mucous Membranes Dry - Neck Exam Additional comments: no appreciable JVD; hard to view due to IJ in place - Respiratory Exam Respiratory Exam: NORMAL BREATHING PATTERN - Cardiovascular Exam Cardiovascular Exam: Regular, +S1, +S2 - GI/Abdominal Exam GI & Abdominal Exam: Soft - Extremities Exam Extremities Exam: Pedal Edema Additional comments: 2+ b/l pitting edema, dry - Neurological Exam Neurological Exam: absent: Alert, Awake - Skin Skin Exam: Dry, Warm Objective - Vital Signs/Intake and Output Vital Signs (last 24 hours): Temp Pulse Resp BP Pulse Ox 97.9 F 74 25 H 158/67 H 100 07/19/17 16:00 07/19/17 20:00 07/19/17 20:00 07/19/17 19:22 07/19/17 20:00 Intake and Output: 07/19/17 07/20/17 18:59 06:59 Intake Total 1600 Output Total 305 Balance 1295 - Medications Medications: Current Medications Famotidine (Pepcid) 20 mg IVP DAILY [facility] Last Admin: 07/19/17 09:20 Dose: 20 mg Heparin Sodium (Porcine) (Heparin) 5,000 units SC Q8 [facility] Last Admin: 07/19/17 13:14 Dose: 5,000 units Piperacillin Sod/Tazobactam Sod (Zosyn 2.25 Gm Iv Premix) 2.25 gm in 50 mls @ 100 mls/hr IVPB Q6 [facility] Last Admin: 07/19/17 18:53 Dose: 100 mls/hr - Labs Labs: 07/19/17 06:12 07/19/17 06:12 PT 14.7 SECONDS (9.7-12.2) H 07/13/17 23:26 INR 1.3 07/13/17 23:26 APTT 34 SECONDS (21-34) 07/13/17 23:26 Assessment and Plan - Assessment and Plan (Free Text) Assessment: Patient is a 86 year old female with past medical history of A-Fib, HTN, HLD, Arthritis, Anemia who was admitted for mid-sternal chest pressure and was noted to have sick-sinus syndrome, bradycardia and junctional rhythm and hypotensive and AMS: Plan: Neuro: Currently extubated. Comfortable Intubated (07/14/17) due to desaturation and pH 7:05 AMS possibly secondary to UTI- improving Medication: * Versed 2mg Q6H prn * Ativan 1mg IV Q2H prn Cardio: Junctional Bradycardia/ Sick Sinus syndrome Hx of A.fib EPS Consult, Dr. Boggs on board---> help appreciated * Plans for pacemaker placement once patient is clinically stable and D/C amiodarone for now due to elevated LFTs * Currently in normal sinus rhythm @ 75bpm on tele monitor Pulm: Extubated, respiratory stable on supplemental O2 ABG (07/17/17): Alkalotic * Diamox 500mg IV q12 (2 DOSES) * Lasix 40mg IV Q12H GI: Transaminitis ( Resolving) * Amiodarone discontinued * Continue to monitor Vascular: Hypotension * Resolved ID: UTI, leukocytosis, bands (4%), Lactic acid (4.4); Urosepsis on admission UA ( 3+ LE, WBC (84) on admission Repeat UC and BC (07/15/17): No growth * Vancomycin 750mg/D5W 150mg Q12H (d/c 07/16/17) * Zosyn IVPB Q6H Prophylaxis: DVT: Heparin 5,000 units SC Q8H GI: Famotidine 20mg IVP daily
[2017-07-20] MEDS: Piperacill/Tazo 2.25gm in Dex 2.25 GM/50 ML BAG IVPB SCH ×4 (01:31→18:00)
[2017-07-20 06:17] LABS: BASO % 0.5 % (0.0-2.0); EOS % 0.1 % (0.0-4.0); HEMATOCRIT 32.5 % (34.0-47.0); LYMPH # 1.3 K/uL (1.0-4.3); LYMPH % 17.1 % (20.0-40.0); MEAN CELL VOLUME 88.3 fL (81.0-99.0); MEAN CORPUSCULAR HEMOGLOBIN 29.4 pg (27.0-31.0); MEAN CORPUSCULAR HGB CONC 33.4 g/dL (33.0-37.0); MEAN PLATELET VOLUME 9.1 fL (7.2-11.7); MONO # 0.7 K/uL (0.0-0.8); MONO % 9.6 % (0.0-10.0); NRBC % 0.4 % (0.0-2.0); RED CELL DISTRIBUTION WIDTH 15.1 % (11.5-14.5); WHITE BLOOD COUNT 7.7 K/uL (4.8-10.8)
[2017-07-20 06:36] LABS: CHLORIDE 105 mmol/L (98-107); POTASSIUM 3.7 mmol/L (3.6-5.2); SODIUM 139 mmol/L (132-148)
[2017-07-20 06:38] LABS: ALB/GLOB RATIO 0.8 (1.0-2.1); ALKALINE PHOSPHATASE 87 U/L (38-126); AST/SGOT 27 U/L (14-36); BILIRUBIN,TOTAL 0.4 mg/dL (0.2-1.3); BLOOD UREA NITROGEN 16 mg/dL (7-17); CARBON DIOXIDE 24 mmol/L (22-30); GFR AFRICAN-AMERICAN > 60; GLUCOSE,RANDOM 92 mg/dL (65-105); TOTAL PROTEIN 6.8 g/dL (6.3-8.3)
[2017-07-20 06:39] LABS: ALT/SGPT 81 U/L (9-52); CALCIUM 8.7 mg/dl (8.6-10.4); MAGNESIUM 1.9 mg/dL (1.6-2.3); PHOSPHOROUS 2.3 mg/dL (2.5-4.5)
--- NOTE | 2017-07-20 09:18 | CP.PCM.PN ---
Subjective - Date & Time of Evaluation Date of Evaluation: 07/20/17 Time of Evaluation: 07:00 - Subjective Subjective: PGY-[address] Obrien Patient seen and examined at bedside. Patient denies acute complaints including fever, chills, chest pain, dyspnea, abdominal pain, dysuria. Objective - Vital Signs/Intake and Output Vital Signs (last 24 hours): Temp Pulse Resp BP Pulse Ox 98 F 73 20 119/50 L 100 07/20/17 04:00 07/20/17 07:00 07/20/17 07:00 07/20/17 06:23 07/20/17 07:00 Intake and Output: 07/20/17 07/20/17 06:59 18:59 Intake Total 340 Output Total 600 Balance -260 - Medications Medications: Current Medications Famotidine (Pepcid) 20 mg IVP DAILY [facility] Last Admin: 07/19/17 09:20 Dose: 20 mg Heparin Sodium (Porcine) (Heparin) 5,000 units SC Q8 [facility] Last Admin: 07/20/17 05:09 Dose: 5,000 units Piperacillin Sod/Tazobactam Sod (Zosyn 2.25 Gm Iv Premix) 2.25 gm in 50 mls @ 100 mls/hr IVPB Q6 [facility] Last Admin: 07/20/17 05:08 Dose: 100 mls/hr - Labs Labs: 07/20/17 06:09 07/20/17 06:10 PT 14.7 SECONDS (9.7-12.2) H 07/13/17 23:26 INR 1.3 07/13/17 23:26 APTT 34 SECONDS (21-34) 07/13/17 23:26 - Constitutional Appears: No Acute Distress - Head Exam Head Exam: ATRAUMATIC, NORMOCEPHALIC - Eye Exam Eye Exam: EOMI, PERRL - ENT Exam ENT Exam: Mucous Membranes Moist - Respiratory Exam Respiratory Exam: Clear to Ausculation Bilateral. absent: Rales, Rhonchi, Wheezes - Cardiovascular Exam Cardiovascular Exam: REGULAR RHYTHM, +S1, +S2 - GI/Abdominal Exam GI & Abdominal Exam: Soft, Normal Bowel Sounds. absent: Tenderness - Extremities Exam Extremities Exam: absent: Pedal Edema - Neurological Exam Neurological Exam: Alert, Awake. absent: Oriented x3 (oriented to person and time.) - Psychiatric Exam Psychiatric exam: Normal Affect, Normal Mood - Skin Skin Exam: Dry, Warm Assessment and Plan - Assessment and Plan (Free Text) Plan: Junctional bradycardia/Sick sinus syndrome Junctional Bradycardia with Hypotension on admission Likely secondary to sick-sinus syndrome Prior stress and ECHO were unremarkable ECHO from 06/2017 showed EF of 65-70% EP consulted by Dr. Abraham: Dr. Boggs for pacemaker placement. Per conversation with Dr. Abraham, Dr. Boggs requested to see the patient as an outpatient where he will evaluate the need for pacemaker placement. Dr. Boggs will not do it as an inpatient because her heart rate is currently normal. Per cardiology, patient may restart Eliquis on discharge.. UTI UA with 3+ Leukocyte esterase and WBCs noted Urosepsis on admission On Zosyn Cont to monitor Elevated LFTs Normalizing Likely secondarily due to Amiodarone which patient was previously on. On admission AST 375, ALT 269 Prophylactic measure DVT: Heparin 5000u SC Q8 GI: Pepcid 20 mg IV daily Management per Dr. Micah Ding PGY-1
--- NOTE | 2017-07-20 11:29 | CP.PCM.PN ---
<ScooterJosephrachel - Last Filed: 07/20/17 17:41> Subjective - Date & Time of Evaluation Date of Evaluation: 07/20/17 Time of Evaluation: 11:05 - Subjective Subjective: Cardiology Progress Note- Dr. Abraham's service Patient seen and examined out of bed. Patient states that she has been very sleepy lately. She denies chest pain or palpitations at this time. Patient's family members present bed side. Patient is able to converse without difficulties. Objective - Vital Signs/Intake and Output Vital Signs (last 24 hours): Temp Pulse Resp BP Pulse Ox 98.2 F 74 23 139/71 100 07/20/17 08:00 07/20/17 09:23 07/20/17 09:23 07/20/17 09:23 07/20/17 09:23 Intake and Output: 07/20/17 07/20/17 06:59 18:59 Intake Total 340 240 Output Total 600 60 Balance -260 180 - Medications Medications: Current Medications Famotidine (Pepcid) 20 mg IVP DAILY [facility] Last Admin: 07/20/17 09:45 Dose: 20 mg Heparin Sodium (Porcine) (Heparin) 5,000 units SC Q8 [facility] Last Admin: 07/20/17 05:09 Dose: 5,000 units Piperacillin Sod/Tazobactam Sod (Zosyn 2.25 Gm Iv Premix) 2.25 gm in 50 mls @ 100 mls/hr IVPB Q6 [facility] Last Admin: 07/20/17 05:08 Dose: 100 mls/hr - Labs Labs: 07/20/17 06:09 07/20/17 06:10 PT 14.7 SECONDS (9.7-12.2) H 07/13/17 23:26 INR 1.3 07/13/17 23:26 APTT 34 SECONDS (21-34) 07/13/17 23:26 - Constitutional Appears: Non-toxic, No Acute Distress - Head Exam Head Exam: ATRAUMATIC, NORMAL INSPECTION, NORMOCEPHALIC - Eye Exam Eye Exam: EOMI, Normal appearance, PERRL Pupil Exam: NORMAL ACCOMODATION - ENT Exam ENT Exam: Mucous Membranes Moist - Neck Exam Neck Exam: Full ROM - Respiratory Exam Respiratory Exam: NORMAL BREATHING PATTERN. absent: Wheezes - Cardiovascular Exam Cardiovascular Exam: REGULAR RHYTHM, +S1, +S2 - GI/Abdominal Exam GI & Abdominal Exam: Soft - Extremities Exam Extremities Exam: Full ROM, Pedal Edema (1+ pitting bilaterally) - Back Exam Back Exam: Full ROM - Neurological Exam Neurological Exam: Alert, Awake - Psychiatric Exam Psychiatric exam: Normal Affect, Normal Mood - Skin Skin Exam: Dry, Warm Additional comments: decreased skin turgor Assessment and Plan - Assessment and Plan (Free Text) Assessment: Junctional bradycardia/Sick sinus syndrome Assessment and Plan: Junctional Bradycardia with Hypotension on admission Likely secondary to sick-sinus syndrome Prior stress and ECHO were normal ECHO from 06/2017 showed EF of 65-70% EP consult with Dr. Boggs with recommendations for intervention once patient is stable. Patient will need pacemaker. Will need to coordinate when with Dr. Boggs. Patient should re-start Eliquis upon discharge. Suspected UTI on admission Assessment and Plan: UA with 3+ Leukocyte esterase and WBCs noted On Zosyn, although UC grew out negative cultures. Cont to monitor Management per primary Elevated LFTs Assessment and Plan: Normalizing Likely secondarily due to Amiodarone which patient was previously on. On admission AST 375, ALT 269 Status: Acute Hypothyroidism Assessment and Plan: Likely further exacerbated by Amiodarone which patient was previously on. TSH 10.3 T4 11.1, Free T4 1.97, TSH 10.30 Status: Acute Prophylactic measure Assessment and Plan: DVT: Heparin 5000u SC Q8 GI: Pepcid 20 mg IV daily Discussed with attending. Management and planning per Dr. Abraham. <Marcello Abraham - Last Filed: 07/20/17 21:30> Objective - Vital Signs/Intake and Output Vital Signs (last 24 hours): Temp Pulse Resp BP Pulse Ox 98.3 F 73 19 130/73 100 07/20/17 20:00 07/20/17 20:22 07/20/17 20:22 07/20/17 20:22 07/20/17 20:22 Intake and Output: 07/20/17 07/21/17 18:59 06:59 Intake Total 480 Output Total 60 Balance 420 - Medications Medications: Current Medications Famotidine (Pepcid) 20 mg IVP DAILY [facility] Last Admin: 07/20/17 09:45 Dose: 20 mg Heparin Sodium (Porcine) (Heparin) 5,000 units SC Q8 [facility] Last Admin: 07/20/17 16:51 Dose: 5,000 units Piperacillin Sod/Tazobactam Sod (Zosyn 2.25 Gm Iv Premix) 2.25 gm in 50 mls @ 100 mls/hr IVPB Q6 [facility] Last Admin: 07/20/17 18:00 Dose: 100 mls/hr - Labs Labs: 07/20/17 06:09 07/20/17 06:10 PT 14.7 SECONDS (9.7-12.2) H 07/13/17 23:26 INR 1.3 07/13/17 23:26 APTT 34 SECONDS (21-34) 07/13/17 23:26 Assessment and Plan - Assessment and Plan (Free Text) Assessment: Patient seen and evaluated with the medical physiologist Plan of care as documented
[2017-07-21] MEDS: Piperacill/Tazo 2.25gm in Dex 2.25 GM/50 ML BAG IVPB SCH ×4 (00:19→19:26)
[2017-07-21 06:00] LABS: BASO % 0.6 % (0.0-2.0); EOS % 0.2 % (0.0-4.0); HEMATOCRIT 31.3 % (34.0-47.0); LYMPH # 1.7 K/uL (1.0-4.3); LYMPH % 22.8 % (20.0-40.0); MEAN CELL VOLUME 88.5 fL (81.0-99.0); MEAN CORPUSCULAR HEMOGLOBIN 29.6 pg (27.0-31.0); MEAN CORPUSCULAR HGB CONC 33.5 g/dL (33.0-37.0); MEAN PLATELET VOLUME 9.3 fL (7.2-11.7); MONO # 0.8 K/uL (0.0-0.8); MONO % 10.8 % (0.0-10.0); NRBC % 0.2 % (0.0-2.0); RED CELL DISTRIBUTION WIDTH 14.6 % (11.5-14.5); WHITE BLOOD COUNT 7.6 K/uL (4.8-10.8)
[2017-07-21 06:15] LABS: POTASSIUM 3.8 mmol/L (3.6-5.2)
[2017-07-21 06:17] LABS: BILIRUBIN,TOTAL 0.4 mg/dL (0.2-1.3)
[2017-07-21 06:18] LABS: ALB/GLOB RATIO 0.9 (1.0-2.1); CALCIUM 8.5 mg/dl (8.6-10.4); MAGNESIUM 1.8 mg/dL (1.6-2.3); PHOSPHOROUS 3.4 mg/dL (2.5-4.5); TOTAL PROTEIN 6.3 g/dL (6.3-8.3)
--- NOTE | 2017-07-21 12:00 | CP.PCM.DIS ---
Provider - Provider Date of Admission: 07/14/17 00:50 Attending physician: Moshe Obrien Jr, MD Primary care physician: Elias Mcgiure MD Time Spent in preparation of Discharge (in minutes): 40 Diagnosis - Discharge Diagnosis (1) Junctional bradycardia Status: Acute (2) Sick sinus syndrome Status: Acute (3) UTI (urinary tract infection) Status: Acute (4) Sepsis Status: Resolved (5) Septic shock Status: Resolved (6) Transaminitis Status: Resolved (7) Altered mental status Status: Resolved (8) Chest pain Status: Acute Priority: High Hospital Course - Lab Results Lab Results: Micro Results 07/15/17 11:35 Blood-Venous Blood Culture - Final NO GROWTH AFTER 5 DAYS 07/15/17 11:35 Blood-Venous Gram Stain - Final TEST NOT PERFORMED 07/15/17 11:35 Blood-Venous Blood Culture - Final NO GROWTH AFTER 5 DAYS 07/15/17 11:35 Blood-Venous Gram Stain - Final TEST NOT PERFORMED 07/14/17 10:39 Stool Stool Culture - Final NO SALMONELLA, SHIGELLA OR CAMPYLOBACTER ISOLATED. 07/14/17 10:39 Stool Ova and Parasite Concentrate Exam - Final 07/15/17 11:36 Urine,Serrato Urine Culture - Final No Growth (<1,000 CFU/ML) 07/14/17 03:23 Nose MRSA Culture (Admit) - Final MRSA NOT DETECTED Most Recent Lab Values WBC 7.6 K/uL (4.8-10.8) 07/21/17 05:51 RBC 3.53 Mil/uL (3.80-5.20) L 07/21/17 05:51 Hgb 10.5 g/dL (11.0-16.0) L 07/21/17 05:51 Hct 31.3 % (34.0-47.0) L 07/21/17 05:51 MCV 88.5 fL (81.0-99.0) 07/21/17 05:51 MCH 29.6 pg (27.0-31.0) 07/21/17 05:51 MCHC 33.5 g/dL (33.0-37.0) 07/21/17 05:51 RDW 14.6 % (11.5-14.5) H 07/21/17 05:51 Plt Count 174 K/uL (130-400) 07/21/17 05:51 MPV 9.3 fL (7.2-11.7) 07/21/17 05:51 Neut % (Auto) 65.6 % (50.0-75.0) 07/21/17 05:51 Lymph % (Auto) 22.8 % (20.0-40.0) 07/21/17 05:51 [place] % (Auto) 10.8 % (0.0-10.0) H 07/21/17 05:51 Eos % (Auto) 0.2 % (0.0-4.0) 07/21/17 05:51 Baso % (Auto) 0.6 % (0.0-2.0) 07/21/17 05:51 Neut # 5.0 K/uL (1.8-7.0) 07/21/17 05:51 Lymph # 1.7 K/uL (1.0-4.3) 07/21/17 05:51 [place] # 0.8 K/uL (0.0-0.8) 07/21/17 05:51 Eos # 0.0 K/uL (0.0-0.7) 07/21/17 05:51 Baso # 0.0 K/uL (0.0-0.2) 07/21/17 05:51 Neutrophils % (Manual) 90 % (50-75) H 07/16/17 06:33 Band Neutrophils % 2 % (0-2) 07/16/17 06:33 Lymphocytes % (Manual) 6 % (20-40) L 07/16/17 06:33 Monocytes % (Manual) 2 % (0-10) 07/16/17 06:33 Platelet Estimate Normal (NORMAL) 07/16/17 06:33 Large Platelets Present 07/15/17 06:36 Hypochromasia (manual) Slight 07/16/17 06:33 Poikilocytosis (manual Slight 07/16/17 06:33 Anisocytosis (manual) Slight 07/16/17 06:33 Macrocytosis (manual) Slight 07/16/17 06:33 Target Cells Slight 07/16/17 06:33 Tear Drop Cells Slight 07/16/17 06:33 Julien Cells Slight 07/15/17 06:36 Smear Path Review Cancelled 07/20/17 06:09 PT 14.7 SECONDS (9.7-12.2) H 07/13/17 23:26 INR 1.3 07/13/17 23:26 APTT 34 SECONDS (21-34) 07/13/17 23:26 Puncture Site Rb 07/17/17 05:14 pCO2 39 mm/Hg (35-45) 07/17/17 05:14 pO2 108 mm/Hg (80-100) H 07/17/17 05:14 HCO3 29.0 mmol/L (21-28) H 07/17/17 05:14 ABG pH 7.48 (7.35-7.45) H 07/17/17 05:14 ABG Total CO2 30.2 mmol/L (22-28) H 07/17/17 05:14 ABG O2 Saturation 98.8 % (95-98) H 07/17/17 05:14 ABG Base Excess 5.2 mmol/L (-2.0-3.0) H 07/17/17 05:14 ABG Hemoglobin 10.9 g/dL (11.7-17.4) L 07/15/17 05:43 ABG Carboxyhemoglobin 1.3 % (0.5-1.5) 07/15/17 05:43 POC ABG HHb (Measured) 1.6 % (0.0-5.0) 07/15/17 05:43 ABG Methemoglobin 0.8 % (0.0-3.0) 07/15/17 05:43 Stu Test Na 07/17/17 05:14 ABG Potassium 3.1 mmol/L (3.6-5.2) L 07/17/17 05:14 A-a O2 Difference 200.0 mm/Hg 07/17/17 05:14 Respiratory Index 1.9 07/17/17 05:14 Hgb O2 Saturation 96.2 % (95.0-98.0) 07/15/17 05:43 Sodium 144.0 mmol/l (132-148) 07/17/17 05:14 Chloride 111.0 mmol/L (98-107) H 07/17/17 05:14 Glucose 120 mg/dl (65-105) H 07/17/17 05:14 Lactate 0.8 mmol/L (0.7-2.1) 07/17/17 05:14 Liter Flow 5.0 07/14/17 06:05 Vent Mode Prvc 07/17/17 05:14 Mechanical Rate 14 07/17/17 05:14 FiO2 50.0 % 07/17/17 05:14 Tidal Volume 450 07/17/17 05:14 PEEP 5 07/17/17 05:14 Crit Value Called To Kayla du 07/14/17 20:10 Crit Value Called By Jackie flores 07/14/17 20:10 Crit Value Read Back Y 07/14/17 20:10 Blood Gas Notified Time 201407/14/17 20:10 Sodium 135 mmol/L (132-148) 07/21/17 05:51 Potassium 3.8 mmol/L (3.6-5.2) 07/21/17 05:51 Chloride 103 mmol/L (98-107) 07/21/17 05:51 Carbon Dioxide 23 mmol/L (22-30) 07/21/17 05:51 Anion Gap 13 (10-20) 07/21/17 05:51 BUN 20 mg/dL (7-17) H 07/21/17 05:51 Creatinine 1.1 mg/dL (0.7-1.2) 07/21/17 05:51 Est GFR ( Amer) 57 07/21/17 05:51 Est GFR (Non-Af Amer) 47 07/21/17 05:51 POC Glucose (mg/dL) 133 mg/dL (65-110) H 07/17/17 11:30 Random Glucose 89 mg/dL (65-105) 07/21/17 05:51 Lactic Acid 4.4 mmol/L (0.7-2.1) H* 07/14/17 11:10 Calcium 8.5 mg/dl (8.6-10.4) L 07/21/17 05:51 Phosphorus 3.4 mg/dL (2.5-4.5) 07/21/17 05:51 Magnesium 1.8 mg/dL (1.6-2.3) 07/21/17 05:51 Total Bilirubin 0.4 mg/dL (0.2-1.3) 07/21/17 05:51 AST 21 U/L (14-36) 07/21/17 05:51 ALT 67 U/L (9-52) H 07/21/17 05:51 Alkaline Phosphatase 83 U/L (38-126) 07/21/17 05:51 Total Creatine Kinase 345 U/L (30-135) H 07/14/17 14:20 CK-MB (Mass) 3.62 ng/mL (0.0-3.38) H 07/14/17 14:20 Troponin I 0.0320 ng/mL (0.00-0.120) 07/14/17 06:26 Troponin I, Quant 0.0240 ng/mL (0.00-0.120) 07/14/17 14:20 Total Protein 6.3 g/dL (6.3-8.3) 07/21/17 05:51 Albumin 3.0 g/dL (3.5-5.0) L 07/21/17 05:51 Globulin 3.3 gm/dL (2.2-3.9) 07/21/17 05:51 Albumin/Globulin Ratio 0.9 (1.0-2.1) L 07/21/17 05:51 Procalcitonin 0.58 NG/ML (0.19-0.49) H 07/14/17 11:10 Free T4 1.97 ng/dL (0.78-2.19) 07/14/17 02:38 Thyroxine (T4) 11.1 ug/dL (5.5-11.0) H 07/14/17 02:38 TSH 3rd Generation 10.30 mIU/L (0.46-4.68) H 07/13/17 23:38 Plasma Cortisol PM 51.7 ug/dL (1.7-14.1) H 07/14/17 12:21 Arterial Blood Potassium 3.1 mmol/L (3.6-5.2) L 07/17/17 05:14 Urine Color [place] (YELLOW) 07/14/17 11:46 Urine Clarity Hazy (Clear) 07/14/17 11:46 Urine pH 5.0 (5.0-8.0) 07/14/17 11:46 Ur Specific [place] > 1.060 (1.003-1.030) H 07/14/17 11:46 Urine Protein 1+ mg/dL (NEGATIVE) H 07/14/17 11:46 Urine Glucose (UA) Normal mg/dL (Normal) 07/14/17 11:46 Urine Ketones Trace mg/dL (NEGATIVE) 07/14/17 11:46 Urine Blood 3+ (NEGATIVE) H 07/14/17 11:46 Urine Nitrate Negative (NEGATIVE) 07/14/17 11:46 Urine Bilirubin Negative (NEGATIVE) 07/14/17 11:46 Urine Urobilinogen 2.0 mg/dL (0.2-1.0) H 07/14/17 11:46 Ur Leukocyte Esterase 3+ Noel/uL (Negative) H 07/14/17 11:46 Urine WBC (Auto) 84 /hpf (0-5) H 07/14/17 11:46 Urine RBC (Auto) 1138 /hpf (0-3) H 07/14/17 11:46 Ur Squamous Epith Cells 1 /hpf (0-5) 07/14/17 11:46 Urine Bacteria Rare (<OCC) 07/14/17 11:46 Stool Leukocytes, Qual Negative (NEGATIVE) 07/14/17 10:39 C. difficile Ag & Toxin Negative (NEGATIVE) 07/14/17 10:39 - Hospital Course Hospital Course: On admission: "86 yo F with a PMHx of A-Fib, HTN, HLD, Arthritis, Anemia, was brought by ambulance from home for mid-sternal pressure like chest pain radiating to the mid-back that began around 10pm last night. Patient with a change in mental status observed in ED thus history was collected from ED staff and prior documentation. Patient was found to be in A-Fib in the ambulance with HR in 160s however upon arrival she was in normal sinus rhythm with HR in 30s. In ED, she complained of thirst, was given water and then vomited shortly after. Upon chart review she presented to [facility] [place] ED on 06/24/17 for chest pain, palpitations and rapid heart rate. An ELEVATORS INSPECTOR was called during that admission for chest pain and varying HR in 60-200s and patient was seen in A-Fib which converted to NSR on its own. A ROS was not obtainable." Hospital Course: Patient admitted for junctional bradycardia, hyperkalemia, and urosepsis causing altered mental status to ICU. Plastering Supervisor Dr. Abraham was consulted. Dr. Abraham consulted EP Dr. Boggs. Patient's home amiodarone was held. Dr. Boggs recommended evaluation for pacemaker insertion when patient became stabilized. In the ICU, patient was in septic shock due to UTI. Patient was on dopamine and Levophed to maintain her blood pressure. Patient became hypoxic and required intubation. Patient later extubated and deemed stable enough to downgrade from critical care. Patient has been on Zosyn 2.25 gm Q6H for the UTI since admission on 07/14/17. Blood and urine cultures negative to date. Per Dr. Abraham, Dr. Boggs wishes to see the patient in his office as an outpatient to evaluate the need for pacemaker. It will not be done on this admission due to current stable heart rate. Patient deemed stable for discharge per cardiology and primary teams. Patient to follow up with her primary care doctor and with the park manager. This is a summary of the hospital course. For more information, refer to the medical records. Discharge Exam - Head Exam Head Exam: ATRAUMATIC, NORMOCEPHALIC - Eye Exam Eye Exam: EOMI, PERRL - ENT Exam ENT Exam: Mucous Membranes Moist - Respiratory Exam Respiratory Exam: Clear to PA & Lateral, NORMAL BREATHING PATTERN. absent: Rales, Rhonchi, Wheezes - Cardiovascular Exam Cardiovascular Exam: Irregular Rhythm, +S1, +S2. absent: Bradycardia, Tachycardia - GI/Abdominal Exam GI & Abdominal Exam: Normal Bowel Sounds, Soft. absent: Tenderness - Extremities Exam Extremities exam: pedal pulses present - Neurological Exam Neurological exam: Alert Additional comments: oriented to person and time which is patient's baseline per daughter - Psychiatric Exam Psychiatric exam: Normal Affect, Normal Mood - Skin Skin Exam: Dry, Warm Discharge Plan - Follow Up Plan Condition: STABLE Disposition: HOME/ ROUTINE Instructions: Bradycardia (DC) Additional Instructions: Please stop taking the Amiodarone, Lisinopril, and Amlodipine until you see your primary physician and your park manager. Please see Dr. Boggs who works with Dr. Shrestha in 1 week to see if you need a pacemaker. Continue taking your Eliquis as prescribed. If there are any new or worsening symptoms, please return to the emergency room. Referrals: Sowmya Boggs MD [Staff Provider] - Elias Mcguire MD [Primary Care Provider] -
--- NOTE | 2017-07-21 20:04 | CP.PCM.PN ---
Subjective - Date & Time of Evaluation Date of Evaluation: 07/21/17 Time of Evaluation: 11:00 - Subjective Subjective: PGY-[address] Obrien Patient seen and examined at bedside. Patient denies acute complaints including fever, chills, chest pain, dyspnea, abdominal pain, dysuria. Patient anticipating rehab. Objective - Vital Signs/Intake and Output Vital Signs (last 24 hours): Temp Pulse Resp BP Pulse Ox 98.3 F 76 20 138/78 96 07/21/17 17:41 07/21/17 17:44 07/21/17 17:41 07/21/17 17:41 07/21/17 17:41 Intake and Output: 07/21/17 07/22/17 18:59 06:59 Intake Total 425 Output Total 200 Balance 225 - Medications Medications: Current Medications Famotidine (Pepcid) 20 mg IVP DAILY [facility] Last Admin: 07/21/17 09:57 Dose: 20 mg Heparin Sodium (Porcine) (Heparin) 5,000 units SC Q8 [facility] Last Admin: 07/21/17 14:05 Dose: 5,000 units Piperacillin Sod/Tazobactam Sod (Zosyn 2.25 Gm Iv Premix) 2.25 gm in 50 mls @ 100 mls/hr IVPB Q6 [facility] Last Admin: 07/21/17 19:26 Dose: 100 mls/hr - Labs Labs: 07/21/17 05:51 07/21/17 05:51 PT 14.7 SECONDS (9.7-12.2) H 07/13/17 23:26 INR 1.3 07/13/17 23:26 APTT 34 SECONDS (21-34) 07/13/17 23:26 - Constitutional Appears: No Acute Distress - Head Exam Head Exam: ATRAUMATIC, NORMOCEPHALIC - Eye Exam Eye Exam: EOMI, PERRL - ENT Exam ENT Exam: Mucous Membranes Moist - Respiratory Exam Respiratory Exam: Clear to Ausculation Bilateral. absent: Rales, Rhonchi, Wheezes - Cardiovascular Exam Cardiovascular Exam: Irregular Rhythm, +S1, +S2. absent: Bradycardia, Tachycardia - GI/Abdominal Exam GI & Abdominal Exam: Soft, Normal Bowel Sounds. absent: Tenderness - Extremities Exam Extremities Exam: absent: Calf Tenderness, Pedal Edema - Back Exam Back Exam: absent: CVA tenderness (L), CVA tenderness (R) - Neurological Exam Neurological Exam: Alert, Awake. absent: Oriented x3 (oriented to person and time which is patient's baseline per daughter) - Psychiatric Exam Psychiatric exam: Normal Affect, Normal Mood - Skin Skin Exam: Dry, Warm Assessment and Plan (1) Junctional bradycardia Status: Acute (2) Sick sinus syndrome Status: Acute (3) UTI (urinary tract infection) Status: Acute (4) Sepsis Status: Resolved (5) Septic shock Status: Resolved (6) Transaminitis Status: Resolved (7) Altered mental status Status: Resolved (8) Chest pain Status: Acute - Assessment and Plan (Free Text) Plan: Junctional bradycardia/Sick sinus syndrome Junctional Bradycardia with Hypotension on admission Likely secondary to sick-sinus syndrome Prior stress and ECHO were unremarkable ECHO from 06/2017 showed EF of 65-70% EP consulted by Dr. Abraham: Dr. Boggs for pacemaker placement. Per conversation with Dr. Abraham, Dr. Boggs requested to see the patient as an outpatient where he will evaluate the need for pacemaker placement. Dr. Boggs will not do it as an inpatient because her heart rate is currently normal. Per cardiology, patient may restart Eliquis on discharge.. UTI UA with 3+ Leukocyte esterase and WBCs noted Urosepsis on admission On Zosyn Cont to monitor Elevated LFTs Normalizing Likely secondarily due to Amiodarone which patient was previously on. On admission AST 375, ALT 269 Prophylactic measure DVT: Heparin 5000u SC Q8 GI: Pepcid 20 mg IV daily Management per Dr. Obrien Disposition: Awaiting rehab authorization from insurance company. Case DW Dr. Micah Ding PGY-1
--- NOTE | 2017-07-21 22:25 | CP.PCM.PN ---
Subjective - Date & Time of Evaluation Date of Evaluation: 07/21/17 Time of Evaluation: 07:30 - Subjective Subjective: Patient seen and evaluated Denies chest pain and dyspnea Comfortable Objective - Vital Signs/Intake and Output Vital Signs (last 24 hours): Temp Pulse Resp BP Pulse Ox 98.3 F 76 20 138/78 96 07/21/17 17:41 07/21/17 17:44 07/21/17 17:41 07/21/17 17:41 07/21/17 17:41 Intake and Output: 07/21/17 07/22/17 18:59 06:59 Intake Total 425 Output Total 200 Balance 225 - Medications Medications: Current Medications Famotidine (Pepcid) 20 mg IVP DAILY [facility] Last Admin: 07/21/17 09:57 Dose: 20 mg Heparin Sodium (Porcine) (Heparin) 5,000 units SC Q8 [facility] Last Admin: 07/21/17 21:26 Dose: 5,000 units Piperacillin Sod/Tazobactam Sod (Zosyn 2.25 Gm Iv Premix) 2.25 gm in 50 mls @ 100 mls/hr IVPB Q6 [facility] Last Admin: 07/21/17 19:26 Dose: 100 mls/hr - Labs Labs: 07/21/17 05:51 07/21/17 05:51 PT 14.7 SECONDS (9.7-12.2) H 07/13/17 23:26 INR 1.3 07/13/17 23:26 APTT 34 SECONDS (21-34) 07/13/17 23:26
[2017-07-22] MEDS: Piperacill/Tazo 2.25gm in Dex 2.25 GM/50 ML BAG IVPB SCH ×4 (00:03→17:48)
[2017-07-22 08:40] LABS: BASO % 0.3 % (0.0-2.0); EOS % 0.2 % (0.0-4.0); HEMATOCRIT 30.8 % (34.0-47.0); LYMPH # 1.5 K/uL (1.0-4.3); LYMPH % 25.8 % (20.0-40.0); MEAN CELL VOLUME 87.8 fL (81.0-99.0); MEAN CORPUSCULAR HEMOGLOBIN 29.1 pg (27.0-31.0); MEAN CORPUSCULAR HGB CONC 33.1 g/dL (33.0-37.0); MEAN PLATELET VOLUME 9.1 fL (7.2-11.7); MONO # 0.7 K/uL (0.0-0.8); MONO % 11.6 % (0.0-10.0); NRBC % 0.1 % (0.0-2.0); RED CELL DISTRIBUTION WIDTH 14.7 % (11.5-14.5); WHITE BLOOD COUNT 5.7 K/uL (4.8-10.8)
[2017-07-22 08:52] LABS: CHLORIDE 104 mmol/L (98-107); POTASSIUM 3.5 mmol/L (3.6-5.2); SODIUM 135 mmol/L (132-148)
[2017-07-22 08:53] LABS: AST/SGOT 28 U/L (14-36); BILIRUBIN,TOTAL 0.4 mg/dL (0.2-1.3); CARBON DIOXIDE 25 mmol/L (22-30); GFR AFRICAN-AMERICAN > 60; TOTAL PROTEIN 6.1 g/dL (6.3-8.3)
[2017-07-22 08:54] LABS: ALKALINE PHOSPHATASE 77 U/L (38-126); ALT/SGPT 57 U/L (9-52); BLOOD UREA NITROGEN 18 mg/dL (7-17); CALCIUM 8.3 mg/dl (8.6-10.4); GLUCOSE,RANDOM 85 mg/dL (65-105); MAGNESIUM 1.7 mg/dL (1.6-2.3); PHOSPHOROUS 3.2 mg/dL (2.5-4.5)
[2017-07-22] MEDS ORDERED: Potassium Chloride 20 mEq ER Tab PO ONE (09:53)
[2017-07-22] MEDS ORDERED: Benzocaine/Menthol (Cepacol) Lozenge MT PRN (14:42)
--- NOTE | 2017-07-22 15:18 | CP.PCM.PN ---
Subjective - Date & Time of Evaluation Date of Evaluation: 07/22/17 Time of Evaluation: 07:00 - Subjective Subjective: PGY-[address] Obrien Patient seen and examined at bedside. Patient denies fever, chills, chest pain, dyspnea, abdominal pain, dysuria. Patient anticipating rehab. Patient complaining of sore throat. Objective - Vital Signs/Intake and Output Vital Signs (last 24 hours): Temp Pulse Resp BP Pulse Ox 97.8 F 70 18 117/59 L 96 07/22/17 07:00 07/22/17 07:00 07/22/17 07:00 07/22/17 07:00 07/22/17 07:00 - Medications Medications: Current Medications Benzocaine/Menthol (Cepacol Sore Throat) 1 jayesh MT Q2H PRN PRN Reason: Sore Throat Famotidine (Pepcid) 20 mg PO DAILY [facility] Heparin Sodium (Porcine) (Heparin) 5,000 units SC Q8 [facility] Last Admin: 07/22/17 13:47 Dose: 5,000 units Piperacillin Sod/Tazobactam Sod (Zosyn 2.25 Gm Iv Premix) 2.25 gm in 50 mls @ 100 mls/hr IVPB Q6 [facility] Last Admin: 07/22/17 12:22 Dose: 100 mls/hr - Labs Labs: 07/22/17 08:21 07/22/17 08:21 PT 14.7 SECONDS (9.7-12.2) H 07/13/17 23:26 INR 1.3 07/13/17 23:26 APTT 34 SECONDS (21-34) 07/13/17 23:26 - Constitutional Appears: No Acute Distress - Head Exam Head Exam: ATRAUMATIC, NORMOCEPHALIC - Eye Exam Eye Exam: EOMI, PERRL - ENT Exam ENT Exam: Mucous Membranes Moist - Respiratory Exam Respiratory Exam: Clear to Ausculation Bilateral. absent: Rales, Rhonchi, Wheezes - Cardiovascular Exam Cardiovascular Exam: Irregular Rhythm, +S1, +S2 - GI/Abdominal Exam GI & Abdominal Exam: Soft, Normal Bowel Sounds. absent: Tenderness - Extremities Exam Extremities Exam: absent: Calf Tenderness, Pedal Edema - Neurological Exam Neurological Exam: Alert, Awake. absent: Oriented x3 (oriented to person and time which is patient's baseline per daughter) - Psychiatric Exam Psychiatric exam: Normal Affect, Normal Mood - Skin Skin Exam: Dry, Warm Assessment and Plan (1) Junctional bradycardia Status: Acute (2) Sick sinus syndrome Status: Acute (3) UTI (urinary tract infection) Status: Acute (4) Sepsis Status: Resolved (5) Septic shock Status: Resolved (6) Transaminitis Status: Resolved (7) Altered mental status Status: Resolved (8) Chest pain Status: Acute - Assessment and Plan (Free Text) Plan: Junctional bradycardia/Sick sinus syndrome Junctional Bradycardia with Hypotension on admission Likely secondary to sick-sinus syndrome Prior stress and ECHO were unremarkable ECHO from 06/2017 showed EF of 65-70% EP consulted by Dr. Abraham: Dr. Boggs for pacemaker placement. Per conversation with Dr. Abraham, Dr. Boggs requested to see the patient as an outpatient where he will evaluate the need for pacemaker placement. Dr. Boggs will not do it as an inpatient because her heart rate is currently normal. Per cardiology, patient may restart Eliquis on discharge.. UTI UA with 3+ Leukocyte esterase and WBCs noted Urosepsis on admission On Zosyn Cont to monitor Elevated LFTs Normalizing Likely secondarily due to Amiodarone which patient was previously on. On admission AST 375, ALT 269 Prophylactic measure DVT: Heparin 5000u SC Q8 GI: Pepcid 20 mg PO daily Management per Dr. Obrien Disposition: Awaiting rehab authorization from insurance company. Case DW Dr. Micah Ding PGY-1
--- NOTE | 2017-07-22 22:45 | CP.PCM.PN ---
Subjective - Date & Time of Evaluation Date of Evaluation: 07/22/17 Time of Evaluation: 11:45 - Subjective Subjective: Patient seen and evaluated Comfortable Denies chest pain and dyspnea Objective - Vital Signs/Intake and Output Vital Signs (last 24 hours): Temp Pulse Resp BP Pulse Ox 98 F 72 20 120/63 99 07/22/17 16:00 07/22/17 16:00 07/22/17 16:00 07/22/17 16:00 07/22/17 16:00 Intake and Output: 07/22/17 07/23/17 18:59 06:59 Intake Total 650 Balance 650 - Medications Medications: Current Medications Benzocaine/Menthol (Cepacol Sore Throat) 1 jayesh MT Q2H PRN PRN Reason: Sore Throat Famotidine (Pepcid) 20 mg PO DAILY [facility] Heparin Sodium (Porcine) (Heparin) 5,000 units SC Q8 [facility] Last Admin: 07/22/17 21:58 Dose: 5,000 units Piperacillin Sod/Tazobactam Sod (Zosyn 2.25 Gm Iv Premix) 2.25 gm in 50 mls @ 100 mls/hr IVPB Q6 [facility] Last Admin: 07/22/17 17:48 Dose: 100 mls/hr - Labs Labs: 07/22/17 08:21 07/22/17 08:21 PT 14.7 SECONDS (9.7-12.2) H 07/13/17 23:26 INR 1.3 07/13/17 23:26 APTT 34 SECONDS (21-34) 07/13/17 23:26
[2017-07-23] MEDS: Piperacill/Tazo 2.25gm in Dex 2.25 GM/50 ML BAG IVPB SCH ×3 (00:24→11:11)
[2017-07-23 08:15] LABS: BASO % 0.2 % (0.0-2.0); EOS % 0.2 % (0.0-4.0); HEMATOCRIT 31.4 % (34.0-47.0); LYMPH # 1.7 K/uL (1.0-4.3); MEAN CELL VOLUME 87.5 fL (81.0-99.0); MEAN CORPUSCULAR HEMOGLOBIN 29.2 pg (27.0-31.0); MEAN CORPUSCULAR HGB CONC 33.4 g/dL (33.0-37.0); MEAN PLATELET VOLUME 8.6 fL (7.2-11.7); MONO # 0.7 K/uL (0.0-0.8); MONO % 12.2 % (0.0-10.0); NRBC % 0.1 % (0.0-2.0); RED CELL DISTRIBUTION WIDTH 14.8 % (11.5-14.5); WHITE BLOOD COUNT 5.6 K/uL (4.8-10.8)
[2017-07-23 08:40] LABS: CHLORIDE 103 mmol/L (98-107)
[2017-07-23 08:41] LABS: POTASSIUM 3.8 mmol/L (3.6-5.2); SODIUM 138 mmol/L (132-148)
[2017-07-23 08:43] LABS: ALB/GLOB RATIO 0.9 (1.0-2.1); ALKALINE PHOSPHATASE 78 U/L (38-126); ALT/SGPT 65 U/L (9-52); AST/SGOT 31 U/L (14-36); BILIRUBIN,TOTAL 0.4 mg/dL (0.2-1.3); BLOOD UREA NITROGEN 15 mg/dL (7-17); CARBON DIOXIDE 26 mmol/L (22-30); GFR AFRICAN-AMERICAN > 60; TOTAL PROTEIN 6.8 g/dL (6.3-8.3)
[2017-07-23 08:44] LABS: CALCIUM 8.7 mg/dl (8.6-10.4); GLUCOSE,RANDOM 91 mg/dL (65-105); MAGNESIUM 1.9 mg/dL (1.6-2.3); PHOSPHOROUS 3.2 mg/dL (2.5-4.5)
--- NOTE | 2017-07-23 14:14 | CP.PCM.DIS ---
Provider - Provider Date of Admission: 07/14/17 00:50 Attending physician: Moshe Obrien Jr, MD Primary care physician: Elias Mcguire MD Consults: Dr. Abraham-cardiology Dr. Boggs-Electrophysiology Time Spent in preparation of Discharge (in minutes): 40 Diagnosis - Discharge Diagnosis (1) Junctional bradycardia Status: Acute (2) Sick sinus syndrome Status: Acute (3) UTI (urinary tract infection) Status: Acute (4) Sepsis Status: Resolved (5) Septic shock Status: Resolved (6) Transaminitis Status: Resolved (7) Altered mental status Status: Resolved (8) Chest pain Status: Acute Priority: High Hospital Course - Lab Results Lab Results: Micro Results 07/21/17 17:03 Naris MRSA Culture - Final MRSA NOT DETECTED 07/15/17 11:35 Blood-Venous Blood Culture - Final NO GROWTH AFTER 5 DAYS 07/15/17 11:35 Blood-Venous Gram Stain - Final TEST NOT PERFORMED 07/15/17 11:35 Blood-Venous Blood Culture - Final NO GROWTH AFTER 5 DAYS 07/15/17 11:35 Blood-Venous Gram Stain - Final TEST NOT PERFORMED 07/14/17 10:39 Stool Stool Culture - Final NO SALMONELLA, SHIGELLA OR CAMPYLOBACTER ISOLATED. 07/14/17 10:39 Stool Ova and Parasite Concentrate Exam - Final 07/15/17 11:36 Urine,Serrato Urine Culture - Final No Growth (<1,000 CFU/ML) 07/14/17 03:23 Nose MRSA Culture (Admit) - Final MRSA NOT DETECTED Most Recent Lab Values WBC 5.6 K/uL (4.8-10.8) 07/23/17 08:07 RBC 3.59 Mil/uL (3.80-5.20) L 07/23/17 08:07 Hgb 10.5 g/dL (11.0-16.0) L 07/23/17 08:07 Hct 31.4 % (34.0-47.0) L 07/23/17 08:07 MCV 87.5 fL (81.0-99.0) 07/23/17 08:07 MCH 29.2 pg (27.0-31.0) 07/23/17 08:07 MCHC 33.4 g/dL (33.0-37.0) 07/23/17 08:07 RDW 14.8 % (11.5-14.5) H 07/23/17 08:07 Plt Count 212 K/uL (130-400) 07/23/17 08:07 MPV 8.6 fL (7.2-11.7) 07/23/17 08:07 Neut % (Auto) 56.4 % (50.0-75.0) 07/23/17 08:07 Lymph % (Auto) 31.0 % (20.0-40.0) 07/23/17 08:07 Polk % (Auto) 12.2 % (0.0-10.0) H 07/23/17 08:07 Eos % (Auto) 0.2 % (0.0-4.0) 07/23/17 08:07 Baso % (Auto) 0.2 % (0.0-2.0) 07/23/17 08:07 Neut # 3.1 K/uL (1.8-7.0) 07/23/17 08:07 Lymph # 1.7 K/uL (1.0-4.3) 07/23/17 08:07 Polk # 0.7 K/uL (0.0-0.8) 07/23/17 08:07 Eos # 0.0 K/uL (0.0-0.7) 07/23/17 08:07 Baso # 0.0 K/uL (0.0-0.2) 07/23/17 08:07 Neutrophils % (Manual) 90 % (50-75) H 07/16/17 06:33 Band Neutrophils % 2 % (0-2) 07/16/17 06:33 Lymphocytes % (Manual) 6 % (20-40) L 07/16/17 06:33 Monocytes % (Manual) 2 % (0-10) 07/16/17 06:33 Platelet Estimate Normal (NORMAL) 07/16/17 06:33 Large Platelets Present 07/15/17 06:36 Hypochromasia (manual) Slight 07/16/17 06:33 Poikilocytosis (manual Slight 07/16/17 06:33 Anisocytosis (manual) Slight 07/16/17 06:33 Macrocytosis (manual) Slight 07/16/17 06:33 Target Cells Slight 07/16/17 06:33 Tear Drop Cells Slight 07/16/17 06:33 Julien Cells Slight 07/15/17 06:36 Smear Path Review Cancelled 07/20/17 06:09 PT 14.7 SECONDS (9.7-12.2) H 07/13/17 23:26 INR 1.3 07/13/17 23:26 APTT 34 SECONDS (21-34) 07/13/17 23:26 Puncture Site Rb 07/17/17 05:14 pCO2 39 mm/Hg (35-45) 07/17/17 05:14 pO2 108 mm/Hg (80-100) H 07/17/17 05:14 HCO3 29.0 mmol/L (21-28) H 07/17/17 05:14 ABG pH 7.48 (7.35-7.45) H 07/17/17 05:14 ABG Total CO2 30.2 mmol/L (22-28) H 07/17/17 05:14 ABG O2 Saturation 98.8 % (95-98) H 07/17/17 05:14 ABG Base Excess 5.2 mmol/L (-2.0-3.0) H 07/17/17 05:14 ABG Hemoglobin 10.9 g/dL (11.7-17.4) L 07/15/17 05:43 ABG Carboxyhemoglobin 1.3 % (0.5-1.5) 07/15/17 05:43 POC ABG HHb (Measured) 1.6 % (0.0-5.0) 07/15/17 05:43 ABG Methemoglobin 0.8 % (0.0-3.0) 07/15/17 05:43 Tsu Test Na 07/17/17 05:14 ABG Potassium 3.1 mmol/L (3.6-5.2) L 07/17/17 05:14 A-a O2 Difference 200.0 mm/Hg 07/17/17 05:14 Respiratory Index 1.9 07/17/17 05:14 Hgb O2 Saturation 96.2 % (95.0-98.0) 07/15/17 05:43 Sodium 144.0 mmol/l (132-148) 07/17/17 05:14 Chloride 111.0 mmol/L (98-107) H 07/17/17 05:14 Glucose 120 mg/dl (65-105) H 07/17/17 05:14 Lactate 0.8 mmol/L (0.7-2.1) 07/17/17 05:14 Liter Flow 5.0 07/14/17 06:05 Vent Mode Prvc 07/17/17 05:14 Mechanical Rate 14 07/17/17 05:14 FiO2 50.0 % 07/17/17 05:14 Tidal Volume 450 07/17/17 05:14 PEEP 5 07/17/17 05:14 Crit Value Called To Kayla du 07/14/17 20:10 Crit Value Called By Jackie flores 07/14/17 20:10 Crit Value Read Back Y 07/14/17 20:10 Blood Gas Notified Time 201407/14/17 20:10 Sodium 138 mmol/L (132-148) 07/23/17 08:07 Potassium 3.8 mmol/L (3.6-5.2) 07/23/17 08:07 Chloride 103 mmol/L (98-107) 07/23/17 08:07 Carbon Dioxide 26 mmol/L (22-30) 07/23/17 08:07 Anion Gap 14 (10-20) 07/23/17 08:07 BUN 15 mg/dL (7-17) 07/23/17 08:07 Creatinine 0.9 mg/dL (0.7-1.2) 07/23/17 08:07 Est GFR ( Amer) > 60 07/23/17 08:07 Est GFR (Non-Af Amer) 59 07/23/17 08:07 POC Glucose (mg/dL) 163 mg/dL (65-110) H 07/23/17 11:04 Random Glucose 91 mg/dL (65-105) 07/23/17 08:07 Lactic Acid 4.4 mmol/L (0.7-2.1) H* 07/14/17 11:10 Calcium 8.7 mg/dl (8.6-10.4) 07/23/17 08:07 Phosphorus 3.2 mg/dL (2.5-4.5) 07/23/17 08:07 Magnesium 1.9 mg/dL (1.6-2.3) 07/23/17 08:07 Total Bilirubin 0.4 mg/dL (0.2-1.3) 07/23/17 08:07 AST 31 U/L (14-36) 07/23/17 08:07 ALT 65 U/L (9-52) H 07/23/17 08:07 Alkaline Phosphatase 78 U/L (38-126) 07/23/17 08:07 Total Creatine Kinase 70 U/L (30-135) 07/23/17 01:01 CK-MB (Mass) 0.78 ng/mL (0.0-3.38) 07/23/17 01:01 Troponin I 0.0320 ng/mL (0.00-0.120) 07/14/17 06:26 Troponin I, Quant < 0.0120 ng/mL (0.00-0.120) 07/23/17 01:01 Total Protein 6.8 g/dL (6.3-8.3) 07/23/17 08:07 Albumin 3.2 g/dL (3.5-5.0) L 07/23/17 08:07 Globulin 3.6 gm/dL (2.2-3.9) 07/23/17 08:07 Albumin/Globulin Ratio 0.9 (1.0-2.1) L 07/23/17 08:07 Procalcitonin 0.58 NG/ML (0.19-0.49) H 07/14/17 11:10 Free T4 1.97 ng/dL (0.78-2.19) 07/14/17 02:38 Thyroxine (T4) 11.1 ug/dL (5.5-11.0) H 07/14/17 02:38 TSH 3rd Generation 10.30 mIU/L (0.46-4.68) H 07/13/17 23:38 Plasma Cortisol PM 51.7 ug/dL (1.7-14.1) H 07/14/17 12:21 Arterial Blood Potassium 3.1 mmol/L (3.6-5.2) L 07/17/17 05:14 Urine Color Nilsa (YELLOW) 07/14/17 11:46 Urine Clarity Hazy (Clear) 07/14/17 11:46 Urine pH 5.0 (5.0-8.0) 07/14/17 11:46 Ur Specific [place] > 1.060 (1.003-1.030) H 07/14/17 11:46 Urine Protein 1+ mg/dL (NEGATIVE) H 07/14/17 11:46 Urine Glucose (UA) Normal mg/dL (Normal) 07/14/17 11:46 Urine Ketones Trace mg/dL (NEGATIVE) 07/14/17 11:46 Urine Blood 3+ (NEGATIVE) H 07/14/17 11:46 Urine Nitrate Negative (NEGATIVE) 07/14/17 11:46 Urine Bilirubin Negative (NEGATIVE) 07/14/17 11:46 Urine Urobilinogen 2.0 mg/dL (0.2-1.0) H 07/14/17 11:46 Ur Leukocyte Esterase 3+ Noel/uL (Negative) H 07/14/17 11:46 Urine WBC (Auto) 84 /hpf (0-5) H 07/14/17 11:46 Urine RBC (Auto) 1138 /hpf (0-3) H 07/14/17 11:46 Ur Squamous Epith Cells 1 /hpf (0-5) 07/14/17 11:46 Urine Bacteria Rare (<OCC) 07/14/17 11:46 Stool Leukocytes, Qual Negative (NEGATIVE) 07/14/17 10:39 C. difficile Ag & Toxin Negative (NEGATIVE) 07/14/17 10:39 - Hospital Course Hospital Course: On admission: "86 yo F with a PMHx of A-Fib, HTN, HLD, Arthritis, Anemia, was brought by ambulance from home for mid-sternal pressure like chest pain radiating to the mid-back that began around 10pm last night. Patient with a change in mental status observed in ED thus history was collected from ED staff and prior documentation. Patient was found to be in A-Fib in the ambulance with HR in 160s however upon arrival she was in normal sinus rhythm with HR in 30s. In ED, she complained of thirst, was given water and then vomited shortly after. Upon chart review she presented to [facility] ED on 06/24/17 for chest pain, palpitations and rapid heart rate. An [employer] was called during that admission for chest pain and varying HR in 60-200s and patient was seen in A-Fib which converted to NSR on its own. A ROS was not obtainable." Hospital Course: Patient admitted for junctional bradycardia, hyperkalemia, and urosepsis causing altered mental status to ICU. Floor Worker [employer] Dr. Abraham was consulted. Dr. Abraham consulted EP Dr. Boggs. Patient's home amiodarone was held. Dr. Boggs recommended evaluation for pacemaker insertion when patient became stabilized. In the ICU, patient was in septic shock due to UTI. Patient was on dopamine and Levophed to maintain her blood pressure. Patient became hypoxic and required intubation. Patient later extubated and deemed stable enough to downgrade from critical care. Patient has been on Zosyn 2.25 gm Q6H for the UTI since admission on 07/14/17. Blood and urine cultures negative to date. Per Dr. Abraham, Dr. Boggs wishes to see the patient in his office as an outpatient to evaluate the need for pacemaker. It will not be done on this admission due to current stable heart rate. Patient was stable for discharge per cardiology and primary teams but was pending insurance authorization for [facility]. Once that was acquired, patient was discharged to [facility]. Patient to follow up with her primary care doctor and with the olericulturist. This is a summary of the hospital course. For more information, refer to the medical records. Discharge Exam - Head Exam Head Exam: ATRAUMATIC, NORMOCEPHALIC - Eye Exam Eye Exam: EOMI, PERRL - ENT Exam ENT Exam: Mucous Membranes Moist - Respiratory Exam Respiratory Exam: Clear to PA & Lateral. absent: Rales, Rhonchi, Wheezes - Cardiovascular Exam Cardiovascular Exam: Irregular Rhythm, +S1, +S2 - GI/Abdominal Exam GI & Abdominal Exam: Normal Bowel Sounds, Soft. absent: Tenderness - Extremities Exam Extremities exam: pedal pulses present - Neurological Exam Neurological exam: Alert Additional comments: oriented to person and time which is patient's baseline per daughter - Psychiatric Exam Psychiatric exam: Normal Affect, Normal Mood - Skin Skin Exam: Dry, Warm Discharge Plan - Follow Up Plan Condition: STABLE Disposition: REHAB FACILITY/REHAB UNIT Instructions: Heart Healthy Diet (DC), Hyperkalemia (DC), Bradycardia (DC), Altered Mental Status (GEN) Additional Instructions: Please stop taking the Amiodarone, Lisinopril, and Amlodipine until you see your primary physician and your olericulturist. Please see Dr. Boggs who works with Dr. Shrestha in 1 week to see if you need a pacemaker. Continue taking your Eliquis as prescribed. If there are any new or worsening symptoms, please return to the emergency room. Referrals: Sowmya Boggs MD [Staff Provider] - Elias Mcguire MD [Primary Care Provider] -
[2017-07-23 16:07] VITALS: BP 136/77; RESP 20; TEMP 98.4; O2SAT 98
[2017-07-23 16:51] VITALS: PULSE 77
== END 2017-07-23 18:30 | DRG 871 ==
LOC: SUPCPDRO 23:02 → C.ER 23:02 → C.9I 07-14 00:50 → C.6T 07-21 17:40
PROVIDERS: ADMIT Internal Medicine; ATTEND Internal Medicine
PROC: 5A1945Z Respiratory Ventilation, 24-96 Consecutive Hours (ICD-10-PCS; principal; 2017-07-14)
PROC: 05HM33Z Insertion of Infusion Device into Right Internal Jugular Vein, Percutaneous Approach (ICD-10-PCS; 2017-07-14)
PROC: 0BH17EZ Insertion of Endotracheal Airway into Trachea, Via Natural or Artificial Opening (ICD-10-PCS; 2017-07-14)
DX: A41.9 Sepsis, unspecified organism (principal); R65.21 Severe sepsis with septic shock; J96.91 Respiratory failure, unspecified with hypoxia; E87.2 Acidosis; N39.0 Urinary tract infection, site not specified; I48.0 Paroxysmal atrial fibrillation; I10 Essential (primary) hypertension; E78.00 Pure hypercholesterolemia, unspecified; E87.6 Hypokalemia; R41.82 Altered mental status, unspecified; T44.3X5A Adverse effect of other parasympatholytics [anticholinergics and antimuscarinics] and spasmolytics, initial encounter; E03.9 Hypothyroidism, unspecified; M19.90 Unspecified osteoarthritis, unspecified site; Z79.01 Long term (current) use of anticoagulants; R00.1 Bradycardia, unspecified; I49.5 Sick sinus syndrome

== ENCOUNTER 2017-09-09 15:40 | Emergency (ER) | payer MEDICARE, OTHER ==
--- NOTE | 2017-09-09 18:07 | C.PDOC ---
History Of Present Illness 87 year old female presents to ED for evaluation of intermittent chest discomfort associated with shortness of breath and intermittent tremors that she developed while laying down in bed last night. Discomfort lasted only a few minutes had has not recurred. She denies any associated palpitations or rapid hear beat. Pt states he felt better after placing garlic under her tongue. Denies fever, or any other associated symptoms at this time.Patient is scheduled to go to a shelter in 2 days. Time Seen by Provider: 09/09/17 17:44 Chief Complaint (Nursing): Weakness/Neurological Deficit History Per: Patient History/Exam Limitations: no limitations Onset/Duration Of Symptoms: Days Current Symptoms Are (Timing): Still Present Recent travel outside of the [place]: No Additional History Per: Patient Past Medical History Reviewed: Historical Data, Nursing Documentation, Vital Signs Vital Signs: Last Vital Signs Temp 98.0 F 09/09/17 19:57 Pulse 73 09/09/17 19:57 Resp 16 09/09/17 19:57 BP 124/65 09/09/17 19:57 Pulse Ox 100 09/09/17 21:45 - Medical History PMH: Arthritis, HTN, Hypercholesterolemia Denies: Chronic Kidney Disease - Habit Labs Procedures INSERT INFUSION DEV IN R INT JUGULAR VEIN, PERC (07/14/17) INSERTION OF ENDOTRACHEAL AIRWAY INTO TRACHEA, VIA OPENING (07/14/17) RESPIRATORY VENTILATION, 24-96 CONSECUTIVE HOURS (07/14/17) Family History: States: Unknown Family Hx - Social History Hx Alcohol Use: No Hx Substance Use: No - Immunization History Hx Tetanus Toxoid Vaccination: No Hx Influenza Vaccination: No Hx Pneumococcal Vaccination: No Review Of Systems Except As Marked, All Systems Reviewed And Found Negative. Constitutional: Negative for: Fever, Chills Cardiovascular: Negative for: Chest Pain, Palpitations Respiratory: Negative for: Shortness of Breath Physical Exam - Physical Exam Appears: Non-toxic, No Acute Distress Skin: Normal Color, Warm, Dry Head: Atraumatic, Normacephalic Eye(s): bilateral: Normal Inspection Oral Mucosa: Moist Neck: Normal ROM, Supple Chest: Symmetrical Cardiovascular: Rhythm Regular, No Murmur Respiratory: Normal Breath Sounds, No Rales, No Rhonchi, No Wheezing Gastrointestinal/Abdominal: Soft, No Tenderness Back: No CVA Tenderness Extremity: Normal ROM Neurological/Psych: Oriented x3, Normal Speech ED Course And Treatment - Laboratory Results Result Diagrams: 09/09/17 18:22 09/09/17 18:22 Lab Interpretation: No Acute Changes ECG: Interpreted By Me ECG Rhythm: Sinus Rhythm (with left axis deviation.) O2 Sat by Pulse Oximetry: 100 Pulse Ox Interpretation: Normal - Radiology CXR: Interpreted by Me CXR Interpretation: Yes: No Acute Disease Progress Note: Blood work, EKG, CXR ordered and reviewed. Reevaluation Time: 21:44 Reassessment Condition: Improved (Patient remains comfortable. had a mild headache that is relieved with Tylenol.) Disposition Counseled Patient/Family Regarding: Studies Performed, Diagnosis, Need For Followup, Rx Given - Disposition Referrals: Elias Mcguire MD [Medical Doctor] - Disposition: HOME/ ROUTINE Disposition Time: 21:54 Condition: STABLE Instructions: Chest Pain (ED) Forms: [place] (American) Print Language: AMERICAN - Clinical Impression Clinical Impression: Chest pain - Scribe Statement The provider has reviewed the documentation as recorded by the Scribnisha Long All medical record entries made by the Scribe were at my direction and personally dictated by me. I have reviewed the chart and agree that the record accurately reflects my personal performance of the history, physical exam, medical decision making, and the department course for this patient. I have also personally directed, reviewed, and agree with the discharge instructions and disposition.
[2017-09-09 18:42] LABS: ALB/GLOB RATIO 1.1 (1.0-2.1); ALKALINE PHOSPHATASE 88 U/L (38-126); ALT/SGPT 33 U/L (9-52); AST/SGOT 33 U/L (14-36); BILIRUBIN,TOTAL 0.7 mg/dL (0.2-1.3); BLOOD UREA NITROGEN 13 mg/dL (7-17); CALCIUM 9.2 mg/dl (8.6-10.4); CARBON DIOXIDE 33 mmol/L (22-30); CHLORIDE 99 mmol/L (98-107); EOS % 0.1 % (0.0-4.0); GFR AFRICAN-AMERICAN > 60; GLUCOSE,RANDOM 85 mg/dL (65-105); HEMATOCRIT 37.4 % (34.0-47.0); LYMPH % 42.5 % (20.0-40.0); MEAN CELL VOLUME 88.7 fL (81.0-99.0); MEAN CORPUSCULAR HEMOGLOBIN 29.2 pg (27.0-31.0); MEAN CORPUSCULAR HGB CONC 32.9 g/dL (33.0-37.0); MEAN PLATELET VOLUME 8.4 fL (7.2-11.7); MONO # 0.4 K/uL (0.0-0.8); MONO % 8.4 % (0.0-10.0); POTASSIUM 3.8 mmol/L (3.6-5.2); RED CELL DISTRIBUTION WIDTH 14.3 % (11.5-14.5); SODIUM 137 mmol/L (132-148); TOTAL PROTEIN 7.7 g/dL (6.3-8.3); WHITE BLOOD COUNT 4.7 K/uL (4.8-10.8)
[2017-09-09 21:03] LABS: RBC URINE 2 /hpf (0-3); TRANSITIONAL EPITHIAL < 1 /hpf (0-3); URINE BACTERIA RARE (<OCC); URINE BILIRUBIN NEGATIVE (NEGATIVE); URINE BLOOD NEGATIVE (NEGATIVE); URINE COLOR Yellow (YELLOW); URINE GLUCOSE (UA) NORMAL (Normal); URINE KETONE NEGATIVE (NEGATIVE); URINE LEUKOCYTE ESTERASE NEG Leu/uL (Negative); URINE PROTEIN NEGATIVE (NEGATIVE); URINE UROBILINOGEN NORMAL mg/dL (0.2-1.0); WBC URINE 2 /hpf (0-5)
[2017-09-09 22:04] VITALS: BP 164/85; PULSE 76; RESP 20; TEMP 97.5; O2SAT 98
--- NOTE | 2017-09-10 08:34 | RAD ---
PROCEDURE: CHEST RADIOGRAPH, 1 VIEW HISTORY: chest pain COMPARISON: 07/18/2017 FINDINGS: LUNGS: Clear. PLEURA: No pneumothorax or pleural fluid seen. CARDIOVASCULAR: Normal. OSSEOUS STRUCTURES: No significant abnormalities. VISUALIZED UPPER ABDOMEN: Normal. OTHER FINDINGS: None. IMPRESSION: No active disease.
--- NOTE | 2017-09-10 21:47 | CARD ---
APPROVED REPORT EKG Measurement Heart [id number] <Conclusion> Normal sinus rhythm Left axis deviation Abnormal ECG
== END 2017-09-09 22:33 | disposition home or self-care (01) ==
LOC: C.ER 15:40
DX: R07.9 Chest pain, unspecified (principal)

== ENCOUNTER 2018-12-06 18:15 | Emergency (ER) | payer MEDICARE, MEDICAID ==
--- NOTE | 2018-12-06 19:14 | C.PDOC ---
History Of Present Illness Patient presents to the ER with SOB over the last couple of days. She reports some palpitations but not at this time. Currently speaking in complete sentences. Denies chest pain, fever, chills, nausea, or vomiting. Time Seen by Provider: 12/06/18 19:13 Chief Complaint (Nursing): Shortness Of Breath History Per: Patient History/Exam Limitations: no limitations Onset/Duration Of Symptoms: Days Current Symptoms Are (Timing): Still Present Initiating Event: Other (Not known) Current Respiratory Medications: See Home Med List Severity: Moderate Pain Scale Rating Of: 4 Associated Symptoms: Other (Some palpitations but not now. No nausea or vomiting.). denies: Fever, Chills, Chest Pain Reports Recently: Treated By A Physician Recent travel outside of the [place]: No Additional History Per: Family Past Medical History Reviewed: Historical Data, Nursing Documentation, Vital Signs Vital Signs: Last Vital Signs Temp 97.5 F L 12/06/18 18:18 Pulse 81 12/06/18 18:18 Resp 18 12/06/18 18:18 BP 127/69 12/06/18 18:18 Pulse Ox 100 12/06/18 18:18 - Medical History PMH: Arthritis, HTN, Hypercholesterolemia Denies: Chronic Kidney Disease - [facility] Procedures INSERT INFUSION DEV IN R INT JUGULAR VEIN, PERC (07/14/17) INSERTION OF ENDOTRACHEAL AIRWAY INTO TRACHEA, VIA OPENING (07/14/17) RESPIRATORY VENTILATION, 24-96 CONSECUTIVE HOURS (07/14/17) Family History: States: No Known Family Hx - Social History Hx Alcohol Use: No Hx Substance Use: No - Immunization History Hx Tetanus Toxoid Vaccination: No Hx Influenza Vaccination: No Hx Pneumococcal Vaccination: No Review Of Systems Constitutional: Negative for: Fever, Chills Cardiovascular: Positive for: Palpitations. Negative for: Chest Pain Respiratory: Positive for: Shortness of Breath. Negative for: Cough Gastrointestinal: Negative for: Nausea, Vomiting Musculoskeletal: Negative for: Back Pain Skin: Negative for: Rash Neurological: Negative for: Weakness, Numbness Psych: Positive for: Anxiety Physical Exam - Physical Exam Appears: Non-toxic Skin: Warm, Dry Head: Normacephalic Oral Mucosa: Moist Neck: Trachea Midline, Supple Chest: Symmetrical, No Tenderness Cardiovascular: Rhythm Regular Respiratory: No Rales, Rhonchi (Scattered), No Wheezing Extremity: Pedal Edema (Trace) Neurological/Psych: Oriented x3 ED Course And Treatment - Laboratory Results Result Diagrams: 12/06/18 19:33 12/06/18 19:33 ECG: Interpreted By Me, Viewed By Me ECG Rhythm: Sinus Rhythm (60), Nonspecific Changes O2 Sat by Pulse Oximetry: 100 (Room air) Pulse Ox Interpretation: Normal - Radiology CXR: Interpreted by Me, Viewed By Me CXR Interpretation: Yes: Other (unchanged from 09/09/17). No: Infiltrates, Pnemothorax Progress Note: EKG, blood work, CXR, flu swab, and urinalysis ordered. Reevaluation Time: 21:15 Reassessment Condition: Improved Disposition Counseled Patient/Family Regarding: Studies Performed, Diagnosis, Need For Followup - Disposition Referrals: [facility] [Outside] [facility] [Outside] Disposition: HOME/ ROUTINE Disposition Time: 19:14 Condition: FAIR Additional Instructions: Por favor regrese si los sntomas recurren. Instructions: Anxiety, Adult (DC) Forms: [facility] (Belarusian) Print Language: IRISH - Clinical Impression Clinical Impression: Anxiety - Scribe Statement The provider has reviewed the documentation as recorded by the Scribe Rafa Whitfield All medical record entries made by the Scribe were at my direction and personally dictated by me. I have reviewed the chart and agree that the record accurately reflects my personal performance of the history, physical exam, medical decision making, and the department course for this patient. I have also personally directed, reviewed, and agree with the discharge instructions and disposition.
[2018-12-06 19:38] LABS: BASO % 0.8 % (0.0-2.0); EOS % 0.2 % (0.0-4.0); HEMOGLOBIN 12.4 g/dL (11.0-16.0); LYMPH # 1.9 K/uL (1.0-4.3); MEAN CELL VOLUME 88.4 fL (81.0-99.0); MEAN CORPUSCULAR HEMOGLOBIN 28.3 pg (27.0-31.0); MONO # 0.3 K/uL (0.0-0.8); MONO % 6.5 % (0.0-10.0); NEUT # 2.3 K/uL (1.8-7.0); NEUT % 50.5 % (50.0-75.0); NRBC % 0.1 % (0.0-2.0); RBC 4.39 Mil/uL (3.80-5.20); RED CELL DISTRIBUTION WIDTH 14.4 % (11.5-14.5); WHITE BLOOD COUNT 4.6 K/uL (4.8-10.8)
[2018-12-06 19:45] LABS: SQUAMOUS EPITHIAL < 1 /hpf (0-5); URINE BACTERIA OCC (<OCC); URINE BILIRUBIN NEGATIVE (NEGATIVE); URINE BLOOD NEGATIVE (NEGATIVE); URINE CLARITY Clear (Clear); URINE COLOR Yellow (YELLOW); URINE GLUCOSE (UA) NORMAL (Normal); URINE LEUKOCYTE ESTERASE TRACE Leu/uL (Negative); URINE PROTEIN 1+ mg/dL (NEGATIVE); URINE UROBILINOGEN NORMAL mg/dL (0.2-1.0)
[2018-12-06 19:51] LABS: INR 1.2; PROTHROMBIN TIME 13.1 SECONDS (9.7-12.2)
[2018-12-06 19:58] LABS: ALB/GLOB RATIO 1.3 (1.0-2.1); ALBUMIN 3.9 g/dL (3.5-5.0); ALT/SGPT 26 U/L (9-52); AST/SGOT 38 U/L (14-36); BLOOD UREA NITROGEN 21 mg/dL (7-17); CALCIUM 8.9 mg/dl (8.6-10.4); GFR NON-AFRICAN AMERICAN > 60
[2018-12-06 20:06] LABS: B-TYPE NATRIURETIC PEPTIDE 139 pg/mL (0-900)
[2018-12-06 20:45] VITALS: RESP 24
[2018-12-06 21:18] VITALS: O2SAT 100
[2018-12-06 21:24] VITALS: BP 130/80; PULSE 80; TEMP 97.9
--- NOTE | 2018-12-06 22:34 | C.PDOC ---
Time Seen by Provider: 12/06/18 19:13 Chief Complaint (Nursing): Shortness Of Breath Past Medical History Vital Signs: Last Vital Signs Temp 97.5 F L 12/06/18 18:18 Pulse 81 12/06/18 18:18 Resp 18 12/06/18 18:18 BP 127/69 12/06/18 18:18 Pulse Ox 100 12/06/18 18:18 - Medical History PMH: Arthritis, HTN, Hypercholesterolemia Denies: Chronic Kidney Disease - [facility] Procedures INSERT INFUSION DEV IN R INT JUGULAR VEIN, PERC (07/14/17) INSERTION OF ENDOTRACHEAL AIRWAY INTO TRACHEA, VIA OPENING (07/14/17) RESPIRATORY VENTILATION, 24-96 CONSECUTIVE HOURS (07/14/17) Family History: States: Unknown Family Hx - Social History Hx Alcohol Use: No Hx Substance Use: No - Immunization History Hx Tetanus Toxoid Vaccination: No Hx Influenza Vaccination: No Hx Pneumococcal Vaccination: No ED Course And Treatment O2 Sat by Pulse Oximetry: 100 Disposition - Disposition
--- NOTE | 2018-12-07 10:28 | RAD ---
Chest x-ray single frontal view History: Shortness of breath. Comparison: 09/09/2017 Findings: Mild venous congestion. Right hilar prominence. Persistent rounded opacity at the right paratracheal region which may represent prominent vasculature. This is grossly unchanged since the prior study. Tortuous ectatic aorta. Top normal heart size. Degenerative changes in the spine and shoulders. Impression: Mild venous congestion. Right hilar prominence. Persistent rounded opacity at the right paratracheal region which may represent prominent vasculature. This is grossly unchanged since the prior study. Tortuous ectatic aorta. Top normal heart size. Degenerative changes in the spine and shoulders.
--- NOTE | 2018-12-07 19:49 | CARD ---
APPROVED REPORT Date of service: 12/06/2018 EKG Measurement Heart [id number] <Conclusion> Normal sinus rhythm Left anterior fascicular block Abnormal ECG
== END 2018-12-06 21:22 | disposition home or self-care (01) ==
LOC: C.ER 18:15
DX: F41.9 Anxiety disorder, unspecified (principal)

== ENCOUNTER 2018-12-08 18:08 | Inpatient (IN) | payer MEDICARE, MEDICAID, OTHER ==
[2018-12-08 18:11] VITALS: BMI 29.2
[2018-12-08 19:47] LABS: BASO % 0.6 % (0.0-2.0); EOS % 0.5 % (0.0-4.0); HEMOGLOBIN 12.9 g/dL (11.0-16.0); LYMPH # 1.5 K/uL (1.0-4.3); LYMPH % 25.2 % (20.0-40.0); MEAN CELL VOLUME 88.4 fL (81.0-99.0); MEAN CORPUSCULAR HEMOGLOBIN 27.9 pg (27.0-31.0); MEAN CORPUSCULAR HGB CONC 31.6 g/dL (33.0-37.0); MEAN PLATELET VOLUME 8.6 fL (7.2-11.7); MONO # 0.5 K/uL (0.0-0.8); MONO % 8.5 % (0.0-10.0); NEUT % 65.2 % (50.0-75.0); RBC 4.61 Mil/uL (3.80-5.20); RED CELL DISTRIBUTION WIDTH 14.3 % (11.5-14.5); WHITE BLOOD COUNT 6.1 K/uL (4.8-10.8)
[2018-12-08 20:08] LABS: ALB/GLOB RATIO 1.4 (1.0-2.1); ALBUMIN 4.3 g/dL (3.5-5.0); ALT/SGPT 24 U/L (9-52); AST/SGOT 36 U/L (14-36); BLOOD UREA NITROGEN 17 mg/dL (7-17); CALCIUM 9.4 mg/dl (8.6-10.4); GFR NON-AFRICAN AMERICAN 59
--- NOTE | 2018-12-08 20:11 | C.PDOC ---
History Of Present Illness 88 year old female presents to the ED status post being called to return to the ED for positive blood culture. Patient was seen in the ED 2 days ago for respiratory infection. Denies any physical complaints. Chief Complaint (Nursing): Abnormal Labs History Per: Patient History/Exam Limitations: no limitations Current Symptoms Are (Timing): Still Present Reports Recently: Seen In ED Additional History Per: Prior Records Past Medical History Reviewed: Historical Data, Nursing Documentation, Vital Signs Vital Signs: Last Vital Signs Temp 98.4 F 12/08/18 18:12 Pulse 77 12/08/18 18:12 Resp 18 12/08/18 18:12 BP 135/77 12/08/18 18:12 Pulse Ox 97 12/08/18 18:12 - Medical History PMH: Arthritis, HTN, Hypercholesterolemia Denies: Chronic Kidney Disease Other Surgeries: Hx of surgeries - [facility] Procedures INSERT INFUSION DEV IN R INT JUGULAR VEIN, PERC (07/14/17) INSERTION OF ENDOTRACHEAL AIRWAY INTO TRACHEA, VIA OPENING (07/14/17) RESPIRATORY VENTILATION, 24-96 CONSECUTIVE HOURS (07/14/17) Family History: States: No Known Family Hx - Social History Hx Alcohol Use: No Hx Substance Use: No - Immunization History Hx Tetanus Toxoid Vaccination: No Hx Influenza Vaccination: No Hx Pneumococcal Vaccination: No Review Of Systems Except As Marked, All Systems Reviewed And Found Negative. Constitutional: Negative for: Fever, Chills Cardiovascular: Negative for: Chest Pain Respiratory: Negative for: Shortness of Breath Physical Exam - Physical Exam Appears: Non-toxic, No Acute Distress, Other (afebrile ) Skin: Warm, Dry Head: Normacephalic Eye(s): bilateral: Normal Inspection Nose: Normal Oral Mucosa: Moist Neck: Supple Chest: Symmetrical Cardiovascular: Rhythm Regular Respiratory: Normal Breath Sounds, No Rales, No Rhonchi, No Wheezing Neurological/Psych: Oriented x3, Normal Speech Gait: Steady ED Course And Treatment - Laboratory Results Result Diagrams: 12/08/18 19:41 12/08/18 19:41 ECG: Interpreted By Me, Viewed By Me ECG Rhythm: Sinus Rhythm ECG Interpretation: Normal, No Acute Changes Interpretation Of ECG: NSR, normal tracings Rate From EC O2 Sat by Pulse Oximetry: 97 (RA) Pulse Ox Interpretation: Normal - Radiology CXR: Interpreted by Me, Viewed By Me CXR Interpretation: Yes: No Acute Disease, Other (normal chest film). No: Infiltrates Medical Decision Making Medical Decision Making: Plan - CXR - Blood cultures - Bloodwork - Spoke with REYNALDO Silveira. Suggests to repeat exams. On reevaluation, patient remains asymptomatic. Denies any pain or shortness of breath. Patient has a positive blood culture and one negative blood culture. Disposition Discussed With : Darlyn Shaw Doctor Will See Patient In The: Hospital Counseled Patient/Family Regarding: Diagnosis - Disposition Disposition: HOSPITALIZED Disposition Time: 23:08 Condition: STABLE Forms: [employer] (Australian) - POA Present On Arrival: None - Clinical Impression Clinical Impression: Septicemia - Scribe Statement The provider has reviewed the documentation as recorded by the Scribe Cyndee Caceres All medical record entries made by the Scribe were at my direction and personally dictated by me. I have reviewed the chart and agree that the record accurately reflects my personal performance of the history, physical exam, medical decision making, and the department course for this patient. I have also personally directed, reviewed, and agree with the discharge instructions and disposition.
[2018-12-08 21:47] LABS: SQUAMOUS EPITHIAL < 1 /hpf (0-5); URINE BILIRUBIN NEGATIVE (NEGATIVE); URINE BLOOD NEGATIVE (NEGATIVE); URINE CLARITY Clear (Clear); URINE COLOR Yellow (YELLOW); URINE GLUCOSE (UA) NORMAL (Normal); URINE LEUKOCYTE ESTERASE NEG Leu/uL (Negative); URINE PROTEIN NEGATIVE (NEGATIVE); URINE UROBILINOGEN NORMAL mg/dL (0.2-1.0)
[2018-12-09 08:09] LABS: BASO % 0.4 % (0.0-2.0); EOS % 0.2 % (0.0-4.0); HEMOGLOBIN 11.9 g/dL (11.0-16.0); LYMPH # 1.7 K/uL (1.0-4.3); LYMPH % 30.9 % (20.0-40.0); MEAN CELL VOLUME 89.9 fL (81.0-99.0); MEAN CORPUSCULAR HEMOGLOBIN 28.8 pg (27.0-31.0); MEAN PLATELET VOLUME 9.2 fL (7.2-11.7); MONO # 0.5 K/uL (0.0-0.8); MONO % 9.5 % (0.0-10.0); NEUT # 3.2 K/uL (1.8-7.0); NRBC % 0.1 % (0.0-2.0); RBC 4.14 Mil/uL (3.80-5.20); RED CELL DISTRIBUTION WIDTH 14.7 % (11.5-14.5); WHITE BLOOD COUNT 5.4 K/uL (4.8-10.8)
[2018-12-09 08:22] LABS: ALB/GLOB RATIO 1.5 (1.0-2.1); ALBUMIN 3.8 g/dL (3.5-5.0); ALT/SGPT 27 U/L (9-52); AST/SGOT 36 U/L (14-36); BLOOD UREA NITROGEN 17 mg/dL (7-17); CALCIUM 9.2 mg/dl (8.6-10.4); GFR NON-AFRICAN AMERICAN > 60
--- NOTE | 2018-12-09 09:19 | RAD ---
Date of service: 12/08/2018 HISTORY: URI COMPARISON: 12/06/2018 and 07/18/2017 TECHNIQUE: Chest PA and lateral FINDINGS: LUNGS: No active pulmonary disease. PLEURA: No significant pleural effusion identified. No pneumothorax apparent. CARDIOVASCULAR: No aortic atherosclerotic calcification present. Borderline cardiomegaly-similar No significant appearing pulmonary venous congestion. The right paratracheal soft tissue density without tracheal compression or deviation is similar-vascular ectasia here inferred. No change since 2016. OSSEOUS STRUCTURES: Thoraco lumbar spondylosis. Bilateral shoulder arthrosis. VISUALIZED UPPER ABDOMEN: Normal. OTHER FINDINGS: None. IMPRESSION: No pulmonary infiltrate. No interval pathology noted. Other findings as above.
--- NOTE | 2018-12-09 14:33 | CP.PCM.HP ---
History of Present Illness - History of Present Illness History of Present Illness: COMPREHENSIVE CONSULT HPI 2 days prior to admission patient presented to [facility] emergency room complaining of upper respiratory tract infection. The detailed history is not available at this stage but apparently blood cultures were done which was reported after 48 hours to be positive for gram-positive cocci patient was called back for readmission currently patient is not complaining of any upper respiratory tract infection and there is no definite history with the patient was given antibiotics Patient has no dysuria no nausea or vomiting fever or chills PAST HIST. History of hypertension and anxiety PERSONAL HIST: Smoking. N Alcohol. N Allergy N Travel_- . FAMILY HIST : ROS : Constitutional: Negative for weight change, chills, night sweats, fatigue and usage of assist device. Eyes: Negative for redness, swelling, itching, discharge, vision changes, blurry vision, double vision, glaucoma, cataracts, Ears: Negative for hearing loss, ringing, , tinnitus, vertigo Nose: Negative for rhinorrhea, stuffiness, sniffing, itching, postnasal drip, discoloration, nasal congestion and epistaxis. Throat: Negative for throat clearing, sore throat, hoarseness, difficulty swallowing and difficulty speaking. Respiratory: Negative for cough, , sputum production, chest tightness, wheezing, pleuritic chest pain ,daytime somnolence, chronic cough, hemoptysis, snoring at night, Cardiovascular: Negative for chest pain, palpitations, orthopnea, PND, Edema of legs, leg cramps, angina, claudication, , irregular heartbeat, Neurology: Negative for irritability, muscle weakness, numbness and tingling, seizures, tremors, migraines, slurred speech, syncope, memory loss, mood changes, recurrent headaches Gastrointestinal: Negative for difficulty swallowing, diarrhea, constipation, black stools, rectal bleeding, nausea, flatulence, reflux, poor appetite, changes in bowel habits, abdominal pain Genitourinary: Negative for frequent urination, hematuria, discharge, incontinence, urinary retention, frequent UTI, Psychiatric: Negative for depression, anxiety/panic, suicidal tendencies, Musculoskeletal: Negative for swollen joints, back pain, , neck pain, morning stiffness of joints, . Skin: Negative for rash, ulcers, itching, dry skin and pigmented lesions. P/E: Constitutional: Appears stated age and in no apparent distress. Head: Normocephalic. Ears: External ear canals patent without inflammation. Tympanic membranes intact with normal light reflex and landmark. Eyes: Pupils are central, bilaterally equal, symmetrical and reacts to light with normal movements and no icterus or pallor. Nose: External nares are patent. Mucosa is pink Mouth-Throat: Good general appearance and condition. No post-pharyngeal/oropharyngeal erythema and tonsillar hypertrophy. Good dental hygiene. Neck-Lymphatic: Neck is supple with normal ROM, no thyromegaly, lymph nodes or masses. JVD is normal with no carotid bruit. Lungs: Clear to percussion and auscultation with bilateral normal air entry. Cardiovascular: S1 and S2 are normal with no murmurs, gallops and rub. GI Exam: No hepatomegaly. Abdomen is soft and non-tender. No Organomegaly , masses or hernias are evident and bowel sounds are normal and active. Neurology: Higher function and all cranial nerves intact, with no gross motor or sensory deficit. Superficial and deep reflexes are normal with downwards planters. No cerebellar deficit with normal gait. Musculoskeletal: No tender spots with normal curvature of the spine with no swelling or restricted ROM of the small and large joints. Extremities: Homans sign absent. Intact pulses with no pitting edema, calf tenderness or skin color changes. Skin: No rash, eruptions or abnormal skin pigmentation LAB/RADIOLOGY: ASSESMENT : Positive blood culture with no focus of infection unclear asepsis Hypertension PLAN: Plan repeat more blood cultures ID evaluation and empiric IV antibiotic Present on Admission - Present on Admission Any Indicators Present on Admission: No Past Patient History - Past Medical History & Family History Past Medical History?: Yes - Past Social History Smoking Status: Never Smoked - CARDIAC Hx Hypercholesterolemia: Yes Hx Hypertension: Yes - PULMONARY Hx Respiratory Disorders: No - NEUROLOGICAL Hx Neurological Disorder: No - HEENT Hx HEENT Problems: No Other/Comment: occular implant - RENAL Hx Chronic Kidney Disease: No - ENDOCRINE/METABOLIC Hx Endocrine Disorders: No - HEMATOLOGICAL/ONCOLOGICAL Hx Blood Disorders: No - INTEGUMENTARY Hx Dermatological Problems: No - MUSCULOSKELETAL/RHEUMATOLOGICAL Hx Arthritis: Yes - GASTROINTESTINAL Hx Gastrointestinal Disorders: No - GENITOURINARY/GYNECOLOGICAL Hx Genitourinary Disorders: No - PSYCHIATRIC Hx Substance Use: No - SURGICAL HISTORY Hx Surgeries: Yes Hx Hysterectomy: No Hx Tubal Ligation: Yes Other/Comment: "eye surgery" "occular implant" - ANESTHESIA Hx Anesthesia: Yes Hx Anesthesia Reactions: No Hx Malignant Hyperthermia: No Meds Allergies/Adverse Reactions: Allergies Allergy/AdvReac Type Severity Reaction Status Date / Time soy Allergy Mild RASH Verified 12/08/18 18:10 Results - Vital Signs Recent Vital Signs: Last Vital Signs Temp 97.6 F 12/09/18 08:06 Pulse 82 12/09/18 08:06 Resp 20 12/09/18 08:06 BP 150/85 12/09/18 08:06 Pulse Ox 97 12/09/18 08:06 - Labs Result Diagrams: 12/09/18 07:50 12/09/18 07:50 Labs: Laboratory Results - last 24 hr 12/08/18 12/08/18 12/08/18 19:41 19:41 21:32 WBC 6.1 RBC 4.61 Hgb 12.9 Hct 40.7 MCV 88.4 MCH 27.9 MCHC 31.6 L RDW 14.3 Plt Count 240 MPV 8.6 Neut % (Auto) 65.2 Lymph % (Auto) 25.2 [place] % (Auto) 8.5 Eos % (Auto) 0.5 Baso % (Auto) 0.6 Neut # (Auto) 4.0 Lymph # (Auto) 1.5 [place] # (Auto) 0.5 Eos # (Auto) 0.0 Baso # (Auto) 0.0 Sodium 142 Potassium 4.0 Chloride 103 Carbon Dioxide 31 H Anion Gap 13 BUN 17 Creatinine 0.9 Est GFR ( Amer) > 60 Est GFR (Non-Af Amer) 59 Random Glucose 118 H Calcium 9.4 Total Bilirubin 0.2 AST 36 ALT 24 Alkaline Phosphatase 83 Total Protein 7.4 Albumin 4.3 Globulin 3.1 Albumin/Globulin Ratio 1.4 Urine Color Yellow Urine Clarity Clear Urine pH 7.0 Ur Specific [place] 1.017 Urine Protein Negative Urine Glucose (UA) Normal Urine Ketones Negative Urine Blood Negative Urine Nitrate Negative Urine Bilirubin Negative Urine Urobilinogen Normal Ur Leukocyte Esterase Neg Urine WBC (Auto) 2 Urine RBC (Auto) 3 Ur Squamous Epith Cells < 1 12/09/18 12/09/18 07:50 07:50 WBC 5.4 RBC 4.14 Hgb 11.9 Hct 37.2 MCV 89.9 MCH 28.8 MCHC 32.0 L RDW 14.7 H Plt Count 227 MPV 9.2 Neut % (Auto) 59.0 Lymph % (Auto) 30.9 [place] % (Auto) 9.5 Eos % (Auto) 0.2 Baso % (Auto) 0.4 Neut # (Auto) 3.2 Lymph # (Auto) 1.7 [place] # (Auto) 0.5 Eos # (Auto) 0.0 Baso # (Auto) 0.0 Sodium 140 Potassium 3.5 L Chloride 103 Carbon Dioxide 30 Anion Gap 10 BUN 17 Creatinine 0.7 Est GFR ( Amer) > 60 Est GFR (Non-Af Amer) > 60 Random Glucose 83 D Calcium 9.2 Total Bilirubin 0.3 AST 36 ALT 27 Alkaline Phosphatase 82 Total Protein 6.4 Albumin 3.8 Globulin 2.6 Albumin/Globulin Ratio 1.5 Urine Color Urine Clarity Urine pH Ur Specific [place] Urine Protein Urine Glucose (UA) Urine Ketones Urine Blood Urine Nitrate Urine Bilirubin Urine Urobilinogen Ur Leukocyte Esterase Urine WBC (Auto) Urine RBC (Auto) Ur Squamous Epith Cells
--- NOTE | 2018-12-09 18:44 | CP.PCM.CON ---
History of Present Illness - History of Present Illness History of Present Illness: INFECTIOUS DISEASE CONSULT; REASON FOR CONSULT; GRAM-POSITIVE BACTEREMIA. HPI; 88-year-old female admitted on 12/08/18 for gram-positive bacteremia. Patient has history off arthritis, hypertension, hypercholesterolemia ,hyperlipidemia , history of cardiac arrhythmias on eliquis , hypothyroidism and had presented to [facility] on 12/06/18 complaining of upper respiratory tract infection and not feeling well. Patient was given antibiotics, and blood cultures were done during that admission. Patient was recalled as patient's blood culture reported as gram-positive cocci. Patient presently complains of generalized body aches.Denies fever or chills.. Denies any specific complaints. Denies any cough or expectoration, Denies shortness of breath or chest pain. History obtained mainly from the daughter who was at the bedside who could not add much to the history. She states she had poor appetite and just not feeling right. Patient denies headaches or sinus congestion. Denies any dysuria or hematuria. PMH: Arthritis, HTN, Hypercholesterolemia,HYPOTHYROIDISM, ATRIAL ARRHYTHMIAS, ANXIETY PROBLEMS. Denies: Chronic Kidney Disease - [facility] Procedures INSERT INFUSION DEV IN R INT JUGULAR VEIN, PERC (07/14/17) INSERTION OF ENDOTRACHEAL AIRWAY INTO TRACHEA, VIA OPENING (07/14/17) RESPIRATORY VENTILATION, 24-96 CONSECUTIVE HOURS (07/14/17) Family History: States: No Known Family Hx - Social History Hx Alcohol Use: No Hx Substance Use: No - Immunization History Hx Tetanus Toxoid Vaccination: No Hx Influenza Vaccination: No Hx Pneumococcal Vaccination: No Review of Systems - Constitutional Constitutional: absent: Chills, Fever - EENT Eyes: absent: Change in Vision Ears: absent: Ear Pain Nose/Mouth/Throat: absent: Nasal Congestion, Mouth Lesions - Cardiovascular Cardiovascular: absent: Chest Pain, Dyspnea, Pedal Edema - Respiratory Respiratory: absent: Cough, Dyspnea - Gastrointestinal Gastrointestinal: Constipation. absent: Abdominal Pain, Diarrhea - Genitourinary Genitourinary: absent: Dysuria, Freq UTI - Hematologic/Lymphatic Hematologic: As Per HPI. absent: Lymphadenopathy Past Patient History - Past Medical History & Family History Past Medical History?: Yes - Past Social History Smoking Status: Never Smoked - CARDIAC Hx Hypercholesterolemia: Yes Hx Hypertension: Yes - PULMONARY Hx Respiratory Disorders: No - NEUROLOGICAL Hx Neurological Disorder: No - HEENT Hx HEENT Problems: No Other/Comment: occular implant - RENAL Hx Chronic Kidney Disease: No - ENDOCRINE/METABOLIC Hx Endocrine Disorders: No - HEMATOLOGICAL/ONCOLOGICAL Hx Blood Disorders: No - INTEGUMENTARY Hx Dermatological Problems: No - MUSCULOSKELETAL/RHEUMATOLOGICAL Hx Arthritis: Yes - GASTROINTESTINAL Hx Gastrointestinal Disorders: No - GENITOURINARY/GYNECOLOGICAL Hx Genitourinary Disorders: No - PSYCHIATRIC Hx Substance Use: No - SURGICAL HISTORY Hx Surgeries: Yes Hx Hysterectomy: No Hx Tubal Ligation: Yes Other/Comment: "eye surgery" "occular implant" - ANESTHESIA Hx Anesthesia: Yes Hx Anesthesia Reactions: No Hx Malignant Hyperthermia: No Meds Allergies/Adverse Reactions: Allergies Allergy/AdvReac Type Severity Reaction Status Date / Time soy Allergy Mild RASH Verified 12/08/18 18:10 - Medications Medications: Current Medications Acetaminophen (Tylenol 325mg Tab) 650 mg PO Q6 PRN PRN Reason: Pain, Mild (1-3) Amlodipine Besylate (Norvasc) 5 mg PO DAILY [facility] Last Admin: 12/09/18 09:45 Dose: 5 mg Apixaban (Eliquis) 5 mg PO BID [facility] Last Admin: 12/09/18 17:35 Dose: 5 mg Donepezil HCl (Aricept) 5 mg PO DAILY [facility] Last Admin: 12/09/18 09:45 Dose: 5 mg Haloperidol (Haldol) 5 mg PO DAILY [facility] Last Admin: 12/09/18 09:45 Dose: 5 mg Ceftriaxone Sodium 1 gm/ (Sodium Chloride) 100 mls @ 100 mls/hr IVPB DAILY [facility]; Protocol Last Admin: 12/09/18 09:43 Dose: 100 mls/hr Influenza Virus Vaccine (Flucelvax Quad [id number] Syr) 60 mcg IM .ONCE ONE Stop: 12/11/18 10:01 Lisinopril (Zestril) 10 mg PO DAILY [facility] Last Admin: 12/09/18 09:45 Dose: 10 mg Pneumococcal Polyvalent Vaccine (Pneumovax 23 Vaccine) 0.5 ml IM .ONCE ONE Stop: 12/11/18 10:01 Rosuvastatin Calcium (Crestor) 20 mg PO [facility] Physical Exam - Constitutional Appears: No Acute Distress - Head Exam Head Exam: NORMAL INSPECTION - Eye Exam Eye Exam: EOMI, PERRL - ENT Exam ENT Exam: Normal Oropharynx - Neck Exam Neck exam: Positive for: Normal Inspection. Negative for: Thyromegaly - Respiratory Exam Respiratory Exam: Clear to Auscultation Bilateral, NORMAL BREATHING PATTERN - Cardiovascular Exam Cardiovascular Exam: REGULAR RHYTHM, +S1, +S2 - GI/Abdominal Exam GI & Abdominal Exam: Normal Bowel Sounds, Soft. absent: Organomegaly - Extremities Exam Extremities exam: Positive for: pedal pulses present. Negative for: calf tenderness, pedal edema - Neurological Exam Neurological exam: Alert, CN II-XII Intact, Oriented x3, Reflexes Normal - Skin Skin Exam: Normal Color, Warm Results - Vital Signs Recent Vital Signs: Last Vital Signs Temp 98.4 F 12/09/18 16:00 Pulse 71 12/09/18 16:00 Resp 20 12/09/18 16:00 BP 138/73 12/09/18 16:00 Pulse Ox 97 12/09/18 16:00 - Labs Result Diagrams: 12/09/18 07:50 12/09/18 07:50 Labs: Laboratory Results - last 24 hr 12/08/18 12/08/18 12/08/18 19:41 19:41 21:32 WBC 6.1 RBC 4.61 Hgb 12.9 Hct 40.7 MCV 88.4 MCH 27.9 MCHC 31.6 L RDW 14.3 Plt Count 240 MPV 8.6 Neut % (Auto) 65.2 Lymph % (Auto) 25.2 [place] % (Auto) 8.5 Eos % (Auto) 0.5 Baso % (Auto) 0.6 Neut # (Auto) 4.0 Lymph # (Auto) 1.5 [place] # (Auto) 0.5 Eos # (Auto) 0.0 Baso # (Auto) 0.0 Sodium 142 Potassium 4.0 Chloride 103 Carbon Dioxide 31 H Anion Gap 13 BUN 17 Creatinine 0.9 Est GFR ( Amer) > 60 Est GFR (Non-Af Amer) 59 Random Glucose 118 H Calcium 9.4 Total Bilirubin 0.2 AST 36 ALT 24 Alkaline Phosphatase 83 Total Protein 7.4 Albumin 4.3 Globulin 3.1 Albumin/Globulin Ratio 1.4 Urine Color Yellow Urine Clarity Clear Urine pH 7.0 Ur Specific [place] 1.017 Urine Protein Negative Urine Glucose (UA) Normal Urine Ketones Negative Urine Blood Negative Urine Nitrate Negative Urine Bilirubin Negative Urine Urobilinogen Normal Ur Leukocyte Esterase Neg Urine WBC (Auto) 2 Urine RBC (Auto) 3 Ur Squamous Epith Cells < 1 02/28/19 02/28/19 07:50 07:50 WBC 5.4 RBC 4.14 Hgb 11.9 Hct 37.2 MCV 89.9 MCH 28.8 MCHC 32.0 L RDW 14.7 H Plt Count 227 MPV 9.2 Neut % (Auto) 59.0 Lymph % (Auto) 30.9 [place] % (Auto) 9.5 Eos % (Auto) 0.2 Baso % (Auto) 0.4 Neut # (Auto) 3.2 Lymph # (Auto) 1.7 [place] # (Auto) 0.5 Eos # (Auto) 0.0 Baso # (Auto) 0.0 Sodium 140 Potassium 3.5 L Chloride 103 Carbon Dioxide 30 Anion Gap 10 BUN 17 Creatinine 0.7 Est GFR ( Amer) > 60 Est GFR (Non-Af Amer) > 60 Random Glucose 83 D Calcium 9.2 Total Bilirubin 0.3 AST 36 ALT 27 Alkaline Phosphatase 82 Total Protein 6.4 Albumin 3.8 Globulin 2.6 Albumin/Globulin Ratio 1.5 Urine Color Urine Clarity Urine pH Ur Specific [place] Urine Protein Urine Glucose (UA) Urine Ketones Urine Blood Urine Nitrate Urine Bilirubin Urine Urobilinogen Ur Leukocyte Esterase Urine WBC (Auto) Urine RBC (Auto) Ur Squamous Epith Cells - Imaging and Cardiology Chest x-ray Status: Report reviewed by me (NAD) Assessment & Plan (1) Septicemia Assessment and Plan: BLOOD CULTURE 12/06/18 REPORTED STAPH COAGULASE NEGATIVE BY pna FISH. wILL ASK LAB TO DO THE TUBE TEST TO RULE OUT STAPH LUGEDENSIS. fOLLOW-UP REPEAT BLOOD CULTURES. START iv VANCOMYCIN 1 G EVERY EVERY 12 HOURLY 12/09/18 FOLLOW-UP vANCO TROUGH PRIOR TO THE FOURTH DOSE AND KEEP IT BETWEEN 10 AND 20MG/ML. mONITOR RENAL FUNCTIONS C. fOLLOW-UP URINE CULTURES. pRESENTLY PATIENT ON CEFTRIAXONE 1 G ONCE A DAY DAILY. wILL CONTINUE. 2D ECHO R/O ENDOCARDITIS VS THROMBUS /LVEF. Status: Acute (2) Weakness generalized Assessment and Plan: ETIOLOGY NOT CLEAR ? SEPSIS. F/U BLOOD CULTURES/AND URINE CULTURES. Status: Acute (3) Arthritis Assessment and Plan: CHECK KEN, ESR, RHEUMATOID FACTOR. Status: Acute (4) Anxiety Status: Acute (5) Atrial arrhythmia Assessment and Plan: PATIENT ON ELIQUIS. aS PER pmd FOR FURTHER MANAGEMENT. Status: Acute (6) Hypothyroidism Assessment and Plan: CHECK TSH Status: Acute
[2018-12-09] MEDS: Aluminum Hydroxide/Magnesium Hydroxide Susp (30 mL) PO PRN (19:47)
[2018-12-09] MEDS: Vancomycin 1 gm/NS 200 ml 1 GM/200 ML BAG IVPB SCH (23:42)
[2018-12-10 07:55] LABS: BASO % 0.4 % (0.0-2.0); EOS % 0.2 % (0.0-4.0); HEMOGLOBIN 12.6 g/dL (11.0-16.0); LYMPH # 1.3 K/uL (1.0-4.3); MEAN CELL VOLUME 89.6 fL (81.0-99.0); MEAN CORPUSCULAR HEMOGLOBIN 28.9 pg (27.0-31.0); MEAN CORPUSCULAR HGB CONC 32.2 g/dL (33.0-37.0); MEAN PLATELET VOLUME 8.4 fL (7.2-11.7); MONO # 0.5 K/uL (0.0-0.8); MONO % 12.3 % (0.0-10.0); NEUT # 2.3 K/uL (1.8-7.0); NEUT % 56.1 % (50.0-75.0); RBC 4.35 Mil/uL (3.80-5.20); RED CELL DISTRIBUTION WIDTH 14.6 % (11.5-14.5)
[2018-12-10 08:23] LABS: ALB/GLOB RATIO 1.4 (1.0-2.1); ALBUMIN 3.8 g/dL (3.5-5.0); ALT/SGPT 29 U/L (9-52); AST/SGOT 43 U/L (14-36); BLOOD UREA NITROGEN 18 mg/dL (7-17); CALCIUM 9.2 mg/dl (8.6-10.4); GFR NON-AFRICAN AMERICAN > 60
--- NOTE | 2018-12-10 11:54 | CP.PCM.PN ---
Subjective - Date & Time of Evaluation Date of Evaluation: 12/10/18 Time of Evaluation: 11:54 - Subjective Subjective: CHIEF COMPLAINTS TODAY : Patient is complaining of generalized weakness. There is no any localizing symptoms. ROS. HEENT : N. Resp : No cough, wheezing ,pleuritic CP ,or hemoptysis Cardio : No anginal CP, PND, orthopnea, palpitation GI : No abd.pain, n/v ,diarrhea or GI bleeding . 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 Musculoskel : No joint swelling , Derm : No rash Psych : Normal affect. Ext : No swelling ,calf pain PE. Pt. is alert awake in no distress. V.S As noted in the chart Head ,ear nose,throat and eyes : Normal. Neck : Supple with normal carotids. Lungs: Clear air entry. Heart : S1 & S2 normal with S4. No murmur. Abd : Soft non tender with normal bowel sounds. Neuro : Moves all ext. with no localized deficit. Ext : No edema with intact pulses.Non tender calves Derm : No rashes or decubitus ulcer. LABS/RADIOLOGY: Repeat blood cultures are negative ASSESSMENT/PLAN : Continue IV antibiotics As per the family did want patient to be in the rehab at [facility]. Objective - Vital Signs/Intake and Output Vital Signs (last 24 hours): Temp Pulse Resp BP Pulse Ox 98.2 F 61 20 127/77 97 12/10/18 07:39 12/10/18 07:39 12/10/18 07:39 12/10/18 07:39 12/10/18 07:39 Intake and Output: 12/09/18 12/10/18 23:59 11:59 Intake Total 700 440 Balance 700 440 - Medications Medications: Current Medications Acetaminophen (Tylenol 325mg Tab) 650 mg PO Q6 PRN PRN Reason: Pain, Mild (1-3) Last Admin: 12/10/18 05:31 Dose: 650 mg Al Hydrox/Mg Hydrox/Simethicone (Maalox 30 Ml) 30 ml PO TID PRN PRN Reason: Indigestion / Heartburn Last Admin: 12/09/18 19:47 Dose: 30 ml Amlodipine Besylate (Norvasc) 5 mg PO DAILY [facility] Last Admin: 12/10/18 10:33 Dose: 5 mg Apixaban (Eliquis) 5 mg PO BID [facility] Last Admin: 12/10/18 10:33 Dose: 5 mg Donepezil HCl (Aricept) 5 mg PO DAILY [facility] Last Admin: 12/10/18 10:33 Dose: 5 mg Haloperidol (Haldol) 5 mg PO DAILY [facility] Last Admin: 12/10/18 10:34 Dose: 5 mg Ceftriaxone Sodium 1 gm/ (Sodium Chloride) 100 mls @ 100 mls/hr IVPB DAILY [facility]; Protocol Last Admin: 12/10/18 10:35 Dose: 100 mls/hr Vancomycin/Sodium Chloride (Vancomycin 1 Gm/Ns 200 Ml) 1 gm in 200 mls @ 133 mls/hr IVPB Q12H [facility]; Protocol Stop: 12/14/18 23:01 Last Admin: 12/09/18 23:42 Dose: 133 mls/hr Influenza Virus Vaccine (Flucelvax Quad [id number] Syr) 60 mcg IM .ONCE ONE Stop: 12/11/18 10:01 Lisinopril (Zestril) 10 mg PO DAILY [facility] Last Admin: 12/10/18 10:33 Dose: 10 mg Pantoprazole Sodium (Protonix Ec Tab) 40 mg PO DAILY [facility] Pneumococcal Polyvalent Vaccine (Pneumovax 23 Vaccine) 0.5 ml IM .ONCE ONE Stop: 12/11/18 10:01 Rosuvastatin Calcium (Crestor) 20 mg PO [facility] Last Admin: 12/09/18 21:48 Dose: 20 mg - Labs Labs: 12/10/18 07:43 12/10/18 07:43
[2018-12-10] MEDS: Vancomycin 1 gm/NS 200 ml 1 GM/200 ML BAG IVPB SCH ×2 (11:58→22:31)
[2018-12-10] MEDS: Pantoprazole 40 mg EC Tab PO SCH (11:58)
[2018-12-10] MEDS: Aluminum Hydroxide/Magnesium Hydroxide Susp (30 mL) PO PRN (18:41)
--- NOTE | 2018-12-10 22:53 | CP.PCM.PN ---
Subjective - Date & Time of Evaluation Date of Evaluation: 12/10/18 Time of Evaluation: 22:53 - Subjective Subjective: CHIEF COMPLAINTS TODAY : AFEBRILE. FEELS WEAK NO SP. COMPLAINTS. ROS. HEENT : N. Resp : No cough, wheezing ,pleuritic CP ,or hemoptysis Cardio : No anginal CP, PND, orthopnea, palpitation GI : No abd.pain, n/v ,diarrhea or GI bleeding . 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 Musculoskel : No joint swelling , Derm : No rash Psych : Normal affect. Ext : No swelling ,calf pain PE. Pt. is alert awake in no distress. V.S As noted in the chart Head ,ear nose,throat and eyes : Normal. Neck : Supple with normal carotids. Lungs: Clear air entry. Heart : S1 & S2 normal with S4. No murmur. Abd : Soft non tender with normal bowel sounds. Neuro : Moves all ext. with no localized deficit. Ext : No edema with intact pulses.Non tender calves Derm : No rashes or decubitus ulcer. .LABS/RADIOLOGY: BLOOD CULTURES REPEAT-VE GROWTH FOR 24 HOURS. BLOOD CULTURES 12/06/18 -VE X 48HRS. ( GMSTAIN IN PROGRESS ) uRINE CULTURE NEGATIVE GROWTH. Objective - Vital Signs/Intake and Output Vital Signs (last 24 hours): Temp Pulse Resp BP Pulse Ox 98.1 F 70 20 149/77 98 12/10/18 16:00 12/10/18 16:00 12/10/18 16:00 12/10/18 16:00 12/10/18 16:11 - Medications Medications: Current Medications Acetaminophen (Tylenol 325mg Tab) 650 mg PO Q6 PRN PRN Reason: Pain, Mild (1-3) Last Admin: 12/10/18 21:36 Dose: 650 mg Al Hydrox/Mg Hydrox/Simethicone (Maalox 30 Ml) 30 ml PO TID PRN PRN Reason: Indigestion / Heartburn Last Admin: 12/10/18 18:41 Dose: 30 ml Amlodipine Besylate (Norvasc) 5 mg PO DAILY [facility] Last Admin: 12/10/18 10:33 Dose: 5 mg Apixaban (Eliquis) 5 mg PO BID [facility] Last Admin: 12/10/18 17:44 Dose: 5 mg Donepezil HCl (Aricept) 5 mg PO DAILY [facility] Last Admin: 12/10/18 10:33 Dose: 5 mg Haloperidol (Haldol) 5 mg PO DAILY [facility] Last Admin: 12/10/18 10:34 Dose: 5 mg Ceftriaxone Sodium 1 gm/ (Sodium Chloride) 100 mls @ 100 mls/hr IVPB DAILY [facility]; Protocol Last Admin: 12/10/18 10:35 Dose: 100 mls/hr Vancomycin/Sodium Chloride (Vancomycin 1 Gm/Ns 200 Ml) 1 gm in 200 mls @ 133 mls/hr IVPB Q12H [facility]; Protocol Stop: 12/14/18 23:01 Last Admin: 12/10/18 22:31 Dose: 133 mls/hr Influenza Virus Vaccine (Flucelvax Quad [id number] Syr) 60 mcg IM .ONCE ONE Stop: 12/11/18 10:01 Lisinopril (Zestril) 10 mg PO DAILY [facility] Last Admin: 12/10/18 10:33 Dose: 10 mg Pantoprazole Sodium (Protonix Ec Tab) 40 mg PO DAILY [facility] Last Admin: 12/10/18 11:58 Dose: 40 mg Pneumococcal Polyvalent Vaccine (Pneumovax 23 Vaccine) 0.5 ml IM .ONCE ONE Stop: 12/11/18 10:01 Rosuvastatin Calcium (Crestor) 20 mg PO [facility] Last Admin: 12/10/18 21:37 Dose: 20 mg - Labs Labs: 12/10/18 07:43 12/10/18 07:43 Assessment and Plan (1) Septicemia Assessment & Plan: BLOOD CULTURE 12/06/18 REPORTED STAPH COAGULASE NEGATIVE BY pna FISH. wILL ASK LAB TO DO THE TUBE TEST TO RULE OUT STAPH LUGEDENSIS. fOLLOW-UP REPEAT BLOOD CULTURES. START iv VANCOMYCIN 1 G EVERY EVERY 12 HOURLY 12/09/18 FOLLOW-UP vANCO TROUGH PRIOR TO THE FOURTH DOSE AND KEEP IT BETWEEN 10 AND 20MG/ML. fOLLOW-UP URINE CULTURES. pRESENTLY PATIENT ON CEFTRIAXONE 1 G ONCE A DAY DAILY. wILL CONTINUE. 2D ECHO R/O ENDOCARDITIS VS THROMBUS /LVEF. Status: Acute (2) Weakness generalized Assessment & Plan: PATIENT HAS GAIT INSTABILITY AND WEAKNESS. pATIENT DAUGHTER REQUESTING SUBACUTE REHABILITATION. WILL DISCUSS WITH PMD PATIENT WILL BE HELPED WITH PT Status: Acute (3) Arthritis Assessment & Plan: esr 25 crp 1.03 NORMAL Status: Acute (4) Anxiety Status: Acute (5) Atrial arrhythmia Status: Acute (6) Hypothyroidism Assessment & Plan: TSH is normal. Status: Acute
[2018-12-11] MEDS: Aluminum Hydroxide/Magnesium Hydroxide Susp (30 mL) PO PRN ×3 (02:53→21:38)
[2018-12-11 06:50] LABS: BASO % 0.5 % (0.0-2.0); EOS % 0.2 % (0.0-4.0); HEMOGLOBIN 11.9 g/dL (11.0-16.0); LYMPH # 1.4 K/uL (1.0-4.3); LYMPH % 26.9 % (20.0-40.0); MEAN CELL VOLUME 89.7 fL (81.0-99.0); MEAN CORPUSCULAR HEMOGLOBIN 28.5 pg (27.0-31.0); MEAN CORPUSCULAR HGB CONC 31.8 g/dL (33.0-37.0); MEAN PLATELET VOLUME 8.9 fL (7.2-11.7); MONO # 0.5 K/uL (0.0-0.8); NEUT # 3.2 K/uL (1.8-7.0); NEUT % 63.4 % (50.0-75.0); NRBC % 0.1 % (0.0-2.0); RBC 4.16 Mil/uL (3.80-5.20); RED CELL DISTRIBUTION WIDTH 14.8 % (11.5-14.5); WHITE BLOOD COUNT 5.1 K/uL (4.8-10.8)
[2018-12-11 06:52] LABS: ALB/GLOB RATIO 1.3 (1.0-2.1); ALBUMIN 3.6 g/dL (3.5-5.0); ALT/SGPT 35 U/L (9-52); AST/SGOT 37 U/L (14-36); BLOOD UREA NITROGEN 20 mg/dL (7-17); CALCIUM 8.8 mg/dl (8.6-10.4); GFR NON-AFRICAN AMERICAN > 60
[2018-12-11] MEDS: Pantoprazole 40 mg EC Tab PO SCH (09:41)
[2018-12-11] MEDS: Influenza Vaccine 60 mcg/0.5 mL SYR (4YR UP) IM ONE ×2 (09:44→09:58)
[2018-12-11] MEDS: Pneumococcal 23-Valent Vaccine IM ONE ×2 (09:45→09:59)
[2018-12-11] MEDS ORDERED: Potassium Chloride 20 mEq/15 ml LIQ UD PO ONE (10:00)
[2018-12-11] MEDS: Vancomycin 1 gm/NS 200 ml 1 GM/200 ML BAG IVPB SCH ×3 (11:38→22:58)
--- NOTE | 2018-12-11 14:09 | CP.PCM.PN ---
Subjective - Date & Time of Evaluation Date of Evaluation: 12/11/18 Time of Evaluation: 14:08 - Subjective Subjective: CHIEF COMPLAINTS TODAY : Patient is complaining of generalized weakness. There is no any localizing symptoms. ROS. HEENT : N. Resp : No cough, wheezing ,pleuritic CP ,or hemoptysis Cardio : No anginal CP, PND, orthopnea, palpitation GI : No abd.pain, n/v ,diarrhea or GI bleeding . 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 Musculoskel : No joint swelling , Derm : No rash Psych : Normal affect. Ext : No swelling ,calf pain PE. Pt. is alert awake in no distress. V.S As noted in the chart Head ,ear nose,throat and eyes : Normal. Neck : Supple with normal carotids. Lungs: Clear air entry. Heart : S1 & S2 normal with S4. No murmur. Abd : Soft non tender with normal bowel sounds. Neuro : Moves all ext. with no localized deficit. Ext : No edema with intact pulses.Non tender calves Derm : No rashes or decubitus ulcer. LABS/RADIOLOGY: Repeat blood cultures are negative ASSESSMENT/PLAN : Continue IV antibiotics As per the family did want patient to be in the rehab at [facility]. Objective - Vital Signs/Intake and Output Vital Signs (last 24 hours): Temp Pulse Resp BP Pulse Ox 97.6 F 66 20 128/79 95 12/11/18 07:38 12/11/18 07:38 12/11/18 07:38 12/11/18 07:38 12/11/18 07:38 Intake and Output: 12/11/18 12/11/18 11:59 23:59 Intake Total 200 Balance 200 - Medications Medications: Current Medications Acetaminophen (Tylenol 325mg Tab) 650 mg PO Q6 PRN PRN Reason: Pain, Mild (1-3) Last Admin: 12/11/18 12:00 Dose: 650 mg Al Hydrox/Mg Hydrox/Simethicone (Maalox 30 Ml) 30 ml PO TID PRN PRN Reason: Indigestion / Heartburn Last Admin: 12/11/18 10:40 Dose: 30 ml Amlodipine Besylate (Norvasc) 5 mg PO DAILY [facility] Last Admin: 12/11/18 09:42 Dose: 5 mg Apixaban (Eliquis) 5 mg PO BID [facility] Last Admin: 12/11/18 09:41 Dose: 5 mg Donepezil HCl (Aricept) 5 mg PO DAILY [facility] Last Admin: 12/11/18 09:41 Dose: 5 mg Haloperidol (Haldol) 5 mg PO DAILY [facility] Last Admin: 12/11/18 10:40 Dose: 5 mg Ceftriaxone Sodium 1 gm/ (Sodium Chloride) 100 mls @ 100 mls/hr IVPB DAILY [facility]; Protocol Last Admin: 12/11/18 09:40 Dose: 100 mls/hr Vancomycin/Sodium Chloride (Vancomycin 1 Gm/Ns 200 Ml) 1 gm in 200 mls @ 133 mls/hr IVPB Q12H [facility]; Protocol Stop: 12/14/18 23:01 Last Admin: 12/11/18 12:10 Dose: 133 mls/hr Lisinopril (Zestril) 10 mg PO DAILY [facility] Last Admin: 12/11/18 09:43 Dose: 10 mg Pantoprazole Sodium (Protonix Ec Tab) 40 mg PO DAILY [facility] Last Admin: 12/11/18 09:41 Dose: 40 mg Rosuvastatin Calcium (Crestor) 20 mg PO [facility] Last Admin: 12/10/18 21:37 Dose: 20 mg - Labs Labs: 12/11/18 06:30 12/11/18 06:30
--- NOTE | 2018-12-12 08:11 | CARD ---
APPROVED REPORT Date of service: 12/08/2018 EKG Measurement Heart [id number] <Conclusion> Accelerated Junctional rhythm Left axis deviation Nonspecific ST abnormality Abnormal ECG
[2018-12-12] MEDS: Pantoprazole 40 mg EC Tab PO SCH (09:39)
--- NOTE | 2018-12-12 10:52 | CARD ---
APPROVED REPORT Date of service: 12/10/2018 EXAM: Two-dimensional and M-mode echocardiogram with Doppler and color Doppler. 2D DIMENSIONS IVSd1.1 (0.7-1.1cm)Aortic Root (2D)3.1 (2.0-3.7cm) LVDd4.0 (3.9-5.9cm)PWd1.0 (0.7-1.1cm) LA Xbfhmx35 (18-58mL)LVDs2.4 (2.5-4.0cm) FS (%) 39.5 %LVEF (%)70.5 (>50%) LVEF (Carroll's)66.48 %IVC0.00 cm M-Mode DIMENSIONS RVDd1.58 (2.1-3.2cm)Left Atrium (MM)4.48 (2.5-4.0cm) IVSd0.82 (0.7-1.1cm)Aortic Root3.11 (2.2-3.7cm) LVDd5.74 (4.0-5.6cm)Aortic Cusp Exc.1.80 (1.5-2.0cm) PWd0.97 (0.7-1.1cm)FS (%) 41 % LVDs3.37 (2.0-3.8cm)LVEF (%)71 (>50%) Mitral Valve MV E Ulbpunzo36.2cm/sMV A Vfskfvfc743.1cm/sE/A ratio0.7 TDI Lateral E' Peak V6.09cm/sMedial E' Peak V4.22cm/sE/Lateral E'12.7 E/Medial E'18.3 Tricuspid Valve TR Peak Dwrrbkev552ns/sTR Peak Gr.[id number] LEFT VENTRICLE The left ventricle is normal size. There is mild concentric left ventricular hypertrophy. The left ventricular function is normal. The left ventricular ejection fraction is within the normal range. There is normal LV segmental wall motion. Transmitral Doppler flow pattern is abnormal. RIGHT VENTRICLE The right ventricle is normal size. ATRIA The left atrium is borderline dilated. The right atrium size is normal. AORTIC VALVE The aortic valve is calcified but opens well. MITRAL VALVE Mitral regurgitation is mild. TRICUSPID VALVE There is mild tricuspid regurgitation. <Conclusion> Normal LV systolic function. Diastolic dysfunction. Dilated LA. Mild MR. Mild TR.
[2018-12-12] MEDS: Vancomycin 1 gm/NS 200 ml 1 GM/200 ML BAG IVPB SCH ×2 (11:14→23:09)
[2018-12-12] MEDS: Aluminum Hydroxide/Magnesium Hydroxide Susp (30 mL) PO PRN ×2 (11:54→21:17)
--- NOTE | 2018-12-12 13:04 | CP.PCM.PN ---
Subjective - Date & Time of Evaluation Date of Evaluation: 12/12/18 Time of Evaluation: 13:04 - Subjective Subjective: CHIEF COMPLAINTS TODAY : Patient is complaining of generalized weakness. There is no any localizing symptoms. ROS. HEENT : N. Resp : No cough, wheezing ,pleuritic CP ,or hemoptysis Cardio : No anginal CP, PND, orthopnea, palpitation GI : No abd.pain, n/v ,diarrhea or GI bleeding . 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 Musculoskel : No joint swelling , Derm : No rash Psych : Normal affect. Ext : No swelling ,calf pain PE. Pt. is alert awake in no distress. V.S As noted in the chart Head ,ear nose,throat and eyes : Normal. Neck : Supple with normal carotids. Lungs: Clear air entry. Heart : S1 & S2 normal with S4. No murmur. Abd : Soft non tender with normal bowel sounds. Neuro : Moves all ext. with no localized deficit. Ext : No edema with intact pulses.Non tender calves Derm : No rashes or decubitus ulcer. LABS/RADIOLOGY: Repeat blood cultures are negative ASSESSMENT/PLAN : Continue IV antibiotics As per the family did want patient to be in the rehab Objective - Vital Signs/Intake and Output Vital Signs (last 24 hours): Temp Pulse Resp BP Pulse Ox 97.9 F 65 20 136/85 97 12/12/18 07:37 12/12/18 07:37 12/12/18 07:37 12/12/18 07:37 12/12/18 07:37 - Medications Medications: Current Medications Acetaminophen (Tylenol 325mg Tab) 650 mg PO Q6 PRN PRN Reason: Pain, Mild (1-3) Last Admin: 12/12/18 09:49 Dose: 650 mg Al Hydrox/Mg Hydrox/Simethicone (Maalox 30 Ml) 30 ml PO TID PRN PRN Reason: Indigestion / Heartburn Last Admin: 12/12/18 11:54 Dose: 30 ml Amlodipine Besylate (Norvasc) 5 mg PO DAILY [facility] Last Admin: 12/12/18 09:39 Dose: 5 mg Apixaban (Eliquis) 5 mg PO BID [facility] Last Admin: 12/12/18 09:39 Dose: 5 mg Donepezil HCl (Aricept) 5 mg PO DAILY [facility] Last Admin: 12/12/18 09:38 Dose: 5 mg Haloperidol (Haldol) 5 mg PO DAILY [facility] Last Admin: 12/12/18 09:38 Dose: 5 mg Ceftriaxone Sodium 1 gm/ (Sodium Chloride) 100 mls @ 100 mls/hr IVPB DAILY [facility]; Protocol Last Admin: 12/12/18 09:38 Dose: 100 mls/hr Vancomycin/Sodium Chloride (Vancomycin 1 Gm/Ns 200 Ml) 1 gm in 200 mls @ 133 mls/hr IVPB Q12H [facility]; Protocol Stop: 12/14/18 23:01 Last Admin: 12/12/18 11:14 Dose: 133 mls/hr Lisinopril (Zestril) 10 mg PO DAILY [facility] Last Admin: 12/12/18 09:39 Dose: 10 mg Pantoprazole Sodium (Protonix Ec Tab) 40 mg PO DAILY [facility] Last Admin: 12/12/18 09:39 Dose: 40 mg Rosuvastatin Calcium (Crestor) 20 mg PO HS [facility] Last Admin: 12/11/18 21:36 Dose: 20 mg - Labs Labs: 12/11/18 06:30 12/11/18 06:30
[2018-12-13] MEDS ORDERED: Albuterol-Ipratrop 3 mg / 0.5 (3 ml) UD INH STA (08:20)
[2018-12-13 09:04] LABS: BASO # 0.1 K/uL (0.0-0.2); BASO % 0.9 % (0.0-2.0); EOS % 0.2 % (0.0-4.0); HEMOGLOBIN 12.6 g/dL (11.0-16.0); LYMPH # 2.1 K/uL (1.0-4.3); LYMPH % 34.4 % (20.0-40.0); MEAN CELL VOLUME 88.4 fL (81.0-99.0); MEAN CORPUSCULAR HEMOGLOBIN 28.7 pg (27.0-31.0); MEAN CORPUSCULAR HGB CONC 32.4 g/dL (33.0-37.0); MEAN PLATELET VOLUME 8.5 fL (7.2-11.7); MONO # 0.6 K/uL (0.0-0.8); MONO % 10.1 % (0.0-10.0); NEUT # 3.3 K/uL (1.8-7.0); NEUT % 54.4 % (50.0-75.0); NRBC % 0.1 % (0.0-2.0); RBC 4.38 Mil/uL (3.80-5.20); RED CELL DISTRIBUTION WIDTH 14.8 % (11.5-14.5)
[2018-12-13] MEDS: Pantoprazole 40 mg EC Tab PO SCH (09:20)
[2018-12-13 09:21] LABS: BLOOD UREA NITROGEN 21 mg/dL (7-17); CALCIUM 9.4 mg/dl (8.6-10.4); GFR NON-AFRICAN AMERICAN > 60
[2018-12-13 09:29] LABS: CK-MB 1.44 ng/mL (0.0-3.38)
[2018-12-13] MEDS: Vancomycin 1 gm/NS 200 ml 1 GM/200 ML BAG IVPB SCH ×2 (12:09→23:41)
--- NOTE | 2018-12-13 14:01 | CP.PCM.PN ---
Subjective - Date & Time of Evaluation Date of Evaluation: 12/13/18 Time of Evaluation: 14:00 - Subjective Subjective: CHIEF COMPLAINTS TODAY : Patient is complaining of generalized weakness. There is no any localizing symptoms. ROS. HEENT : N. Resp : No cough, wheezing ,pleuritic CP ,or hemoptysis Cardio : No anginal CP, PND, orthopnea, palpitation GI : No abd.pain, n/v ,diarrhea or GI bleeding . 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 Musculoskel : No joint swelling , Derm : No rash Psych : Normal affect. Ext : No swelling ,calf pain PE. Pt. is alert awake in no distress. V.S As noted in the chart Head ,ear nose,throat and eyes : Normal. Neck : Supple with normal carotids. Lungs: Clear air entry. Heart : S1 & S2 normal with S4. No murmur. Abd : Soft non tender with normal bowel sounds. Neuro : Moves all ext. with no localized deficit. Ext : No edema with intact pulses.Non tender calves Derm : No rashes or decubitus ulcer. LABS/RADIOLOGY: Repeat blood cultures are negative ASSESSMENT/PLAN : Continue IV antibiotics As per the family did want patient to be in the rehab Objective - Vital Signs/Intake and Output Vital Signs (last 24 hours): Temp Pulse Resp BP Pulse Ox 97.5 F L 78 20 150/85 99 12/13/18 08:20 12/13/18 08:40 12/13/18 08:20 12/13/18 08:20 12/13/18 08:20 Intake and Output: 12/13/18 12/13/18 11:59 23:59 Intake Total 120 Balance 120 - Medications Medications: Current Medications Acetaminophen (Tylenol 325mg Tab) 650 mg PO Q6 PRN PRN Reason: Pain, Mild (1-3) Last Admin: 12/12/18 09:49 Dose: 650 mg Al Hydrox/Mg Hydrox/Simethicone (Maalox 30 Ml) 30 ml PO TID PRN PRN Reason: Indigestion / Heartburn Last Admin: 12/12/18 21:17 Dose: 30 ml Amlodipine Besylate (Norvasc) 5 mg PO DAILY [facility] Last Admin: 12/13/18 09:20 Dose: 5 mg Apixaban (Eliquis) 5 mg PO BID [facility] Last Admin: 12/13/18 09:20 Dose: 5 mg Donepezil HCl (Aricept) 5 mg PO DAILY [facility] Last Admin: 12/13/18 09:20 Dose: 5 mg Haloperidol (Haldol) 5 mg PO DAILY [facility] Last Admin: 12/13/18 09:20 Dose: 5 mg Ceftriaxone Sodium 1 gm/ (Sodium Chloride) 100 mls @ 100 mls/hr IVPB DAILY [facility]; Protocol Last Admin: 12/13/18 10:58 Dose: 100 mls/hr Vancomycin/Sodium Chloride (Vancomycin 1 Gm/Ns 200 Ml) 1 gm in 200 mls @ 133 mls/hr IVPB Q12H [facility]; Protocol Stop: 12/14/18 23:01 Last Admin: 12/13/18 12:09 Dose: 133 mls/hr Lisinopril (Zestril) 10 mg PO DAILY [facility] Last Admin: 12/13/18 09:20 Dose: 10 mg Pantoprazole Sodium (Protonix Ec Tab) 40 mg PO DAILY [facility] Last Admin: 12/13/18 09:20 Dose: 40 mg Rosuvastatin Calcium (Crestor) 20 mg PO HS [facility] Last Admin: 12/12/18 21:17 Dose: 20 mg - Labs Labs: 12/13/18 08:47 12/13/18 08:47
--- NOTE | 2018-12-13 18:48 | CP.PCM.PN ---
Subjective - Date & Time of Evaluation Date of Evaluation: 12/13/18 Time of Evaluation: 18:47 - Subjective Subjective: CHIEF COMPLAINTS TODAY : AFEBRILE. NO SP. COMPLAINTS. ROS. HEENT : N. Resp : No cough, wheezing ,pleuritic CP ,or hemoptysis Cardio : No anginal CP, PND, orthopnea, palpitation GI : No abd.pain, n/v ,diarrhea or GI bleeding . 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 Musculoskel : No joint swelling , Derm : No rash Psych : Normal affect. Ext : No swelling ,calf pain PE. Pt. is alert awake in no distress. V.S As noted in the chart Head ,ear nose,throat and eyes : Normal. Neck : Supple with normal carotids. Lungs: Clear air entry. Heart : S1 & S2 normal with S4. No murmur. Abd : Soft non tender with normal bowel sounds. Neuro : Moves all ext. with no localized deficit. Ext : No edema with intact pulses.Non tender calves Derm : No rashes or decubitus ulcer. .LABS/RADIOLOGY: KEN -VE VANCO TROUGH 14.4 OK HIV 1/2 AB -VE BLOOD CULTURES REPEAT-VE GROWTH TO DATE BLOOD CULTURES 12/06/18 -VE X 5 DAYS URINE CULTURE NEGATIVE GROWTH. 2D ECHO -N LVSF /DIASTOLIC DYSFUNCTION dILATED LEFT ATRIUM, mILD MR, MILD TR Objective - Vital Signs/Intake and Output Vital Signs (last 24 hours): Temp Pulse Resp BP Pulse Ox 97.8 F 72 20 136/77 100 12/13/18 16:00 12/13/18 16:00 12/13/18 16:00 12/13/18 16:00 12/13/18 16:00 Intake and Output: 12/13/18 12/13/18 06:59 18:59 Intake Total 420 250 Balance 420 250 - Medications Medications: Current Medications Acetaminophen (Tylenol 325mg Tab) 650 mg PO Q6 PRN PRN Reason: Pain, Mild (1-3) Last Admin: 12/12/18 09:49 Dose: 650 mg Al Hydrox/Mg Hydrox/Simethicone (Maalox 30 Ml) 30 ml PO TID PRN PRN Reason: Indigestion / Heartburn Last Admin: 12/12/18 21:17 Dose: 30 ml Amlodipine Besylate (Norvasc) 5 mg PO DAILY [facility] Last Admin: 12/13/18 09:20 Dose: 5 mg Apixaban (Eliquis) 5 mg PO BID [facility] Last Admin: 12/13/18 17:09 Dose: 5 mg Donepezil HCl (Aricept) 5 mg PO DAILY [facility] Last Admin: 12/13/18 09:20 Dose: 5 mg Haloperidol (Haldol) 5 mg PO DAILY [facility] Last Admin: 12/13/18 09:20 Dose: 5 mg Ceftriaxone Sodium 1 gm/ (Sodium Chloride) 100 mls @ 100 mls/hr IVPB DAILY [facility]; Protocol Last Admin: 12/13/18 10:58 Dose: 100 mls/hr Vancomycin/Sodium Chloride (Vancomycin 1 Gm/Ns 200 Ml) 1 gm in 200 mls @ 133 mls/hr IVPB Q12H [facility]; Protocol Stop: 12/14/18 23:01 Last Admin: 12/13/18 12:09 Dose: 133 mls/hr Lisinopril (Zestril) 10 mg PO DAILY [facility] Last Admin: 12/13/18 09:20 Dose: 10 mg Pantoprazole Sodium (Protonix Ec Tab) 40 mg PO DAILY [facility] Last Admin: 12/13/18 09:20 Dose: 40 mg Rosuvastatin Calcium (Crestor) 20 mg PO HS [facility] Last Admin: 12/12/18 21:17 Dose: 20 mg - Labs Labs: 12/13/18 08:47 12/13/18 08:47 Assessment and Plan (1) Septicemia Assessment & Plan: repeat blood cultures negative. Previous blood cultures to 12/06/18 -ve for 5 days dc iv vancomycin. dc iv ceftriaxone. Observe off antibiotics. Doubt any infectious etiology of weakness. Status: Acute (2) Weakness generalized Assessment & Plan: PATIENT HAS GAIT INSTABILITY AND WEAKNESS. pATIENT DAUGHTER REQUESTING SUBACUTE REHABILITATION. WILL DISCUSS WITH PMD PATIENT WILL BE HELPED WITH PT Status: Acute (3) Arthritis Status: Acute (4) Anxiety Status: Acute (5) Atrial arrhythmia Assessment & Plan: anticoagulation as per PMD 2D ECHO -NOTED N LVSF/DIASTOLIC DYSFUNCTION. SEE FULL REPORT. Status: Acute (6) Hypothyroidism Status: Acute
--- NOTE | 2018-12-13 22:27 | CARD ---
APPROVED REPORT Date of service: 12/09/2018 EKG Measurement Heart [id number] 180P36 [id number] <Conclusion> Normal sinus rhythm Left anterior fascicular block Abnormal ECG
[2018-12-14] MEDS: Pantoprazole 40 mg EC Tab PO SCH (10:22)
--- NOTE | 2018-12-14 11:24 | CP.PCM.PN ---
Subjective - Date & Time of Evaluation Date of Evaluation: 12/14/18 Time of Evaluation: 11:24 - Subjective Subjective: CHIEF COMPLAINTS TODAY : Patient is complaining of generalized weakness. There is no any localizing symptoms. ROS. HEENT : N. Resp : No cough, wheezing ,pleuritic CP ,or hemoptysis Cardio : No anginal CP, PND, orthopnea, palpitation GI : No abd.pain, n/v ,diarrhea or GI bleeding . 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 Musculoskel : No joint swelling , Derm : No rash Psych : Normal affect. Ext : No swelling ,calf pain PE. Pt. is alert awake in no distress. V.S As noted in the chart Head ,ear nose,throat and eyes : Normal. Neck : Supple with normal carotids. Lungs: Clear air entry. Heart : S1 & S2 normal with S4. No murmur. Abd : Soft non tender with normal bowel sounds. Neuro : Moves all ext. with no localized deficit. Ext : No edema with intact pulses.Non tender calves Derm : No rashes or decubitus ulcer. LABS/RADIOLOGY: Repeat blood cultures are negative ASSESSMENT/PLAN : Continue IV antibiotics As per the family did want patient to be in the rehab Objective - Vital Signs/Intake and Output Vital Signs (last 24 hours): Temp Pulse Resp BP Pulse Ox 98.6 F 79 20 145/89 97 12/14/18 07:38 12/14/18 07:38 12/14/18 07:38 12/14/18 07:38 12/14/18 07:38 Intake and Output: 12/13/18 12/14/18 23:59 11:59 Intake Total 750 240 Output Total 400 Balance 350 240 - Medications Medications: Current Medications Acetaminophen (Tylenol 325mg Tab) 650 mg PO Q6 PRN PRN Reason: Pain, Mild (1-3) Last Admin: 12/14/18 08:35 Dose: 650 mg Al Hydrox/Mg Hydrox/Simethicone (Maalox 30 Ml) 30 ml PO TID PRN PRN Reason: Indigestion / Heartburn Last Admin: 12/12/18 21:17 Dose: 30 ml Amlodipine Besylate (Norvasc) 5 mg PO DAILY [facility] Last Admin: 12/14/18 10:22 Dose: 5 mg Apixaban (Eliquis) 5 mg PO BID [facility] Last Admin: 12/14/18 10:22 Dose: 5 mg Donepezil HCl (Aricept) 5 mg PO DAILY [facility] Last Admin: 12/14/18 10:22 Dose: 5 mg Haloperidol (Haldol) 5 mg PO DAILY [facility] Last Admin: 12/14/18 10:22 Dose: 5 mg Lisinopril (Zestril) 10 mg PO DAILY [facility] Last Admin: 12/14/18 10:22 Dose: 10 mg Pantoprazole Sodium (Protonix Ec Tab) 40 mg PO DAILY [facility] Last Admin: 12/14/18 10:22 Dose: 40 mg Rosuvastatin Calcium (Crestor) 20 mg PO HS [facility] Last Admin: 12/13/18 21:19 Dose: 20 mg - Labs Labs: 12/13/18 08:47 12/13/18 08:47
--- NOTE | 2018-12-14 17:52 | CARD ---
APPROVED REPORT Date of service: 12/13/2018 EKG Measurement Heart [id number] 180P23 [id number] <Conclusion> Normal sinus rhythm Normal ECG
[2018-12-14] MEDS: Aluminum Hydroxide/Magnesium Hydroxide Susp (30 mL) PO PRN (21:28)
--- NOTE | 2018-12-14 22:16 | CP.PCM.PN ---
Subjective - Date & Time of Evaluation Date of Evaluation: 12/14/18 Time of Evaluation: 22:16 - Subjective Subjective: CHIEF COMPLAINTS TODAY : AFEBRILE. C/O CONSTIPATION ROS. HEENT : N. Resp : No cough, wheezing ,pleuritic CP ,or hemoptysis Cardio : No anginal CP, PND, orthopnea, palpitation GI : No abd.pain, n/v ,diarrhea or GI bleeding . 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 Musculoskel : No joint swelling , Derm : No rash Psych : Normal affect. Ext : No swelling ,calf pain PE. Pt. is alert awake in no distress. V.S As noted in the chart Head ,ear nose,throat and eyes : Normal. Neck : Supple with normal carotids. Lungs: Clear air entry. Heart : S1 & S2 normal with S4. No murmur. Abd : Soft non tender with normal bowel sounds. Neuro : Moves all ext. with no localized deficit. Ext : No edema with intact pulses.Non tender calves Derm : No rashes or decubitus ulcer. .LABS/RADIOLOGY: KEN -VE VANCO TROUGH 14.4 OK HIV 1/2 AB -VE BLOOD CULTURES REPEAT-VE GROWTH TO DATE BLOOD CULTURES 12/06/18 -VE X 5 DAYS URINE CULTURE NEGATIVE GROWTH. 2D ECHO -N LVSF /DIASTOLIC DYSFUNCTION dILATED LEFT ATRIUM, mILD MR, MILD TR Objective - Vital Signs/Intake and Output Vital Signs (last 24 hours): Temp Pulse Resp BP Pulse Ox 97.9 F 73 20 119/73 99 12/14/18 15:44 12/14/18 15:44 12/14/18 15:44 12/14/18 15:44 12/14/18 15:44 Intake and Output: 12/14/18 12/15/18 18:59 06:59 Intake Total 480 Balance 480 - Medications Medications: Current Medications Acetaminophen (Tylenol 325mg Tab) 650 mg PO Q6 PRN PRN Reason: Pain, Mild (1-3) Last Admin: 12/14/18 08:35 Dose: 650 mg Al Hydrox/Mg Hydrox/Simethicone (Maalox 30 Ml) 30 ml PO TID PRN PRN Reason: Indigestion / Heartburn Last Admin: 12/14/18 21:28 Dose: 30 ml Amlodipine Besylate (Norvasc) 5 mg PO DAILY [facility] Last Admin: 12/14/18 10:22 Dose: 5 mg Apixaban (Eliquis) 5 mg PO BID [facility] Last Admin: 12/14/18 17:52 Dose: 5 mg Docusate Sodium (Colace) 100 mg PO BID [facility] Last Admin: 12/14/18 18:02 Dose: 100 mg Donepezil HCl (Aricept) 5 mg PO DAILY [facility] Last Admin: 12/14/18 10:22 Dose: 5 mg Haloperidol (Haldol) 5 mg PO DAILY [facility] Last Admin: 12/14/18 10:22 Dose: 5 mg Lisinopril (Zestril) 10 mg PO DAILY [facility] Last Admin: 12/14/18 10:22 Dose: 10 mg Pantoprazole Sodium (Protonix Ec Tab) 40 mg PO DAILY [facility] Last Admin: 12/14/18 10:22 Dose: 40 mg Rosuvastatin Calcium (Crestor) 20 mg PO HS [facility] Last Admin: 12/14/18 21:27 Dose: 20 mg - Labs Labs: 12/13/18 08:47 12/13/18 08:47 Assessment and Plan (1) Septicemia Assessment & Plan: ALL CULTURES -VE TO DATE. ABX DC 12/13/18 Observe off antibiotics. Doubt any infectious etiology of weakness. Status: Acute (2) Weakness generalized Assessment & Plan: OUT OF BED ON CHAIR. nEEDS PHYSICAL THERAPY. aWAITING TRANSFER TO SUBACUTE REHABILITATION. Status: Acute (3) Arthritis Status: Acute (4) Anxiety Assessment & Plan: ON hALDOL 5 MG BY MOUTH ONCE A DAY FOR ANXIETY. Status: Acute (5) Atrial arrhythmia Status: Acute (6) Hypothyroidism Status: Acute (7) Constipation Assessment & Plan: LACTULOSE 30 CC STAT BY MOUTH. sTART cOLACE 100 MG BY MOUTH TWICE A DAY. Status: Acute
[2018-12-15] MEDS: Pantoprazole 40 mg EC Tab PO SCH (09:08)
--- NOTE | 2018-12-15 11:33 | CP.PCM.PN ---
Subjective - Date & Time of Evaluation Date of Evaluation: 12/15/18 Time of Evaluation: 11:33 - Subjective Subjective: CHIEF COMPLAINTS TODAY : Patient is complaining of generalized weakness. There is no any localizing symptoms. ROS. HEENT : N. Resp : No cough, wheezing ,pleuritic CP ,or hemoptysis Cardio : No anginal CP, PND, orthopnea, palpitation GI : No abd.pain, n/v ,diarrhea or GI bleeding . 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 Musculoskel : No joint swelling , Derm : No rash Psych : Normal affect. Ext : No swelling ,calf pain PE. Pt. is alert awake in no distress. V.S As noted in the chart Head ,ear nose,throat and eyes : Normal. Neck : Supple with normal carotids. Lungs: Clear air entry. Heart : S1 & S2 normal with S4. No murmur. Abd : Soft non tender with normal bowel sounds. Neuro : Moves all ext. with no localized deficit. Ext : No edema with intact pulses.Non tender calves Derm : No rashes or decubitus ulcer. LABS/RADIOLOGY: Repeat blood cultures are negative ASSESSMENT/PLAN : Continue IV antibiotics As per the family did want patient to be in the rehab Objective - Vital Signs/Intake and Output Vital Signs (last 24 hours): Temp Pulse Resp BP Pulse Ox 98.0 F 80 20 141/83 100 12/15/18 08:51 12/15/18 08:51 12/15/18 08:51 12/15/18 08:51 12/15/18 08:51 Intake and Output: 12/14/18 12/15/18 23:59 11:59 Intake Total 780 200 Balance 780 200 - Medications Medications: Current Medications Acetaminophen (Tylenol 325mg Tab) 650 mg PO Q6 PRN PRN Reason: Pain, Mild (1-3) Last Admin: 12/14/18 08:35 Dose: 650 mg Al Hydrox/Mg Hydrox/Simethicone (Maalox 30 Ml) 30 ml PO TID PRN PRN Reason: Indigestion / Heartburn Last Admin: 12/14/18 21:28 Dose: 30 ml Amlodipine Besylate (Norvasc) 5 mg PO DAILY [facility] Last Admin: 12/15/18 10:36 Dose: 5 mg Apixaban (Eliquis) 5 mg PO BID [facility] Last Admin: 12/15/18 10:36 Dose: 5 mg Docusate Sodium (Colace) 100 mg PO BID [facility] Last Admin: 12/15/18 10:35 Dose: 100 mg Donepezil HCl (Aricept) 5 mg PO DAILY [facility] Last Admin: 12/15/18 10:36 Dose: 5 mg Haloperidol (Haldol) 5 mg PO DAILY [facility] Last Admin: 12/15/18 10:44 Dose: Not Given Lisinopril (Zestril) 10 mg PO DAILY [facility] Last Admin: 12/15/18 10:36 Dose: 10 mg Pantoprazole Sodium (Protonix Ec Tab) 40 mg PO DAILY [facility] Last Admin: 12/15/18 09:08 Dose: 40 mg Rosuvastatin Calcium (Crestor) 20 mg PO HS [facility] Last Admin: 12/14/18 21:27 Dose: 20 mg - Labs Labs: 12/13/18 08:47 12/13/18 08:47
[2018-12-15] MEDS: Aluminum Hydroxide/Magnesium Hydroxide Susp (30 mL) PO PRN ×2 (15:03→22:33)
[2018-12-15] MEDS: Bismuth Subsalicylate 262 mg Chew Tab PO PRN (15:14)
--- NOTE | 2018-12-15 22:15 | CP.PCM.PN ---
Subjective - Date & Time of Evaluation Date of Evaluation: 12/15/18 Time of Evaluation: 22:14 Objective - Vital Signs/Intake and Output Vital Signs (last 24 hours): Temp Pulse Resp BP Pulse Ox 97.9 F 74 20 111/72 99 12/15/18 16:00 12/15/18 16:00 12/15/18 16:00 12/15/18 16:00 12/15/18 16:00 Intake and Output: 12/15/18 12/16/18 18:59 06:59 Intake Total 240 Balance 240 - Medications Medications: Current Medications Acetaminophen (Tylenol 325mg Tab) 650 mg PO Q6 PRN PRN Reason: Pain, Mild (1-3) Last Admin: 12/14/18 08:35 Dose: 650 mg Al Hydrox/Mg Hydrox/Simethicone (Maalox 30 Ml) 30 ml PO TID PRN PRN Reason: Indigestion / Heartburn Last Admin: 12/15/18 15:03 Dose: 30 ml Amlodipine Besylate (Norvasc) 5 mg PO DAILY [facility] Last Admin: 12/15/18 10:36 Dose: 5 mg Apixaban (Eliquis) 5 mg PO BID [facility] Last Admin: 12/15/18 17:29 Dose: 5 mg Bismuth Subsalicylate (Pepto Bismol) 262 mg PO Q12H PRN PRN Reason: GI distress Last Admin: 12/15/18 15:14 Dose: 262 mg Docusate Sodium (Colace) 100 mg PO BID [facility] Last Admin: 12/15/18 17:29 Dose: 100 mg Donepezil HCl (Aricept) 5 mg PO DAILY [facility] Last Admin: 12/15/18 10:36 Dose: 5 mg Haloperidol (Haldol) 5 mg PO DAILY [facility] Last Admin: 12/15/18 10:44 Dose: Not Given Lisinopril (Zestril) 10 mg PO DAILY [facility] Last Admin: 12/15/18 10:36 Dose: 10 mg Pantoprazole Sodium (Protonix Ec Tab) 40 mg PO DAILY [facility] Last Admin: 12/15/18 09:08 Dose: 40 mg Rosuvastatin Calcium (Crestor) 20 mg PO HS [facility] Last Admin: 12/15/18 21:35 Dose: 20 mg - Labs Labs: 12/13/18 08:47 12/13/18 08:47 Assessment and Plan (1) Septicemia Status: Acute (2) Weakness generalized Status: Acute (3) Arthritis Status: Acute (4) Anxiety Status: Acute (5) Atrial arrhythmia Status: Acute (6) Hypothyroidism Status: Acute (7) Constipation Status: Acute
[2018-12-16] MEDS: Pantoprazole 40 mg EC Tab PO SCH (10:38)
--- NOTE | 2018-12-16 11:44 | CP.PCM.PN ---
Subjective - Date & Time of Evaluation Date of Evaluation: 12/16/18 Time of Evaluation: 11:44 - Subjective Subjective: CHIEF COMPLAINTS TODAY : Patient is complaining of generalized weakness. There is no any localizing symptoms. ROS. HEENT : N. Resp : No cough, wheezing ,pleuritic CP ,or hemoptysis Cardio : No anginal CP, PND, orthopnea, palpitation GI : No abd.pain, n/v ,diarrhea or GI bleeding . 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 Musculoskel : No joint swelling , Derm : No rash Psych : Normal affect. Ext : No swelling ,calf pain PE. Pt. is alert awake in no distress. V.S As noted in the chart Head ,ear nose,throat and eyes : Normal. Neck : Supple with normal carotids. Lungs: Clear air entry. Heart : S1 & S2 normal with S4. No murmur. Abd : Soft non tender with normal bowel sounds. Neuro : Moves all ext. with no localized deficit. Ext : No edema with intact pulses.Non tender calves Derm : No rashes or decubitus ulcer. LABS/RADIOLOGY: Repeat blood cultures are negative ASSESSMENT/PLAN : Continue IV antibiotics As per the family did want patient to be in the rehab Objective - Vital Signs/Intake and Output Vital Signs (last 24 hours): Temp Pulse Resp BP Pulse Ox 97.9 F 67 20 133/80 96 12/16/18 07:34 12/16/18 07:34 12/16/18 07:34 12/16/18 07:34 12/16/18 07:34 Intake and Output: 12/15/18 12/16/18 23:59 11:59 Intake Total 490 120 Balance 490 120 - Medications Medications: Current Medications Acetaminophen (Tylenol 325mg Tab) 650 mg PO Q6 PRN PRN Reason: Pain, Mild (1-3) Last Admin: 12/16/18 05:15 Dose: 650 mg Al Hydrox/Mg Hydrox/Simethicone (Maalox 30 Ml) 30 ml PO TID PRN PRN Reason: Indigestion / Heartburn Last Admin: 12/15/18 22:33 Dose: 30 ml Amlodipine Besylate (Norvasc) 5 mg PO DAILY [facility] Last Admin: 12/16/18 10:37 Dose: 5 mg Apixaban (Eliquis) 5 mg PO BID [facility] Last Admin: 12/16/18 10:38 Dose: 5 mg Bismuth Subsalicylate (Pepto Bismol) 262 mg PO Q12H PRN PRN Reason: GI distress Last Admin: 12/15/18 15:14 Dose: 262 mg Docusate Sodium (Colace) 100 mg PO BID [facility] Last Admin: 12/16/18 10:38 Dose: 100 mg Donepezil HCl (Aricept) 5 mg PO DAILY [facility] Last Admin: 12/16/18 10:38 Dose: 5 mg Haloperidol (Haldol) 5 mg PO DAILY [facility] Last Admin: 12/16/18 10:38 Dose: 5 mg Lisinopril (Zestril) 10 mg PO DAILY [facility] Last Admin: 12/16/18 10:38 Dose: 10 mg Pantoprazole Sodium (Protonix Ec Tab) 40 mg PO DAILY [facility] Last Admin: 12/16/18 10:38 Dose: 40 mg Rosuvastatin Calcium (Crestor) 20 mg PO HS [facility] Last Admin: 12/15/18 21:35 Dose: 20 mg - Labs Labs: 12/13/18 08:47 12/13/18 08:47
[2018-12-16] MEDS: Bismuth Subsalicylate 262 mg Chew Tab PO PRN (21:30)
[2018-12-17 07:24] LABS: BASO % 0.5 % (0.0-2.0); EOS % 0.2 % (0.0-4.0); HEMOGLOBIN 11.7 g/dL (11.0-16.0); LYMPH # 1.3 K/uL (1.0-4.3); LYMPH % 26.1 % (20.0-40.0); MEAN CORPUSCULAR HEMOGLOBIN 28.7 pg (27.0-31.0); MEAN CORPUSCULAR HGB CONC 32.2 g/dL (33.0-37.0); MEAN PLATELET VOLUME 8.5 fL (7.2-11.7); MONO # 0.6 K/uL (0.0-0.8); MONO % 12.6 % (0.0-10.0); NEUT % 60.6 % (50.0-75.0); NRBC % 0.2 % (0.0-2.0); RBC 4.07 Mil/uL (3.80-5.20); RED CELL DISTRIBUTION WIDTH 14.4 % (11.5-14.5); WHITE BLOOD COUNT 4.9 K/uL (4.8-10.8)
[2018-12-17 08:03] LABS: ALB/GLOB RATIO 1.3 (1.0-2.1); ALBUMIN 3.5 g/dL (3.5-5.0); ALT/SGPT 41 U/L (9-52); AST/SGOT 45 U/L (14-36); BLOOD UREA NITROGEN 23 mg/dL (7-17); CALCIUM 9.2 mg/dl (8.6-10.4); GFR NON-AFRICAN AMERICAN > 60
[2018-12-17] MEDS: Pantoprazole 40 mg EC Tab PO SCH (09:50)
--- NOTE | 2018-12-17 10:05 | CP.PCM.PN ---
Subjective - Date & Time of Evaluation Date of Evaluation: 12/17/18 Time of Evaluation: 10:04 - Subjective Subjective: CHIEF COMPLAINTS TODAY : Patient is complaining of generalized weakness. ROS. HEENT : N. Resp : No cough, wheezing ,pleuritic CP ,or hemoptysis Cardio : No anginal CP, PND, orthopnea, palpitation GI : No abd.pain, n/v ,diarrhea or GI bleeding . 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 Musculoskel : No joint swelling , Derm : No rash Psych : Normal affect. Ext : No swelling ,calf pain PE. Pt. is alert awake in no distress. V.S As noted in the chart Head ,ear nose,throat and eyes : Normal. Neck : Supple with normal carotids. Lungs: Clear air entry. Heart : S1 & S2 normal with S4. No murmur. Abd : Soft non tender with normal bowel sounds. Neuro : Moves all ext. with no localized deficit. Ext : No edema with intact pulses.Non tender calves Derm : No rashes or decubitus ulcer. LABS/RADIOLOGY: Repeat blood cultures are negative ASSESSMENT/PLAN : Continue IV antibiotics As per the family did want patient to be in the rehab Objective - Vital Signs/Intake and Output Vital Signs (last 24 hours): Temp Pulse Resp BP Pulse Ox 98.1 F 74 20 131/84 98 12/16/18 23:55 12/16/18 23:55 12/16/18 23:55 12/16/18 23:55 12/16/18 23:55 Intake and Output: 12/16/18 12/17/18 23:59 11:59 Intake Total 700 120 Balance 700 120 - Medications Medications: Current Medications Acetaminophen (Tylenol 325mg Tab) 650 mg PO Q6 PRN PRN Reason: Pain, Mild (1-3) Last Admin: 12/16/18 05:15 Dose: 650 mg Al Hydrox/Mg Hydrox/Simethicone (Maalox 30 Ml) 30 ml PO TID PRN PRN Reason: Indigestion / Heartburn Last Admin: 12/15/18 22:33 Dose: 30 ml Amlodipine Besylate (Norvasc) 5 mg PO DAILY [facility] Last Admin: 12/17/18 09:49 Dose: 5 mg Apixaban (Eliquis) 5 mg PO BID [facility] Last Admin: 12/17/18 09:49 Dose: 5 mg Bismuth Subsalicylate (Pepto Bismol) 262 mg PO Q12H PRN PRN Reason: GI distress Last Admin: 12/16/18 21:30 Dose: 262 mg Docusate Sodium (Colace) 100 mg PO BID [facility] Last Admin: 12/17/18 09:49 Dose: 100 mg Donepezil HCl (Aricept) 5 mg PO DAILY [facility] Last Admin: 12/17/18 09:50 Dose: 5 mg Haloperidol (Haldol) 5 mg PO DAILY [facility] Last Admin: 12/17/18 09:50 Dose: 5 mg Lactulose (Enulose) 20 gm PO [facility] Lisinopril (Zestril) 10 mg PO DAILY [facility] Last Admin: 12/17/18 09:50 Dose: 10 mg Pantoprazole Sodium (Protonix Ec Tab) 40 mg PO DAILY [facility] Last Admin: 12/17/18 09:50 Dose: 40 mg Rosuvastatin Calcium (Crestor) 20 mg PO HS [facility] Last Admin: 12/16/18 21:30 Dose: 20 mg - Labs Labs: 12/17/18 07:11 12/17/18 07:11
[2018-12-18] MEDS: Aluminum Hydroxide/Magnesium Hydroxide Susp (30 mL) PO PRN ×2 (05:17→12:59)
[2018-12-18] MEDS: Pantoprazole 40 mg EC Tab PO SCH (11:08)
--- NOTE | 2018-12-18 12:33 | CP.PCM.PN ---
Subjective - Date & Time of Evaluation Date of Evaluation: 12/18/18 Time of Evaluation: 12:32 - Subjective Subjective: CHIEF COMPLAINTS TODAY : Patient is complaining of generalized weakness. ROS. HEENT : N. Resp : No cough, wheezing ,pleuritic CP ,or hemoptysis Cardio : No anginal CP, PND, orthopnea, palpitation GI : No abd.pain, n/v ,diarrhea or GI bleeding . 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 Musculoskel : No joint swelling , Derm : No rash Psych : Normal affect. Ext : No swelling ,calf pain PE. Pt. is alert awake in no distress. V.S As noted in the chart Head ,ear nose,throat and eyes : Normal. Neck : Supple with normal carotids. Lungs: Clear air entry. Heart : S1 & S2 normal with S4. No murmur. Abd : Soft non tender with normal bowel sounds. Neuro : Moves all ext. with no localized deficit. Ext : No edema with intact pulses.Non tender calves Derm : No rashes or decubitus ulcer. LABS/RADIOLOGY: Repeat blood cultures are negative ASSESSMENT/PLAN : FAMILY WANTS LTC Objective - Vital Signs/Intake and Output Vital Signs (last 24 hours): Temp Pulse Resp BP Pulse Ox 97.6 F 74 20 115/75 96 12/18/18 08:00 12/18/18 08:00 12/18/18 08:00 12/18/18 08:00 12/18/18 08:00 Intake and Output: 12/18/18 12/18/18 11:59 23:59 Intake Total 240 Balance 240 - Medications Medications: Current Medications Acetaminophen (Tylenol 325mg Tab) 650 mg PO Q6 PRN PRN Reason: Pain, Mild (1-3) Last Admin: 12/17/18 20:11 Dose: 650 mg Al Hydrox/Mg Hydrox/Simethicone (Maalox 30 Ml) 30 ml PO TID PRN PRN Reason: Indigestion / Heartburn Last Admin: 12/18/18 05:17 Dose: 30 ml Amlodipine Besylate (Norvasc) 5 mg PO DAILY [facility] Last Admin: 12/18/18 11:09 Dose: 5 mg Apixaban (Eliquis) 5 mg PO BID [facility] Last Admin: 12/18/18 11:09 Dose: 5 mg Bismuth Subsalicylate (Pepto Bismol) 262 mg PO Q12H PRN PRN Reason: GI distress Last Admin: 12/16/18 21:30 Dose: 262 mg Docusate Sodium (Colace) 100 mg PO BID [facility] Last Admin: 12/18/18 11:08 Dose: 100 mg Donepezil HCl (Aricept) 5 mg PO DAILY [facility] Last Admin: 12/18/18 11:09 Dose: 5 mg Haloperidol (Haldol) 5 mg PO DAILY [facility] Last Admin: 12/18/18 11:09 Dose: 5 mg Lactulose (Enulose) 20 gm PO HS [facility] Last Admin: 12/17/18 21:57 Dose: 20 gm Lisinopril (Zestril) 10 mg PO DAILY [facility] Last Admin: 12/18/18 11:08 Dose: 10 mg Pantoprazole Sodium (Protonix Ec Tab) 40 mg PO DAILY [facility] Last Admin: 12/18/18 11:08 Dose: 40 mg Rosuvastatin Calcium (Crestor) 20 mg PO HS [facility] Last Admin: 12/17/18 21:56 Dose: 20 mg - Labs Labs: 12/17/18 07:11 12/17/18 07:11
[2018-12-18] MEDS: Simethicone 80 mg Chewtab PO PRN (15:05)
[2018-12-19] MEDS: Pantoprazole 40 mg EC Tab PO SCH (10:42)
--- NOTE | 2018-12-19 12:58 | CP.PCM.PN ---
Subjective - Date & Time of Evaluation Date of Evaluation: 12/19/18 Time of Evaluation: 12:58 - Subjective Subjective: CHIEF COMPLAINTS TODAY : Patient is complaining of generalized weakness. ROS. HEENT : N. Resp : No cough, wheezing ,pleuritic CP ,or hemoptysis Cardio : No anginal CP, PND, orthopnea, palpitation GI : No abd.pain, n/v ,diarrhea or GI bleeding . 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 Musculoskel : No joint swelling , Derm : No rash Psych : Normal affect. Ext : No swelling ,calf pain PE. Pt. is alert awake in no distress. V.S As noted in the chart Head ,ear nose,throat and eyes : Normal. Neck : Supple with normal carotids. Lungs: Clear air entry. Heart : S1 & S2 normal with S4. No murmur. Abd : Soft non tender with normal bowel sounds. Neuro : Moves all ext. with no localized deficit. Ext : No edema with intact pulses.Non tender calves Derm : No rashes or decubitus ulcer. LABS/RADIOLOGY: Repeat blood cultures are negative ASSESSMENT/PLAN : FAMILY WANTS LTC Objective - Vital Signs/Intake and Output Vital Signs (last 24 hours): Temp Pulse Resp BP Pulse Ox 98.7 F 73 20 131/79 96 12/19/18 08:33 12/19/18 08:33 12/19/18 08:33 12/19/18 08:33 12/19/18 08:33 Intake and Output: 12/19/18 12/19/18 11:59 23:59 Intake Total Balance - Medications Medications: Current Medications Acetaminophen (Tylenol 325mg Tab) 650 mg PO Q6 PRN PRN Reason: Pain, Mild (1-3) Last Admin: 12/17/18 20:11 Dose: 650 mg Al Hydrox/Mg Hydrox/Simethicone (Maalox 30 Ml) 30 ml PO TID PRN PRN Reason: Indigestion / Heartburn Last Admin: 12/18/18 12:59 Dose: 30 ml Amlodipine Besylate (Norvasc) 5 mg PO DAILY [facility] Last Admin: 12/19/18 10:43 Dose: 5 mg Apixaban (Eliquis) 5 mg PO BID [facility] Last Admin: 12/19/18 10:43 Dose: 5 mg Bismuth Subsalicylate (Pepto Bismol) 262 mg PO Q12H PRN PRN Reason: GI distress Last Admin: 12/16/18 21:30 Dose: 262 mg Docusate Sodium (Colace) 100 mg PO BID [facility] Last Admin: 12/19/18 10:43 Dose: 100 mg Donepezil HCl (Aricept) 5 mg PO DAILY [facility] Last Admin: 12/19/18 10:43 Dose: 5 mg Haloperidol (Haldol) 5 mg PO DAILY [facility] Last Admin: 12/19/18 10:43 Dose: 5 mg Lactulose (Enulose) 20 gm PO HS [facility] Last Admin: 12/18/18 21:45 Dose: 20 gm Lisinopril (Zestril) 10 mg PO DAILY [facility] Last Admin: 12/19/18 10:42 Dose: 10 mg Pantoprazole Sodium (Protonix Ec Tab) 40 mg PO DAILY [facility] Last Admin: 12/19/18 10:42 Dose: 40 mg Rosuvastatin Calcium (Crestor) 20 mg PO HS [facility] Last Admin: 12/18/18 21:45 Dose: 20 mg Simethicone (Mylicon Chew Tab) 80 mg PO Q12H PRN PRN Reason: GI distress Last Admin: 12/18/18 15:05 Dose: 80 mg - Labs Labs: 12/17/18 07:11 12/17/18 07:11
[2018-12-19] MEDS: Simethicone 80 mg Chewtab PO PRN (13:17)
[2018-12-19] MEDS: Aluminum Hydroxide/Magnesium Hydroxide Susp (30 mL) PO PRN (13:17)
[2018-12-20] MEDS ORDERED: Iohexol 240 (50 ml) PO ONE (08:00)
[2018-12-20] MEDS: Pantoprazole 40 mg EC Tab PO SCH (10:23)
--- NOTE | 2018-12-20 11:04 | CP.PCM.PN ---
Subjective - Date & Time of Evaluation Date of Evaluation: 12/20/18 Time of Evaluation: 11:03 - Subjective Subjective: CHIEF COMPLAINTS TODAY : C/O ABDOMINAL PAIN NOT RELIEVED WITH ORAL ANATACIDS ROS. HEENT : N. Resp : No cough, wheezing ,pleuritic CP ,or hemoptysis Cardio : No anginal CP, PND, orthopnea, palpitation GI : No abd.pain, n/v ,diarrhea or GI bleeding . 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 Musculoskel : No joint swelling , Derm : No rash Psych : Normal affect. Ext : No swelling ,calf pain PE. Pt. is alert awake in no distress. V.S As noted in the chart Head ,ear nose,throat and eyes : Normal. Neck : Supple with normal carotids. Lungs: Clear air entry. Heart : S1 & S2 normal with S4. No murmur. Abd : Soft non tender with normal bowel sounds. Neuro : Moves all ext. with no localized deficit. Ext : No edema with intact pulses.Non tender calves Derm : No rashes or decubitus ulcer. LABS/RADIOLOGY: Repeat blood cultures are negative ASSESSMENT/PLAN : FAMILY WANTS LTC CT ABD. Objective - Vital Signs/Intake and Output Vital Signs (last 24 hours): Temp Pulse Resp BP Pulse Ox 97.6 F 73 20 116/73 100 12/20/18 07:00 12/20/18 07:00 12/20/18 07:00 12/20/18 07:00 12/20/18 07:00 Intake and Output: 12/19/18 12/20/18 23:59 11:59 Intake Total 750 80 Balance 750 80 - Medications Medications: Current Medications Acetaminophen (Tylenol 325mg Tab) 650 mg PO Q6 PRN PRN Reason: Pain, Mild (1-3) Last Admin: 12/17/18 20:11 Dose: 650 mg Al Hydrox/Mg Hydrox/Simethicone (Maalox 30 Ml) 30 ml PO TID PRN PRN Reason: Indigestion / Heartburn Last Admin: 12/19/18 13:17 Dose: 30 ml Amlodipine Besylate (Norvasc) 5 mg PO DAILY [facility] Last Admin: 12/20/18 10:23 Dose: 5 mg Apixaban (Eliquis) 5 mg PO BID [facility] Last Admin: 12/20/18 10:23 Dose: 5 mg Bismuth Subsalicylate (Pepto Bismol) 262 mg PO Q12H PRN PRN Reason: GI distress Last Admin: 12/16/18 21:30 Dose: 262 mg Docusate Sodium (Colace) 100 mg PO BID [facility] Last Admin: 12/20/18 10:23 Dose: 100 mg Donepezil HCl (Aricept) 5 mg PO DAILY [facility] Last Admin: 12/20/18 10:23 Dose: 5 mg Haloperidol (Haldol) 5 mg PO DAILY [facility] Last Admin: 12/20/18 10:23 Dose: 5 mg Lactulose (Enulose) 20 gm PO HS [facility] Last Admin: 12/19/18 21:51 Dose: 20 gm Lisinopril (Zestril) 10 mg PO DAILY [facility] Last Admin: 12/20/18 10:23 Dose: 10 mg Pantoprazole Sodium (Protonix Ec Tab) 40 mg PO DAILY [facility] Last Admin: 12/20/18 10:23 Dose: 40 mg Rosuvastatin Calcium (Crestor) 20 mg PO HS [facility] Last Admin: 12/19/18 21:51 Dose: 20 mg Simethicone (Mylicon Chew Tab) 80 mg PO Q12H PRN PRN Reason: GI distress Last Admin: 12/19/18 13:17 Dose: 80 mg - Labs Labs: 12/17/18 07:11 12/17/18 07:11
--- NOTE | 2018-12-20 12:27 | CT ---
Date of service: 12/20/2018 PROCEDURE: CT abdomen and pelvis without IV contrast. HISTORY: abdominal pain after eating COMPARISON: CTA chest, abdomen, pelvis performed 07/14/17 TECHNIQUE: Axial images of the abdomen and pelvis without intravenous contrast enhancement. Coronal and sagittal reformats generated. Oral contrast was administered. Radiation dose: Total exam DLP = 883.04 mGy-cm. This CT exam was performed using one or more of the following dose reduction techniques: Automated exposure control, adjustment of the mA and/or kV according to patient size, and/or use of iterative reconstruction technique. FINDINGS: LOWER THORAX: No visible consolidation, pleural effusion, or pneumothorax. Partially imaged cardiomegaly. Moderate-sized hiatal hernia. LIVER: Unremarkable unenhanced appearance. GALLBLADDER AND BILE DUCTS: Unremarkable unenhanced appearance. PANCREAS: Unremarkable unenhanced appearance. SPLEEN: Unremarkable unenhanced appearance. ADRENALS: Unremarkable unenhanced appearance. KIDNEYS AND URETERS: The kidneys enhance symmetrically. No hydronephrosis or obstructing calculus identified. 2.6 x 2.2 cm medial left renal cyst. Punctate nonobstructing left renal calculus. VASCULATURE: No aortic aneurysm. Atherosclerotic calcifications of the aorta and branches. BOWEL: Stomach is nondistended. Lack of oral contrast limits evaluation for bowel pathology. Bowel loops appear within normal limits of caliber without evidence of obstruction. Bowel wall thickening. APPENDIX: The appendix appears within normal limits of caliber. No secondary signs of acute appendicitis. PERITONEUM: No significant free fluid. No definite free air. LYMPH NODES: No bulky adenopathy. BONES: Degenerative changes. Grade 1 anterolisthesis of L5 on S1. OTHER FINDINGS: Uterus is present with right greater than left adnexal prominence presumably related to the ovary; recommend further evaluation with pelvic ultrasound. Scattered atherosclerotic calcifications of the aorta. IMPRESSION: Rectal wall thickening. Correlate clinically for possibility of proctitis. Recommend follow-up evaluation with direct visualization if indicated. Uterus is present with right greater than left adnexal prominence presumably related to the ovary; recommend further evaluation with pelvic ultrasound. Moderate-sized hiatal hernia. 2.6 x 2.2 cm medial left renal cyst. Punctate nonobstructing left renal calculus. Partially imaged cardiomegaly. Additional findings as above.
[2018-12-20] MEDS: Bismuth Subsalicylate 262 mg Chew Tab PO PRN (21:35)
[2018-12-21] MEDS: Pantoprazole 40 mg EC Tab PO SCH (10:17)
--- NOTE | 2018-12-21 12:02 | CP.PCM.PN ---
Subjective - Date & Time of Evaluation Date of Evaluation: 12/21/18 Time of Evaluation: 12:01 - Subjective Subjective: VUAGUE ABD PAIN CT H/HERNIA THICKENING OF RECTAL WALL TRY PROTONEX Objective - Vital Signs/Intake and Output Vital Signs (last 24 hours): Temp Pulse Resp BP Pulse Ox 98.4 F 69 20 136/82 95 12/21/18 08:14 12/21/18 08:14 12/21/18 08:14 12/21/18 08:14 12/21/18 08:14 Intake and Output: 12/21/18 12/21/18 11:59 23:59 Intake Total 540 Balance 540 - Medications Medications: Current Medications Acetaminophen (Tylenol 325mg Tab) 650 mg PO Q6 PRN PRN Reason: Pain, Mild (1-3) Last Admin: 12/17/18 20:11 Dose: 650 mg Al Hydrox/Mg Hydrox/Simethicone (Maalox 30 Ml) 30 ml PO TID PRN PRN Reason: Indigestion / Heartburn Last Admin: 12/19/18 13:17 Dose: 30 ml Amlodipine Besylate (Norvasc) 5 mg PO DAILY [facility] Last Admin: 12/21/18 10:17 Dose: 5 mg Apixaban (Eliquis) 5 mg PO BID [facility] Last Admin: 12/21/18 10:17 Dose: 5 mg Bismuth Subsalicylate (Pepto Bismol) 262 mg PO Q12H PRN PRN Reason: GI distress Last Admin: 12/20/18 21:35 Dose: 262 mg Docusate Sodium (Colace) 100 mg PO BID [facility] Last Admin: 12/21/18 10:17 Dose: 100 mg Donepezil HCl (Aricept) 5 mg PO DAILY [facility] Last Admin: 12/21/18 10:17 Dose: 5 mg Haloperidol (Haldol) 5 mg PO DAILY [facility] Last Admin: 12/21/18 10:18 Dose: 5 mg Lactulose (Enulose) 20 gm PO HS [facility] Last Admin: 12/20/18 21:34 Dose: 20 gm Lisinopril (Zestril) 10 mg PO DAILY [facility] Last Admin: 12/21/18 10:17 Dose: 10 mg Pantoprazole Sodium (Protonix Ec Tab) 40 mg PO DAILY [facility] Last Admin: 12/21/18 10:17 Dose: 40 mg Rosuvastatin Calcium (Crestor) 20 mg PO HS [facility] Last Admin: 12/20/18 21:34 Dose: 20 mg Simethicone (Mylicon Chew Tab) 80 mg PO Q12H PRN PRN Reason: GI distress Last Admin: 12/19/18 13:17 Dose: 80 mg - Labs Labs: 12/17/18 07:11 12/17/18 07:11
[2018-12-21] MEDS: Bismuth Subsalicylate 262 mg Chew Tab PO PRN (12:31)
[2018-12-21] MEDS: Simethicone 80 mg Chewtab PO SCH (17:56)
[2018-12-22] MEDS: Simethicone 80 mg Chewtab PO SCH ×3 (04:15→17:30)
[2018-12-22 08:19] LABS: BASO % 0.7 % (0.0-2.0); EOS % 0.2 % (0.0-4.0); HEMOGLOBIN 12.6 g/dL (11.0-16.0); LYMPH # 1.6 K/uL (1.0-4.3); LYMPH % 29.7 % (20.0-40.0); MEAN CELL VOLUME 90.2 fL (81.0-99.0); MEAN CORPUSCULAR HEMOGLOBIN 28.7 pg (27.0-31.0); MEAN CORPUSCULAR HGB CONC 31.8 g/dL (33.0-37.0); MEAN PLATELET VOLUME 8.9 fL (7.2-11.7); MONO # 0.6 K/uL (0.0-0.8); MONO % 10.8 % (0.0-10.0); NEUT # 3.1 K/uL (1.8-7.0); NEUT % 58.6 % (50.0-75.0); NRBC % 0.1 % (0.0-2.0); RBC 4.39 Mil/uL (3.80-5.20); RED CELL DISTRIBUTION WIDTH 14.7 % (11.5-14.5); WHITE BLOOD COUNT 5.3 K/uL (4.8-10.8)
[2018-12-22 08:26] LABS: INR 1.2; PROTHROMBIN TIME 12.7 SECONDS (9.7-12.2)
[2018-12-22 08:31] LABS: BLOOD UREA NITROGEN 19 mg/dL (7-17); CALCIUM 9.6 mg/dl (8.6-10.4); GFR NON-AFRICAN AMERICAN > 60
[2018-12-22] MEDS: Pantoprazole 40 mg EC Tab PO SCH (08:42)
--- NOTE | 2018-12-22 09:45 | CP.PCM.CON ---
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 Patient was recently evaluated in the ER for weakness and found to have a positive blood culture with Staph coagulase negative on one bottle leading to call back for hospital admission. Since admission, repeat cultures have been negative. GI consultation for persistent abdominal pain for 3-4 days. Patient notes postprandial, constant, bilateral upper abdominal pain without radiation to back or shoulder. Patient notes no worsening of pain to fruits but rather to regular foods eaten as solid meal. Patient admits to partial symptom improvement with use of simethicone, maalox, lactulose, and protonix. Associated heartburn, belching, and flatulence. Denies dysphagia, odynophagia, nausea, vomiting, hematemesis, diarrhea, constipation, melena, hematochezia, or unintentional weight loss. No prior EGD or colonoscopy. Family History- denies colon cancer, stomach cancer Social History- denies tobacco, alcohol, illicit drug use Surgical History- ocular implant, BTL, tracheostomy with reversal 07/2017 due to hypoxic respiratory failure Review of Systems - Review of Systems Review of Systems: 12-point review of systems negative except for as above Past Patient History - Past Medical History & Family History Past Medical History?: Yes - Past Social History Smoking Status: Never Smoked - CARDIAC Hx Hypercholesterolemia: Yes Hx Hypertension: Yes - PULMONARY Hx Respiratory Disorders: No - NEUROLOGICAL Hx Neurological Disorder: No - HEENT Hx HEENT Problems: No Other/Comment: occular implant - RENAL Hx Chronic Kidney Disease: No - ENDOCRINE/METABOLIC Hx Endocrine Disorders: No - HEMATOLOGICAL/ONCOLOGICAL Hx Blood Disorders: No - INTEGUMENTARY Hx Dermatological Problems: No - MUSCULOSKELETAL/RHEUMATOLOGICAL Hx Arthritis: Yes - GASTROINTESTINAL Hx Gastrointestinal Disorders: No - GENITOURINARY/GYNECOLOGICAL Hx Genitourinary Disorders: No - PSYCHIATRIC Hx Substance Use: No - SURGICAL HISTORY Hx Surgeries: Yes Hx Hysterectomy: No Hx Tubal Ligation: Yes Other/Comment: "eye surgery" "occular implant" - ANESTHESIA Hx Anesthesia: Yes Hx Anesthesia Reactions: No Hx Malignant Hyperthermia: No Meds Allergies/Adverse Reactions: Allergies Allergy/AdvReac Type Severity Reaction Status Date / Time soy Allergy Mild RASH Verified 12/08/18 18:10 - Medications Medications: Current Medications Acetaminophen (Tylenol 325mg Tab) 650 mg PO Q6 PRN PRN Reason: Pain, Mild (1-3) Last Admin: 12/17/18 20:11 Dose: 650 mg Al Hydrox/Mg Hydrox/Simethicone (Maalox 30 Ml) 30 ml PO TID PRN PRN Reason: Indigestion / Heartburn Last Admin: 12/19/18 13:17 Dose: 30 ml Amlodipine Besylate (Norvasc) 5 mg PO DAILY [facility] Last Admin: 12/21/18 10:17 Dose: 5 mg Apixaban (Eliquis) 5 mg PO BID [facility] Last Admin: 12/21/18 17:54 Dose: 5 mg Bismuth Subsalicylate (Pepto Bismol) 262 mg PO Q12H PRN PRN Reason: GI distress Last Admin: 12/21/18 12:31 Dose: 262 mg Docusate Sodium (Colace) 100 mg PO BID [facility] Last Admin: 12/21/18 17:54 Dose: 100 mg Donepezil HCl (Aricept) 5 mg PO DAILY [facility] Last Admin: 12/21/18 10:17 Dose: 5 mg Famotidine (Pepcid) 20 mg PO HS [facility] Stop: 12/22/18 22:01 Last Admin: 12/21/18 21:41 Dose: 20 mg Haloperidol (Haldol) 5 mg PO DAILY [facility] Last Admin: 12/21/18 10:18 Dose: 5 mg Lactulose (Enulose) 20 gm PO HS [facility] Last Admin: 12/21/18 21:41 Dose: 20 gm Lisinopril (Zestril) 10 mg PO DAILY [facility] Last Admin: 12/21/18 10:17 Dose: 10 mg Pantoprazole Sodium (Protonix Ec Tab) 40 mg PO ACB [facility] Last Admin: 12/22/18 08:42 Dose: 40 mg Rosuvastatin Calcium (Crestor) 20 mg PO HS [facility] Last Admin: 12/21/18 21:41 Dose: 20 mg Physical Exam - Constitutional Appears: Non-toxic, No Acute Distress - Head Exam Head Exam: ATRAUMATIC, NORMOCEPHALIC - Eye Exam Eye Exam: EOMI, PERRL. absent: Scleral icterus Pupil Exam: PERRL. absent: Miosis, Mydriatic - ENT Exam ENT Exam: Mucous Membranes Moist, Normal Oropharynx - Neck Exam Neck exam: Positive for: Full Rom, Normal Inspection - Respiratory Exam Respiratory Exam: Clear to Auscultation Bilateral. absent: Rales, Rhonchi, Wheezes - Cardiovascular Exam Cardiovascular Exam: RRR, +S1, +S2. absent: Gallop, Rubs - GI/Abdominal Exam GI & Abdominal Exam: Normal Bowel Sounds, Soft. absent: Distended, Firm, Guarding, Rebound, Rigid, Tenderness - Extremities Exam Extremities exam: Positive for: normal inspection, pedal edema - Neurological Exam Neurological exam: Alert - Psychiatric Exam Psychiatric exam: Normal Affect, Normal Mood - Skin Skin Exam: Dry, Intact, Normal Color, Warm Results - Vital Signs Recent Vital Signs: Last Vital Signs Temp 98.0 F 12/22/18 08:00 Pulse 67 12/22/18 08:00 Resp 20 12/22/18 08:00 BP 121/67 12/22/18 08:00 Pulse Ox 98 12/22/18 08:00 - Labs Result Diagrams: 12/22/18 08:09 12/22/18 08:09 Labs: Laboratory Results - last 24 hr 12/10/18 12/22/18 12/22/18 07:43 08:09 08:09 WBC 5.3 RBC 4.39 Hgb 12.6 Hct 39.6 MCV 90.2 MCH 28.7 MCHC 31.8 L RDW 14.7 H Plt Count 284 MPV 8.9 Neut % (Auto) 58.6 Lymph % (Auto) 29.7 [place] % (Auto) 10.8 H Eos % (Auto) 0.2 Baso % (Auto) 0.7 Neut # (Auto) 3.1 Lymph # (Auto) 1.6 [place] # (Auto) 0.6 Eos # (Auto) 0.0 Baso # (Auto) 0.0 PT INR Sodium 137 Potassium 3.7 Chloride 103 Carbon Dioxide 29 Anion Gap 10 BUN 19 H Creatinine 0.7 Est GFR ( Amer) > 60 Est GFR (Non-Af Amer) > 60 Random Glucose 98 D Calcium 9.6 Rheumatoid Factor IgG <5 Rheumatoid Factor IgA 9 H Rheumatoid Factor IgM <5 12/22/18 08:09 WBC RBC Hgb Hct MCV MCH MCHC RDW Plt Count MPV Neut % (Auto) Lymph % (Auto) [place] % (Auto) Eos % (Auto) Baso % (Auto) Neut # (Auto) Lymph # (Auto) [place] # (Auto) Eos # (Auto) Baso # (Auto) PT 12.7 H INR 1.2 Sodium Potassium Chloride Carbon Dioxide Anion Gap BUN Creatinine Est GFR ( Amer) Est GFR (Non-Af Amer) Random Glucose Calcium Rheumatoid Factor IgG Rheumatoid Factor IgA Rheumatoid Factor IgM Assessment & Plan - Assessment and Plan (Free Text) Assessment: 88 year old female with past medical history of Atrial fibrillation on Eliquis, HTN, HLD, Hypothyroidism, and Anxiety presenting for positive blood culture after recent ER for weakness leading to call back for hospital admission. GI consultation for abnormal CT and abdominal pain. CT A/P PO contrast showed possible rectal thickening, right greater than left adnexal prominence, and no gallstones. No prior EGD or colonoscopy. Plan: -ordered Abdominal U/S to evaluate for gallstones -ordered pelvic ultrasound to evaluate for adnexa prominence -patient endorses partial improvement of abdominal pain over the last 24 hours with conservative management -continue simethicone BID , Zantac QHS , and PPI ACB -continue bowel regimen-Colace and Lactulose -if abdominal pain persists, will consider diagnostic EGD tomorrow, , 12/23 in setting of Eliquis use -continue bland, low fiber diet -will benefit from colonoscopy to evaluate rectal wall thickening once is Eliquis can be held for 3-4 days prior to procedure -will follow clinical course <Karthik Yusuf - Last Filed: 12/22/18 13:26> Meds - Medications Medications: Current Medications Acetaminophen (Tylenol 325mg Tab) 650 mg PO Q6 PRN PRN Reason: Pain, Mild (1-3) Last Admin: 12/17/18 20:11 Dose: 650 mg Al Hydrox/Mg Hydrox/Simethicone (Maalox 30 Ml) 30 ml PO TID PRN PRN Reason: Indigestion / Heartburn Last Admin: 12/22/18 09:51 Dose: 30 ml Amlodipine Besylate (Norvasc) 5 mg PO DAILY [facility] Last Admin: 12/22/18 09:53 Dose: 5 mg Apixaban (Eliquis) 5 mg PO BID [facility] Last Admin: 12/22/18 10:03 Dose: 5 mg Bismuth Subsalicylate (Pepto Bismol) 262 mg PO Q12H PRN PRN Reason: GI distress Last Admin: 12/21/18 12:31 Dose: 262 mg Docusate Sodium (Colace) 100 mg PO BID [facility] Last Admin: 12/22/18 10:01 Dose: 100 mg Donepezil HCl (Aricept) 5 mg PO DAILY [facility] Last Admin: 12/22/18 10:07 Dose: 5 mg Famotidine (Pepcid) 20 mg PO HS [facility] Stop: 12/27/18 22:01 Last Admin: 12/21/18 21:41 Dose: 20 mg Haloperidol (Haldol) 5 mg PO DAILY [facility] Last Admin: 12/22/18 09:55 Dose: 5 mg Lactulose (Enulose) 20 gm PO HS [facility] Last Admin: 12/21/18 21:41 Dose: 20 gm Lisinopril (Zestril) 10 mg PO DAILY [facility] Last Admin: 12/22/18 09:53 Dose: 10 mg Pantoprazole Sodium (Protonix Ec Tab) 40 mg PO ACB [facility] Last Admin: 12/22/18 08:42 Dose: 40 mg Rosuvastatin Calcium (Crestor) 20 mg PO HS [facility] Last Admin: 12/21/18 21:41 Dose: 20 mg Simethicone (Mylicon Chew Tab) 80 mg PO BID [facility] Stop: 12/22/18 18:01 Last Admin: 12/22/18 12:42 Dose: 80 mg Results - Vital Signs Recent Vital Signs: Last Vital Signs Temp 98.0 F 12/22/18 08:00 Pulse 67 12/22/18 08:00 Resp 20 12/22/18 08:00 BP 121/67 12/22/18 08:00 Pulse Ox 98 12/22/18 08:00 - Labs Result Diagrams: 12/22/18 08:09 12/22/18 08:09 Labs: Laboratory Results - last 24 hr 12/22/18 12/22/18 12/22/18 08:09 08:09 08:09 WBC 5.3 RBC 4.39 Hgb 12.6 Hct 39.6 MCV 90.2 MCH 28.7 MCHC 31.8 L RDW 14.7 H Plt Count 284 MPV 8.9 Neut % (Auto) 58.6 Lymph % (Auto) 29.7 [place] % (Auto) 10.8 H Eos % (Auto) 0.2 Baso % (Auto) 0.7 Neut # (Auto) 3.1 Lymph # (Auto) 1.6 [place] # (Auto) 0.6 Eos # (Auto) 0.0 Baso # (Auto) 0.0 PT 12.7 H INR 1.2 Sodium 137 Potassium 3.7 Chloride 103 Carbon Dioxide 29 Anion Gap 10 BUN 19 H Creatinine 0.7 Est GFR ( Amer) > 60 Est GFR (Non-Af Amer) > 60 Random Glucose 98 D Calcium 9.6 Attending/Attestation - Attestation I have personally seen and examined this patient.: Yes I have fully participated in the care of the patient.: Yes I have reviewed all pertinent clinical information: Yes Notes (Text): 12/22/18 13:20 I have seen and examined patient with GI fellow. Agree with above documentation with the following additions. In brief, this is an 88 year old female with history of HTN, atrial fibrillation on eliquis, Hypothyroidism, anxiety who was initially admitted to hospital for treatment of bacteremia. GI called for evaluation of abdominal pain. She reports bilateral upper quadrant abdominal pain, 5/10 intensity that is worse after meal consumption for the past 3 days. She reports associated nausea, flatulence, and heartburn but denies vomiting, fever/chills, diarrhea, weight loss, rectal bleeding, or change in bowel habits. She was able to tolerate fruit yesterday without difficulty and feels mild symptom improvement with use of anti-gas and acid suppressive medication. No prior endoscopic evaluation. Additional physical examination: Abdomen: no palpable hepato/splenomegaly HTN Atrial fibrillation on eliquis Hypothyroidism Anxiety Bacteremia Abdominal pain Abdominal US reviewed by me showing no gallstones - Diet as tolerated - Continue with PPI and simethicone therapy - Maintain bowel regimen to prevent constipation - Patient would likely benefit from outpatient GI evaluation following resolution of acute infectious process - If pain persists despite conservative management would consider diagnostic EGD tomorrow since patient currently on Eliquis. Will continue to monitor patient clinical course.
[2018-12-22] MEDS: Aluminum Hydroxide/Magnesium Hydroxide Susp (30 mL) PO PRN (09:51)
--- NOTE | 2018-12-22 11:50 | CP.PCM.PN ---
Subjective - Date & Time of Evaluation Date of Evaluation: 12/22/18 Time of Evaluation: 11:49 - Subjective Subjective: ABDO. PAIN LESS GI EVAL NOTED CAN HOLD ELAQUIS FOR GI PROCEDURE Objective - Vital Signs/Intake and Output Vital Signs (last 24 hours): Temp Pulse Resp BP Pulse Ox 98.0 F 67 20 121/67 98 12/22/18 08:00 12/22/18 08:00 12/22/18 08:00 12/22/18 08:00 12/22/18 08:00 Intake and Output: 12/21/18 12/22/18 23:59 11:59 Intake Total 450 0 Balance 450 0 - Medications Medications: Current Medications Acetaminophen (Tylenol 325mg Tab) 650 mg PO Q6 PRN PRN Reason: Pain, Mild (1-3) Last Admin: 12/17/18 20:11 Dose: 650 mg Al Hydrox/Mg Hydrox/Simethicone (Maalox 30 Ml) 30 ml PO TID PRN PRN Reason: Indigestion / Heartburn Last Admin: 12/22/18 09:51 Dose: 30 ml Amlodipine Besylate (Norvasc) 5 mg PO DAILY [facility] Last Admin: 12/22/18 09:53 Dose: 5 mg Apixaban (Eliquis) 5 mg PO BID [facility] Last Admin: 12/22/18 10:03 Dose: 5 mg Bismuth Subsalicylate (Pepto Bismol) 262 mg PO Q12H PRN PRN Reason: GI distress Last Admin: 12/21/18 12:31 Dose: 262 mg Docusate Sodium (Colace) 100 mg PO BID [facility] Last Admin: 12/22/18 10:01 Dose: 100 mg Donepezil HCl (Aricept) 5 mg PO DAILY [facility] Last Admin: 12/22/18 10:07 Dose: 5 mg Famotidine (Pepcid) 20 mg PO HS [facility] Stop: 12/27/18 22:01 Last Admin: 12/21/18 21:41 Dose: 20 mg Haloperidol (Haldol) 5 mg PO DAILY [facility] Last Admin: 12/22/18 09:55 Dose: 5 mg Lactulose (Enulose) 20 gm PO HS [facility] Last Admin: 12/21/18 21:41 Dose: 20 gm Lisinopril (Zestril) 10 mg PO DAILY [facility] Last Admin: 12/22/18 09:53 Dose: 10 mg Pantoprazole Sodium (Protonix Ec Tab) 40 mg PO ACB [facility] Last Admin: 12/22/18 08:42 Dose: 40 mg Rosuvastatin Calcium (Crestor) 20 mg PO HS [facility] Last Admin: 12/21/18 21:41 Dose: 20 mg Simethicone (Mylicon Chew Tab) 80 mg PO BID [facility] Stop: 12/22/18 18:01 - Labs Labs: 12/22/18 08:09 12/22/18 08:09 PT 12.7 SECONDS (9.7-12.2) H 12/22/18 08:09 INR 1.2 12/22/18 08:09
--- NOTE | 2018-12-22 12:19 | US ---
HISTORY: postprandial abdominal pain,evaluate for gallstone COMPARISON: None available. TECHNIQUE: Sonographic evaluation of the abdomen. FINDINGS: LIVER: Measures 14.3 cm in sagittal dimension and appears within normal limits of size, shape, and echotexture. No focal hepatic mass identified. The main portal vein appears patent with normal directional flow. No intrahepatic bile duct dilatation. GALLBLADDER: No gallstones. No gallbladder wall thickening. Negative sonographic Aly's sign as assessed by the emergency response coordinator. COMMON BILE DUCT: Measures 4 mm. PANCREAS: Not well visualized. RIGHT KIDNEY: Measures 9.0 x 3.4 x 4.5cm. No obstructing calculus or hydronephrosis identified. LEFT KIDNEY: Measures 8.7 x 6.1 x 4.3 cm. No obstructing calculus or hydronephrosis identified. 2.7 x 1.8 x 2.5 cm midpole cyst. SPLEEN: Measures approximately 5.7 cm. AORTA: Limited views appear unremarkable. IVC: Limited views appear unremarkable. OTHER FINDINGS: None. IMPRESSION: 2.7 x 1.8 x 2.5 cm left renal cyst.
--- NOTE | 2018-12-22 15:41 | US ---
Date of service: 12/22/2018 HISTORY: adnexa prominence on CT, abdominal pain COMPARISON: CT abdomen and pelvis without IV contrast performed 12/20/18 TECHNIQUE: Pelvis ultrasound FINDINGS: UTERUS: Measures 5.5 x 2.2 x 3.5 cm. Anteverted. ENDOMETRIUM: Measures 6 mm in diameter. Small fluid in the endometrium. CERVIX: No cervical abnormality identified. RIGHT OVARY: Measures 3.6 x 2.9 x 5.1 cm. Blood flow is demonstrated. 3.5 x 2.3 x 4.2 cm septated right ovarian cyst. LEFT OVARY: Measures 3.1 x 2.2 x 3.0 cm. Blood flow is demonstrated. 2.6 x 1.8 x 2.6 cm septated left ovarian cyst. FREE FLUID: No significant free fluid noted. OTHER FINDINGS: None. IMPRESSION: Complex bilateral ovarian cysts measuring approximately 3.5 x 2.3 x 4.2 cm on the right and 2.3 x 1.8 x 2.6 cm on the left. Suggest further evaluation with MRI . Small fluid within the endometrium.
[2018-12-22] MEDS: Bismuth Subsalicylate 262 mg Chew Tab PO PRN (21:53)
[2018-12-23] MEDS: Pantoprazole 40 mg EC Tab PO SCH (08:32)
[2018-12-23] MEDS ORDERED: Propofol 10 mg/ml Inj (20 ML) ONE (09:29)
--- NOTE | 2018-12-23 12:07 | CP.PCM.PN ---
Subjective - Date & Time of Evaluation Date of Evaluation: 12/23/18 Time of Evaluation: 12:07 - Subjective Subjective: PAIN LESS VS STABLE UPPER EGD , MILD GASTRITIS CONT CURRENT THERAPY Objective - Vital Signs/Intake and Output Vital Signs (last 24 hours): Temp Pulse Resp BP Pulse Ox 97.3 F L 69 20 117/72 100 12/23/18 10:41 12/23/18 10:41 12/23/18 10:41 12/23/18 10:41 12/23/18 10:41 Intake and Output: 12/23/18 12/23/18 11:59 23:59 Intake Total 420 Balance 420 - Medications Medications: Current Medications Acetaminophen (Tylenol 325mg Tab) 650 mg PO Q6 PRN PRN Reason: Pain, Mild (1-3) Last Admin: 12/23/18 07:41 Dose: 650 mg Al Hydrox/Mg Hydrox/Simethicone (Maalox 30 Ml) 30 ml PO TID PRN PRN Reason: Indigestion / Heartburn Last Admin: 12/22/18 09:51 Dose: 30 ml Amlodipine Besylate (Norvasc) 5 mg PO DAILY [facility] Last Admin: 12/23/18 11:17 Dose: 5 mg Apixaban (Eliquis) 5 mg PO BID [facility] Last Admin: 12/23/18 11:16 Dose: 5 mg Bismuth Subsalicylate (Pepto Bismol) 262 mg PO Q12H PRN PRN Reason: GI distress Last Admin: 12/22/18 21:53 Dose: 262 mg Docusate Sodium (Colace) 100 mg PO BID [facility] Last Admin: 12/23/18 11:16 Dose: 100 mg Donepezil HCl (Aricept) 5 mg PO DAILY [facility] Last Admin: 12/23/18 11:17 Dose: 5 mg Famotidine (Pepcid) 20 mg PO HS [facility] Stop: 12/27/18 22:01 Last Admin: 12/22/18 23:40 Dose: 20 mg Haloperidol (Haldol) 5 mg PO DAILY [facility] Last Admin: 12/23/18 11:17 Dose: 5 mg Lactulose (Enulose) 20 gm PO HS [facility] Last Admin: 12/22/18 21:52 Dose: 20 gm Lisinopril (Zestril) 10 mg PO DAILY [facility] Last Admin: 12/23/18 11:16 Dose: 10 mg Pantoprazole Sodium (Protonix Ec Tab) 40 mg PO ACB [facility] Last Admin: 12/23/18 08:32 Dose: 40 mg Rosuvastatin Calcium (Crestor) 20 mg PO HS [facility] Last Admin: 12/22/18 21:52 Dose: 20 mg - Labs Labs: 12/22/18 08:09 12/22/18 08:09 PT 12.7 SECONDS (9.7-12.2) H 12/22/18 08:09 INR 1.2 12/22/18 08:09
[2018-12-24] MEDS: Pantoprazole 40 mg EC Tab PO SCH (08:30)
--- NOTE | 2018-12-24 10:42 | CP.PCM.PN ---
<Alicia Armendariz - Last Filed: 12/24/18 13:32> Subjective - Date & Time of Evaluation Date of Evaluation: 12/24/18 Time of Evaluation: 10:40 - Subjective Subjective: Gastroenterology Fellow/PGY6 Progress Note Patient feels well. Sitting in chair comfortably. Denies abdominal pain. Tolerated regular diet. No bowel movement yesterday. A 12-point review of systems negative except for as above. Objective - Vital Signs/Intake and Output Vital Signs (last 24 hours): Temp Pulse Resp BP Pulse Ox 98.1 F 69 20 114/70 96 12/24/18 08:28 12/24/18 08:28 12/24/18 08:28 12/24/18 08:28 12/24/18 08:28 Intake and Output: 12/24/18 12/24/18 06:59 18:59 Intake Total 420 Balance 420 - Medications Medications: Current Medications Acetaminophen (Tylenol 325mg Tab) 650 mg PO Q6 PRN PRN Reason: Pain, Mild (1-3) Last Admin: 12/24/18 06:16 Dose: 650 mg Al Hydrox/Mg Hydrox/Simethicone (Maalox 30 Ml) 30 ml PO TID PRN PRN Reason: Indigestion / Heartburn Last Admin: 12/22/18 09:51 Dose: 30 ml Apixaban (Eliquis) 5 mg PO BID [facility] Last Admin: 12/24/18 09:08 Dose: 5 mg Bismuth Subsalicylate (Pepto Bismol) 262 mg PO Q12H PRN PRN Reason: GI distress Last Admin: 12/22/18 21:53 Dose: 262 mg Docusate Sodium (Colace) 100 mg PO BID [facility] Last Admin: 12/24/18 09:09 Dose: 100 mg Famotidine (Pepcid) 20 mg PO HS [facility] Stop: 12/27/18 22:01 Last Admin: 12/23/18 21:37 Dose: 20 mg Haloperidol (Haldol) 5 mg PO DAILY [facility] Last Admin: 12/24/18 09:09 Dose: 5 mg Lactulose (Enulose) 20 gm PO HS [facility] Last Admin: 12/22/18 21:52 Dose: 20 gm Pantoprazole Sodium (Protonix Ec Tab) 40 mg PO ACB [facility] Last Admin: 12/24/18 08:30 Dose: 40 mg Rosuvastatin Calcium (Crestor) 20 mg PO HS [facility] Last Admin: 12/22/18 21:52 Dose: 20 mg - Labs Labs: 12/22/18 08:09 12/22/18 08:09 PT 12.7 SECONDS (9.7-12.2) H 12/22/18 08:09 INR 1.2 12/22/18 08:09 - Constitutional Appears: Non-toxic, No Acute Distress - Head Exam Head Exam: ATRAUMATIC, NORMOCEPHALIC - Eye Exam Eye Exam: EOMI, PERRL. absent: Scleral icterus Pupil Exam: PERRL. absent: Miosis, Mydriatic - ENT Exam ENT Exam: Mucous Membranes Moist, Normal Oropharynx - Neck Exam Neck Exam: Full ROM, Normal Inspection - Respiratory Exam Respiratory Exam: Clear to Ausculation Bilateral. absent: Rales, Rhonchi, Wheezes - Cardiovascular Exam Cardiovascular Exam: RRR, +S1, +S2. absent: Gallop, Rubs - GI/Abdominal Exam GI & Abdominal Exam: Soft, Normal Bowel Sounds. absent: Distended, Firm, Guarding, Rigid, Tenderness, Organomegaly, Rebound - Extremities Exam Extremities Exam: Normal Inspection, Pedal Edema - Neurological Exam Neurological Exam: Alert, Awake - Psychiatric Exam Psychiatric exam: Normal Affect, Normal Mood - Skin Skin Exam: Dry, Normal Color, Warm Assessment and Plan - Assessment and Plan (Free Text) Assessment: 88 year old female with past medical history of Atrial fibrillation on Eliquis, HTN, HLD, Hypothyroidism, and Anxiety presenting for positive blood culture after recent ER for weakness leading to call back for hospital admission. GI consultation for abdominal pain. No prior EGD or colonoscopy. Plan: -POD1 (12/23) EGD- gastritis, biopsies taken, pathology pending -abdominal pain resolved, likely related to gas, symptoms improved with simethicone -Abdominal U/S- no gallstones -continue Pepcid PRN -continue bowel regimen-Colace and Lactulose -continue bland, low fiber diet -will benefit from outpatient follow up to re-evaluate symptoms, follow up EGD biopsy results, and consider colonoscopy if abdominal pain re-occurs <Naya Lockhart - Last Filed: 12/24/18 14:49> Objective - Vital Signs/Intake and Output Vital Signs (last 24 hours): Temp Pulse Resp BP Pulse Ox 98.1 F 69 20 114/70 96 12/24/18 08:28 12/24/18 08:28 12/24/18 08:28 12/24/18 08:28 12/24/18 08:28 Intake and Output: 12/24/18 12/24/18 06:59 18:59 Intake Total 420 Balance 420 - Medications Medications: Current Medications Acetaminophen (Tylenol 325mg Tab) 650 mg PO Q6 PRN PRN Reason: Pain, Mild (1-3) Last Admin: 12/24/18 06:16 Dose: 650 mg Al Hydrox/Mg Hydrox/Simethicone (Maalox 30 Ml) 30 ml PO TID PRN PRN Reason: Indigestion / Heartburn Last Admin: 12/22/18 09:51 Dose: 30 ml Amlodipine Besylate (Norvasc) 5 mg PO DAILY [facility] Apixaban (Eliquis) 5 mg PO BID [facility] Last Admin: 12/24/18 09:08 Dose: 5 mg Bismuth Subsalicylate (Pepto Bismol) 262 mg PO Q12H PRN PRN Reason: GI distress Last Admin: 12/22/18 21:53 Dose: 262 mg Docusate Sodium (Colace) 100 mg PO BID [facility] Last Admin: 12/24/18 09:09 Dose: 100 mg Donepezil HCl (Aricept) 5 mg PO DAILY [facility] Famotidine (Pepcid) 20 mg PO HS [facility] Stop: 12/27/18 22:01 Last Admin: 12/23/18 21:37 Dose: 20 mg Haloperidol (Haldol) 5 mg PO DAILY [facility] Last Admin: 12/24/18 09:09 Dose: 5 mg Lactulose (Enulose) 20 gm PO HS [facility] Last Admin: 12/22/18 21:52 Dose: 20 gm Lisinopril (Zestril) 10 mg PO DAILY [facility] Pantoprazole Sodium (Protonix Ec Tab) 40 mg PO ACB [facility] Last Admin: 12/24/18 08:30 Dose: 40 mg Rosuvastatin Calcium (Crestor) 20 mg PO HS [facility] Last Admin: 12/22/18 21:52 Dose: 20 mg - Labs Labs: 12/22/18 08:09 12/22/18 08:09 PT 12.7 SECONDS (9.7-12.2) H 12/22/18 08:09 INR 1.2 12/22/18 08:09 Attending/Attestation - Attestation I have personally seen and examined this patient.: Yes I have fully participated in the care of the patient.: Yes I have reviewed all pertinent clinical information, including history, physical exam and plan: Yes Notes (Text): I have seen and examined patient with GI fellow. Agree with above documentation. In summary, this is an 88 yo F with PMH of HTN, afib on eliquis, hypothyroidism and anxiety initially admitted for bacteremia (cxs NGTD) who also had postprandial b/l upper quadrant abdominal pain. Initial rx with Simethicone still with persistent sxs so EGD done yesterday which was only notable for gastritis, bxs pending. Currently on pantoprazole 40 mg po am and pepcid 20 mg hs. Today, was able to tolerate all foods w/o any sxs. Feels well and has no abdominal pain, n/v. PE: Abdomen: soft, slightly distended, but nontender Labs: unremarkable Imaging: abdominal u/s only notable for 2.7 cm renal cyst, no gallstones Plan: -agree with fellow's assessment above -continue bland, low fiber diet -can take Pepcid prn as an outpt -f/u path results -otherwise, doing well and stable for d/c from GI standpoint
--- NOTE | 2018-12-24 10:58 | CP.PCM.PN ---
Subjective - Date & Time of Evaluation Date of Evaluation: 12/24/18 Time of Evaluation: 10:58 - Subjective Subjective: PAIN LESS VS STABLE UPPER EGD , MILD GASTRITIS CONT CURRENT THERAPY Objective - Vital Signs/Intake and Output Vital Signs (last 24 hours): Temp Pulse Resp BP Pulse Ox 98.1 F 69 20 114/70 96 12/24/18 08:28 12/24/18 08:28 12/24/18 08:28 12/24/18 08:28 12/24/18 08:28 Intake and Output: 12/23/18 12/24/18 23:59 11:59 Intake Total 300 120 Balance 300 120 - Medications Medications: Current Medications Acetaminophen (Tylenol 325mg Tab) 650 mg PO Q6 PRN PRN Reason: Pain, Mild (1-3) Last Admin: 12/24/18 06:16 Dose: 650 mg Al Hydrox/Mg Hydrox/Simethicone (Maalox 30 Ml) 30 ml PO TID PRN PRN Reason: Indigestion / Heartburn Last Admin: 12/22/18 09:51 Dose: 30 ml Amlodipine Besylate (Norvasc) 5 mg PO DAILY [facility] Apixaban (Eliquis) 5 mg PO BID [facility] Last Admin: 12/24/18 09:08 Dose: 5 mg Bismuth Subsalicylate (Pepto Bismol) 262 mg PO Q12H PRN PRN Reason: GI distress Last Admin: 12/22/18 21:53 Dose: 262 mg Docusate Sodium (Colace) 100 mg PO BID [facility] Last Admin: 12/24/18 09:09 Dose: 100 mg Donepezil HCl (Aricept) 5 mg PO DAILY [facility] Famotidine (Pepcid) 20 mg PO HS [facility] Stop: 12/27/18 22:01 Last Admin: 12/23/18 21:37 Dose: 20 mg Haloperidol (Haldol) 5 mg PO DAILY [facility] Last Admin: 12/24/18 09:09 Dose: 5 mg Lactulose (Enulose) 20 gm PO HS [facility] Last Admin: 12/22/18 21:52 Dose: 20 gm Lisinopril (Zestril) 10 mg PO DAILY [facility] Pantoprazole Sodium (Protonix Ec Tab) 40 mg PO ACB [facility] Last Admin: 12/24/18 08:30 Dose: 40 mg Rosuvastatin Calcium (Crestor) 20 mg PO HS [facility] Last Admin: 12/22/18 21:52 Dose: 20 mg - Labs Labs: 12/22/18 08:09 12/22/18 08:09 PT 12.7 SECONDS (9.7-12.2) H 12/22/18 08:09 INR 1.2 12/22/18 08:09
[2018-12-25] MEDS: Bismuth Subsalicylate 262 mg Chew Tab PO PRN ×2 (04:00→14:30)
[2018-12-25] MEDS: Pantoprazole 40 mg EC Tab PO SCH (08:30)
[2018-12-25 11:50] LABS: BASO % 0.7 % (0.0-2.0); EOS % 0.2 % (0.0-4.0); HEMOGLOBIN 11.7 g/dL (11.0-16.0); LYMPH # 1.5 K/uL (1.0-4.3); MEAN CELL VOLUME 89.3 fL (81.0-99.0); MEAN CORPUSCULAR HEMOGLOBIN 29.3 pg (27.0-31.0); MEAN CORPUSCULAR HGB CONC 32.8 g/dL (33.0-37.0); MEAN PLATELET VOLUME 8.4 fL (7.2-11.7); MONO # 0.6 K/uL (0.0-0.8); MONO % 11.5 % (0.0-10.0); NEUT # 3.1 K/uL (1.8-7.0); NEUT % 59.6 % (50.0-75.0); NRBC % 0.1 % (0.0-2.0); RBC 4.01 Mil/uL (3.80-5.20); RED CELL DISTRIBUTION WIDTH 14.5 % (11.5-14.5); WHITE BLOOD COUNT 5.2 K/uL (4.8-10.8)
[2018-12-25 12:05] LABS: BLOOD UREA NITROGEN 20 mg/dL (7-17); CALCIUM 9.4 mg/dl (8.6-10.4); GFR NON-AFRICAN AMERICAN > 60
--- NOTE | 2018-12-25 12:27 | CP.PCM.PN ---
<Rancho Tee - Last Filed: 12/25/18 12:38> Subjective - Date & Time of Evaluation Date of Evaluation: 12/25/18 Time of Evaluation: 12:24 - Subjective Subjective: No complaints. Doing well. vitals stable. No acute overnight events. Objective - Vital Signs/Intake and Output Vital Signs (last 24 hours): Temp Pulse Resp BP Pulse Ox 97.4 F L 68 20 119/71 95 12/25/18 08:00 12/25/18 08:00 12/25/18 08:00 12/25/18 08:00 12/25/18 08:00 Intake and Output: 12/25/18 12/25/18 06:59 18:59 Intake Total 300 Balance 300 - Medications Medications: Current Medications Acetaminophen (Tylenol 325mg Tab) 650 mg PO Q6 PRN PRN Reason: Pain, Mild (1-3) Last Admin: 12/24/18 21:31 Dose: 650 mg Al Hydrox/Mg Hydrox/Simethicone (Maalox 30 Ml) 30 ml PO TID PRN PRN Reason: Indigestion / Heartburn Last Admin: 12/22/18 09:51 Dose: 30 ml Amlodipine Besylate (Norvasc) 5 mg PO DAILY [facility] Last Admin: 12/25/18 09:52 Dose: 5 mg Apixaban (Eliquis) 5 mg PO BID [facility] Last Admin: 12/25/18 09:41 Dose: 5 mg Bismuth Subsalicylate (Pepto Bismol) 262 mg PO Q12H PRN PRN Reason: GI distress Last Admin: 12/25/18 04:00 Dose: 262 mg Docusate Sodium (Colace) 100 mg PO BID [facility] Last Admin: 12/25/18 09:41 Dose: 100 mg Donepezil HCl (Aricept) 5 mg PO DAILY [facility] Last Admin: 12/25/18 11:00 Dose: 5 mg Famotidine (Pepcid) 20 mg PO HS [facility] Stop: 12/27/18 22:01 Last Admin: 12/24/18 21:32 Dose: 20 mg Haloperidol (Haldol) 5 mg PO DAILY [facility] Last Admin: 12/25/18 11:00 Dose: 5 mg Lactulose (Enulose) 20 gm PO HS [facility] Last Admin: 12/24/18 21:33 Dose: 20 gm Lisinopril (Zestril) 10 mg PO DAILY [facility] Last Admin: 12/25/18 09:40 Dose: 10 mg Pantoprazole Sodium (Protonix Ec Tab) 40 mg PO ACB [facility] Last Admin: 12/25/18 08:30 Dose: 40 mg Rosuvastatin Calcium (Crestor) 20 mg PO HS [facility] Last Admin: 12/24/18 21:34 Dose: 20 mg - Labs Labs: 12/25/18 11:42 12/25/18 11:42 PT 12.7 SECONDS (9.7-12.2) H 12/22/18 08:09 INR 1.2 12/22/18 08:09 - Constitutional Appears: Non-toxic, No Acute Distress - Head Exam Head Exam: ATRAUMATIC, NORMAL INSPECTION - Eye Exam Eye Exam: EOMI, Normal appearance - Respiratory Exam Respiratory Exam: Clear to Ausculation Bilateral, NORMAL BREATHING PATTERN - Cardiovascular Exam Cardiovascular Exam: REGULAR RHYTHM, +S1, +S2 - GI/Abdominal Exam GI & Abdominal Exam: Soft, Normal Bowel Sounds. absent: Tenderness - Extremities Exam Extremities Exam: Normal Inspection. absent: Pedal Edema Assessment and Plan - Assessment and Plan (Free Text) Assessment: 88 year old female with past medical history of Atrial fibrillation on Eliquis, HTN, HLD, Hypothyroidism, and Anxiety presenting for positive blood culture after recent ER for weakness leading to call back for hospital admission. GI consultation for abdominal pain. No prior EGD or colonoscopy. 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 -abdominal pain resolved, likely related to gas, symptoms improved with simethicone -Abdominal U/S- no gallstones -continue Pepcid PRN -continue bowel regimen-Colace and Lactulose -continue bland, low fiber diet -will benefit from outpatient follow up to re-evaluate symptoms and gastric intestinal metaplasia, and consider colonoscopy if abdominal pain re-occurs <Ke Blackwell - Last Filed: 12/26/18 07:57> Objective - Vital Signs/Intake and Output Vital Signs (last 24 hours): Temp Pulse Resp BP Pulse Ox 98.2 F 71 20 132/84 98 12/26/18 00:00 12/26/18 00:00 12/26/18 00:00 12/26/18 00:00 12/26/18 00:00 Intake and Output: 12/26/18 12/26/18 06:59 18:59 Intake Total 300 Balance 300 - Medications Medications: Current Medications Acetaminophen (Tylenol 325mg Tab) 650 mg PO Q6 PRN PRN Reason: Pain, Mild (1-3) Last Admin: 12/25/18 17:30 Dose: 650 mg Al Hydrox/Mg Hydrox/Simethicone (Maalox 30 Ml) 30 ml PO TID PRN PRN Reason: Indigestion / Heartburn Last Admin: 12/22/18 09:51 Dose: 30 ml Amlodipine Besylate (Norvasc) 5 mg PO DAILY [facility] Last Admin: 12/25/18 09:52 Dose: 5 mg Apixaban (Eliquis) 5 mg PO BID [facility] Last Admin: 12/25/18 17:29 Dose: 5 mg Bismuth Subsalicylate (Pepto Bismol) 262 mg PO Q12H PRN PRN Reason: GI distress Last Admin: 12/25/18 14:30 Dose: 262 mg Docusate Sodium (Colace) 100 mg PO BID [facility] Last Admin: 12/25/18 17:30 Dose: 100 mg Donepezil HCl (Aricept) 5 mg PO DAILY [facility] Last Admin: 12/25/18 11:00 Dose: 5 mg Famotidine (Pepcid) 20 mg PO HS [facility] Stop: 12/27/18 22:01 Last Admin: 12/25/18 21:54 Dose: 20 mg Haloperidol (Haldol) 5 mg PO DAILY [facility] Last Admin: 12/25/18 11:00 Dose: 5 mg Lactulose (Enulose) 20 gm PO HS [facility] Last Admin: 12/25/18 21:53 Dose: 20 gm Lisinopril (Zestril) 10 mg PO DAILY [facility] Last Admin: 12/25/18 09:40 Dose: 10 mg Pantoprazole Sodium (Protonix Ec Tab) 40 mg PO ACB [facility] Last Admin: 12/25/18 08:30 Dose: 40 mg Rosuvastatin Calcium (Crestor) 20 mg PO HS [facility] Last Admin: 12/25/18 21:54 Dose: 20 mg - Labs Labs: 12/25/18 11:42 12/25/18 11:42 PT 12.7 SECONDS (9.7-12.2) H 12/22/18 08:09 INR 1.2 12/22/18 08:09 Attending/Attestation - Attestation I have personally seen and examined this patient.: Yes I have fully participated in the care of the patient.: Yes I have reviewed all pertinent clinical information, including history, physical exam and plan: Yes Notes (Text): 12/25/18 11:30 Chart reviewed. Pt examined this am and discussed with Dr. Tee. Agree with the above-documented findings, assessment and recommendations.
--- NOTE | 2018-12-25 12:40 | CP.PCM.PN ---
Subjective - Date & Time of Evaluation Date of Evaluation: 12/25/18 Time of Evaluation: 12:39 - Subjective Subjective: NO FURTHER PAIN VS STABLE P/E REMAINS SAME CONT CURRENT THREPAY [place] Objective - Vital Signs/Intake and Output Vital Signs (last 24 hours): Temp Pulse Resp BP Pulse Ox 97.4 F L 68 20 119/71 95 12/25/18 08:00 12/25/18 08:00 12/25/18 08:00 12/25/18 08:00 12/25/18 08:00 Intake and Output: 12/25/18 12/25/18 11:59 23:59 Intake Total 300 Balance 300 - Medications Medications: Current Medications Acetaminophen (Tylenol 325mg Tab) 650 mg PO Q6 PRN PRN Reason: Pain, Mild (1-3) Last Admin: 12/24/18 21:31 Dose: 650 mg Al Hydrox/Mg Hydrox/Simethicone (Maalox 30 Ml) 30 ml PO TID PRN PRN Reason: Indigestion / Heartburn Last Admin: 12/22/18 09:51 Dose: 30 ml Amlodipine Besylate (Norvasc) 5 mg PO DAILY [facility] Last Admin: 12/25/18 09:52 Dose: 5 mg Apixaban (Eliquis) 5 mg PO BID [facility] Last Admin: 12/25/18 09:41 Dose: 5 mg Bismuth Subsalicylate (Pepto Bismol) 262 mg PO Q12H PRN PRN Reason: GI distress Last Admin: 12/25/18 04:00 Dose: 262 mg Docusate Sodium (Colace) 100 mg PO BID [facility] Last Admin: 12/25/18 09:41 Dose: 100 mg Donepezil HCl (Aricept) 5 mg PO DAILY [facility] Last Admin: 12/25/18 11:00 Dose: 5 mg Famotidine (Pepcid) 20 mg PO HS [facility] Stop: 12/27/18 22:01 Last Admin: 12/24/18 21:32 Dose: 20 mg Haloperidol (Haldol) 5 mg PO DAILY [facility] Last Admin: 12/25/18 11:00 Dose: 5 mg Lactulose (Enulose) 20 gm PO HS [facility] Last Admin: 12/24/18 21:33 Dose: 20 gm Lisinopril (Zestril) 10 mg PO DAILY [facility] Last Admin: 12/25/18 09:40 Dose: 10 mg Pantoprazole Sodium (Protonix Ec Tab) 40 mg PO ACB [facility] Last Admin: 12/25/18 08:30 Dose: 40 mg Rosuvastatin Calcium (Crestor) 20 mg PO HS [facility] Last Admin: 12/24/18 21:34 Dose: 20 mg - Labs Labs: 12/25/18 11:42 12/25/18 11:42 PT 12.7 SECONDS (9.7-12.2) H 12/22/18 08:09 INR 1.2 12/22/18 08:09
[2018-12-26] MEDS: Pantoprazole 40 mg EC Tab PO SCH (08:30)
[2018-12-26] MEDS: Bismuth Subsalicylate 262 mg Chew Tab PO PRN (10:22)
--- NOTE | 2018-12-26 12:26 | CP.PCM.PN ---
Subjective - Date & Time of Evaluation Date of Evaluation: 12/26/18 Time of Evaluation: 12:26 - Subjective Subjective: NO FURTHER PAIN VS STABLE P/E REMAINS SAME CONT CURRENT THREPAY [facility] Objective - Vital Signs/Intake and Output Vital Signs (last 24 hours): Temp Pulse Resp BP Pulse Ox 97.9 F 76 20 127/72 96 12/26/18 08:00 12/26/18 08:00 12/26/18 08:00 12/26/18 08:00 12/26/18 08:00 Intake and Output: 12/26/18 12/26/18 11:59 23:59 Intake Total 300 Balance 300 - Medications Medications: Current Medications Acetaminophen (Tylenol 325mg Tab) 650 mg PO Q6 PRN PRN Reason: Pain, Mild (1-3) Last Admin: 12/25/18 17:30 Dose: 650 mg Al Hydrox/Mg Hydrox/Simethicone (Maalox 30 Ml) 30 ml PO TID [facility] Amlodipine Besylate (Norvasc) 5 mg PO DAILY [facility] Last Admin: 12/26/18 09:07 Dose: 5 mg Apixaban (Eliquis) 5 mg PO BID [facility] Last Admin: 12/26/18 09:06 Dose: 5 mg Bismuth Subsalicylate (Pepto Bismol) 262 mg PO Q12H PRN PRN Reason: GI distress Last Admin: 12/26/18 10:22 Dose: 262 mg Docusate Sodium (Colace) 100 mg PO BID [facility] Last Admin: 12/26/18 09:06 Dose: 100 mg Donepezil HCl (Aricept) 5 mg PO DAILY@2100 [facility] Famotidine (Pepcid) 20 mg PO [facility] Stop: 12/27/18 22:01 Last Admin: 12/25/18 21:54 Dose: 20 mg Haloperidol (Haldol) 5 mg PO DAILY [facility] Last Admin: 12/26/18 09:06 Dose: 5 mg Lactulose (Enulose) 20 gm PO [facility] Last Admin: 12/25/18 21:53 Dose: 20 gm Lisinopril (Zestril) 10 mg PO DAILY [facility] Last Admin: 12/26/18 09:06 Dose: 10 mg Pantoprazole Sodium (Protonix Ec Tab) 40 mg PO ACB [facility] Last Admin: 12/26/18 08:30 Dose: 40 mg Rosuvastatin Calcium (Crestor) 20 mg PO HS [facility] Last Admin: 12/25/18 21:54 Dose: 20 mg - Labs Labs: 12/25/18 11:42 12/25/18 11:42 PT 12.7 SECONDS (9.7-12.2) H 12/22/18 08:09 INR 1.2 12/22/18 08:09
--- NOTE | 2018-12-26 13:35 | CP.PCM.PN ---
<Paruljose juantrRancho - Last Filed: 12/26/18 13:33> Subjective - Date & Time of Evaluation Date of Evaluation: 12/26/18 Time of Evaluation: 13:33 - Subjective Subjective: Patient is complaining of abdominal pain after breakfast this AM. No reports of vomiting, diarrhea. She did have small BM this AM that did not help. She has not been getting simethicone so I asked nurse to give and report effect. Objective - Vital Signs/Intake and Output Vital Signs (last 24 hours): Temp Pulse Resp BP Pulse Ox 97.9 F 76 20 127/72 96 12/26/18 08:00 12/26/18 08:00 12/26/18 08:00 12/26/18 08:00 12/26/18 08:00 Intake and Output: 12/26/18 12/26/18 06:59 18:59 Intake Total 300 Balance 300 - Medications Medications: Current Medications Acetaminophen (Tylenol 325mg Tab) 650 mg PO Q6 PRN PRN Reason: Pain, Mild (1-3) Last Admin: 12/25/18 17:30 Dose: 650 mg Al Hydrox/Mg Hydrox/Simethicone (Maalox 30 Ml) 30 ml PO TID [facility] Last Admin: 12/26/18 13:00 Dose: 30 ml Amlodipine Besylate (Norvasc) 5 mg PO DAILY [facility] Last Admin: 12/26/18 09:07 Dose: 5 mg Apixaban (Eliquis) 5 mg PO BID [facility] Last Admin: 12/26/18 09:06 Dose: 5 mg Bismuth Subsalicylate (Pepto Bismol) 262 mg PO Q12H PRN PRN Reason: GI distress Last Admin: 12/26/18 10:22 Dose: 262 mg Docusate Sodium (Colace) 100 mg PO BID [facility] Last Admin: 12/26/18 09:06 Dose: 100 mg Donepezil HCl (Aricept) 5 mg PO DAILY@2100 [facility] Famotidine (Pepcid) 20 mg PO [facility] Stop: 12/27/18 22:01 Last Admin: 12/25/18 21:54 Dose: 20 mg Haloperidol (Haldol) 5 mg PO DAILY [facility] Last Admin: 12/26/18 09:06 Dose: 5 mg Lactulose (Enulose) 20 gm PO [facility] Last Admin: 12/25/18 21:53 Dose: 20 gm Lisinopril (Zestril) 10 mg PO DAILY [facility] Last Admin: 12/26/18 09:06 Dose: 10 mg Pantoprazole Sodium (Protonix Ec Tab) 40 mg PO ACB [facility] Last Admin: 12/26/18 08:30 Dose: 40 mg Rosuvastatin Calcium (Crestor) 20 mg PO HS [facility] Last Admin: 12/25/18 21:54 Dose: 20 mg - Labs Labs: 12/25/18 11:42 12/25/18 11:42 PT 12.7 SECONDS (9.7-12.2) H 12/22/18 08:09 INR 1.2 12/22/18 08:09 - Constitutional Appears: Non-toxic, No Acute Distress - Eye Exam Eye Exam: EOMI, Normal appearance - ENT Exam ENT Exam: Mucous Membranes Moist, Normal Exam - Respiratory Exam Respiratory Exam: Clear to Ausculation Bilateral, NORMAL BREATHING PATTERN - Cardiovascular Exam Cardiovascular Exam: REGULAR RHYTHM, +S1, +S2 - GI/Abdominal Exam GI & Abdominal Exam: Soft, Normal Bowel Sounds. absent: Tenderness - Extremities Exam Extremities Exam: Normal Inspection. absent: Pedal Edema - Neurological Exam Neurological Exam: Alert, Awake, Oriented x3 - Psychiatric Exam Psychiatric exam: Normal Affect, Normal Mood Assessment and Plan - Assessment and Plan (Free Text) Assessment: 88 year old female with past medical history of Atrial fibrillation on Eliquis, HTN, HLD, Hypothyroidism, and Anxiety presenting for positive blood culture after recent ER for weakness leading to call back for hospital admission. GI consultation for abdominal pain. No prior EGD or colonoscopy. 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 -abdominal pain resolved, likely related to gas, symptoms improved with simethicone -Abdominal U/S- no gallstones -continue Pepcid PRN -continue bowel regimen-Colace and Lactulose -continue bland, low fiber diet -will benefit from outpatient follow up to re-evaluate symptoms and gastric intestinal metaplasia, and consider colonoscopy if abdominal pain re-occurs <Ke Blackwell - Last Filed: 12/27/18 19:14> Objective - Vital Signs/Intake and Output Vital Signs (last 24 hours): Temp Pulse Resp BP Pulse Ox 97.3 F L 73 20 130/74 98 12/27/18 16:01 12/27/18 16:01 12/27/18 16:01 12/27/18 16:01 12/27/18 16:01 Intake and Output: 12/27/18 12/28/18 18:59 06:59 Intake Total 1000 Balance 1000 - Medications Medications: Current Medications Acetaminophen (Tylenol 325mg Tab) 650 mg PO Q6 PRN PRN Reason: Pain, Mild (1-3) Last Admin: 12/26/18 17:45 Dose: 650 mg Amlodipine Besylate (Norvasc) 5 mg PO DAILY [facility] Last Admin: 12/27/18 10:08 Dose: 5 mg Apixaban (Eliquis) 5 mg PO BID [facility] Last Admin: 12/27/18 17:51 Dose: 5 mg Docusate Sodium (Colace) 100 mg PO BID [facility] Last Admin: 12/27/18 17:51 Dose: 100 mg Donepezil HCl (Aricept) 5 mg PO DAILY@2100 [facility] Last Admin: 12/26/18 21:31 Dose: 5 mg Famotidine (Pepcid) 20 mg PO HS [facility] Stop: 12/27/18 22:01 Last Admin: 12/26/18 21:31 Dose: 20 mg Haloperidol (Haldol) 5 mg PO DAILY [facility] Last Admin: 12/27/18 10:08 Dose: 5 mg Lisinopril (Zestril) 10 mg PO DAILY [facility] Last Admin: 12/27/18 10:07 Dose: 10 mg Pantoprazole Sodium (Protonix Ec Tab) 40 mg PO ACB [facility] Last Admin: 12/27/18 08:32 Dose: 40 mg Polyethylene Glycol (Miralax) 17 gm PO DAILY [facility] Last Admin: 12/27/18 11:19 Dose: 17 gm Rosuvastatin Calcium (Crestor) 20 mg PO HS [facility] Last Admin: 12/26/18 21:31 Dose: 20 mg - Labs Labs: 12/25/18 11:42 12/25/18 11:42 PT 12.7 SECONDS (9.7-12.2) H 12/22/18 08:09 INR 1.2 12/22/18 08:09 Attending/Attestation - Attestation I have personally seen and examined this patient.: Yes I have fully participated in the care of the patient.: Yes I have reviewed all pertinent clinical information, including history, physical exam and plan: Yes Notes (Text): 12/27/18 19:14 Late entry The pt was seen and examined on Thursday. Chart was reviewed. Findings assessment and recommendations were discussed with Dr. Tee and documented above.
[2018-12-26] MEDS ORDERED: Aluminum Hydroxide/Magnesium Hydroxide Susp (30 mL) PO SCH (14:00)
[2018-12-26] MEDS: Simethicone 40 mg/0.6 ml Liquid (30 ml) PO SCH ×2 (19:00→21:48)
[2018-12-27] MEDS: Bismuth Subsalicylate 262 mg Chew Tab PO PRN (03:05)
[2018-12-27] MEDS: Pantoprazole 40 mg EC Tab PO SCH (08:32)
--- NOTE | 2018-12-27 10:44 | CP.PCM.PN ---
<Alicia Armendariz - Last Filed: 12/27/18 10:42> Subjective - Date & Time of Evaluation Date of Evaluation: 12/27/18 Time of Evaluation: 10:42 - Subjective Subjective: Gastroenterology Fellow/PGY6 Progress Note Patient notes intermittent upper abdominal discomfort. On present evaluation denies pain but notes mild discomfort on rounds. Tolerated regular diet for breakfast. Denies bowel movement yesterday. Nursing confirms small caliber stool with sense of incomplete evacuation this morning. A 12-point review of systems negative except for as above. Objective - Vital Signs/Intake and Output Vital Signs (last 24 hours): Temp Pulse Resp BP Pulse Ox 97.9 F 81 20 149/77 96 12/27/18 08:14 12/27/18 08:14 12/27/18 08:14 12/27/18 08:14 12/27/18 08:14 Intake and Output: 12/27/18 12/27/18 06:59 18:59 Intake Total 350 Balance 350 - Medications Medications: Current Medications Acetaminophen (Tylenol 325mg Tab) 650 mg PO Q6 PRN PRN Reason: Pain, Mild (1-3) Last Admin: 12/26/18 17:45 Dose: 650 mg Amlodipine Besylate (Norvasc) 5 mg PO DAILY [facility] Last Admin: 12/27/18 10:08 Dose: 5 mg Apixaban (Eliquis) 5 mg PO BID [facility] Last Admin: 12/27/18 10:07 Dose: 5 mg Bisacodyl (Dulcolax) 5 mg PO ONCE ONE Stop: 12/27/18 10:39 Bismuth Subsalicylate (Pepto Bismol) 262 mg PO Q12H PRN PRN Reason: GI distress Last Admin: 12/27/18 03:05 Dose: 262 mg Docusate Sodium (Colace) 100 mg PO BID [facility] Last Admin: 12/27/18 10:07 Dose: 100 mg Donepezil HCl (Aricept) 5 mg PO DAILY@2100 [facility] Last Admin: 12/26/18 21:31 Dose: 5 mg Famotidine (Pepcid) 20 mg PO HS [facility] Stop: 12/27/18 22:01 Last Admin: 12/26/18 21:31 Dose: 20 mg Haloperidol (Haldol) 5 mg PO DAILY [facility] Last Admin: 12/27/18 10:08 Dose: 5 mg Lactulose (Enulose) 20 gm PO [facility] Last Admin: 12/26/18 21:31 Dose: 20 gm Lisinopril (Zestril) 10 mg PO DAILY [facility] Last Admin: 12/27/18 10:07 Dose: 10 mg Pantoprazole Sodium (Protonix Ec Tab) 40 mg PO ACB [facility] Last Admin: 12/27/18 08:32 Dose: 40 mg Rosuvastatin Calcium (Crestor) 20 mg PO [facility] Last Admin: 12/26/18 21:31 Dose: 20 mg Simethicone (Mylicon Liq) 40 mg PO QID [facility] Stop: 12/27/18 14:01 Last Admin: 12/26/18 21:48 Dose: 40 mg - Labs Labs: 12/25/18 11:42 12/25/18 11:42 PT 12.7 SECONDS (9.7-12.2) H 12/22/18 08:09 INR 1.2 12/22/18 08:09 - Constitutional Appears: Non-toxic, No Acute Distress - Head Exam Head Exam: ATRAUMATIC, NORMOCEPHALIC - Eye Exam Eye Exam: EOMI, PERRL. absent: Scleral icterus Pupil Exam: absent: Miosis, Mydriatic - ENT Exam ENT Exam: Mucous Membranes Moist, Normal Oropharynx - Neck Exam Neck Exam: Full ROM, Normal Inspection - Respiratory Exam Respiratory Exam: Clear to Ausculation Bilateral. absent: Rales, Rhonchi, Wheezes - Cardiovascular Exam Cardiovascular Exam: RRR, +S1, +S2. absent: Gallop, Rubs - GI/Abdominal Exam GI & Abdominal Exam: Soft, Normal Bowel Sounds. absent: Distended, Firm, Guarding, Rigid, Tenderness, Organomegaly, Rebound - Extremities Exam Extremities Exam: Full ROM, Normal Inspection - Neurological Exam Neurological Exam: Alert, Awake - Psychiatric Exam Psychiatric exam: Normal Affect, Normal Mood - Skin Skin Exam: Dry, Intact, Normal Color, Warm Assessment and Plan - Assessment and Plan (Free Text) Assessment: 88 year old female with past medical history of Atrial fibrillation on Eliquis, HTN, HLD, Hypothyroidism, and Anxiety presenting for positive blood culture after recent ER for weakness leading to call back for hospital admission. GI consultation for abdominal pain. Status post EGD 12/23 showing H. pylori negative gastritis. No prior colonoscopy. Plan: -abdominal pain likely related to gas and constipation -tolerating regular diet- start high fiber diet -ordered one time doses of Dulcolax PO and tap water enema -will switch to Miralax daily and stop Lactulose -continue Colace BID and Simethicone -continue PPI ACB and Pepcid QHS -will obtain CTA to rule out mesenteric ischemia, low suspicion -will follow up clinical course <Karthik Yusuf - Last Filed: 12/27/18 11:31> Objective - Vital Signs/Intake and Output Vital Signs (last 24 hours): Temp Pulse Resp BP Pulse Ox 97.9 F 81 20 149/77 96 12/27/18 08:14 12/27/18 08:14 12/27/18 08:14 12/27/18 08:14 12/27/18 08:14 Intake and Output: 12/27/18 12/27/18 06:59 18:59 Intake Total 350 Balance 350 - Medications Medications: Current Medications Acetaminophen (Tylenol 325mg Tab) 650 mg PO Q6 PRN PRN Reason: Pain, Mild (1-3) Last Admin: 12/26/18 17:45 Dose: 650 mg Amlodipine Besylate (Norvasc) 5 mg PO DAILY [facility] Last Admin: 12/27/18 10:08 Dose: 5 mg Apixaban (Eliquis) 5 mg PO BID [facility] Last Admin: 12/27/18 10:07 Dose: 5 mg Docusate Sodium (Colace) 100 mg PO BID [facility] Last Admin: 12/27/18 10:07 Dose: 100 mg Donepezil HCl (Aricept) 5 mg PO DAILY@2100 [facility] Last Admin: 12/26/18 21:31 Dose: 5 mg Famotidine (Pepcid) 20 mg PO HS [facility] Stop: 12/27/18 22:01 Last Admin: 12/26/18 21:31 Dose: 20 mg Haloperidol (Haldol) 5 mg PO DAILY [facility] Last Admin: 12/27/18 10:08 Dose: 5 mg Lisinopril (Zestril) 10 mg PO DAILY [facility] Last Admin: 12/27/18 10:07 Dose: 10 mg Pantoprazole Sodium (Protonix Ec Tab) 40 mg PO ACB [facility] Last Admin: 12/27/18 08:32 Dose: 40 mg Polyethylene Glycol (Miralax) 17 gm PO DAILY [facility] Last Admin: 12/27/18 11:19 Dose: 17 gm Rosuvastatin Calcium (Crestor) 20 mg PO HS [facility] Last Admin: 12/26/18 21:31 Dose: 20 mg Simethicone (Mylicon Liq) 40 mg PO QID [facility] Stop: 12/27/18 14:01 Last Admin: 12/27/18 11:06 Dose: 40 mg - Labs Labs: 12/25/18 11:42 12/25/18 11:42 PT 12.7 SECONDS (9.7-12.2) H 12/22/18 08:09 INR 1.2 12/22/18 08:09 Attending/Attestation - Attestation I have personally seen and examined this patient.: Yes I have fully participated in the care of the patient.: Yes I have reviewed all pertinent clinical information, including history, physical exam and plan: Yes Notes (Text): 12/27/18 11:28 I have seen and examined patient with GI fellow. No acute events overnight, she reports ongoing intermittent abdominal discomfort with flatulence. She had a small bowel movement this morning, otherwise denies nausea, vomiting, fever/chills. Tolerating PO diet without difficulty. Review of vitals from today are normal. Atrial fibrillation on eliquis HTN Hypothyroidism Hyperlipidemia Anxiety - Diet as tolerated - EGD biopsies results reviewed, shows hpylori negative gastritis - Continue with H2 candida therapy as necessary - Continue with simethicone - Suggest enema use and ongoing bowel regimen to prevent constipation - Given ongoing abdominal pain despite conservative management, will obtain CTA to rule out mesenteric ischemia, patient with history of atrial fibrillation - If CT imaging unremarkable, from GI standpoint ok to discharge home with subsequent outpatient follow up
[2018-12-27] MEDS ORDERED: Bisacodyl 5mg EC Tab PO ONE (11:00)
[2018-12-27] MEDS: Simethicone 40 mg/0.6 ml Liquid (30 ml) PO SCH ×2 (11:06→13:43)
[2018-12-27] MEDS ORDERED: Iodixanol 320 MG/ML 100 ML BOTTLE IV ONE (11:09)
[2018-12-27] MEDS: POLYETHYLENE GLYCOL 3350 17 GM/Dose PACKET PO SCH (11:19)
--- NOTE | 2018-12-27 11:50 | CP.PCM.PN ---
Subjective - Date & Time of Evaluation Date of Evaluation: 12/27/18 Time of Evaluation: 11:49 - Subjective Subjective: no further abd pain VS stable P/E remains same Awaiting LTC Objective - Vital Signs/Intake and Output Vital Signs (last 24 hours): Temp Pulse Resp BP Pulse Ox 97.9 F 81 20 149/77 96 12/27/18 08:14 12/27/18 08:14 12/27/18 08:14 12/27/18 08:14 12/27/18 08:14 Intake and Output: 12/26/18 12/27/18 23:59 11:59 Intake Total 900 50 Balance 900 50 - Medications Medications: Current Medications Acetaminophen (Tylenol 325mg Tab) 650 mg PO Q6 PRN PRN Reason: Pain, Mild (1-3) Last Admin: 12/26/18 17:45 Dose: 650 mg Amlodipine Besylate (Norvasc) 5 mg PO DAILY [facility] Last Admin: 12/27/18 10:08 Dose: 5 mg Apixaban (Eliquis) 5 mg PO BID [facility] Last Admin: 12/27/18 10:07 Dose: 5 mg Docusate Sodium (Colace) 100 mg PO BID [facility] Last Admin: 12/27/18 10:07 Dose: 100 mg Donepezil HCl (Aricept) 5 mg PO DAILY@2100 [facility] Last Admin: 12/26/18 21:31 Dose: 5 mg Famotidine (Pepcid) 20 mg PO HS [facility] Stop: 12/27/18 22:01 Last Admin: 12/26/18 21:31 Dose: 20 mg Haloperidol (Haldol) 5 mg PO DAILY [facility] Last Admin: 12/27/18 10:08 Dose: 5 mg Lisinopril (Zestril) 10 mg PO DAILY [facility] Last Admin: 12/27/18 10:07 Dose: 10 mg Pantoprazole Sodium (Protonix Ec Tab) 40 mg PO ACB [facility] Last Admin: 12/27/18 08:32 Dose: 40 mg Polyethylene Glycol (Miralax) 17 gm PO DAILY [facility] Last Admin: 12/27/18 11:19 Dose: 17 gm Rosuvastatin Calcium (Crestor) 20 mg PO HS [facility] Last Admin: 12/26/18 21:31 Dose: 20 mg Simethicone (Mylicon Liq) 40 mg PO QID [facility] Stop: 12/27/18 14:01 Last Admin: 12/27/18 11:06 Dose: 40 mg - Labs Labs: 12/25/18 11:42 12/25/18 11:42 PT 12.7 SECONDS (9.7-12.2) H 12/22/18 08:09 INR 1.2 12/22/18 08:09
[2018-12-28] MEDS: Pantoprazole 40 mg EC Tab PO SCH (08:06)
--- NOTE | 2018-12-28 08:35 | CP.PCM.PN ---
<Alicia Armendariz - Last Filed: 12/28/18 08:32> Subjective - Date & Time of Evaluation Date of Evaluation: 12/28/18 Time of Evaluation: 08:32 - Subjective Subjective: Gastroenterology Fellow/PGY6 Progress Note Patient notes resolved abdominal pain. Tolerated regular diet. Three large bowel movements yesterday with tap enema and Dulcolax by mouth. A 12-point review of systems negative except for as above. Objective - Vital Signs/Intake and Output Vital Signs (last 24 hours): Temp Pulse Resp BP Pulse Ox 97.7 F 64 20 138/77 98 12/28/18 07:22 12/28/18 07:22 12/28/18 07:22 12/28/18 07:22 12/28/18 07:22 Intake and Output: 12/28/18 12/28/18 06:59 18:59 Intake Total 300 250 Output Total 3 Balance 297 250 - Medications Medications: Current Medications Acetaminophen (Tylenol 325mg Tab) 650 mg PO Q6 PRN PRN Reason: Pain, Mild (1-3) Last Admin: 12/28/18 05:18 Dose: 650 mg Amlodipine Besylate (Norvasc) [address] [facility] Last Admin: 12/27/18 10:08 Dose: 5 mg Apixaban (Eliquis) [address] [facility] Last Admin: 12/27/18 17:51 Dose: 5 mg Docusate Sodium (Colace) [address] [facility] Last Admin: 12/27/18 17:51 Dose: 100 mg Donepezil HCl (Aricept) 5 mg PO DAILY@2100 [facility] Last Admin: 12/27/18 21:32 Dose: 5 mg Haloperidol (Haldol) [address] [facility] Last Admin: 12/27/18 10:08 Dose: 5 mg Lisinopril (Zestril) [address] [facility] Last Admin: 12/27/18 10:07 Dose: 10 mg Pantoprazole Sodium (Protonix Ec Tab) [address] [facility] Last Admin: 12/28/18 08:06 Dose: 40 mg Polyethylene Glycol (Miralax) [address] [facility] Last Admin: 12/27/18 11:19 Dose: 17 gm Rosuvastatin Calcium (Crestor) [address] [facility] Last Admin: 12/27/18 21:32 Dose: 20 mg - Labs Labs: 12/25/18 11:42 12/25/18 11:42 PT 12.7 SECONDS (9.7-12.2) H 12/22/18 08:09 INR 1.2 12/22/18 08:09 - Constitutional Appears: Non-toxic, No Acute Distress - Head Exam Head Exam: ATRAUMATIC, NORMOCEPHALIC - Eye Exam Eye Exam: EOMI, PERRL. absent: Scleral icterus Pupil Exam: PERRL. absent: Miosis, Mydriatic - ENT Exam ENT Exam: Mucous Membranes Moist, Normal Oropharynx - Neck Exam Neck Exam: Full ROM, Normal Inspection - Respiratory Exam Respiratory Exam: Clear to Ausculation Bilateral. absent: Rales, Rhonchi, Wheezes - Cardiovascular Exam Cardiovascular Exam: RRR, +S1, +S2. absent: Gallop, Rubs - GI/Abdominal Exam GI & Abdominal Exam: Soft, Normal Bowel Sounds. absent: Distended, Firm, Guarding, Rigid, Tenderness, Organomegaly, Rebound - Extremities Exam Extremities Exam: Normal Inspection. absent: Pedal Edema - Neurological Exam Neurological Exam: Alert, Awake - Psychiatric Exam Psychiatric exam: Normal Affect, Normal Mood - Skin Skin Exam: Dry, Intact, Normal Color, Warm Assessment and Plan - Assessment and Plan (Free Text) Assessment: 88 year old female with past medical history of Atrial fibrillation on Eliquis, HTN, HLD, Hypothyroidism, and Anxiety presenting for positive blood culture after recent ER for weakness leading to call back for hospital admission. GI consultation for abdominal pain. Status post EGD 12/23 showing H. pylori negative gastritis. No prior colonoscopy. Plan: -continue bowel regimen- Miralax, Colace BID -counselled on increased water and fiber intake -continue Pepcid QHS -unable to obtain CTA due to poor IV access -low suspicion for mesenteric ischemia -Thank you for opportunity to participate in the care of this patient. Please contact with any questions or concerns. <Karthik Yusuf - Last Filed: 12/28/18 10:48> Objective - Vital Signs/Intake and Output Vital Signs (last 24 hours): Temp Pulse Resp BP Pulse Ox 97.7 F 64 20 138/77 98 12/28/18 07:22 12/28/18 07:22 12/28/18 07:22 12/28/18 07:22 12/28/18 07:22 Intake and Output: 12/28/18 12/28/18 06:59 18:59 Intake Total 300 250 Output Total 3 Balance 297 250 - Medications Medications: Current Medications Acetaminophen (Tylenol 325mg Tab) 650 mg PO Q6 PRN PRN Reason: Pain, Mild (1-3) Last Admin: 12/28/18 05:18 Dose: 650 mg Amlodipine Besylate (Norvasc) [address] [facility] Last Admin: 12/28/18 09:29 Dose: 5 mg Apixaban (Eliquis) [address] [facility] Last Admin: 12/28/18 09:30 Dose: 5 mg Docusate Sodium (Colace) [address] [facility] Last Admin: 12/28/18 09:30 Dose: 100 mg Donepezil HCl (Aricept) 5 mg PO DAILY@2100 [facility] Last Admin: 12/27/18 21:32 Dose: 5 mg Haloperidol (Haldol) [address] [facility] Last Admin: 12/28/18 09:30 Dose: 5 mg Lisinopril (Zestril) [address] [facility] Last Admin: 12/28/18 09:30 Dose: 10 mg Pantoprazole Sodium (Protonix Ec Tab) [address] [facility] Last Admin: 12/28/18 08:06 Dose: 40 mg Polyethylene Glycol (Miralax) [address] [facility] Last Admin: 12/28/18 09:30 Dose: 17 gm Rosuvastatin Calcium (Crestor) [address] [facility] Last Admin: 12/27/18 21:32 Dose: 20 mg - Labs Labs: 12/25/18 11:42 12/25/18 11:42 PT 12.7 SECONDS (9.7-12.2) H 12/22/18 08:09 INR 1.2 12/22/18 08:09 Attending/Attestation - Attestation I have personally seen and examined this patient.: Yes I have fully participated in the care of the patient.: Yes I have reviewed all pertinent clinical information, including history, physical exam and plan: Yes Notes (Text): 12/28/18 10:46 I have seen and examined patient with GI fellow. No acute events overnight, she is seen resting in bed comfortably. She denies nausea, vomiting, fever/chills. She had a large bowel movement yesterday with relief of abdominal pain. Tolerating PO diet without difficulty. Review of vitals from today are normal. Atrial fibrillation on eliquis HTN Hyperlipidemia Hypothyroidism Abdominal pain, constipation - Diet as tolerated - EGD biopsies reviewed, no significant abnormalities - Maintain bowel regimen to prevent recurrent constipation - Continue with H2 candida therapy PRN - No further planned GI intervention at this time, will sign off case. Please reconsult as necessary, thank you.
[2018-12-28] MEDS: POLYETHYLENE GLYCOL 3350 17 GM/Dose PACKET PO SCH (09:30)
[2018-12-28] MEDS: Aluminum Hydroxide/Magnesium Hydroxide Susp (30 mL) PO PRN (11:56)
--- NOTE | 2018-12-28 12:08 | CP.PCM.PN ---
Subjective - Date & Time of Evaluation Date of Evaluation: 12/28/18 Time of Evaluation: 12:07 - Subjective Subjective: no further abd pain VS stable P/E remains same Awaiting LTC Objective - Vital Signs/Intake and Output Vital Signs (last 24 hours): Temp Pulse Resp BP Pulse Ox 97.7 F 64 20 138/77 98 12/28/18 07:22 12/28/18 07:22 12/28/18 07:22 12/28/18 07:22 12/28/18 07:22 Intake and Output: 12/28/18 12/28/18 11:59 23:59 Intake Total 250 Balance 250 - Medications Medications: Current Medications Acetaminophen (Tylenol 325mg Tab) 650 mg PO Q6 PRN PRN Reason: Pain, Mild (1-3) Last Admin: 12/28/18 11:45 Dose: 650 mg Al Hydrox/Mg Hydrox/Simethicone (Maalox 30 Ml) 30 ml PO Q8H PRN PRN Reason: Indigestion / Heartburn Last Admin: 12/28/18 11:56 Dose: 30 ml Amlodipine Besylate (Norvasc) 5 mg PO DAILY [facility] Last Admin: 12/28/18 09:29 Dose: 5 mg Apixaban (Eliquis) 5 mg PO BID [facility] Last Admin: 12/28/18 09:30 Dose: 5 mg Docusate Sodium (Colace) 100 mg PO BID [facility] Last Admin: 12/28/18 09:30 Dose: 100 mg Donepezil HCl (Aricept) 5 mg PO DAILY@2100 [facility] Last Admin: 12/27/18 21:32 Dose: 5 mg Haloperidol (Haldol) 5 mg PO DAILY [facility] Last Admin: 12/28/18 09:30 Dose: 5 mg Lisinopril (Zestril) 10 mg PO DAILY [facility] Last Admin: 12/28/18 09:30 Dose: 10 mg Pantoprazole Sodium (Protonix Ec Tab) 40 mg PO ACB [facility] Last Admin: 12/28/18 08:06 Dose: 40 mg Polyethylene Glycol (Miralax) 17 gm PO DAILY [facility] Last Admin: 12/28/18 09:30 Dose: 17 gm Rosuvastatin Calcium (Crestor) 20 mg PO HS [facility] Last Admin: 12/27/18 21:32 Dose: 20 mg - Labs Labs: 12/25/18 11:42 12/25/18 11:42 PT 12.7 SECONDS (9.7-12.2) H 12/22/18 08:09 INR 1.2 12/22/18 08:09
[2018-12-29 07:33] LABS: BASO % 0.6 % (0.0-2.0); EOS % 0.3 % (0.0-4.0); HEMOGLOBIN 12.3 g/dL (11.0-16.0); LYMPH # 1.4 K/uL (1.0-4.3); LYMPH % 27.5 % (20.0-40.0); MEAN CELL VOLUME 89.4 fL (81.0-99.0); MEAN CORPUSCULAR HEMOGLOBIN 29.7 pg (27.0-31.0); MEAN CORPUSCULAR HGB CONC 33.2 g/dL (33.0-37.0); MONO # 0.5 K/uL (0.0-0.8); MONO % 8.7 % (0.0-10.0); NEUT # 3.3 K/uL (1.8-7.0); NEUT % 62.9 % (50.0-75.0); NRBC % 0.1 % (0.0-2.0); RBC 4.14 Mil/uL (3.80-5.20); RED CELL DISTRIBUTION WIDTH 14.3 % (11.5-14.5); WHITE BLOOD COUNT 5.2 K/uL (4.8-10.8)
[2018-12-29 07:43] LABS: BLOOD UREA NITROGEN 27 mg/dL (7-17); CALCIUM 10.1 mg/dl (8.6-10.4); GFR NON-AFRICAN AMERICAN 59
[2018-12-29] MEDS: Pantoprazole 40 mg EC Tab PO SCH (07:46)
[2018-12-29] MEDS: POLYETHYLENE GLYCOL 3350 17 GM/Dose PACKET PO SCH (10:16)
--- NOTE | 2018-12-29 12:13 | CP.PCM.PN ---
Subjective - Date & Time of Evaluation Date of Evaluation: 12/29/18 Time of Evaluation: 12:13 - Subjective Subjective: no further abd pain VS stable P/E remains same Awaiting LTC Objective - Vital Signs/Intake and Output Vital Signs (last 24 hours): Temp Pulse Resp BP Pulse Ox 98.4 F 79 20 131/88 98 12/29/18 07:25 12/29/18 07:25 12/29/18 07:25 12/29/18 07:25 12/29/18 07:25 Intake and Output: 12/29/18 12/29/18 11:59 23:59 Intake Total 180 Balance 180 - Medications Medications: Current Medications Acetaminophen (Tylenol 325mg Tab) 650 mg PO Q6 PRN PRN Reason: Pain, Mild (1-3) Last Admin: 12/29/18 05:11 Dose: 650 mg Al Hydrox/Mg Hydrox/Simethicone (Maalox 30 Ml) 30 ml PO Q8H PRN PRN Reason: Indigestion / Heartburn Last Admin: 12/28/18 11:56 Dose: 30 ml Amlodipine Besylate (Norvasc) 5 mg PO DAILY [facility] Last Admin: 12/29/18 10:21 Dose: 5 mg Apixaban (Eliquis) 5 mg PO BID [facility] Last Admin: 12/29/18 10:17 Dose: 5 mg Docusate Sodium (Colace) 100 mg PO BID [facility] Last Admin: 12/29/18 10:17 Dose: 100 mg Donepezil HCl (Aricept) 5 mg PO DAILY@2100 [facility] Last Admin: 12/28/18 21:09 Dose: 5 mg Haloperidol (Haldol) 5 mg PO DAILY [facility] Last Admin: 12/29/18 10:21 Dose: 5 mg Lisinopril (Zestril) 10 mg PO DAILY [facility] Last Admin: 12/29/18 10:21 Dose: 10 mg Pantoprazole Sodium (Protonix Ec Tab) 40 mg PO ACB [facility] Last Admin: 12/29/18 07:46 Dose: 40 mg Polyethylene Glycol (Miralax) 17 gm PO DAILY [facility] Last Admin: 12/29/18 10:16 Dose: 17 gm Rosuvastatin Calcium (Crestor) 20 mg PO HS [facility] Last Admin: 12/28/18 21:09 Dose: 20 mg - Labs Labs: 12/29/18 06:57 12/29/18 06:57 PT 12.7 SECONDS (9.7-12.2) H 12/22/18 08:09 INR 1.2 12/22/18 08:09
[2018-12-30] MEDS: Aluminum Hydroxide/Magnesium Hydroxide Susp (30 mL) PO PRN (08:28)
[2018-12-30] MEDS: Pantoprazole 40 mg EC Tab PO SCH (08:28)
[2018-12-30] MEDS: POLYETHYLENE GLYCOL 3350 17 GM/Dose PACKET PO SCH (09:08)
--- NOTE | 2018-12-30 11:51 | CP.PCM.PN ---
Subjective - Date & Time of Evaluation Date of Evaluation: 12/30/18 Time of Evaluation: 11:51 - Subjective Subjective: no further abd pain VS stable P/E remains same Awaiting LTC Objective - Vital Signs/Intake and Output Vital Signs (last 24 hours): Temp Pulse Resp BP Pulse Ox 97.3 F L 72 20 147/83 95 12/30/18 07:20 12/30/18 07:20 12/30/18 07:20 12/30/18 07:20 12/30/18 07:20 Intake and Output: 12/29/18 12/30/18 23:59 11:59 Intake Total 300 200 Balance 300 200 - Medications Medications: Current Medications Acetaminophen (Tylenol 325mg Tab) 650 mg PO Q6 PRN PRN Reason: Pain, Mild (1-3) Last Admin: 12/30/18 07:05 Dose: 650 mg Al Hydrox/Mg Hydrox/Simethicone (Maalox 30 Ml) 30 ml PO Q8H PRN PRN Reason: Indigestion / Heartburn Last Admin: 12/30/18 08:28 Dose: 30 ml Amlodipine Besylate (Norvasc) 5 mg PO DAILY [facility] Last Admin: 12/30/18 09:09 Dose: 5 mg Apixaban (Eliquis) 5 mg PO BID [facility] Last Admin: 12/30/18 09:09 Dose: 5 mg Docusate Sodium (Colace) 100 mg PO BID [facility] Last Admin: 12/30/18 09:09 Dose: 100 mg Donepezil HCl (Aricept) 5 mg PO DAILY@2100 [facility] Last Admin: 12/29/18 21:26 Dose: 5 mg Haloperidol (Haldol) 5 mg PO DAILY [facility] Last Admin: 12/30/18 09:08 Dose: 5 mg Lisinopril (Zestril) 10 mg PO DAILY [facility] Last Admin: 12/30/18 09:09 Dose: 10 mg Pantoprazole Sodium (Protonix Ec Tab) 40 mg PO ACB [facility] Last Admin: 12/30/18 08:28 Dose: 40 mg Polyethylene Glycol (Miralax) 17 gm PO DAILY [facility] Last Admin: 12/30/18 09:08 Dose: 17 gm Rosuvastatin Calcium (Crestor) 20 mg PO HS [facility] Last Admin: 12/29/18 21:31 Dose: 20 mg - Labs Labs: 12/29/18 06:57 12/29/18 06:57 PT 12.7 SECONDS (9.7-12.2) H 12/22/18 08:09 INR 1.2 12/22/18 08:09
--- NOTE | 2018-12-30 12:08 | PCM.PSYCH ---
Initial Psychiatric Evaluation - Initial Psychiatric Evaluation Type of Admission: Voluntary Legal Status: Capacity Chief Complaint (in patient's own words): I am feeling maira a.' History of Present Illness and Precipitating Events: Pt is a 88 year old HF presents to the ED status post being called to return to the ED for positive blood culture. Patient was seen in the ED 2 days ago for respiratory infection. The patient was consulted for capacity evaluation. Patient denies any past history of any inpatient psychiatric hospitalizations and she denies any history of follow-up with a psychiatrist. However she appeared demented, confused and worried. She was superficially cooperative but guarded about the details. As per the family patient has history of dementia and she is getting worse. Patient remained partially mute, and forgetful throughout the interview. When asked, why she came to the hospital she reports that she came to the hospital because of high blood pressure. As per staff, she is been coming to the [facility] for recurrent chest infections. When asked where she is now, she understands that she is at [facility] but she does not know her home address. She reports that she lives with her daughter and daughter does everything for her and she does not cook, and cannot perform other ADLs. As per the physical therapist, patient takes a long time to stand up and walk. And she does not walk on her own. As per the staff she remained on her bed whole day and does not come out of her room. She reports anxiety and some irritability. As per staff, she remained calm and cooperative. However she denies any feelings of hopelessness or helplessness, she denies any suicidal ideation or any homicidal ideation. She denies any auditory or visual hallucinations or any paranoia. Past medical history Hypertension Current Medications: Active Medications Generic Name Dose Route Start Last Admin Trade Name Freq PRN Reason Stop Dose Admin Acetaminophen 650 mg 12/09/18 13:39 12/30/18 07:05 Tylenol 325mg Tab PO 650 mg Q6 PRN Administration Pain, Mild (1-3) Al Hydrox/Mg Hydrox/Simethicone 30 ml 12/28/18 12:00 12/30/18 08:28 Maalox 30 Ml PO 30 ml Q8H PRN Administration Indigestion / Heartburn Amlodipine Besylate 5 mg 12/25/18 10:00 12/30/18 09:09 Norvasc PO 5 mg DAILY RODRIGO Administration Apixaban 5 mg 12/09/18 10:00 12/30/18 09:09 Eliquis PO 5 mg BID RODRIGO Administration Docusate Sodium 100 mg 12/14/18 18:00 12/30/18 09:09 Colace PO 100 mg BID RODRIGO Administration Donepezil HCl 5 mg 12/26/18 21:00 12/29/18 21:26 Aricept PO 5 mg DAILY@2100 RODRIGO Administration Haloperidol 5 mg 12/11/18 09:18 12/30/18 09:08 Haldol PO 5 mg DAILY RODRIGO Administration Lisinopril 10 mg 12/25/18 10:00 12/30/18 09:09 Zestril PO 10 mg DAILY RODRIGO Administration Pantoprazole Sodium 40 mg 12/22/18 07:30 12/30/18 08:28 Protonix Ec Tab PO 40 mg ACB RODRIGO Administration Polyethylene Glycol 17 gm 12/27/18 11:00 12/30/18 09:08 Miralax PO 17 gm DAILY RODRIGO Administration Rosuvastatin Calcium 20 mg 12/09/18 22:00 12/29/18 21:31 Crestor PO 20 mg HS RODRIGO Administration Past Psychiatric History - Past Psychiatric History Previous Treatment History: None Pertinent Medical Hx (Current Medical&Sleep Prob, Allergies): Allergies Allergy/AdvReac Type Severity Reaction Status Date / Time soy Allergy Mild RASH Verified 12/08/18 18:10 Apixaban [Eliquis] 5 mg PO BID 12/06/18 Atorvastatin Calcium 40 mg PO HS 12/06/18 Donepezil HCl 5 mg PO DAILY 12/06/18 Haloperidol [Haldol] 5 mg PO DAILY 12/06/18 Lisinopril [Zestril] 10 mg PO DAILY 12/06/18 amLODIPine [Norvasc] 5 mg PO DAILY 12/06/18 Review of Systems - Review of Systems All systems: reviewed and no additional remarkable complaints except - Psychiatric Psychiatric: Anxiety. absent: Suicidal Ideation Mental Status Examination - Personal Presentation Personal Presentation: Looks older than stated age - Affect Affect: Constricted - Motor Activity Motor Activity: Psychomotor Retardation - Reliability in Providing Information Reliability in Providing Information: Poor, due to cognitve impairment - Speech Speech: Disorganized - Mood Mood: Anxious - Formal Thought Process Formal Thought Process: Loosening of associations - Obsessions/Compulsions Obsessions: No Compulsions: No - Cognitive Functions Orientation: Person, Place Sensorium: Alert Attention/Concentration: Easily distracted Abstract Thinking: Mills Estimate of Intelligence: Below average Judgement: Imparied, as evidence by: Poor judgement, Imparied, as evidence by: Lack of insight into illness - Risk Risk: Diminished functioning - Strength & Assets Inventory Strength & Assets Inventory: Family support DSM 5 DX - DSM 5 DSM 5 Diagnosis: Alzheimer's 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 She does not have any insight of her illness and she does not have any capacity to make any decisions. - Smoking Cessation Smoking Cessation Initiated: No
[2018-12-31] MEDS: POLYETHYLENE GLYCOL 3350 17 GM/Dose PACKET PO SCH (09:29)
[2018-12-31] MEDS: Pantoprazole 40 mg EC Tab PO SCH (09:29)
--- NOTE | 2018-12-31 11:13 | CP.PCM.PN ---
Subjective - Date & Time of Evaluation Date of Evaluation: 12/31/18 Time of Evaluation: 11:12 - Subjective Subjective: psych eval noted no complaints for LTC Objective - Vital Signs/Intake and Output Vital Signs (last 24 hours): Temp Pulse Resp BP Pulse Ox 98.1 F 76 20 156/80 H 98 12/31/18 07:00 12/31/18 07:00 12/31/18 07:00 12/31/18 07:00 12/31/18 07:00 Intake and Output: 12/30/18 12/31/18 23:59 11:59 Intake Total 300 150 Balance 300 150 - Medications Medications: Current Medications Acetaminophen (Tylenol 325mg Tab) 650 mg PO Q6 PRN PRN Reason: Pain, Mild (1-3) Last Admin: 12/31/18 03:40 Dose: 650 mg Al Hydrox/Mg Hydrox/Simethicone (Maalox 30 Ml) 30 ml PO Q8H PRN PRN Reason: Indigestion / Heartburn Last Admin: 12/30/18 08:28 Dose: 30 ml Amlodipine Besylate (Norvasc) 5 mg PO DAILY [facility] Last Admin: 12/31/18 09:29 Dose: 5 mg Apixaban (Eliquis) 5 mg PO BID [facility] Last Admin: 12/31/18 09:29 Dose: 5 mg Docusate Sodium (Colace) 100 mg PO BID [facility] Last Admin: 12/31/18 09:29 Dose: 100 mg Donepezil HCl (Aricept) 5 mg PO DAILY@2100 [facility] Last Admin: 12/30/18 21:36 Dose: 5 mg Haloperidol (Haldol) 5 mg PO DAILY [facility] Last Admin: 12/31/18 09:29 Dose: 5 mg Lisinopril (Zestril) 10 mg PO DAILY [facility] Last Admin: 12/31/18 09:29 Dose: 10 mg Pantoprazole Sodium (Protonix Ec Tab) 40 mg PO ACB [facility] Last Admin: 12/31/18 09:29 Dose: 40 mg Polyethylene Glycol (Miralax) 17 gm PO DAILY [facility] Last Admin: 12/31/18 09:29 Dose: 17 gm Rosuvastatin Calcium (Crestor) 20 mg PO HS [facility] Last Admin: 12/30/18 21:36 Dose: 20 mg - Labs Labs: 12/29/18 06:57 12/29/18 06:57 PT 12.7 SECONDS (9.7-12.2) H 12/22/18 08:09 INR 1.2 12/22/18 08:09
[2018-12-31] MEDS: Aluminum Hydroxide/Magnesium Hydroxide Susp (30 mL) PO PRN (19:41)
[2019-01-01] MEDS: Pantoprazole 40 mg EC Tab PO SCH (08:28)
[2019-01-01] MEDS: Aluminum Hydroxide/Magnesium Hydroxide Susp (30 mL) PO PRN (09:16)
[2019-01-01] MEDS: POLYETHYLENE GLYCOL 3350 17 GM/Dose PACKET PO SCH (09:19)
--- NOTE | 2019-01-01 12:32 | CP.PCM.PN ---
Subjective - Date & Time of Evaluation Date of Evaluation: 01/01/19 Time of Evaluation: 12:32 - Subjective Subjective: psych eval noted no complaints for LTC Objective - Vital Signs/Intake and Output Vital Signs (last 24 hours): Temp Pulse Resp BP Pulse Ox 97.5 F L 80 20 133/76 97 01/01/19 07:52 01/01/19 07:52 01/01/19 07:52 01/01/19 07:52 01/01/19 07:52 Intake and Output: 01/01/19 01/01/19 11:59 23:59 Intake Total 200 Balance 200 - Medications Medications: Current Medications Acetaminophen (Tylenol 325mg Tab) 650 mg PO Q6 PRN PRN Reason: Pain, Mild (1-3) Last Admin: 01/01/19 10:03 Dose: 650 mg Al Hydrox/Mg Hydrox/Simethicone (Maalox 30 Ml) 30 ml PO Q8H PRN PRN Reason: Indigestion / Heartburn Last Admin: 01/01/19 09:16 Dose: 30 ml Amlodipine Besylate (Norvasc) 5 mg PO DAILY [facility] Last Admin: 01/01/19 09:16 Dose: 5 mg Apixaban (Eliquis) 5 mg PO BID [facility] Last Admin: 01/01/19 09:16 Dose: 5 mg Docusate Sodium (Colace) 100 mg PO BID [facility] Last Admin: 01/01/19 09:16 Dose: 100 mg Donepezil HCl (Aricept) 5 mg PO DAILY@2100 [facility] Last Admin: 12/31/18 21:48 Dose: 5 mg Haloperidol (Haldol) 5 mg PO DAILY [facility] Last Admin: 01/01/19 09:16 Dose: 5 mg Lisinopril (Zestril) 10 mg PO DAILY [facility] Last Admin: 01/01/19 09:15 Dose: 10 mg Pantoprazole Sodium (Protonix Ec Tab) 40 mg PO ACB [facility] Last Admin: 01/01/19 08:28 Dose: 40 mg Polyethylene Glycol (Miralax) 17 gm PO DAILY [facility] Last Admin: 01/01/19 09:19 Dose: 17 gm Rosuvastatin Calcium (Crestor) 20 mg PO HS [facility] Last Admin: 12/31/18 21:48 Dose: 20 mg - Labs Labs: 12/29/18 06:57 12/29/18 06:57 PT 12.7 SECONDS (9.7-12.2) H 12/22/18 08:09 INR 1.2 12/22/18 08:09
[2019-01-02] MEDS: Pantoprazole 40 mg EC Tab PO SCH (07:55)
[2019-01-02] MEDS: Aluminum Hydroxide/Magnesium Hydroxide Susp (30 mL) PO PRN (09:04)
[2019-01-02] MEDS: POLYETHYLENE GLYCOL 3350 17 GM/Dose PACKET PO SCH (09:04)
[2019-01-02 09:35] VITALS: RESP 20
--- NOTE | 2019-01-02 12:44 | CP.PCM.PN ---
Subjective - Date & Time of Evaluation Date of Evaluation: 01/02/19 Time of Evaluation: 12:43 - Subjective Subjective: NO COMPLAINTS VS STABLE AWAITING SKILLED NURSING CARE Objective - Vital Signs/Intake and Output Vital Signs (last 24 hours): Temp Pulse Resp BP Pulse Ox 98.1 F 79 20 147/77 95 01/02/19 07:00 01/02/19 07:00 01/02/19 07:00 01/02/19 07:00 01/02/19 07:00 Intake and Output: 01/02/19 01/02/19 11:59 23:59 Intake Total 250 Balance 250 - Medications Medications: Current Medications Acetaminophen (Tylenol 325mg Tab) 650 mg PO Q6 PRN PRN Reason: Pain, Mild (1-3) Last Admin: 01/02/19 02:38 Dose: 650 mg Al Hydrox/Mg Hydrox/Simethicone (Maalox 30 Ml) 30 ml PO Q8H PRN PRN Reason: Indigestion / Heartburn Last Admin: 01/02/19 09:04 Dose: 30 ml Amlodipine Besylate (Norvasc) 5 mg PO DAILY [facility] Last Admin: 01/02/19 09:05 Dose: 5 mg Apixaban (Eliquis) 5 mg PO BID [facility] Last Admin: 01/02/19 09:05 Dose: 5 mg Docusate Sodium (Colace) 100 mg PO BID [facility] Last Admin: 01/02/19 09:04 Dose: 100 mg Donepezil HCl (Aricept) 5 mg PO DAILY@2100 [facility] Last Admin: 01/01/19 21:42 Dose: 5 mg Haloperidol (Haldol) 5 mg PO DAILY [facility] Last Admin: 01/02/19 09:04 Dose: 5 mg Lisinopril (Zestril) 10 mg PO DAILY [facility] Last Admin: 01/02/19 09:03 Dose: 10 mg Pantoprazole Sodium (Protonix Ec Tab) 40 mg PO ACB [facility] Last Admin: 01/02/19 07:55 Dose: 40 mg Polyethylene Glycol (Miralax) 17 gm PO DAILY [facility] Last Admin: 01/02/19 09:04 Dose: 17 gm Rosuvastatin Calcium (Crestor) 20 mg PO HS [facility] Last Admin: 01/01/19 21:42 Dose: 20 mg - Labs Labs: 12/29/18 06:57 12/29/18 06:57 PT 12.7 SECONDS (9.7-12.2) H 12/22/18 08:09 INR 1.2 12/22/18 08:09
[2019-01-03] MEDS: Pantoprazole 40 mg EC Tab PO SCH (07:37)
[2019-01-03] MEDS: POLYETHYLENE GLYCOL 3350 17 GM/Dose PACKET PO SCH (09:24)
--- NOTE | 2019-01-03 12:33 | CP.PCM.PN ---
Subjective - Date & Time of Evaluation Date of Evaluation: 01/03/19 Time of Evaluation: 12:33 - Subjective Subjective: NO COMPLAINTS VS STABLE AWAITING [facility] C[facility] Objective - Vital Signs/Intake and Output Vital Signs (last 24 hours): Temp Pulse Resp BP Pulse Ox 98.3 F 75 20 147/79 95 01/03/19 08:33 01/03/19 08:33 01/03/19 08:33 01/03/19 08:33 01/03/19 08:33 Intake and Output: 01/03/19 01/03/19 11:59 23:59 Intake Total 200 Balance 200 - Medications Medications: Current Medications Acetaminophen (Tylenol 325mg Tab) 650 mg PO Q6 PRN PRN Reason: Pain, Mild (1-3) Last Admin: 01/03/19 07:17 Dose: 650 mg Al Hydrox/Mg Hydrox/Simethicone (Maalox 30 Ml) 30 ml PO Q8H PRN PRN Reason: Indigestion / Heartburn Last Admin: 01/02/19 09:04 Dose: 30 ml Amlodipine Besylate (Norvasc) 5 mg PO DAILY [facility] Last Admin: 01/03/19 09:21 Dose: 5 mg Apixaban (Eliquis) 5 mg PO BID [facility] Last Admin: 01/03/19 09:21 Dose: 5 mg Docusate Sodium (Colace) 100 mg PO BID [facility] Last Admin: 01/03/19 09:21 Dose: 100 mg Donepezil HCl (Aricept) 5 mg PO DAILY@2100 [facility] Last Admin: 01/02/19 21:13 Dose: 5 mg Haloperidol (Haldol) 5 mg PO DAILY [facility] Last Admin: 01/03/19 09:20 Dose: 5 mg Lisinopril (Zestril) 10 mg PO DAILY [facility] Last Admin: 01/03/19 09:21 Dose: 10 mg Pantoprazole Sodium (Protonix Ec Tab) 40 mg PO ACB [facility] Last Admin: 01/03/19 07:37 Dose: 40 mg Polyethylene Glycol (Miralax) 17 gm PO DAILY [facility] Last Admin: 01/03/19 09:24 Dose: 17 gm Rosuvastatin Calcium (Crestor) 20 mg PO HS [facility] Last Admin: 01/02/19 21:12 Dose: 20 mg - Labs Labs: 12/29/18 06:57 12/29/18 06:57 PT 12.7 SECONDS (9.7-12.2) H 12/22/18 08:09 INR 1.2 12/22/18 08:09
[2019-01-04] MEDS: Pantoprazole 40 mg EC Tab PO SCH (07:27)
[2019-01-04] MEDS: Aluminum Hydroxide/Magnesium Hydroxide Susp (30 mL) PO PRN (08:16)
[2019-01-04] MEDS: POLYETHYLENE GLYCOL 3350 17 GM/Dose PACKET PO SCH (09:32)
--- NOTE | 2019-01-04 12:16 | CP.PCM.PN ---
Subjective - Date & Time of Evaluation Date of Evaluation: 01/04/19 Time of Evaluation: 12:16 - Subjective Subjective: NO COMPLAINTS VS STABLE AWAITING RESIDENTIAL CARE Objective - Vital Signs/Intake and Output Vital Signs (last 24 hours): Temp Pulse Resp BP Pulse Ox 97.4 F L 80 20 155/85 H 99 01/04/19 08:28 01/04/19 08:28 01/04/19 08:28 01/04/19 08:28 01/04/19 08:28 Intake and Output: 01/04/19 01/04/19 11:59 23:59 Intake Total 300 Balance 300 - Medications Medications: Current Medications Acetaminophen (Tylenol 325mg Tab) 650 mg PO Q6 PRN PRN Reason: Pain, Mild (1-3) Last Admin: 01/04/19 08:16 Dose: 650 mg Al Hydrox/Mg Hydrox/Simethicone (Maalox 30 Ml) 30 ml PO Q8H PRN PRN Reason: Indigestion / Heartburn Last Admin: 01/04/19 08:16 Dose: 30 ml Amlodipine Besylate (Norvasc) 5 mg PO DAILY [facility] Last Admin: 01/04/19 09:33 Dose: 5 mg Apixaban (Eliquis) 5 mg PO BID [facility] Last Admin: 01/04/19 09:32 Dose: 5 mg Docusate Sodium (Colace) 100 mg PO BID [facility] Last Admin: 01/04/19 09:32 Dose: 100 mg Donepezil HCl (Aricept) 5 mg PO DAILY@2100 [facility] Last Admin: 01/03/19 21:13 Dose: 5 mg Haloperidol (Haldol) 5 mg PO DAILY [facility] Last Admin: 01/04/19 09:52 Dose: 5 mg Lisinopril (Zestril) 10 mg PO DAILY [facility] Last Admin: 01/04/19 09:33 Dose: 10 mg Pantoprazole Sodium (Protonix Ec Tab) 40 mg PO ACB [facility] Last Admin: 01/04/19 07:27 Dose: 40 mg Polyethylene Glycol (Miralax) 17 gm PO DAILY [facility] Last Admin: 01/04/19 09:32 Dose: 17 gm Rosuvastatin Calcium (Crestor) 20 mg PO HS [facility] Last Admin: 01/03/19 21:13 Dose: 20 mg - Labs Labs: 12/29/18 06:57 12/29/18 06:57 PT 12.7 SECONDS (9.7-12.2) H 12/22/18 08:09 INR 1.2 12/22/18 08:09
[2019-01-05] MEDS: Pantoprazole 40 mg EC Tab PO SCH (07:21)
[2019-01-05] MEDS: POLYETHYLENE GLYCOL 3350 17 GM/Dose PACKET PO SCH (09:17)
[2019-01-05] MEDS: Aluminum Hydroxide/Magnesium Hydroxide Susp (30 mL) PO PRN (10:08)
--- NOTE | 2019-01-05 12:07 | CP.PCM.PN ---
Subjective - Date & Time of Evaluation Date of Evaluation: 01/05/19 Time of Evaluation: 12:07 - Subjective Subjective: NO COMPLAINTS VS STABLE AWAITING [facility] CARE Objective - Vital Signs/Intake and Output Vital Signs (last 24 hours): Temp Pulse Resp BP Pulse Ox 97.7 F 68 20 148/79 96 01/05/19 08:00 01/05/19 08:00 01/05/19 08:00 01/05/19 08:00 01/05/19 08:00 - Medications Medications: Current Medications Acetaminophen (Tylenol 325mg Tab) 650 mg PO Q6 PRN PRN Reason: Pain, Mild (1-3) Last Admin: 01/05/19 05:27 Dose: 650 mg Al Hydrox/Mg Hydrox/Simethicone (Maalox 30 Ml) 30 ml PO Q8H PRN PRN Reason: Indigestion / Heartburn Last Admin: 01/05/19 10:08 Dose: 30 ml Amlodipine Besylate (Norvasc) 5 mg PO DAILY [facility] Last Admin: 01/05/19 09:18 Dose: 5 mg Apixaban (Eliquis) 5 mg PO BID [facility] Last Admin: 01/05/19 09:18 Dose: 5 mg Docusate Sodium (Colace) 100 mg PO BID [facility] Last Admin: 01/05/19 09:18 Dose: 100 mg Donepezil HCl (Aricept) 5 mg PO DAILY@2100 [facility] Last Admin: 01/04/19 21:24 Dose: 5 mg Haloperidol (Haldol) 5 mg PO DAILY [facility] Last Admin: 01/05/19 09:18 Dose: 5 mg Lisinopril (Zestril) 10 mg PO DAILY [facility] Last Admin: 01/05/19 09:18 Dose: 10 mg Pantoprazole Sodium (Protonix Ec Tab) 40 mg PO ACB [facility] Last Admin: 01/05/19 07:21 Dose: 40 mg Polyethylene Glycol (Miralax) 17 gm PO DAILY [facility] Last Admin: 01/05/19 09:17 Dose: 17 gm Rosuvastatin Calcium (Crestor) 20 mg PO HS [facility] Last Admin: 01/04/19 21:24 Dose: 20 mg - Labs Labs: 12/29/18 06:57 12/29/18 06:57 PT 12.7 SECONDS (9.7-12.2) H 12/22/18 08:09 INR 1.2 12/22/18 08:09
[2019-01-06] MEDS: Pantoprazole 40 mg EC Tab PO SCH (08:30)
[2019-01-06] MEDS: POLYETHYLENE GLYCOL 3350 17 GM/Dose PACKET PO SCH (10:22)
--- NOTE | 2019-01-06 12:04 | CP.PCM.PN ---
Subjective - Date & Time of Evaluation Date of Evaluation: 01/06/19 Time of Evaluation: 12:04 - Subjective Subjective: NO COMPLAINTS VS STABLE AWAITING [facility] CARE Objective - Vital Signs/Intake and Output Vital Signs (last 24 hours): Temp Pulse Resp BP Pulse Ox 97.6 F 63 20 150/73 98 01/06/19 07:23 01/06/19 07:23 01/06/19 07:23 01/06/19 07:23 01/06/19 07:23 - Medications Medications: Current Medications Acetaminophen (Tylenol 325mg Tab) 650 mg PO Q6 PRN PRN Reason: Pain, Mild (1-3) Last Admin: 01/05/19 15:08 Dose: 650 mg Al Hydrox/Mg Hydrox/Simethicone (Maalox 30 Ml) 30 ml PO Q8H PRN PRN Reason: Indigestion / Heartburn Last Admin: 01/05/19 10:08 Dose: 30 ml Amlodipine Besylate (Norvasc) 5 mg PO DAILY [facility] Last Admin: 01/06/19 10:22 Dose: 5 mg Apixaban (Eliquis) 5 mg PO BID [facility] Last Admin: 01/06/19 10:22 Dose: 5 mg Docusate Sodium (Colace) 100 mg PO BID [facility] Last Admin: 01/06/19 10:22 Dose: 100 mg Donepezil HCl (Aricept) 5 mg PO DAILY@2100 [facility] Last Admin: 01/05/19 21:00 Dose: 5 mg Haloperidol (Haldol) 5 mg PO DAILY [facility] Last Admin: 01/06/19 10:22 Dose: 5 mg Lisinopril (Zestril) 10 mg PO DAILY [facility] Last Admin: 01/06/19 10:22 Dose: 10 mg Pantoprazole Sodium (Protonix Ec Tab) 40 mg PO ACB [facility] Last Admin: 01/06/19 08:30 Dose: 40 mg Polyethylene Glycol (Miralax) 17 gm PO DAILY [facility] Last Admin: 01/06/19 10:22 Dose: 17 gm Rosuvastatin Calcium (Crestor) 20 mg PO HS [facility] Last Admin: 01/05/19 21:00 Dose: 20 mg - Labs Labs: 12/29/18 06:57 12/29/18 06:57 PT 12.7 SECONDS (9.7-12.2) H 12/22/18 08:09 INR 1.2 12/22/18 08:09
[2019-01-06 16:23] VITALS: BP 112/75; PULSE 69; TEMP 98.1; O2SAT 96
--- NOTE | 2019-01-06 17:48 | CP.PCM.PN ---
Subjective - Date & Time of Evaluation Date of Evaluation: 01/06/19 Time of Evaluation: 11:00 - Subjective Subjective: alert, awake, confused, follows commands, NAD. Objective - Vital Signs/Intake and Output Vital Signs (last 24 hours): Temp Pulse Resp BP Pulse Ox 98.1 F 69 20 112/75 96 01/06/19 16:00 01/06/19 16:00 01/06/19 16:00 01/06/19 16:00 01/06/19 16:00 Intake and Output: 01/06/19 01/06/19 06:59 18:59 Intake Total 300 240 Balance 300 240 - Medications Medications: Current Medications Acetaminophen (Tylenol 325mg Tab) 650 mg PO Q6 PRN PRN Reason: Pain, Mild (1-3) Last Admin: 01/05/19 15:08 Dose: 650 mg Al Hydrox/Mg Hydrox/Simethicone (Maalox 30 Ml) 30 ml PO Q8H PRN PRN Reason: Indigestion / Heartburn Last Admin: 01/05/19 10:08 Dose: 30 ml Amlodipine Besylate (Norvasc) 5 mg PO DAILY [facility] Last Admin: 01/06/19 10:22 Dose: 5 mg Apixaban (Eliquis) 5 mg PO BID [facility] Last Admin: 01/06/19 10:22 Dose: 5 mg Docusate Sodium (Colace) 100 mg PO BID [facility] Last Admin: 01/06/19 10:22 Dose: 100 mg Donepezil HCl (Aricept) 5 mg PO DAILY@2100 [facility] Last Admin: 01/05/19 21:00 Dose: 5 mg Haloperidol (Haldol) 5 mg PO DAILY [facility] Last Admin: 01/06/19 10:22 Dose: 5 mg Lisinopril (Zestril) 10 mg PO DAILY [facility] Last Admin: 01/06/19 10:22 Dose: 10 mg Pantoprazole Sodium (Protonix Ec Tab) 40 mg PO ACB [facility] Last Admin: 01/06/19 08:30 Dose: 40 mg Polyethylene Glycol (Miralax) 17 gm PO DAILY [facility] Last Admin: 01/06/19 10:22 Dose: 17 gm Rosuvastatin Calcium (Crestor) 20 mg PO HS [facility] Last Admin: 01/05/19 21:00 Dose: 20 mg - Labs Labs: 12/29/18 06:57 12/29/18 06:57 PT 12.7 SECONDS (9.7-12.2) H 12/22/18 08:09 INR 1.2 12/22/18 08:09 Assessment and Plan - Assessment and Plan (Free Text) Assessment: patient admitted with septicemia, treated, waiting for rehab placement, seen and examined. Alert, awake, confused, follows commands, no acute distress. Discussed with DR Shaw, discharged to [facility] today. Advised to continue with present medications, PT/OT as tolerated.
--- NOTE | 2019-01-09 12:39 | CP.PCM.DIS ---
Provider - Provider Date of Admission: 12/10/18 16:34 Attending physician: Darlyn Shaw MD Consults: 12/09/18 14:33 Infectious Disease Consult Routine Comment: Consulting Provider: Xavier Sharma Consulting Physician: Xavier Sharma Reason for Consult: pos blood culture 12/13/18 09:54 Case Management Referral Routine Comment: Physician Instructions: Reason For Exam: evaluate for rehab Reason for Referral: Discharge Planning 12/30/18 10:58 Physician Consult Routine Comment: Consulting Provider: Bobby Mcarthur Consulting Physician: Bobby Mcarthur Reason for Consult: evaluate for capacity/dementia Time Spent in preparation of Discharge (in minutes): 35 Hospital Course - Lab Results Lab Results: Micro Results 12/09/18 07:50 Blood-Venous Blood Culture - Final NO GROWTH AFTER 5 DAYS 12/09/18 07:50 Blood-Venous Gram Stain - Final TEST NOT PERFORMED 12/09/18 07:50 Blood-Venous Blood Culture - Final NO GROWTH AFTER 5 DAYS 12/09/18 07:50 Blood-Venous Gram Stain - Final TEST NOT PERFORMED 12/08/18 20:08 Blood Blood Culture - Final NO GROWTH AFTER 5 DAYS 12/08/18 20:08 Blood Gram Stain - Final TEST NOT PERFORMED 12/08/18 20:08 Blood Blood Culture - Final NO GROWTH AFTER 5 DAYS 12/08/18 20:08 Blood Gram Stain - Final TEST NOT PERFORMED 12/09/18 07:27 Urine Random Urine Culture - Final No Growth (<1,000 CFU/ML) Most Recent Lab Values WBC 5.2 K/uL (4.8-10.8) 12/29/18 06:57 RBC 4.14 Mil/uL (3.80-5.20) 12/29/18 06:57 Hgb 12.3 g/dL (11.0-16.0) 12/29/18 06:57 Hct 37.0 % (34.0-47.0) 12/29/18 06:57 MCV 89.4 fL (81.0-99.0) 12/29/18 06:57 MCH 29.7 pg (27.0-31.0) 12/29/18 06:57 MCHC 33.2 g/dL (33.0-37.0) 12/29/18 06:57 RDW 14.3 % (11.5-14.5) 12/29/18 06:57 Plt Count 296 K/uL (130-400) 12/29/18 06:57 MPV 9.0 fL (7.2-11.7) 12/29/18 06:57 Neut % (Auto) 62.9 % (50.0-75.0) 12/29/18 06:57 Lymph % (Auto) 27.5 % (20.0-40.0) 12/29/18 06:57 [place] % (Auto) 8.7 % (0.0-10.0) 12/29/18 06:57 Eos % (Auto) 0.3 % (0.0-4.0) 12/29/18 06:57 Baso % (Auto) 0.6 % (0.0-2.0) 12/29/18 06:57 Neut # (Auto) 3.3 K/uL (1.8-7.0) 12/29/18 06:57 Lymph # (Auto) 1.4 K/uL (1.0-4.3) 12/29/18 06:57 [place] # (Auto) 0.5 K/uL (0.0-0.8) 12/29/18 06:57 Eos # (Auto) 0.0 K/uL (0.0-0.7) 12/29/18 06:57 Baso # (Auto) 0.0 K/uL (0.0-0.2) 12/29/18 06:57 ESR 25 mm/hr (0-20) H 12/10/18 07:43 PT 12.7 SECONDS (9.7-12.2) H 12/22/18 08:09 INR 1.2 12/22/18 08:09 Sodium 140 mmol/L (132-148) 12/29/18 06:57 Potassium 4.0 mmol/L (3.6-5.2) 12/29/18 06:57 Chloride 104 mmol/L (98-107) 12/29/18 06:57 Carbon Dioxide 31 mmol/L (22-30) H 12/29/18 06:57 Anion Gap 9 (10-20) L 12/29/18 06:57 BUN 27 mg/dL (7-17) H 12/29/18 06:57 Creatinine 0.9 mg/dL (0.7-1.2) 12/29/18 06:57 Est GFR ( Amer) > 60 12/29/18 06:57 Est GFR (Non-Af Amer) 59 12/29/18 06:57 POC Glucose (mg/dL) 125 mg/dL (65-110) H 12/15/18 16:08 Random Glucose 97 mg/dL (65-105) 12/29/18 06:57 Calcium 10.1 mg/dl (8.6-10.4) 12/29/18 06:57 Total Bilirubin 0.2 mg/dL (0.2-1.3) 12/17/18 07:11 AST 45 U/L (14-36) H D 12/17/18 07:11 ALT 41 U/L (9-52) 12/17/18 07:11 Alkaline Phosphatase 74 U/L (38-126) 12/17/18 07:11 Total Creatine Kinase 172 U/L (30-135) H 12/13/18 08:47 CK-MB (Mass) 1.44 ng/mL (0.0-3.38) 12/13/18 08:47 Troponin I < 0.0120 ng/mL (0.00-0.120) 12/13/18 08:47 C-React Prot High Sens 1.03 mg/L (1.00-3.00) 12/10/18 07:43 Total Protein 6.1 g/dL (6.3-8.3) L 12/17/18 07:11 Albumin 3.5 g/dL (3.5-5.0) 12/17/18 07:11 Globulin 2.6 gm/dL (2.2-3.9) 12/17/18 07:11 Albumin/Globulin Ratio 1.3 (1.0-2.1) 12/17/18 07:11 TSH 3rd Generation 1.57 mIU/L (0.46-4.68) 12/10/18 07:43 Urine Color Yellow (YELLOW) 12/08/18 21:32 Urine Clarity Clear (Clear) 12/08/18 21:32 Urine pH 7.0 (5.0-8.0) 12/08/18 21:32 Ur Specific [place] 1.017 (1.003-1.030) 12/08/18 21:32 Urine Protein Negative mg/dL (NEGATIVE) 12/08/18 21:32 Urine Glucose (UA) Normal mg/dL (Normal) 12/08/18 21:32 Urine Ketones Negative mg/dL (NEGATIVE) 12/08/18 21:32 Urine Blood Negative (NEGATIVE) 12/08/18 21:32 Urine Nitrate Negative (NEGATIVE) 12/08/18 21:32 Urine Bilirubin Negative (NEGATIVE) 12/08/18 21:32 Urine Urobilinogen Normal mg/dL (0.2-1.0) 12/08/18 21:32 Ur Leukocyte Esterase Neg [place]/uL (Negative) 12/08/18 21:32 Urine WBC (Auto) 2 /hpf (0-5) 12/08/18 21:32 Urine RBC (Auto) 3 /hpf (0-3) 12/08/18 21:32 Ur Squamous Epith Cells < 1 /hpf (0-5) 12/08/18 21:32 Vancomycin Trough 14.4 ug/mL (5.0-10.0) H 12/11/18 11:37 Rheumatoid Factor IgG <5 U (<=6) 12/10/18 07:43 Rheumatoid Factor IgA 9 U (<=6) H 12/10/18 07:43 Rheumatoid Factor IgM <5 U (<=6) 12/10/18 07:43 KEN 6 Profile Negative (NEGATIVE) 12/11/18 11:40 KEN Screen Negative (Negative) 12/10/18 07:43 HIV 1&2 Antibody Screen Negative (NEGATIVE) 12/10/18 07:43 - Hospital Course Hospital Course: 2 days prior to admission patient presented to [facility] emergency room complaining of upper respiratory tract infection. The detailed history is not available at this stage but apparently blood cultures were done which was repor jen after 48 hours to be positive for gram-positive cocci patient was called back for readmission currently patient is not complaining of any upper respiratory tract infection and there is no definite history with the patient was given antibiotics Patient has no dysuria no nausea or vomiting fever or chills PT. WAS TREATED WITH IV AB PER ID PT HAD ABD. PAIN AND EGD SHOWED GASTRITIS PT HAD DEMENTIA AND FAMILY AGREED TO PLACE HER IN [place] PT WAS TRANSFERRED TO [facility] IN STABLE CONDITION Discharge Exam - Head Exam Head Exam: ATRAUMATIC, NORMOCEPHALIC Discharge Plan - Follow Up Plan Condition: STABLE Disposition: REHAB FACILITY/REHAB UNIT Instructions: Sepsis, Adult (DC) Additional Instructions: FOLLOW UP WITH DR SHAW IN HIS OFFICE -----CALL FOR APPOINTMENT FOLLOW UP WITH DR SHARMA IN HER OFFICE CONTINUE HOME MEDICATION ACTIVITY TOLERATED CALL DR SHAW OR GO TO THE EMERGENCY ROOM IF SYMPTOM RETURN OR WORSENING Referrals: Xavier Sharma MD [Staff Provider] - Darlyn Shaw MD [Staff Provider] -
== END 2019-01-06 22:46 | DRG 872 ==
LOC: C.ER 18:08 → C.9E 23:10 → C.3T 23:35 → OBSVTOIN 12-10 16:34 → C.3T 12-10 22:22
PROVIDERS: ADMIT Internal Medicine Cardiovascular Disease; ATTEND Internal Medicine Cardiovascular Disease
PROC: 0DB68ZX Excision of Stomach, Via Natural or Artificial Opening Endoscopic, Diagnostic (ICD-10-PCS; principal; 2018-12-23 09:30)
DX: A41.9 Sepsis, unspecified organism (principal); E03.9 Hypothyroidism, unspecified; E78.5 Hyperlipidemia, unspecified; F02.80 Dementia in other diseases classified elsewhere, unspecified severity, without behavioral disturbance, psychotic disturbance, mood disturbance, and anxiety; F41.9 Anxiety disorder, unspecified; G30.9 Alzheimer's disease, unspecified; I10 Essential (primary) hypertension; I48.91 Unspecified atrial fibrillation; K29.70 Gastritis, unspecified, without bleeding; K59.00 Constipation, unspecified; K44.9 Diaphragmatic hernia without obstruction or gangrene; J06.9 Acute upper respiratory infection, unspecified; B96.89 Other specified bacterial agents as the cause of diseases classified elsewhere